=== PATIENT | male | born 1940 | race Caucasian/White ===

== ENCOUNTER 2019-02-18 21:40 | Inpatient (IN) ==
[2019-02-18] MEDS ORDERED: ACETAMINOPHEN 1,000 MG/100 ML VIAL IV STA (22:25)
[2019-02-18 22:58] LABS: Basophils # (auto) 0.04 K/uL (0-0.2); Basophils % (auto) 0.4 %; Eosinophils % (auto) 1.9 %; Hematocrit (blood only) 23.6 % (42-52); Immature Granulocytes # (auto) 0.09 K/uL (0.00-0.02); Immature Granulocytes % (auto) 0.9 %; Lymphocytes # (auto) 0.45 K/uL (1.2-3.4); Lymphocytes % (auto) 4.4 %; Mean Corpuscular Hgb Conc 33.9 g/dL (32-36); Mean Corpuscular Volume 84.6 fL (80-100); Mean Platelet Volume 10.3 fL (7.4-10.4); Monocytes # (auto) 1.68 K/uL (0.11-0.59); Monocytes % (auto) 16.3 %; Neutrophils # (auto) 7.84 K/uL (1.4-6.5); Neutrophils % (auto) 76.1 %; Platelet Count 230 K/uL (130-400); RDW Coefficient of Variation 15.3 % (11.5-14.5); RDW Standard Deviation 46.7 fL (36.4-46.3); Red Blood Count 2.79 M/uL (4.7-6.1)
[2019-02-18 23:08] LABS: INR 1.1 (0.9-1.1); Prothrombin Time 11.2 Seconds (9.0-12.0)
[2019-02-18 23:21] LABS: Albumin Globulin Ratio 0.6 (0.9-2); Albumin Level 2.4 gm/dl (3.4-5.0); BUN Creatinine Ratio 9.5 (10-20); Bilirubin,Total 0.4 mg/dl (0.2-1); Calcium 8.6 mg/dl (8.5-10.1); Creatinine Clr Calc Pharmacy 19.5 ml/min; Est GFR (African American) 25.2; Est GFR (Non-African American) 21.8; Globulin 4.1 gm/dl (2.5-4.0); Magnesium 2.2 mg/dl (1.8-2.4); Phosphorus 2.7 mg/dl (2.5-4.9); Total Protein 6.5 gm/dl (6.4-8.2)
[2019-02-18] MEDS ORDERED: MoRPHine SULFATE 10 MG/ML CARP/VIAL IV STA (23:22)
[2019-02-18 23:28] LABS: Troponin I 0.209 ng/ml (0-0.045)
--- NOTE | 2019-02-18 23:46 | Emergency Department Note ---
Entered by Rae Love acting as a scribe for Ash Borja MD History of Present Illness General Chief complaint: Pain (Generalized) Stated complaint: PAIN Time Seen by Provider: 02/18/19 22:02 Source: patient Limitations: no limitations History of Present Illness Onset (ago): week(s) Location: back (right-sided) Pain Consistency: + other (worsening) Exacerbated By: + movement Associated symptoms: + denies other symptoms (congestion); no cough and no fever/chills The patient is a 78 year old male who presents to the ED complaining of right- sided back pain that began a few weeks ago. He reports that the pain worsened today. The patient denies any current pain. He denies any fevers/chills, cough, and congestions. The patient states that movement worsens his pain. The patient reports that he had dialysis this morning, and he still urinated normally today. He notes that he normally still urinates daily. The patient reports a history of CHF and left knee surgery. Home Medications Home Medications Medication Instructions Recorded Confirmed Type amlodipine [Norvasc] 10 mg PO DAILY 02/18/19 02/18/19 History aspirin 81 mg PO DAILY 02/18/19 02/18/19 History carvedilol 25 mg PO BID 02/18/19 02/18/19 History docusate sodium [Colace] 100 mg PO BID 02/18/19 02/18/19 History hydralazine 100 mg PO TID 02/18/19 02/18/19 History isosorbide mononitrate 60 mg PO DAILY 02/18/19 02/19/19 History lidocaine [Lidocaine Pain Relief] 4 % TOPICAL DAILY 02/18/19 02/19/19 History magnesium 400 mg PO DAILY 02/18/19 02/19/19 History morphine 10 mg PO Q4 PRN 02/18/19 02/19/19 History acetaminophen 650 mg PO Q6H PRN 02/19/19 02/19/19 History atorvastatin [Lipitor] 40 mg PO HS 02/19/19 02/19/19 History hydrocodone-acetaminophen 1 tab PO Q4 PRN 02/19/19 02/19/19 History hydrocodone-acetaminophen 2 tab PO Q4 PRN 02/19/19 02/19/19 History hydrocodone-acetaminophen 2 tab PO Q4 PRN 02/19/19 02/19/19 History metolazone 5 mg PO DAILY 02/19/19 02/19/19 History omeprazole 20 mg PO DAILY 02/19/19 02/19/19 History ondansetron HCl 4 mg PO Q6 PRN 02/19/19 02/19/19 History polyethylene glycol 3350 [Miralax] 17 g PO DAILY 02/19/19 02/19/19 History prazosin 4 mg PO HS 02/19/19 02/19/19 History prednisone 10 mg PO UD 02/19/19 02/19/19 History temazepam 7.5 mg PO HS PRN 02/19/19 02/19/19 History terazosin 4 mg PO HS 02/19/19 02/19/19 History torsemide 100 mg PO BID 02/19/19 02/19/19 History tramadol 25 mg PO Q8 PRN 02/19/19 02/19/19 History Allergies Allergy/AdvReac Type Severity Reaction Status Date / Time No Known Allergies Allergy Unverified 02/19/19 00:57 Past Med/Surg History Medical History CHF (congestive heart failure) Surgical History H/O left knee surgery Family History Other Family history non-contributory Social History Preferred Language: Urdu Communication Ability: Effective Nanny/Household Manager Required: No Beliefs That Will Affect Care: None Current Living Situation: Spouse Other Information That Helps Us Care for You: No Feels Safe at Home: Yes Safety Concerns: Feels Safe At This Time Smoking Status: Never smoker Hx Alcohol Use: Yes Alcohol type: beer Hx Substance Use: No Review of Systems See HPI for pertinent positives & negatives. and A total of 10 systems reviewed and were otherwise negative Physical Exam Vital Signs Vital Signs - 24 hr 02/18/19 21:57 02/18/19 23:30 02/19/19 01:50 Temperature 37.0 C Temperature Source Oral Sepsis Recent Fever Within 48 Hours No Sepsis Action Taken by Nursing No Action Required Pulse Rate 60 Pulse Rate [Apical] 61 59 L Respiratory Rate 19 16 16 Respiratory Effort / Characteristics Non-Labored Non-Labored Spontaneous Non-Labored Spontaneous Respiratory Depth Normal Normal Normal Blood Pressure 141/68 H Blood Pressure [Right Arm] 131/83 144/66 H Blood Pressure Mean 92 Blood Pressure Mean [Right Arm] 99 92 Pulse Oximetry 92 92 93 Oxygen Delivery Method Room Air Nasal Cannula Nasal Cannula Oxygen Flow Rate 2 4 GENERAL: Awake, alert, cachectic-appearing, in no distress. Chronically ill- appearing. HENT: Normocephalic, atraumatic. Oropharynx with dry mucous membranes and otherwise unremarkable. EYES: Normal conjunctiva. Sclera non-icteric. NECK: Supple. No nuchal rigidity. FROM. No JVD. RESPIRATORY: CTAB CARDIAC: Regular rate, normal rhythm. Extremities warm and well perfused. Pulses equal. ABDOMEN: Soft, non-distended. No tenderness to palpation. No rebound or guarding. No masses. RECTAL: Deferred. MUSCULOSKELETAL: Chest examination reveals no tenderness. The back is symmetrical on inspection without obvious abnormality. There is no CVA tenderness to palpation. No joint edema. LOWER EXTREMITIES: Calves are equal size bilaterally and non-tender. No edema. No discoloration. NEURO: Normal sensorium. No sensory or motor deficits noted. Generalized weakness with strength 4/5 and SILT x 4 extremities. DTRs wnl. No clonus. SKIN: No rash or jaundice noted. Course 2221: The patient was evaluated in room A02. A complete history and physical exam was performed. 2319: The patient complained of excruciating pain. 2338: I updated the family on the results. 0013: I spoke with Dr. Martinez, [facility] hospitalist, about the patients case. He will further evaluate the patient. Consultations Consultation #1: I spoke with Dr. Martinez, [facility] hospitalist, about the patients case. He will further evaluate the patient. Time: 00:13 Administered Medications Hydrocodone Bitart/Acetaminophen (Owen 10/325) 1 tab PO Q4 KIM Stop: 03/05/19 04:12 Last Admin: 02/19/19 04:56 Dose: 1 tab Documented by: [id number] Discontinued Medications Acetaminophen (Ofirmev) 1,000 mg in 100 mls @ 400 mls/hr IV NOW STA Stop: 02/18/19 22:39 Last Infusion: 02/18/19 23:32 Dose: 0 mls/hr Documented by: [id number] Admin: 02/18/19 23:06 Dose: 400 mls/hr Documented by: [id number] Morphine Sulfate (Morphine Sulfate) 6 mg IV NOW STA Stop: 02/18/19 23:23 Last Admin: 02/18/19 23:30 Dose: 6 mg Documented by: [id number] Medical Decision Making Differential Diagnosis Differential includes acute coronary syndrome, myocardial infarction, CVA, TIA, anemia, infection, pneumonia, UTI, pyelonephritis, poor nutrition, dehydration, electrolyte disturbance,hypoglycemia. Medical Records Attestation: I reviewed the patient's medical records. Home Medications Current Medication List: was personally reviewed by me Laboratory Data Attestation: I reviewed the patient's lab results. Result diagrams: 02/18/19 22:49 02/18/19 22:49 Lab Results 02/18/19 02/18/19 02/18/19 Range/Units 22:49 22:49 22:49 WBC 10.30 (4.8-10.8) K/uL RBC 2.79 L (4.7-6.1) M/uL Hgb 8.0 L (14.0-18.0) g/dL Hct 23.6 L (42-52) % MCV 84.6 (80-100) fL MCH 28.7 (25-34) pg MCHC 33.9 (32-36) g/dL RDW Std Deviation 46.7 H (36.4-46.3) fL RDW Coeff of Fredis 15.3 H (11.5-14.5) % Plt Count 230 (130-400) K/uL MPV 10.3 (7.4-10.4) fL Immature Gran % (Auto) 0.9 % Neut % (Auto) 76.1 % Lymph % (Auto) 4.4 % [place] % (Auto) 16.3 % Eos % (Auto) 1.9 % Baso % (Auto) 0.4 % Immature Gran # (Auto) 0.09 H (0.00-0.02) K/uL Neut # (Auto) 7.84 H (1.4-6.5) K/uL Lymph # (Auto) 0.45 L (1.2-3.4) K/uL [place]lands # (Auto) 1.68 H (0.11-0.59) K/uL Eos # (Auto) 0.20 (0-0.5) K/uL Baso # (Auto) 0.04 (0-0.2) K/uL PT 11.2 (9.0-12.0) Seconds INR 1.1 (0.9-1.1) Sodium 128 L (136-145) mmol/L Potassium 4.0 (3.5-5.1) mmol/L Chloride 92 L (98-107) mmol/L Carbon Dioxide 27 (21-32) mmol/L Anion Gap 9.0 (3-11) BUN 26 H (7-18) mg/dl Creatinine 2.70 H (0.6-1.4) mg/dl Est Cr Clr Drug Dosing 19.5 ml/min Est GFR ( Amer) 25.2 Est GFR (Non-Af Amer) 21.8 BUN/Creatinine Ratio 9.5 L (10-20) Glucose 142 H (70-99) mg/dl Calcium 8.6 (8.5-10.1) mg/dl Phosphorus 2.7 (2.5-4.9) mg/dl Magnesium 2.2 (1.8-2.4) mg/dl Total Bilirubin 0.4 (0.2-1) mg/dl AST 83 H (15-37) U/L ALT 28 (12-78) U/L Alkaline Phosphatase 70 (45-117) U/L Troponin I 0.209 H* (0-0.045) ng/ml Total Protein 6.5 (6.4-8.2) gm/dl Albumin 2.4 L (3.4-5.0) gm/dl Globulin 4.1 H (2.5-4.0) gm/dl Albumin/Globulin Ratio 0.6 L (0.9-2) Lipase 288 (73-393) U/L Imaging Data Radiologist's Impression: Radiology results as stated below per my review and the radiologist's interpretation: STATRAD: Preliminary Findings Only See Final Report For Complete Findings CT ABDOMEN & PELVIS Without Contrast: Bilateral left greater than right pleural effusions. Adjacent atelectasis. Consolidation in the right lower lobe. Prior cholecystectomy. Small hiatal hernia. 4.7 cm left renal cyst. Bilateral renal atrophy. Nonspecific subcentimeter hyperdensity in the right kidney No evidence of appendicitis. Mildly enlarged prostate gland with coarse calcification. No evidence of bowel obstruction. Moderate amount of gas throughout the colon. Multilevel lumbar spondylosis. Small ventral abdominal wall hernia containing a portion of colon. No evidence of wall thickening or obstruction. Radiologist: Jasper Beasley DO Study ready at 23:23 and initial results transmitted at 23:32 ---- STATRAD Preliminary Findings Only See Final Report For Complete Findings CT CHEST Without Contrast: Mediastinal and hilar adenopathy. Mild cardiomegaly. Aortic valve replacement and moderate coronary artery calcifications. Partially imaged cardiac pacer leads. Bilateral left greater than right pleural effusions. Multifocal consolidations in the right lung with nodular pleural thickening along the right lateral fissure and right major fissure. Malignancy not exclude d. Follow-up PET/CT may be helpful if clinically warranted. Fluid in the distal esophagus could be related to reflux. Osteolytic lesion in the T11 vertebral body, and potentially the T7 vertebral paul dy. Concerning for metastatic disease. Radiologist: Jasper Beasley DO Study ready at 23:26 and initial results transmitted at 23:40 ECG Data Attestation: I personally reviewed and interpreted this ECG as follows: Indication: back/shoulder pain Rate (beats per minute): 60 Rhythm: other (paced rhythm) Findings: no acute ischemic change and no ectopy Blood Pressure Blood Pressure Findings: Elevated blood pressure Blood Pressure Disposition: further management by hospitalist MARTHA Tarango The patient is a pleasant 78 y/o gentleman with a pmhx of CKD with recent ESRD on HD for past month, HTN, HLD, CHF/CAD s/p AICD , recent prolonged admission at [facility] found to have lytic osseous lesions suspicious for malignancy but with inconclusive biopsies who presents to the emergency department from [facility] with persistence of chronic pain and weakness per HPI. Per report patient has outpatient appointment with oncology this week. I received call from Dr. Chavez at [facility] in [place] who gave report on the patient's transfer to [facility] and that the patient's family requested that he not go to [facility] as they were not happy with the patient's management there. On arrival the patient is chronically ill appearing but in NAD, AFVSS. P atient initially denied any pain. EKG demonstrates paced rhythm. WBC wnl. H/H 8.0/23.6 without prior values for comparison. Sodium 128. Cr 2.7 in the setting of patient's ESRD, having had HD today. Troponin 0.209 without prior values for comparison and in the setting of patient's ESRD. CT chest and abdomen/pelvis negative for acute findings and otherwise demonstrates previously identified lytic lesions of T11 and T7 and chronic bilateral pleural effusions. Family eventually arrived at the bedside and explained their concern that the patient's pain and weakness have not been treated/managed well for past month and while they report that today was the best day he has had in weeks after he was given additional narcotics at his SNF, however they still insist that he his not being managed well at his current SNF and wanted him brought to [facility] to be "stabilized" and figure out what is causing his pain and get it under control, improve his appetite and initiate a treatment plan for his suspected metastatic disease. Case d/w [place]. Martinez, [facility] [place], who will evaluate the patient for admission. Impression & Plan Metastatic disease Discharge Plan Visit Data *Final* Discharge Date/Time: 02/19/19 03:47 Chief Complaint: Pain (Generalized) Stated Complaint: PAIN ED Provider: Ash Borja Discharge Problem: Metastatic disease Patient Disposition: Admitted As Inpatient Discharge Instructions Interventions: ED Discharge Assessment Last Done: 02/19/19 03:47 The scribe's documentation has been prepared under my direction and personally reviewed by me in its entirety. I confirm that the note above accurately reflects all work, treatment, procedures, and medical decision making performed by me.
[2019-02-19] MEDS ORDERED: HYDROCODONE/ACETAMOPHEN 5/325MG TAB PO PRN (04:13)
[2019-02-19] MEDS ORDERED: POLYETHYLENE (MIRALAX) 17 GM PACK PO PRN (04:13)
[2019-02-19] MEDS ORDERED: MoRPHine SULFATE 10 MG/0.5 ML UDP PO PRN (04:13)
[2019-02-19] MEDS ORDERED: ACETAMINOPHEN 325 MG TAB PO PRN (04:13)
[2019-02-19] MEDS ORDERED: TEMAZEPAM 7.5 MG CAPSULE PO PRN (04:13)
[2019-02-19] MEDS: HYDROCODONE/ACETAMINOPHEN 10/325 TAB PO SCH ×3 (04:56→12:44)
--- NOTE | 2019-02-19 06:03 | History & Physical Report ---
Date of Service February 19, 2019 Assessment & Plan (1) Metastatic disease: Metastatic disease/osteolytic lesions due to metastasis of unknown primary site- Patient and family here for second opinion regarding determination of source of metastatic disease. They have been told he has bone cancer, but studies performed at [facility] had been inconclusive. Consult hematology oncology for their opinion. 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 Duo nebs every 2 hours as needed Present on Admission?: Yes (4) Elevated troponin I level: Elevated troponin/CAD/hypertension/history AVR- Troponin is mildly elevated, likely secondary to supply demand mismatch. Follow serial troponins. Change amlodipine from 10 mg p.o. daily to 5 mg p.o. twice daily. Decrease carvedilol from 25 mg p.o. twice daily to 12.5 mg p.o. twice daily. Continue isosorbide mononitrate 60 mg p.o. daily. Decrease hydralazine 400 mg p.o. 3 times daily to 50 mg p.o. 3 times daily Hold metolazone. Present on Admission?: Yes (5) CAD (coronary artery disease): See above Present on Admission?: Yes (6) Hypertension: See above Present on Admission?: Yes (7) Hyperlipidemia: Atorvastatin 40 mg p.o. bedtime Present on Admission?: Yes (8) Pain of metastatic malignancy: Adjust pain medications: Change hydrocodone from PRN to 10/325 1 p.o. every 4 hours standing order. Morphine sulfate available IV as needed breakthrough Present on Admission?: Yes (9) Anemia in chronic kidney disease, on chronic dialysis: No baseline for comparison. Repeat laboratories in a.m. Present on Admission?: Yes (10) ESRD on hemodialysis: Undergo dialysis on Wednesday, and Wednesday. Consult his higher level teaching assistant Dr. Hawkins Present on Admission?: Yes (11) GERD (gastroesophageal reflux disease): Omeprazole 20 mg p.o. daily Present on Admission?: Yes (12) Bilateral pleural effusion: Question association with infection plus minus association with hypoalbuminemia. We will consult pulmonology/thoracic surgery. Present on Admission?: Yes (13) Hyponatremia: Follow with dialysis. Present on Admission?: Yes (14) S/P AVR (aortic valve replacement): Monitor for possible endocarditis Present on Admission?: Yes History of Present Illness Chief Complaint: The patient is brought to the emergency department by family due to concerns regarding progressive cancer pain, and their inability to get a principal diagnosis, and they are interested in getting a second opinion Primary Care Provider: NO PCP The patient is a 78-year-old male who family reports he has spent most of the past month at [facility] due to issues related to with your told his bone cancer, but appears to not have been able to determine a primary. He is brought into the emergency department on Wednesday evening, as his pain is worsening considerably. He has recently been gone undergoing dialysis, follows with Dr. Hawkins at [facility] on Wednesday, and Wednesday, and reported just had dialysis earlier in the day today. The patient reports that as long as he stays still he does not have pain, but any movement causes significant worsening of pain throughout his body. Allergies Allergy/AdvReac Type Severity Reaction Status Date / Time No Known Allergies Allergy Unverified 02/19/19 00:57 Home Medications Home Medications Medication Instructions Recorded Confirmed Type amlodipine [Norvasc] 10 mg PO DAILY 02/18/19 02/18/19 History aspirin 81 mg PO DAILY 02/18/19 02/18/19 History carvedilol 25 mg PO BID 02/18/19 02/18/19 History docusate sodium [Colace] 100 mg PO BID 02/18/19 02/18/19 History hydralazine 100 mg PO TID 02/18/19 02/18/19 History isosorbide mononitrate 60 mg PO DAILY 02/18/19 02/19/19 History lidocaine [Lidocaine Pain Relief] 4 % TOPICAL DAILY 02/18/19 02/19/19 History magnesium 400 mg PO DAILY 02/18/19 02/19/19 History morphine 10 mg PO Q4 PRN 02/18/19 02/19/19 History acetaminophen 650 mg PO Q6H PRN 02/19/19 02/19/19 History atorvastatin [Lipitor] 40 mg PO HS 02/19/19 02/19/19 History hydrocodone-acetaminophen 1 tab PO Q4 PRN 02/19/19 02/19/19 History hydrocodone-acetaminophen 2 tab PO Q4 PRN 02/19/19 02/19/19 History hydrocodone-acetaminophen 2 tab PO Q4 PRN 02/19/19 02/19/19 History metolazone 5 mg PO DAILY 02/19/19 02/19/19 History omeprazole 20 mg PO DAILY 02/19/19 02/19/19 History ondansetron HCl 4 mg PO Q6 PRN 02/19/19 02/19/19 History polyethylene glycol 3350 [Miralax] 17 g PO DAILY 02/19/19 02/19/19 History prazosin 4 mg PO HS 02/19/19 02/19/19 History prednisone 10 mg PO UD 02/19/19 02/19/19 History temazepam 7.5 mg PO HS PRN 02/19/19 02/19/19 History terazosin 4 mg PO HS 02/19/19 02/19/19 History torsemide 100 mg PO BID 02/19/19 02/19/19 History tramadol 25 mg PO Q8 PRN 02/19/19 02/19/19 History Past Med/Surg History Medical History CHF (congestive heart failure) Surgical History H/O left knee surgery Family History Other Family history non-contributory Social History Preferred Language: Frisian Communication Ability: Effective Data Solutions Architect Required: No Beliefs That Will Affect Care: None Current Living Situation: Spouse Other Information That Helps Us Care for You: No Feels Safe at Home: Yes Safety Concerns: Feels Safe At This Time Smoking Status: Never smoker Hx Alcohol Use: Yes Alcohol type: beer Hx Substance Use: No Review of Systems Review of Systems: The patient denies chest pain, palpitations, cough, lower extremity swelling, sore throat, fevers, chills, sweats, weight change, fatigue, nausea, vomiting, diarrhea , constipation, blood in urine or stool, dysuria, urinary frequency or urgency, lightheadedness, dizziness, headache, memory loss, loss of consciousness, rash, abnormal bruising or bleeding, focal weakness, or night sweats. The review of systems is otherwise negative other than for that already noted above, and at least 10 systems have been reviewed. Physical Exam Physical Exam: The patient is awake, appears very fatigued, periodically staring off into space, normocephalic and atraumatic, lying in bed and in no acute distress. HEENT--PERRL, EOMI, mucous membranes and oropharynx dry. Neck--supple. No JVD. No bruits. Thyroid normal, trachea midline, no adenopathy. Heart--normal S1 and S2. No murmurs, rubs or gallops. Lungs--coarse breath sounds right base. No respiratory distress, no accessory muscle use. Abdomen--normal bowel sounds and soft. Nontender. Nondistended. Extremities--no cyanosis or clubbing. No edema. There are good distal pulses b/l. Dermatologic--normal skin turgor, normal color, no abnormal lymph nodes, no rash. Neurologic--cranial nerves II through XII grossly intact. Rheumatologic--limited due to pain Psychiatric--lethargic Results & Data Vital Signs (Past 12 Hours) Vital Signs Temp Pulse Pulse Pulse Resp BP BP 02/19/19 04:16 98.4 F 60 18 153/71 H 02/19/19 03:47 60 16 146/71 H 02/19/19 01:50 59 L 16 02/18/19 23:30 61 16 02/18/19 21:57 98.6 F 60 19 141/68 H BP Pulse Ox 02/19/19 04:16 91 02/19/19 03:47 95 02/19/19 01:50 144/66 H 93 02/18/19 23:30 131/83 92 02/18/19 21:57 92 Laboratory Results Laboratory Results WBC 10.30 K/uL (4.8-10.8) 02/18/19 22:49 RBC 2.79 M/uL (4.7-6.1) L 02/18/19 22:49 Hgb 8.0 g/dL (14.0-18.0) L 02/18/19 22:49 Hct 23.6 % (42-52) L 02/18/19 22:49 MCV 84.6 fL (80-100) 02/18/19 22:49 MCH 28.7 pg (25-34) 02/18/19 22:49 MCHC 33.9 g/dL (32-36) 02/18/19 22:49 RDW Std Deviation 46.7 fL (36.4-46.3) H 02/18/19 22:49 RDW Coeff of Fredis 15.3 % (11.5-14.5) H 02/18/19 22:49 Plt Count 230 K/uL (130-400) 02/18/19 22:49 MPV 10.3 fL (7.4-10.4) 02/18/19 22:49 Immature Gran % (Auto) 0.9 % 02/18/19 22:49 Neut % (Auto) 76.1 % 02/18/19 22:49 Lymph % (Auto) 4.4 % 02/18/19 22:49 [place] % (Auto) 16.3 % 02/18/19 22:49 Eos % (Auto) 1.9 % 02/18/19 22:49 Baso % (Auto) 0.4 % 02/18/19 22:49 Immature Gran # (Auto) 0.09 K/uL (0.00-0.02) H 02/18/19 22:49 Neut # (Auto) 7.84 K/uL (1.4-6.5) H 02/18/19 22:49 Lymph # (Auto) 0.45 K/uL (1.2-3.4) L 02/18/19 22:49 [place] # (Auto) 1.68 K/uL (0.11-0.59) H 02/18/19 22:49 Eos # (Auto) 0.20 K/uL (0-0.5) 02/18/19 22:49 Baso # (Auto) 0.04 K/uL (0-0.2) 02/18/19 22:49 PT 11.2 Seconds (9.0-12.0) 02/18/19 22:49 INR 1.1 (0.9-1.1) 02/18/19 22:49 Sodium 128 mmol/L (136-145) L 02/18/19 22:49 Potassium 4.0 mmol/L (3.5-5.1) 02/18/19 22:49 Chloride 92 mmol/L (98-107) L 02/18/19 22:49 Carbon Dioxide 27 mmol/L (21-32) 02/18/19 22:49 9.0 (3-11) 02/18/19 22:49 BUN 26 mg/dl (7-18) H 02/18/19 22:49 2.70 mg/dl (0.6-1.4) H 02/18/19 22:49 Est Cr Clr Drug Dosing 19.5 ml/min 02/18/19 22:49 Est GFR ( Amer) 25.2 02/18/19 22:49 Est GFR (Non-Af Amer) 21.8 02/18/19 22:49 9.5 (10-20) L 02/18/19 22:49 Glucose 142 mg/dl (70-99) H 02/18/19 22:49 Calcium 8.6 mg/dl (8.5-10.1) 02/18/19 22:49 Phosphorus 2.7 mg/dl (2.5-4.9) 02/18/19 22:49 Magnesium 2.2 mg/dl (1.8-2.4) 02/18/19 22:49 0.4 mg/dl (0.2-1) 02/18/19 22:49 AST 83 U/L (15-37) H 02/18/19 22:49 ALT 28 U/L (12-78) 02/18/19 22:49 70 U/L (45-117) 02/18/19 22:49 0.189 ng/ml (0-0.045) H* 02/19/19 03:50 6.5 gm/dl (6.4-8.2) 02/18/19 22:49 2.4 gm/dl (3.4-5.0) L 02/18/19 22:49 4.1 gm/dl (2.5-4.0) H 02/18/19 22:49 0.6 (0.9-2) L 02/18/19 22:49 288 U/L (73-393) 02/18/19 22:49 Diagnostic Findings [facility] Patient: CONRADO RUDD (Male) Age: 78 MR #: [id number] Status: ER Date: 02/18/19 23:21 Slices: [phone] History: questionable mets generalized pain, appendix present Priors: Tech: Alisa Stauffer @ [phone] Exams: CT ABDOMEN & PELVIS Without Contrast Accession Numbers: [id number] Preliminary Findings Only See Final Report For Complete Findings CT ABDOMEN & PELVIS Without Contrast: Bilateral left greater than right pleural effusions. Adjacent atelectasis. Consolidation in the right lower lobe. Prior cholecystectomy. Small hiatal hernia. 4.7 cm left renal cyst. Bilateral renal atrophy. Nonspecific subcentimeter hyperdensity in the right kidney No evidence of appendicitis. Mildly enlarged prostate gland with coarse calcification. No evidence of bowel obstruction. Moderate amount of gas throughout the colon. Multilevel lumbar spondylosis. Small ventral abdominal wall hernia containing a portion of colon. No evidence of wall thickening or obstruction. Radiologist: Jasper Beasley DO Study ready at 23:23 and initial results transmitted at 23:32 *This report constitutes a preliminary interpretation only. Non-acute findings felt to be unrelated to the clinical presentation may not be discussed in this report. The study will be interpreted and a final report will be generated by the local Radiologist the following shift. To reach the hospital radiology department call [phone]. If a discrepancy is found between the preliminary and final interpretations of this study, please notify us via our Client Portal at [email or web address], under [email or web address] Exams. You can also fax this report with a description of the discrepancy, or include the final report, to our daytime fax number [phone]. If faxing, please indicate the severity of discrepancy using one of the following categories: [ ] 1 - Agree/Informational [ ] 2 - Unlikely to Affect Management [ ] 3 - Possible Eventual Change of Management [ ] 4 - Probable Immediate Change of Management For all other patient related information, please fax us at [phone]. [facility] Patient: CONRADO RUDD (Male) Age: 78 MR #: [id number] Status: ER Date: 02/18/19 23:22 Slices: [phone] History: questionable mets generalized pain Priors: Tech: Alisa Stauffer @ [phone] Exams: CT CHEST Without Contrast Accession Numbers: [id number] Preliminary Findings Only See Final Report For Complete Findings CT CHEST Without Contrast: Mediastinal and hilar adenopathy. Mild cardiomegaly. Aortic valve replacement and moderate coronary artery calcifications. Partially imaged cardiac pacer leads. Bilateral left greater than right pleural effusions. Multifocal consolidations in the right lung with nodular pleural thickening along the right lateral fissure and right major fissure. Malignancy not excluded. Follow-up PET/CT may be helpful if clinically warranted. Fluid in the distal esophagus could be related to reflux. Osteolytic lesion in the T11 vertebral body, and potentially the T7 vertebral body. Concerning for metastatic disease. Radiologist: Jasper Beasley DO Study ready at 23:26 and initial results transmitted at 23:40 *This report constitutes a preliminary interpretation only. Non-acute findings felt to be unrelated to the clinical presentation may not be discussed in this report. The study will be interpreted and a final report will be generated by the local Radiologist the following shift. To reach the hospital radiology department call [phone]. If a discrepancy is found between the preliminary and final interpretations of this study, please notify us via our Client Portal at [email or web address], under QA Exams. You can also fax this report with a description of the discrepancy, or include the final report, to our daytime fax number [phone]. If faxing, please indicate the severity of discrepancy using one of the following categories: [ ] 1 - Agree/Informational [ ] 2 - Unlikely to Affect Management [ ] 3 - Possible Eventual Change of Management [ ] 4 - Probable Immediate Change of Management For all other patient related information, please fax us at [phone]. Code Status & VTE Plan Code Status Full code VTE Prophylaxis Plan VTE Prophylaxis will be ordered: Yes
[2019-02-19] MEDS ORDERED: PIPERACILL/TAZOBAC CONSULT ACTIVE PRN (06:19)
[2019-02-19] MEDS ORDERED: VANCOMYCIN CONSULT ACTIVE PRN (06:19)
[2019-02-19] MEDS ORDERED: ALBUT/IPRATROP 3MG/0.5MG NEB 3 ML VIAL NEB PRN (06:24)
[2019-02-19] MEDS ORDERED: PIPERACILLIN/TAZOBACTAM 3.375 GM in DEXTROSE 5% 100 ML IV ONE (06:30)
[2019-02-19] MEDS ORDERED: VANCOMYCIN HCL 1,250 MG in SODIUM CHLORIDE 0.9% 250 ML IV SCH (06:30)
[2019-02-19] MEDS: LIDOCAINE 5% 1 PATCH TD SCH (07:29)
[2019-02-19] MEDS: PANTOprazole 40 MG TAB PO SCH (07:34)
[2019-02-19] MEDS: HydrALAZINE TAB 50 MG TAB PO SCH ×3 (07:34→21:47)
[2019-02-19] MEDS: DOCUSATE SODIUM 100 MG CAP PO SCH ×2 (07:34→21:47)
[2019-02-19] MEDS: TORSEMIDE 100 MG TAB PO SCH ×2 (07:34→17:41)
[2019-02-19] MEDS: CARVEDILOL 12.5 MG TAB PO SCH ×2 (07:34→21:48)
[2019-02-19] MEDS: ISOSORBIDE MONO EXTENDED REL 60 MG TABCR PO SCH (07:34)
[2019-02-19] MEDS: ASPIRIN 81 MG CHEW PO SCH (07:34)
[2019-02-19] MEDS: AMLODIPINE BESYLATE 5 MG TAB PO SCH ×2 (07:35→21:49)
[2019-02-19] MEDS: MAGNESIUM OXIDE 400 MG TAB PO SCH (07:35)
--- NOTE | 2019-02-19 07:37 | CT Scan Report ---
CT SCAN OF THE CHEST, ABDOMEN, AND PELVIS WITHOUT IV CONTRAST CLINICAL HISTORY: Atypical chest pain. Generalized abdominal pain. Back pain. Lower extremity weaknes s. Clinical concern for metastatic disease. COMPARISON STUDY: Chest x-ray dated 02/18/2019. TECHNIQUE: Unenhanced CT scan of the chest, abdomen, and pelvis was performed from the thoracic inlet to the proximal femora. Images are reviewed in the axial, sagittal, and coronal planes. IV contrast was not administered as per the referring clinician. Note that the examination was performed in signi ficantly suboptimal fashion without IV contrast. A dose lowering technique was utilized adhering to the principles of ALARA. CT DOSE: 636.57 mGy.cm FINDINGS: CHEST: Thyroid: Imaged portions of the thyroid gland are normal in size and attenuation. Thoracic aorta: There is mild atherosclerotic calcification of the thoracic aorta, which is normal in caliber and demonstrates standard 3-vessel arch anatomy. Heart: A right internal jugular central venous catheter is in place. A 2-lead cardiac pacemaker is pr esent in the left chest wall. The heart is enlarged and without pericardial effusion. There is eviden ce of previous aortic valve surgery. The coronary arteries are calcified. Lungs and pleural spaces: The trachea and central airways are clear. There are small to moderate pleu ral effusions, left larger than right. Loculated fluid is seen along the right major fissure. Atelect asis is noted at the left lung base. There is multifocal patchy airspace consolidation identified in the right upper, right middle, and right lower lobes. Intralobular septal thickening and nodularity i s seen throughout the right lower lobe. Mediastinum: There are numerous mildly enlarged mediastinal lymph nodes. Prevascular nodes measure up to 10 mm short axis. Precarinal nodes measure up to 16 mm in short axis, and peritracheal nodes yoana ure up to 11 mm in short axis. Erin: Not well assessed without IV contrast. Axillae: There is no axillary lymphadenopathy. Bony thorax: The skeletal structures are osteopenic. There is a large permeative lesion involving the body of T11 which extends into the posterior elements. A small osteolytic lesion is seen in the body of T7. No additional destructive lesion is identified in the bony thorax Soft tissues: Gynecomastia is noted. ABDOMEN AND PELVIS: Liver: The unenhanced liver is normal in size, contour, and attenuation. There is no intrahepatic or ductal dilatation. Gallbladder: Surgically absent noting clips in the gallbladder fossa. Spleen: Normal in size and attenuation. Pancreas: The unenhanced pancreas is moderately atrophic and grossly unremarkable. Adrenal glands: There are bilateral adrenal nodules which measure up to 1.9 cm. Kidneys: The unenhanced kidneys are atrophic and without hydronephrosis. No renal calculi are identif ied. A 5.6 cm cyst arises from the upper pole of the left kidney. Additional smaller cysts are sugges roby bilaterally. Subcentimeter hyperdense foci within both cysts likely represent complex/hyperdense cysts. Abdominal vasculature: The abdominal aorta is normal in course and caliber noting moderate to advance d atherosclerotic calcification. Stomach and bowel: There is a small hiatal hernia. The duodenum is normal in configuration. No bowel obstruction is seen. There is mild to moderate colonic diverticulosis without CT evidence of acute di verticulitis. The appendix is well-visualized and normal. Peritoneum: There is no intraperitoneal free air or abdominal ascites. There is a small fat-containin g umbilical hernia which contains a tiny portion of the colon. Lymphadenopathy: None. Pelvic viscera: The prostate gland is mildly enlarged and heterogeneous, measuring 4.8 cm in transver se diameter. There is median lobe hypertrophy. The bladder wall appears circumferentially thickened a nd trabeculated. There are tiny foci of intraluminal gas. Fluid versus an undescended testis is noted along the right inguinal canal. Skeletal structures: The skeletal structures are osteopenic. There is a large permeative lesion ident ified within the left femoral neck. Osteolytic lesion is suggested within the anterior right iliac wi ng on image #[id number]. IMPRESSION: 1. Suboptimal examination without IV contrast. 2. There are small to moderate pleural effusions, left larger than right. Loculated fluid is seen anderson ng the right major fissure. 3. There is multifocal patchy airspace consolidation throughout the right lung, greatest in the right lower lobe with associated intralobular septal thickening and nodularity. The appearance is typical for multifocal pneumonia. Given the additional findings below, superimposed/underlying pulmonary neop lasm would be impossible to exclude. 4. Mediastinal adenopathy. 5. There is evidence of multifocal osseous metastatic disease as above. 6. Large permeative lesions are seen involving the body of T11 and the left femoral neck. Note that b oth lesions place the patient at risk for pathologic fracture. 7. There are pathologically indeterminant bilateral adrenal nodules. 8. Mild to moderate colonic diverticulosis without CT evidence of acute diverticulitis. 9. There are small foci of gas within the bladder lumen which may be related to recent instrumentatio n. Correlate with clinical findings and urinalysis. 10. Cardiomegaly and cardiac pacemaker. 11. Fluid versus an undescended testis is seen in the right inguinal canal. Clinical correlation will be required. 12. Additional findings as above. Electronically signed by: Aaron Caraballo M.D. 02/19/2019 7:34 AM
--- NOTE | 2019-02-19 08:25 | Pharmacy Report ---
Pharmacy Abx Dose Short Note - Date of Service February 19, 2019 - Assessment & Plan Assessment Pharmacy consulted on 02/19/[address] Martinez to dose vancomycin and zosyn for treatment of pneumonia. 78 year old M admitted for pneumonia and worsening cancer pain. * Pt receives HD on Tu[facility] * MRSA nasal swab negative Plan Vancomycin * Loading dose of 1250mg (20 mg/kg) * Goal trough level for pneumonia : 15 to 20 mcg/mL * Random level ordered for: 02/20/19 with am labs Zosyn * 3.375gm x 1 then 3.375gm (extended interval) q12h for Crcl<20 ml/min /HD Pharmacy will continue to follow and will adjust dose/frequency as necessary. Thank you.
[2019-02-19] MEDS ORDERED: LIDOCAINE 4% TOP SCH (09:00)
--- NOTE | 2019-02-19 10:24 | Nephrology Consultation ---
Date of Consultation February 19, 2019 Assessment & Plan (1) ESRD on hemodialysis: Patient with ESRD on dialysis Wednesday. He has a right tunneled IJ catheter. Last dialysis was yesterday which was uneventful. His electrolytes are stable with no signs of volume overload. No indication for dialysis today. Next dialysis will be on Wednesday unless if patient develops urgent indication for dialysis. (2) Metastatic disease: Patient with metastatic bone disease of unknown primary. CT abdomen done yesterday also revealing osteolytic bone lesions. Patient is frustrated with the multiple diagnostic tests without finding the primary. He would like to speak to palliative care/hospice. He is considering hospice care. I have asked him to discuss with the and the children as well to make sure everyone is on board. Palliative care consult has been placed. At this point is not sure if he wants to continue dialysis but will discuss with his . If patient decides to continue dialysis even on a limited time basis, will provide dialysis support. (3) Hypertension: Blood pressure is slightly above target but acceptable. Blood pressure might also be elevated due to back pain. No changes in antihypertensives (4) Anemia in chronic kidney disease, on chronic dialysis: Hemoglobin is 8 today. Unable to give epogen due to active cancer (5) Pneumonia involving right lung: Patient is on Zosyn and vancomycin per primary team. Renally dose medications for GFR less than 25 mL/min. History of Present Illness Reason for Consultation: ESRD on dialysis complicated by back pain Requesting Physician: Gopi Martinez MD Attending Physician: Vidal Cabrera MD History of Present Illness This is a 78-year-old male with history of hypertension, hyperlipidemia, coronary disease and ESRD on dialysis Wednesday who was admitted on 02/18/2019 with severe back pain. He recently started dialysis at [facility]. Dialysis is going well. His last dialysis was on 02/18/2019 which was uneventful. Patient was recently found to have metastatic bone disease with unclear primary. He is following up with the oncologist in [place]. Yesterday patient developed severe back pain and presented here for second opinion regarding cancer primary. This morning he still reporting back pain. He denies shortness of breath or lower extremity swelling. He is also expressing concerns about multiple diagnostic tests without finding the primary source of the suspected cancer. Patient is even considering palliative care/hospice. Allergies Allergy/AdvReac Type Severity Reaction Status Date / Time No Known Allergies Allergy Unverified 02/19/19 00:57 Home Medications Home Medications Medication Instructions Recorded Confirmed Type amlodipine [Norvasc] 10 mg PO DAILY 02/18/19 02/18/19 History aspirin 81 mg PO DAILY 02/18/19 02/18/19 History carvedilol 25 mg PO BID 02/18/19 02/18/19 History docusate sodium [Colace] 100 mg PO BID 02/18/19 02/18/19 History hydralazine 100 mg PO TID 02/18/19 02/18/19 History isosorbide mononitrate 60 mg PO DAILY 02/18/19 02/19/19 History lidocaine [Lidocaine Pain Relief] 4 % TOPICAL DAILY 02/18/19 02/19/19 History magnesium 400 mg PO DAILY 02/18/19 02/19/19 History morphine 10 mg PO Q4 PRN 02/18/19 02/19/19 History acetaminophen 650 mg PO Q6H PRN 02/19/19 02/19/19 History atorvastatin [Lipitor] 40 mg PO HS 02/19/19 02/19/19 History hydrocodone-acetaminophen 1 tab PO Q4 PRN 02/19/19 02/19/19 History hydrocodone-acetaminophen 2 tab PO Q4 PRN 02/19/19 02/19/19 History hydrocodone-acetaminophen 2 tab PO Q4 PRN 02/19/19 02/19/19 History metolazone 5 mg PO DAILY 02/19/19 02/19/19 History omeprazole 20 mg PO DAILY 02/19/19 02/19/19 History ondansetron HCl 4 mg PO Q6 PRN 02/19/19 02/19/19 History polyethylene glycol 3350 [Miralax] 17 g PO DAILY 02/19/19 02/19/19 History prazosin 4 mg PO HS 02/19/19 02/19/19 History prednisone 10 mg PO UD 02/19/19 02/19/19 History temazepam 7.5 mg PO HS PRN 02/19/19 02/19/19 History terazosin 4 mg PO HS 02/19/19 02/19/19 History torsemide 100 mg PO BID 06/02/19 06/02/19 History tramadol 25 mg PO Q8 PRN 02/19/19 02/19/19 History Patient History Medical History CHF (congestive heart failure) Surgical History H/O left knee surgery Family History Other Family history non-contributory Social History Preferred Language: Jamaican Communication Ability: Effective 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 Beliefs That Will Affect Care: None Current Living Situation: Spouse Other Information That Helps Us Care for You: No Feels Safe at Home: Yes Safety Concerns: Feels Safe At This Time Smoking Status: Never smoker Hx Alcohol Use: Yes Alcohol type: beer Hx Substance Use: No Review of Systems Review of Systems: All systems reviewed & are unremarkable except as noted in HPI & below Physical Exam Physical Exam: General exam: Appears comfortable, no acute distress HEENT: Pupils are equal and reactive to light Neck: No JVD, neck is supple trachea is midline Respiratory system: Clear breath sounds bilaterally. Gastrointestinal: Abdomen is soft, non distended, non tender, bowel sounds are present CVS: Regular rate and rhythm. No murmurs, rubs or gallops Musculoskeletal: No joint or muscle tenderness Extremities: Non tender, no edema, peripheral pulses are present Neuro: Oriented, no tremors, no focal neurological deficits Skin: No rashes Access: Right tunneled IJ catheter Results & Data Vital Signs (Past 12 Hours) Vital Signs Temp Pulse Pulse Pulse Resp BP BP 02/19/19 07:33 36.3 C L 58 L 18 150/70 H 02/19/19 04:16 36.9 C 60 18 153/71 H 02/19/19 03:47 60 16 146/71 H 02/19/19 01:50 59 L 16 02/18/19 23:30 61 16 BP Pulse Ox 02/19/19 07:33 97 02/19/19 04:16 91 02/19/19 03:47 95 02/19/19 01:50 144/66 H 93 02/18/19 23:30 131/83 92 Laboratory Results Laboratory Results - last 24 hr 06/10/0802/18/19 02/18/19 22:49 22:49 22:49 WBC 10.30 RBC 2.79 L Hgb 8.0 L Hct 23.6 L MCV 84.6 MCH 28.7 MCHC 33.9 RDW Std Deviation 46.7 H RDW Coeff of Fredis 15.3 H Plt Count 230 MPV 10.3 Immature Gran % (Auto) 0.9 Neut % (Auto) 76.1 Lymph % (Auto) 4.4 [place] % (Auto) 16.3 Eos % (Auto) 1.9 Baso % (Auto) 0.4 Immature Gran # (Auto) 0.09 H Neut # (Auto) 7.84 H Lymph # (Auto) 0.45 L [place] # (Auto) 1.68 H Eos # (Auto) 0.20 Baso # (Auto) 0.04 PT 11.2 INR 1.1 Sodium 128 L Potassium 4.0 Chloride 92 L Carbon Dioxide 27 Anion Gap 9.0 BUN 26 H Creatinine 2.70 H Est Cr Clr Drug Dosing 19.5 Est GFR ( Amer) 25.2 Est GFR (Non-Af Amer) 21.8 BUN/Creatinine Ratio 9.5 L Glucose 142 H Calcium 8.6 Phosphorus 2.7 Magnesium 2.2 Total Bilirubin 0.4 AST 83 H ALT 28 Alkaline Phosphatase 70 Troponin I 0.209 H* Total Protein 6.5 Albumin 2.4 L Globulin 4.1 H Albumin/Globulin Ratio 0.6 L Lipase 288 Nasal Screen MRSA (PCR) 02/19/19 02/19/19 03:50 04:50 WBC RBC Hgb Hct MCV MCH MCHC RDW Std Deviation RDW Coeff of Fredis Plt Count MPV Immature Gran % (Auto) Neut % (Auto) Lymph % (Auto) [place] % (Auto) Eos % (Auto) Baso % (Auto) Immature Gran # (Auto) Neut # (Auto) Lymph # (Auto) [place] # (Auto) Eos # (Auto) Baso # (Auto) PT INR Sodium Potassium Chloride Carbon Dioxide Anion Gap BUN Creatinine Est Cr Clr Drug Dosing Est GFR ( Amer) Est GFR (Non-Af Amer) BUN/Creatinine Ratio Glucose Calcium Phosphorus Magnesium Total Bilirubin AST ALT Alkaline Phosphatase Troponin I 0.189 H* Total Protein Albumin Globulin Albumin/Globulin Ratio Lipase Nasal Screen MRSA (PCR) Negative
--- NOTE | 2019-02-19 10:41 | XRay Report ---
SINGLE VIEW CHEST CLINICAL HISTORY: Atypical chest pain. FINDINGS: 2 AP, portable, upright chest radiographs are obtained. No prior studies are available for comparison at the time of dictation. The examination is degraded by portable technique and patient ro tation. A 2-lead cardiac pacemaker is in place. A right internal jugular central venous catheter is n oted. The heart is enlarged and there is atherosclerotic calcification of the thoracic aorta. The pul monary vasculature is noncongested. There are small pleural effusions. Patchy airspace consolidation is seen in the right mid to lower lung and at the left lung base. No pneumothorax is seen. The skelet al structures are osteopenic. The bony thorax is grossly intact. Degenerative change is noted through out the thoracic spine. Cholecystectomy clips are noted in the right upper quadrant. IMPRESSION: 1. Cardiomegaly and cardiac pacemaker. There is no radiographic evidence of congestive failure. 2. There are layering pleural effusions. 3. There is airspace consolidation throughout the right mid to lower lung as well as at the left lung base. Correlate clinically for evidence of pneumonia. Radiographic follow-up to resolution is recomm ended. Electronically signed by: Aaron Caraballo M.D. 02/19/2019 10:39 AM
--- NOTE | 2019-02-19 13:33 | History & Physical Bridge Note ---
Date of Service February 19, 2019 History & Physical Bridge Note Patient seen and examined today. 78yo M w/ Stage IV cancer of unknown primary site admitted for pain control and second oncology opinion. - Discussed next steps in cancer work up as well as probable prognosis given his advanced cancer - Oncology consult pending - Entered consult for palliative care as patient is not sure what treatments he would want - Seen by nephrology - Will provide HD as the patient wants. Next planned HD is Wednesday. - Entered orthopedic spine consult as patient has a T11 lesion that could cause pathologic fracture - Bedrest until seen by orthopedics. (Discussed over the phone with orthopedics; no need for transfer at this time.)
[2019-02-19] MEDS: PIPERACILLIN/TAZOBACTAM 3.375 GM in DEXTROSE 5% 100 ML IV SCH (15:49)
--- NOTE | 2019-02-19 16:00 | Oncology Consultation ---
Date of Consultation February 19, 2019 Assessment & Plan (1) Osteolytic lesion due to metastasis with unknown primary site: His scans are highly concerning for a metastatic malignancy. Given the changes in his lungs, the adrenal lesions, and the bony disease, my first suspicion would be a lung cancer. His mild hyponatremia raises the possibility of small cell lung cancer with SIADH. His most pressing issue currently is his left femoral neck lesion. He is at high risk of a pathologic fracture, which would be devastating. This lesion needs to be stabilized as soon as possible. Orthopedic surgery will see him tomorrow to evaluate him for a fixation. During that surgery, they should be able to sample the mass and obtain a diagnosis for his cancer. If that is not adequate to obtain a diagnosis, we can refer him for a lung biopsy next. For now, I would manage his pain while we see to his valerie gnostic workup. Present on Admission?: Yes (2) Anemia in chronic kidney disease, on chronic dialysis: He is moderately anemic. I do not have any prior values to assess his baseline. He has ESRD and likely has a component of anemia of CKD. He also likely has a component of anemia of chronic disease related to his malignancy. He does not appear to be bleeding and his relative lack of symptoms argues that this anemia is chronic. I would order an anemia workup, including iron studies, ferritin, TSH, and vitamins, to make sure we aren't missing a reversible component to his anemia. Present on Admission?: Yes History of Present Illness Reason for Consultation: Radiographic evidence of metastatic malignancy Attending Physician: Vidal Cabrera MD History of Present Illness Mr. Dumont is a 78 year old man with a history of CAD s/p CABG, aortic valve repair, HTN, and hyperlipidemia. He also has a history of CKD and was started in the last 3 weeks on hemodialysis. He has been following with an oncologist in [place] due to radiographic evidence of a metastatic malignancy that was recently detected. He was admitted here yesterday due to intractable pain in his left hip. He is also interested in another opinion regarding his possible cancer. His acute symptoms started a few weeks ago. His primary complaint is pain in his left hip that prevents him from walking. He also has less intense pains elsewhere, including his mid-back. He denies any cough, shortness of breath, hemoptysis, headaches, or vision changes. In retrospect, he's been fatigued and losing weight for the better part of 6 months and is down close to 70 lb in that time. When prompted, he reports some constipation with occasional difficultly passing stool. He has never had a colonoscopy. He denies any hematochezia or melena. He is a never smoker. He served in the [employer] and denies any specific toxic exposures. He has numerous cutaneous changes, though none are new or enlarging. Allergies Allergy/AdvReac Type Severity Reaction Status Date / Time No Known Allergies Allergy Unverified 02/19/19 00:57 Home Medications Home Medications Medication Instructions Recorded Confirmed Type amlodipine [Norvasc] 10 mg PO DAILY 02/18/19 02/18/19 History aspirin 81 mg PO DAILY 02/18/19 02/18/19 History carvedilol 25 mg PO BID 02/18/19 02/18/19 History docusate sodium [Colace] 100 mg PO BID 02/18/19 02/18/19 History hydralazine 100 mg PO TID 02/18/19 02/18/19 History isosorbide mononitrate 60 mg PO DAILY 02/18/19 02/19/19 History lidocaine [Lidocaine Pain Relief] 4 % TOPICAL DAILY 02/18/19 02/19/19 History magnesium 400 mg PO DAILY 02/18/19 02/19/19 History morphine 10 mg PO Q4 PRN 02/18/19 02/19/19 History acetaminophen 650 mg PO Q6H PRN 02/19/19 02/19/19 History atorvastatin [Lipitor] 40 mg PO HS 02/19/19 02/19/19 History hydrocodone-acetaminophen 1 tab PO Q4 PRN 02/19/19 02/19/19 History hydrocodone-acetaminophen 2 tab PO Q4 PRN 02/19/19 02/19/19 History hydrocodone-acetaminophen 2 tab PO Q4 PRN 02/19/19 02/19/19 History metolazone 5 mg PO DAILY 02/19/19 02/19/19 History omeprazole 20 mg PO DAILY 02/19/19 02/19/19 History ondansetron HCl 4 mg PO Q6 PRN 02/19/19 02/19/19 History polyethylene glycol 3350 [Miralax] 17 g PO DAILY 02/19/19 02/19/19 History prazosin 4 mg PO HS 02/19/19 02/19/19 History prednisone 10 mg PO UD 02/19/19 02/19/19 History temazepam 7.5 mg PO HS PRN 02/19/19 02/19/19 History terazosin 4 mg PO HS 02/19/19 02/19/19 History torsemide 100 mg PO BID 02/19/19 02/19/19 History tramadol 25 mg PO Q8 PRN 02/19/19 02/19/19 History Patient History Medical History CHF (congestive heart failure) Surgical History H/O left knee surgery Family History Other Family history non-contributory Social History Preferred Language: Gibraltarian Communication Ability: Effective 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 Beliefs That Will Affect Care: None Current Living Situation: Spouse Other Information That Helps Us Care for You: No Feels Safe at Home: Yes Safety Concerns: Feels Safe At This Time Smoking Status: Never smoker Hx Alcohol Use: Yes Alcohol type: beer Hx Substance Use: No Review of Systems Constitutional: + fatigue and + weight loss; no fever Eyes: no worsening vision Respiratory: no cough, no dyspnea and no hemoptysis Cardiovascular: no chest pain, no palpitations and no edema Gastrointestinal: + constipation; no abdominal pain, no nausea and no blood in stools Genitourinary: no dysuria, no difficulty urinating and no urinary frequency Musculoskeletal: + back pain (near the site of his T11 lesion) and + joint pain (in his left hip) Integumentary: no rash, no new lesions and no changing lesions Neurologic: no localized weakness and no headache(s) Hematologic / Lymphatic: no lymphadenopathy and no night sweats Physical Exam Constitutional: well developed and + thin; no acute distress Eyes: + anicteric sclerae and EOM intact bilaterally ENMT: external ear and nose normal, oropharynx normal Respiratory: normal respiratory effort, lungs clear to auscultation Cardiovascular: RRR, no murmur, no edema Gastrointestinal (Abdomen): normal bowel sounds, soft, nontender, no hepatosplenomegaly Skin: no rashes, warm and dry Numerous nevi and other solar changes, none highly suspicious for melanoma Psychiatric: A+Ox3, euthymic affect Lymphatic: no cervical or axillary lymphadenopathy Results & Data Vital Signs (Past 12 Hours) Vital Signs Temp Pulse Resp BP Pulse Ox 02/19/19 15:26 36.4 C L 52 L 20 143/74 H 93 02/19/19 11:51 36.6 C 60 20 142/69 H 97 02/19/19 07:33 36.3 C L 58 L 18 150/70 H 97 02/19/19 04:16 36.9 C 60 18 153/71 H 91 Laboratory Results Abnormal lab results 02/18/19 02/18/19 02/19/19 Range/Units 22:49 22:49 03:50 RBC 2.79 L (4.7-6.1) M/uL Hgb 8.0 L (14.0-18.0) g/dL Hct 23.6 L (42-52) % RDW Std Deviation 46.7 H (36.4-46.3) fL RDW Coeff of Fredis 15.3 H (11.5-14.5) % Immature Gran # (Auto) 0.09 H (0.00-0.02) K/uL Neut # (Auto) 7.84 H (1.4-6.5) K/uL Lymph # (Auto) 0.45 L (1.2-3.4) K/uL [place] # (Auto) 1.68 H (0.11-0.59) K/uL Sodium 128 L (136-145) mmol/L Chloride 92 L (98-107) mmol/L BUN 26 H (7-18) mg/dl Creatinine 2.70 H (0.6-1.4) mg/dl BUN/Creatinine Ratio 9.5 L (10-20) Glucose 142 H (70-99) mg/dl AST 83 H (15-37) U/L Troponin I 0.209 H* 0.189 H* (0-0.045) ng/ml Albumin 2.4 L (3.4-5.0) gm/dl Globulin 4.1 H (2.5-4.0) gm/dl Albumin/Globulin Ratio 0.6 L (0.9-2) Diagnostic Findings CT CAP without contrast, 02/18/19: IMPRESSION: 1. Suboptimal examination without IV contrast. 2. There are small to moderate pleural effusions, left larger than right. Loculated fluid is seen along the right major fissure. 3. There is multifocal patchy airspace consolidation throughout the right lung, greatest in the right lower lobe with associated intralobular septal thickening and nodularity. The appearance is typical for multifocal pneumonia. Given the additional findings below, superimposed/underlying pulmonary neoplasm would be impossible to exclude. 4. Mediastinal adenopathy. 5. There is evidence of multifocal osseous metastatic disease as above. 6. Large permeative lesions are seen involving the body of T11 and the left femoral neck. Note that both lesions place the patient at risk for pathologic fracture. 7. There are pathologically indeterminant bilateral adrenal nodules. 8. Mild to moderate colonic diverticulosis without CT evidence of acute diverticulitis. 9. There are small foci of gas within the bladder lumen which may be related to recent instrumentation. Correlate with clinical findings and urinalysis. 10. Cardiomegaly and cardiac pacemaker. 11. Fluid versus an undescended testis is seen in the right inguinal canal. Clinical correlation will be required. 12. Additional findings as above.
[2019-02-19] MEDS: HYDROCODONE/ACETAMOPHEN 5/325MG TAB PO PRN ×2 (17:41→21:46)
--- NOTE | 2019-02-19 21:25 | XRay Report ---
THORACIC SPINE 3 VIEWS CLINICAL HISTORY: T11 metastasis. FINDINGS: AP, lateral, and swimmer's views of the thoracic spine are correlated with chest CT dated . The skeletal structures are osteopenic. Vertebral body height and alignment are maintained t hroughout the thoracic spine. There is no radiographic evidence of fracture. Anterior osteophytes are seen throughout. Calcification of the anterior longitudinal ligament is consistent with DISH. The pe rmeative lesion of T11 seen by CT is not well visualized by x-ray. Multilevel degenerative disc space narrowing is noted. The transverse processes and pedicles appear intact as seen on the frontal view. The heart is enlarged and there is evidence of previous aortic valve surgery. Pacemaker leads are no roby, as is a right internal jugular central venous catheter. Consolidative change is noted in the rig ht lung. IMPRESSION: 1. Osteopenia with no radiographic evidence of acute fracture or malalignment involving the thoracic spine. 2. The permeative lesion of T11 seen by CT is not apparent by x-ray. 3. These findings were much better assessed on yesterday's CT scan. Electronically signed by: Aaron Caraballo M.D. 02/19/2019 9:24 PM
--- NOTE | 2019-02-19 21:36 | XRay Report ---
LUMBAR SPINE 5 VIEWS CLINICAL HISTORY: Low back pain. Metastatic disease. FINDINGS: 5 views of the lumbar spine are correlated with abdominal CT dated 02/18/2019. The skeletal s tructures are osteopenic. There is no radiographic evidence of fracture or malalignment. Vertebral paul dy height and alignment are maintained throughout the lumbar spine. Anterior and lateral marginal ost eophytes are seen throughout. The transverse and spinous processes appear intact. Moderate to advance d multilevel degenerative disc space is noted, greatest at L4-L5 and L5-S1. Posterior disc osteophyte complexes are noted in the lower lumbar levels. There is multilevel degenerative endplate sclerosis. There is no evidence of spondylolysis. There is no radiographic evidence of lytic or blastic bony di sease. The visualized bony pelvis appears intact. Cholecystectomy clips are seen in the right upper q uadrant. A superior mesenteric artery stent is noted. There is gaseous distention of the bowel loops. Clonic fecal retention is observed. Advanced atherosclerotic calcification is noted in the abdominal aorta. IMPRESSION: 1. No acute bony abnormality is identified by x-ray. The lumbar spine was much better assessed on yes terday's abdominal CT. 2. Osteopenia and spondylotic change as above. 3. There is gaseous distention of the bowel loops. Electronically signed by: Aaron Caraballo M.D. 02/19/2019 9:35 PM
--- NOTE | 2019-02-19 21:43 | XRay Report ---
SINGLE VIEW PELVIS; SINGLE VIEW LEFT HIP CLINICAL HISTORY: Hip pain. Permeative femoral lesions seen by CT. FINDINGS: An AP view of the pelvis and a frog-leg view of the left hip are correlated with pelvic CT dated 02/18/2019. The skeletal structures are osteopenic. There is no radiographic evidence of fracture involving the hips or bony pelvis. Only minimal degenerative joint space narrowing seen in the hips. Sclerotic degenerative change is noted in the sacroiliac joints. Permeative femoral lesions seen by CT are not apparent by x-ray. Lumbosacral spondylosis is partially imaged. Prostatic calcifications a re seen in the pelvis. The overlying soft tissues are normal in appearance. IMPRESSION: 1. Osteopenia with no radiographic evidence of acute fracture involving the hips or bony pelvis. 2. Permeative lesions of the proximal femora seen on yesterday's CT scan were not apparent by x-ray. Electronically signed by: Aaron Caraballo M.D. 02/19/2019 9:41 PM
[2019-02-19] MEDS: ATORVASTATIN 40 MG TAB PO SCH (21:48)
--- NOTE | 2019-02-19 21:49 | XRay Report ---
LEFT FEMUR 3 VIEWS CLINICAL HISTORY: Left femoral metastasis. FINDINGS: AP, frog-leg, and lateral views of the left femur are correlated with pelvic CT dated 019. The skeletal structures are osteopenic. There is no radiographic evidence of left femoral fractu re. The permeative lesion of the left femoral neck seen by CT is not apparent by x-ray. Only mild deg enerative change and joint space narrowing is seen in the left hip. The knee joint is grossly preserv ed. The overlying soft tissues are normal in appearance. The visualized left hemipelvis appears intac t. IMPRESSION: 1. Osteopenia with no acute bony abnormality seen by x-ray. 2. The permeative lesion of the left femoral neck seen by CT is not apparent by x-ray. Electronically signed by: Aaron Caraballo M.D. 02/19/2019 9:48 PM
[2019-02-20] MEDS: PIPERACILLIN/TAZOBACTAM 3.375 GM in DEXTROSE 5% 100 ML IV SCH ×2 (04:20→16:28)
[2019-02-20] MEDS: HYDROCODONE/ACETAMOPHEN 5/325MG TAB PO PRN ×2 (04:43→17:30)
[2019-02-20 06:05] LABS: Mean Corpuscular Hgb Conc 33.3 g/dL (32-36); Mean Corpuscular Volume 86.6 fL (80-100); Mean Platelet Volume 10.3 fL (7.4-10.4); Platelet Count 213 K/uL (130-400); RDW Coefficient of Variation 15.3 % (11.5-14.5); RDW Standard Deviation 48.4 fL (36.4-46.3); Red Blood Count 2.77 M/uL (4.7-6.1); White Blood Count 12.18 K/uL (4.8-10.8)
--- NOTE | 2019-02-20 06:44 | Orthopedic Consultation ---
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 He does have impending pathologic fractures of both hips. I discussed this with him and his at bedside. I do think that it is best if we proceed with bilateral intramedullary nail fixations of his hips to help stabilize him. Also be able to get some reamings and send them to pathology to hopefully come up with a primary diagnosis. His back does not seem to be bothering him too much so we will treat that with observation and pain control for now. He has multiple medical comorbidities. He is anemic and he is currently on dialysis. There will not be much blood loss with this type of surgery but he will need to be followed very carefully postoperatively to ensure full recovery. He is currently n.p.o. to have his hip fixed today however this can certainly be delayed if his medical status can be optimized. 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 He was in [facility] [address] and was found to have metastatic cancer in both of his hips and his lower thoracic spine. They were unable to find a primary tumor while at [place]. He was then transferred to [facility]. A CT scan of the chest abdomen pelvis shows impending pathologic fractures of both hips and possibly T11. Orthopedics was consulted to evaluate and treat. Up until a few months ago he was a community ambulator without assistance. Unfortunate over the past few months has been downgraded to a walker and at times he is unable to ambulate at all because of his hip and his leg pain. His right hip hurts more than his left hip. His back pain he says is mild at this time. His hips are his biggest concern. He has multiple medical comorbidities and is currently on dialysis. Allergies Allergy/AdvReac Type Severity Reaction Status Date / Time No Known Allergies Allergy Unverified 02/19/19 00:57 Home Medications Home Medications Medication Instructions Recorded Confirmed Type amlodipine [Norvasc] 10 mg PO DAILY 02/18/19 02/18/19 History aspirin 81 mg PO DAILY 02/18/19 02/18/19 History carvedilol 25 mg PO BID 02/18/19 02/18/19 History docusate sodium [Colace] 100 mg PO BID 02/18/19 02/18/19 History hydralazine 100 mg PO TID 02/18/19 02/18/19 History isosorbide mononitrate 60 mg PO DAILY 02/18/19 02/19/19 History lidocaine [Lidocaine Pain Relief] 4 % TOPICAL DAILY 02/18/19 02/19/19 History magnesium 400 mg PO DAILY 02/18/19 02/19/19 History morphine 10 mg PO Q4 PRN 02/18/19 02/19/19 History acetaminophen 650 mg PO Q6H PRN 02/19/19 02/19/19 History atorvastatin [Lipitor] 40 mg PO HS 02/19/19 02/19/19 History hydrocodone-acetaminophen 1 tab PO Q4 PRN 02/19/19 02/19/19 History hydrocodone-acetaminophen 2 tab PO Q4 PRN 02/19/19 02/19/19 History hydrocodone-acetaminophen 2 tab PO Q4 PRN 02/19/19 02/19/19 History metolazone 5 mg PO DAILY 02/19/19 02/19/19 History omeprazole 20 mg PO DAILY 02/19/19 02/19/19 History ondansetron HCl 4 mg PO Q6 PRN 02/19/19 02/19/19 History polyethylene glycol 3350 [Miralax] 17 g PO DAILY 02/19/19 02/19/19 History prazosin 4 mg PO HS 02/19/19 02/19/19 History prednisone 10 mg PO UD 02/19/19 02/19/19 History temazepam 7.5 mg PO HS PRN 02/19/19 02/19/19 History terazosin 4 mg PO HS 02/19/19 02/19/19 History torsemide 100 mg PO BID 02/19/19 02/19/19 History tramadol 25 mg PO Q8 PRN 02/19/19 02/19/19 History Patient History Medical History CHF (congestive heart failure) Surgical History H/O left knee surgery Family History Other Family history non-contributory Social History Preferred Language: Iranian Communication Ability: Effective 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 I am able to flex his hip about 80 degrees and he has about 30 degrees of external rotation 10 degrees of internal rotation he does have pain at end ranges of motion especially internal rotation of his hips. His right hip seems a little more painful than his left. On examination of his thoracic spine he does have some tenderness to deep palpation in the lower thoracic segments. Results & Data Vital Signs (Past 12 Hours) Vital Signs Temp Pulse Resp BP BP Pulse Ox 02/20/19 04:36 36.9 C 64 19 157/66 H 90 02/20/19 00:22 36.5 C 64 18 149/72 H 91 02/19/19 21:46 64 153/70 H 02/19/19 19:27 36.7 C 61 20 155/71 H 90 Laboratory Results H & H 02/18/19 02/20/19 Range/Units 22:49 05:35 Hgb 8.0 L 8.0 L (14.0-18.0) g/dL Hct 23.6 L 24.0 L (42-52) % Coagulation 02/18/19 Range/Units 22:49 INR 1.1 (0.9-1.1) Diagnostic Findings CT scan of the chest abdomen and pelvis was reviewed personally and discussed with the radiologist. There is obvious lytic lesions in the left hip but there is also evidence of thinning of the anterior cortex and a lytic lesion in the right hip as well. There is a large lytic lesion in the T11 vertebral body. X-rays of the hip and the femur were ordered. I did not see the any significant lytic lesions on the x-rays. X-rays of the lumbar spine were ordered as well as the thoracic spine and it shows multilevel degenerative disc disease and arthritis and signs of a lytic lesion in the T11 vertebral body.
[2019-02-20 07:03] LABS: BUN Creatinine Ratio 9.5 (10-20); Calcium 8.5 mg/dl (8.5-10.1); Creatinine Clr Calc Pharmacy 12.1 ml/min; Est GFR (African American) 13.1; Est GFR (Non-African American) 11.3; Magnesium 2.3 mg/dl (1.8-2.4); Potassium 4.9 mmol/L (3.5-5.1)
[2019-02-20] MEDS: ISOSORBIDE MONO EXTENDED REL 60 MG TABCR PO SCH (09:49)
[2019-02-20] MEDS: TORSEMIDE 100 MG TAB PO SCH ×3 (09:49→18:54)
[2019-02-20] MEDS: ASPIRIN 81 MG CHEW PO SCH (09:49)
[2019-02-20] MEDS: HydrALAZINE TAB 50 MG TAB PO SCH ×3 (09:49→21:32)
[2019-02-20] MEDS: AMLODIPINE BESYLATE 5 MG TAB PO SCH ×2 (09:49→21:33)
[2019-02-20] MEDS: MAGNESIUM OXIDE 400 MG TAB PO SCH (09:49)
[2019-02-20] MEDS: CARVEDILOL 12.5 MG TAB PO SCH ×2 (09:49→21:33)
[2019-02-20] MEDS: PANTOprazole 40 MG TAB PO SCH (09:49)
[2019-02-20] MEDS: DOCUSATE SODIUM 100 MG CAP PO SCH ×2 (09:49→21:32)
[2019-02-20] MEDS: LIDOCAINE 5% 1 PATCH TD SCH (09:50)
--- NOTE | 2019-02-20 11:08 | Radiation OncologyConsultation ---
Date of Consultation February 20, 2019 Assessment & Plan (1) Metastatic disease: Assessment: Mr. 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 The patient was admitted to the hospital for work-up and evaluation and pain management control. The patient has been seen by Dr. Yousuf Weeks from medical oncology who has recommended a completion of the staging work-up including obtaining a tissue diagnosis. The patient has been seen by Dr. Tijerina from orthopedic surgery who has recommended bilateral intramedullary nail fixations of the femoral necks. We are now seeing the patient in consul tation to discuss the role of radiation therapy. Recommendation/Plan: 1. Prophylactic bilateral intramedullary nail fixations of the femoral necks by Dr. Tijerina. 2. Postoperative radiation therapy to bilateral hips following completion of surgery. Palliative radiation therapy to thoracic/lumbar spine. We would recommend starting radiation therapy after confirming the tissue diagnosis. Patient does live quite far away and I did suggest that case management look into potentially closer options for radiation therapy if the patient is discharged prior to initiating treatment. In the interim, we will continue to assume to be his primary radiation oncology team. 3. Follow-up with medical oncology after tissue diagnosis obtained. Rationale/Explanation of Treatment: We have explained the indications, alternatives, benefits, risks and side effects of radiation therapy to thoracic spine. We have explained the most common side effects which include but are not limited to skin erythema, skin break down, pulmonary fibrosis, adhesion development, radiation pneumonitis, spinal cord damage, brachial plexus damage, rib fracture, heart failure and heart disease, esophagitis, development of fistula, fatigue and development of secondary malignancy. We have explained the CT simulation process and treatment planning. We explained what to expect before, during and after treatment on a regular basis. The patient understands and would be willing to consent to treatment. We did explain the indications, alternatives, benefits, risks and side effects of external beam radiation therapy. We did explain the most common side effects including, but not limited to, skin erythema, skin breakdown, hyperpigmentation, telangiectasia, wound complications, perianal fistula development, fistula formation, bowel obstruction, bowel perforation, dysuria, increased urinary frequency, urgency, diarrhea, constipation, melena, hematochezia, hematuria, radiation cystitis, radiation proctitis, fatigue, decreased blood counts, wound complications from surgery, rectal incontinence, secondary malignancy development. We did explain the procedures and daily process of radiation therapy. The patient understands and would be willing to consent to treatment. The patient and had multiple questions which were answered to their full satisfaction. Thank you for allowing us to participate in the care of this patient. This chart was completed in part utilizing [employer] Speech Voice Recognition software. Attempts were made to minimize the grammatical errors, random word insertions, pronoun errors and incomplete sentences. Any formal questions or concerns about the content, text or information contained within the body of this dictation should be directly addressed to the provider for clarification. Lani Upton MD Department of Radiation Oncology [facility] History of Present Illness Attending Physician: Maximo Granado History of Present Illness 01/2019. Patient previously admitted to [facility] in [place], [place]. According to patient and , he did not receive a diagnosis at that point although he was having significant discomfort and pain. The estimates he was in and out of the hospital for 5 to 6 weeks. 02/18/2019. Patient presents to [facility] emergency department. Patient admitted for further work-up and evaluation. 02/18/2019. CT of chest/abdomen/pelvis. IMPRESSION: 1. Suboptimal examination without IV contrast. 2. There are small to moderate pleural effusions, left larger than right. Loculated fluid is seen along the right major fissure. 3. There is multifocal patchy airspace consolidation throughout the right lung, greatest in the right lower lobe with associated intralobular septal thickening and nodularity. The appearance is typical for multifocal pneumonia. Given the additional findings below, superimposed/underlying pulmonary neoplasm would be impossible to exclude. 4. Mediastinal adenopathy. 5. There is evidence of multifocal osseous metastatic disease as above. 6. Large permeative lesions are seen involving the body of T11 and the left femoral neck. Note that both lesions place the patient at risk for pathologic fracture. 7. There are pathologically indeterminant bilateral adrenal nodules. 8. Mild to moderate colonic diverticulosis without CT evidence of acute diverticulitis. 9. There are small foci of gas within the bladder lumen which may be related to recent instrumentation. Correlate with clinical findings and urinalysis. 10. Cardiomegaly and cardiac pacemaker. 11. Fluid versus an undescended testis is seen in the right inguinal canal. Clinical correlation will be required. 12. Additional findings as above. 02/19/2019. Medical oncology consultation with Dr. Yousuf Weeks. Dr. Weeks has recommended completion of the staging work-up including obtaining tissue diagnosis. 02/20/2019. 02/20/2019. Orthopedic Consultation with Dr. Tijerina. Dr. Tijerina has recommended prophylactic bilateral intramedullary nail fixations of his hips to stabilize them. Allergies Allergy/AdvReac Type Severity Reaction Status Date / Time No Known Allergies Allergy Unverified 02/19/19 00:57 Home Medications Home Medications Medication Instructions Recorded Confirmed Type amlodipine [Norvasc] 10 mg PO DAILY 02/18/19 02/18/19 History aspirin 81 mg PO DAILY 02/18/19 02/18/19 History carvedilol 25 mg PO BID 02/18/19 02/18/19 History docusate sodium [Colace] 100 mg PO BID 02/18/19 02/18/19 History hydralazine 100 mg PO TID 02/18/19 02/18/19 History isosorbide mononitrate 60 mg PO DAILY 02/18/19 02/19/19 History lidocaine [Lidocaine Pain Relief] 4 % TOPICAL DAILY 02/18/19 02/19/19 History magnesium 400 mg PO DAILY 02/18/19 02/19/19 History morphine 10 mg PO Q4 PRN 02/18/19 02/19/19 History acetaminophen 650 mg PO Q6H PRN 02/19/19 02/19/19 History atorvastatin [Lipitor] 40 mg PO HS 02/19/19 02/19/19 History hydrocodone-acetaminophen 1 tab PO Q4 PRN 02/19/19 02/19/19 History hydrocodone-acetaminophen 2 tab PO Q4 PRN 02/19/19 02/19/19 History hydrocodone-acetaminophen 2 tab PO Q4 PRN 02/19/19 02/19/19 History metolazone 5 mg PO DAILY 02/19/19 02/19/19 History omeprazole 20 mg PO DAILY 02/19/19 02/19/19 History ondansetron HCl 4 mg PO Q6 PRN 02/19/19 02/19/19 History polyethylene glycol 3350 [Miralax] 17 g PO DAILY 02/19/19 02/19/19 History prazosin 4 mg PO HS 02/19/19 02/19/19 History prednisone 10 mg PO UD 02/19/19 02/19/19 History temazepam 7.5 mg PO HS PRN 02/19/19 02/19/19 History terazosin 4 mg PO HS 02/19/19 02/19/19 History torsemide 100 mg PO BID 02/19/19 02/19/19 History tramadol 25 mg PO Q8 PRN 02/19/19 02/19/19 History Patient History Medical History CHF (congestive heart failure) Surgical History H/O left knee surgery Family History Other Family history non-contributory Social History Preferred Language: Kyrgyz Communication Ability: Effective Beliefs That Will Affect Care: None Current Living Situation: Spouse Feels Safe at Home: Yes Smoking Status: Never smoker Hx Alcohol Use: Yes Alcohol type: beer Hx Substance Use: No Physical Exam Constitutional: + disheveled Eyes: PERRL, conjunctivae normal, anicteric sclerae ENMT: external ear and nose normal, oropharynx normal Neck: trachea midline, no thyromegaly Respiratory: normal respiratory effort, lungs clear to auscultation Cardiovascular: RRR, no murmur, no edema Psychiatric: A+Ox3, euthymic affect Results Additional Studies 02/18/19 22:25 CT abd pelvis wo con Urgent CT chest wo con Urgent 02/18/19 22:26 ECG 12 lead EKG Stat XR chest 1V portable Urgent 02/19/19 20:22 XR femur LT 2V routine Urgent XR hip 1V LT w pelvis Urgent 02/19/19 20:26 XR lumbar spine 2-3V Urgent XR thoracic spine 2V Urgent 02/20/19 11:00 FL fluoroscopy <1hr Routine FL hip LT 2-3V Routine FL hip RT 2-3V Routine
--- NOTE | 2019-02-20 11:10 | Palliative Care Consultation ---
Date of Consultation February 20, 2019 Assessment & Plan (1) Palliative care encounter: This is a 78 year old male who was transferred to the [facility] from [facility] on 02/19 for a second opinion/evaluation for etiology of his metastatic disease. Diagnostic imaging was performed at [facility]; however, studies were inconclusive. Discussion was held indicating possible bone involvement and the family decided to transfer care to [facility] for further investigation. The patient was inpatient at [facility] for over 6 weeks which was the first time that he had heard the possibility of a cancer diagnosis. Additional PMH includes CAD, HTN, HLD, ESRD HD dependent (T/R/Sat), GERD, pleural effusions, and AVR. Upon arrival, the patient has been evaluated by Dr. Weeks with Heme/Onc who does have suspicion of L femoral neck lesions. Orthopedic surgery was consulted and Dr. Tijerina saw this patient this morning and indicated the possibility of performing a B/L femur head nail fixation which is currently scheduled as an add-on for today. The patient has experienced increased fatigue and weight loss over the past 6 months (70 lbs). Palliative Care was consulted to discuss Goals of Care and pain management. -I entered the room with [employer]ESS[employer] student Roberta Stratton to the patient resting in his bed and his , Lauren. We reviewed his hospitalization at [facility] and discused the Heme/Onc(Dr. Weeks) and Orthopedic (Dr. Tijerina) consultation with patient and his . -The patient was previously inpatient for 6 weeks both at [facility] and [facility] with significant decline since those admissions. Patient at this time, is interested in pain control and determining cancer source to have conversation with providers to determine goals moving forward. -Due to increased fracture risk, plan for B/L femur nail fixation this afternoon with biopsy of femoral neck lesions. -Current pain management includes a Lidoderm patch and Chesaning 10/325 which he has taken 3 doses over the past 24 hours. He previously was opioid naive. I do think that this patient would benefit from a Fentanyl patch moving forward. Methadone would be a consideration; however, after speaking with Dr. Fan with his advanced age (for Methadone) and renal restrictions it would not be the best medication for him. I do think that additional adjustments for pain should wait until he returns from the Operating Room, if cleared for surgery for appropriate evaluation of effectiveness of medication. -Current pain level is 0/10 at rest. Patient is to remain on bedrest until post- operative status. The patient was dosing off during our conversation which could be related to the Chesaning vs metabolic encephalopathy from ESRD vs PNA etc. -The patient was able to participate in our conversation, but did doze off intermittently. He was able to follow commands and direction. He was awake, alert to person, place and situation. He did state "I know its not a good situation I am in" -Patient previously was listed as a Full Code; however, after our discussion and explanation regarding code status, the patient would like to transition to DNR/DNI; however, at this time, would still like to proceed with active treatment of medical conditions, including dialysis. He stated " I would not want to be hooked up to breathing tubes, etc" -I did discuss the patient with his nurse, Francine, and she has stated that his coloring has changed since admission. The patient was on RA when he arrived and now is requiring 5LNC with decreased SPO2 ranging 89-93%. The patient did have a CXR done on 02/18 with results indicating small plural effusions and consolidation indicating possible PNA. His lung sounds indicate crackles, so I ordered a portable STAT AP CXR to determine if these pleural effusions are worsening. All of the above discussed with Dr. Granado. -I think that additional goals of care conversation will be appropriate post- operatively once pathology results are known. -We will continue to follow this patient throughout his hospitalization closely. (2) Pain of metastatic malignancy: (3) ESRD on hemodialysis: (4) Bilateral pleural effusion: Supervising Physician Co-Signing Physician Notes Chart reviewed, collaborated with ANA PAULA Patiño, patient seen and examined- at bedside. Patient now with worsening chest b-[id number]-gcmibnylim surgery put on hold. Patient now requiring O2 at 6 L nasal cannula. Patient last moved his bowels on 02/19-reports he has not passed gas today. PE: Patient appears comfortable, NAD HEENT: EOMI, hearing within normal limits Respiratory-unlabored, crackles bilaterally CV: Regular rate, no edema Abdomen: Distended, small umbilical hernia Neuro: Patient alert, dozes off during visit Agree with above note, assessment and plan as per ANA PAULA Patiño-will continue to follow and assist patient and with medical decision making. Expect pain medication requirements to change post surgery as well as post XRT History of Present Illness Reason for Consultation: Goals of care/pain management Requesting Physician: Dr. Cabrera Attending Physician: Maximo Granado History of Present Illness This is a 78 year old male who was transferred to the [facility] from [facility] on 02/19 for a second opinion/evaluation for etiology of his metastatic disease. Diagnostic imaging was performed at [facility]; however, studies were inconclusive. Discussion was held indicating possible bone involvement and the family decided to transfer care to [facility] for further investigation. The patient was inpatient at [facility] for over 6 weeks which was the first time that he had heard the possibility of a cancer diagnosis. Additional PMH includes CAD, HTN, HLD, ESRD HD dependent (T/R/Sat), GERD, pleural effusions, and AVR. Upon arrival, the patient has been evaluated by Dr. Weeks with Heme/Onc who does have suspicion of L femoral neck lesions. Orthopedic surgery was consulted and Dr. Tijerina saw this patient this morning and indicated the possibility of performing a B/L femur head nail fixation which is currently scheduled as an add-on for today. The patient has experienced increased fatigue and weight loss over the past 6 months (70 lbs). Palliative Care was consulted to discuss Goals of Care and pain management. Please see A/P for further details. Thank you kindly for consulting our Palliative Care service and involving us with this kailash patient and family. Allergies Allergy/AdvReac Type Severity Reaction Status Date / Time No Known Allergies Allergy Unverified 02/19/19 00:57 Home Medications Home Medications Medication Instructions Recorded Confirmed Type amlodipine [Norvasc] 10 mg PO DAILY 02/18/19 02/18/19 History aspirin 81 mg PO DAILY 02/18/19 02/18/19 History carvedilol 25 mg PO BID 02/18/19 02/18/19 History docusate sodium [Colace] 100 mg PO BID 02/18/19 02/18/19 History hydralazine 100 mg PO TID 02/18/19 02/18/19 History isosorbide mononitrate 60 mg PO DAILY 02/18/19 02/19/19 History lidocaine [Lidocaine Pain Relief] 4 % TOPICAL DAILY 02/18/19 02/19/19 History magnesium 400 mg PO DAILY 02/18/19 02/19/19 History morphine 10 mg PO Q4 PRN 02/18/19 02/19/19 History acetaminophen 650 mg PO Q6H PRN 02/19/19 02/19/19 History atorvastatin [Lipitor] 40 mg PO HS 02/19/19 02/19/19 History hydrocodone-acetaminophen 1 tab PO Q4 PRN 02/19/19 02/19/19 History hydrocodone-acetaminophen 2 tab PO Q4 PRN 02/19/19 02/19/19 History hydrocodone-acetaminophen 2 tab PO Q4 PRN 02/19/19 02/19/19 History metolazone 5 mg PO DAILY 02/19/19 02/19/19 History omeprazole 20 mg PO DAILY 02/19/19 02/19/19 History ondansetron HCl 4 mg PO Q6 PRN 02/19/19 02/19/19 History polyethylene glycol 3350 [Miralax] 17 g PO DAILY 02/19/19 02/19/19 History prazosin 4 mg PO HS 02/19/19 02/19/19 History prednisone 10 mg PO UD 02/19/19 02/19/19 History temazepam 7.5 mg PO HS PRN 02/19/19 02/19/19 History terazosin 4 mg PO HS 02/19/19 02/19/19 History torsemide 100 mg PO BID 02/19/19 02/19/19 History tramadol 25 mg PO Q8 PRN 02/19/19 02/19/19 History Patient History Medical History CHF (congestive heart failure) Surgical History H/O left knee surgery Family History Other Family history non-contributory Social History Preferred Language: Gabonese Communication Ability: Effective Beliefs That Will Affect Care: None Current Living Situation: Spouse Feels Safe at Home: Yes Smoking Status: Never smoker Hx Alcohol Use: Yes Alcohol type: beer Hx Substance Use: No Review of Systems Review of Systems: General: Pt reports 0/10 pain with rest and 10/10 pain with movement in B/L LE, L> R. HEENT: Pt denies TURCIOS, dizziness, visual changes Resp: Pt states it is harder for him to take deeper breaths, working harder to breath CV: Pt denies CP GI: Pt denies abdominal pain : Deferred Skin: Pt denies any skin changes MS: Pt reports difficulty with ambulating and (+) hip pain B/L Physical Exam Physical Exam: General: Pt sitting in his bed in NAD. HEENT: Head normocephalic, atraumatic, increased lethargy in and out of conversation, moist mucus membranes, neck supple, (+) clavicular/ cachexia CV: S1/S2 (-) M/R/G. (-) edema <3 seconds capillary refill Resp: Increased O2 need. On 5LNC SpO2 ranging 89-93%. Pt reports increased difficulty taking deep breath. Anterior lung sounds CTA, Posteriorly crackles throughout R> L GI: Abdomen large, distended, non-tender/guarding. Ax4 bowel sounds. RUQ with increased distention/out-pouching with non-coloring skin changes but (+) peeling on skin. (+) tympanic percussion x 4 quadrants. LBM: 6/2 : deferred, voiding Skin: clean, dry, intact. (-) clubbing. (+) aging spots on head and back Psych: Lethargic Results & Data Vital Signs (Past 12 Hours) Vital Signs Temp Pulse Resp BP BP Pulse Ox 02/20/19 04:36 36.9 C 64 19 157/66 H 90 02/20/19 00:22 36.5 C 64 18 149/72 H 91 Time Spent Midlevel Total time spent 125 minutes with > 50% of that time assessing the patient, discussing symptom and pain management options and code status with patient, and IDT. Attending Total time spent 20 minutes in addition to the 125 minutes spent by ANA PAULA Almendarez-for total of 145 minutes with greater than 50% of the time spent at bedside discussing patient's current status as well as upcoming treatment options
--- NOTE | 2019-02-20 13:10 | XRay Report ---
XR chest 2V routine CLINICAL HISTORY: 78 years-old Male presenting with increased O2 need and lung sound changes. TECHNIQUE: Portable upright AP view of the chest was obtained. COMPARISON: 02/18/2019. FINDINGS: Tunneled right internal jugular dialysis catheter terminates at the lower SVC. Left subclavian pacer with leads to the right atrium and right ventricular apex. A prosthetic aortic valve is in place. Ath erosclerosis of aortic arch. Cardiac silhouette moderately enlarged. Mild pulmonary vascular prominen ce. Increased fluid in the right minor fissure. Increased density of right central/perihilar opacity. Increased size of the now moderate right pleural effusion. No pneumothorax. Left basilar opacity pos sibly with effusion. Degenerative changes of the thoracic spine. IMPRESSION: 1. Increasing right pleural effusion with increasing right lung consolidation. Underlying pneumonia is the primary consideration. 2. Persistent left basilar atelectasis and suspected effusion. 3. Cardiomegaly with mild volume overload. Electronically signed by: Gibran Gutierrez M.D. 02/20/2019 1:09 PM
[2019-02-20 14:45] LABS: Base Excess VBG -1.9 mEq/L; Oxygen Saturation VBG 87.4 %; pH VBG 7.45 (7.36-7.41)
--- NOTE | 2019-02-20 14:49 | Ultrasound Report ---
ULTRASOUND BILATERAL LOWER EXTREMITY VENOUS CLINICAL HISTORY: Hypoxia. Lower extremity edema. COMPARISON STUDY: No priors. TECHNIQUE: Real-time, grayscale, and color Doppler sonography of the deep veins of the right and left lower extremity was performed from the inguinal crease to the calf. Compression and augmentation wer e utilized. FINDINGS: There is no sonographic evidence of deep venous thrombosis identified in the right or left lower extremity. The common femoral, superficial femoral, and popliteal veins are patent and normally compressible bilaterally. The greater saphenous vein and the profunda femoris vein at the junction w ith the common femoral vein are clear in both legs. The visualized calf veins are patent bilaterally. IMPRESSION: There is no sonographic evidence of deep venous thrombosis identified in the right or lef t lower extremity. Electronically signed by: Aaron Caraballo M.D. 02/20/2019 2:47 PM
--- NOTE | 2019-02-20 15:16 | Pharmacy Report ---
Pharmacy Abx Dose Short Note - Date of Service February 20, 2019 - Assessment & Plan Assessment * Mr Dumont is a 78 year old M receiving Vanc/Zosyn for treatment of pneumonia. * Patient was given a vanc loading dose yesterday morning. * Random vanc level this morning was 17 mcg/mL, indicating that patient was ready for re-dose. * MRSA nasal swab was negative, so suspect that vancomycin may be discontinued. Plan Vancomycin * Vancomycin 500mg IV x1 dose this afternoon * Goal trough level for pulmonary infxn: 15 to 20 mcg/mL * Patient will receive his regular hemodialysis tomorrow. * Will check another random vanc level the following morning with AM labs. Vanc will be re-dosed when within/near goal range. Pharmacy will continue to follow and will adjust dose/frequency as necessary. Thank you.
[2019-02-20] MEDS ORDERED: VANCOMYCIN HCL 500 MG in 0.9 % SODIUM CHLORIDE 100 ML IV ONE (15:30)
--- NOTE | 2019-02-20 15:55 | Orthopedic Progress Note ---
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 He has been ambulating but his hips hurt when he ambulates. His medical status is currently very poor. We will hold off on any prophylactic surgical fixation until his medical status improves. I placed him on a regular diet and I changed his bedrest order to out of bed with assistance to a chair. There is a small risk of fracturing his hip while getting into a chair, however, there is also a risk of leaving him at bedrest for long periods of time. I think he will be safe getting out of bed to a chair with assistance. Please contact me when his medical status improves enough that surgical fixation of his hips becomes an option. I would be happy to proceed. My personal cell phone number is [phone]. Present on Admission?: Yes Subjective Abiel was seen and examined at bedside again. His was with him at bedside. He was fairly sedated when I was in the room.His medical status is currently very poor and we will hold off on any prophylactic surgical fixation of his hip at this point. I talked to the oncologist and the hospitalist personally. Physical Exam Musculoskeletal: He is fairly sedated at this point and does not cooperate with physical examination. Results & Data Vital Signs (Past 12 Hours) Vital Signs Temp Pulse Resp BP BP Pulse Ox 02/20/19 15:11 36.7 C 60 20 159/64 H 92 02/20/19 12:31 36.7 C 62 24 156/69 H 90 02/20/19 04:36 36.9 C 64 19 157/66 H 90
[2019-02-20] MEDS ORDERED: HYDROmorphone INJ 0.5 MG/0.5 ML SYR IV PRN (17:48)
--- NOTE | 2019-02-20 19:00 | Nephrology Progress Note ---
Date of Service February 20, 2019 Assessment & Plan (1) ESRD on hemodialysis: Patient with ESRD on dialysis Wednesday. He has a right tunneled IJ catheter. Last dialysis was Wednesday which was uneventful. His electrolytes are stable with no signs of volume overload. No indication for dialysis today. Next dialysis will be on Wednesday for 4hrs and target UF 2.5 litres. Avoid Hydrocodone or oxycodone in renal failure. Can use fentanyl or dilaudid. (2) Metastatic disease: Patient with metastatic bone disease of unknown primary. CT abdomen done yesterday also revealing osteolytic bone lesions. Patient is frustrated with the multiple diagnostic tests without finding the primary. He is now DNR after talking to palliative care. He is agreeable to HD for now (3) Hypertension: Blood pressure is slightly above target but acceptable. Blood pressure might also be elevated due to back pain. No changes in antihypertensives (4) Anemia in chronic kidney disease, on chronic dialysis: Hemoglobin is 8 today. Unable to give epogen due to active cancer (5) Pneumonia involving right lung: Patient is on Zosyn and vancomycin per primary team. Renally dose medications for GFR less than 25 mL/min. Subjective ESRD patient seen during morning rounds in follow up. he was intermittently sleepy. No SOB. he complained of back pain. He would like to have HD tomorrow Review of Systems Review of Systems: All systems reviewed & are unremarkable except as noted in HPI & below Physical Exam Physical Exam: General exam: Appears comfortable, no acute distress. Intermittently sleepy HEENT: Pupils are equal and reactive to light Neck: No JVD, neck is supple trachea is midline Respiratory system: Clear breath sounds bilaterally. Gastrointestinal: Abdomen is soft, non distended, non tender, bowel sounds are present CVS: Regular rate and rhythm. No murmurs, rubs or gallops Musculoskeletal: No joint or muscle tenderness Extremities: Non tender, no edema, peripheral pulses are present Neuro: Oriented, no tremors, no focal neurological deficits Skin: No rashes Results & Data Vital Signs (Past 12 Hours) Vital Signs Temp Pulse Resp BP BP Pulse Ox 02/20/19 15:11 36.7 C 60 20 159/64 H 92 02/20/19 12:31 36.7 C 62 24 156/69 H 90 Laboratory Results Laboratory Results - last 24 hr 06/12/0602/20/19 02/20/19 05:35 05:35 05:35 WBC 12.18 H RBC 2.77 L Hgb 8.0 L Hct 24.0 L MCV 86.6 MCH 28.9 MCHC 33.3 RDW Std Deviation 48.4 H RDW Coeff of Rfedis 15.3 H Plt Count 213 MPV 10.3 VBG pH VBG pCO2 VBG pO2 VBG HCO3 VBG O2 Saturation VBG Base Excess Barometric Pressure Sodium 124 L Potassium 4.9 D Chloride 89 L Carbon Dioxide 25 Anion Gap 10.0 BUN 44 H D Creatinine 4.63 H* D Est Cr Clr Drug Dosing 12.1 Est GFR ( Amer) 13.1 Est GFR (Non-Af Amer) 11.3 BUN/Creatinine Ratio 9.5 L Glucose 93 Uric Acid Calcium 8.5 Magnesium 2.3 Ammonia Random Vancomycin 17.0 02/20/19 02/20/19 02/20/19 14:24 14:24 14:24 WBC RBC Hgb Hct MCV MCH MCHC RDW Std Deviation RDW Coeff of Fredis Plt Count MPV VBG pH VBG pCO2 VBG pO2 VBG HCO3 VBG O2 Saturation VBG Base Excess Barometric Pressure Sodium 122 L Potassium Chloride Carbon Dioxide Anion Gap BUN Creatinine Est Cr Clr Drug Dosing Est GFR ( Amer) Est GFR (Non-Af Amer) BUN/Creatinine Ratio Glucose Uric Acid 5.0 Calcium Magnesium Ammonia 32.0 Random Vancomycin 02/20/19 14:36 WBC RBC Hgb Hct MCV MCH MCHC RDW Std Deviation RDW Coeff of Fredis Plt Count MPV VBG pH 7.45 H VBG pCO2 32 L VBG pO2 55 VBG HCO3 22 VBG O2 Saturation 87.4 VBG Base Excess -1.9 Barometric Pressure 732.4 Sodium Potassium Chloride Carbon Dioxide Anion Gap BUN Creatinine Est Cr Clr Drug Dosing Est GFR ( Amer) Est GFR (Non-Af Amer) BUN/Creatinine Ratio Glucose Uric Acid Calcium Magnesium Ammonia Random Vancomycin
--- NOTE | 2019-02-20 20:30 | Hospitalist Progress Note ---
Date of Service February 20, 2019 Assessment & Plan (1) Acute respiratory failure with hypoxia: Likely multifactorial - right-sided pneumonia, worsening pleural effusions. Cannot rule out pulmonary edema from ESRD. Cannot rule out VTE/PE. Cannot rule out cancer contributing. Treat pneumonia. Hemodialysis for volume control. If effusions worsen may need thoracentesis for diagnostic & therapeutic purposes. Change to oxymask to maintain O2 sats in low 90s. VBG w/o hypercarbia at this time. If any increased WOB or desaturation change to high-flow NC. Transfer to telemetry given complexity of care, worsening respiratory status, and potential for further decline. Present on Admission?: Yes (2) Pneumonia involving right lung: Worse clinically and radiographically. Cont zosyn and vanco given his worsening status. 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 Has numerous bony mets, adrenal mets, etc. Plan was for elective pinning of both hips to prevent pathological fracture; during this procedure was to have bone bx as well for definitive diagnosis. However, patient worsened today and thus surgery to be postponed for now. I spoke with Dr Tijerina regarding this. [place] may be contributing to confusion. Will d/c; change to low-dose dilaudid. Consider steroids as these would help bone pain. CT head in light of confusion - rule out intracranial mets. Appreciate ortho, heme/onc, rad/onc consultations. Present on Admission?: Yes (4) Hyponatremia: Worse over last 48 hours. Likely related to his ESRD. Uncertain if contributing to encephalopathy given the relatively rapid decrease. BMP in am. HD scheduled for tomorrow. Present on Admission?: Yes (5) ESRD on hemodialysis: HD //Sat. Appreciate [facility] assistance. Just recently initiated HD about 3-4 weeks ago in [place]. Due to hypertensive nephrosclerosis? Present on Admission?: Yes (6) S/P AVR (aortic valve replacement): History of such. Bioprosthetic. (7) Bilateral pleural effusion: worse. could be transudative from ESRD and hypoalbuminemia. could be exudative from cancer or pneumonia. if these effusions worsen may need thoracentesis for diagnosis and therapeutic effect. no doubt these are contributing to worsening resp status. Present on Admission?: Yes (8) Elevated troponin I level: Mild - peak 0.2. Likely demand ischemia rather than true ACS. Present on Admission?: Yes (9) Anemia in chronic kidney disease, on chronic dialysis: Current Hb 8. Defer management to nephrology. Present on Admission?: Yes (10) Hyperlipidemia: Statin. Present on Admission?: Yes (11) Hypertension: Cont usual outpatient meds. Present on Admission?: Yes (12) CAD (coronary artery disease): Cont asa, statin, BB, imdur. S/p CABG in the past. No ischemic symptoms. Present on Admission?: Yes (13) GERD (gastroesophageal reflux disease): PPI. Present on Admission?: Yes (14) Encephalopathy acute: Toxic (narcotics) and/or metabolic (pneumonia/infectious, hyponatremia, etc). Cannot rule out TOBACCO SPRAYER mets. Check CT head to r/o intracranial mets. Stop norco. Change to dilaudid prn. Trend Na. Hold temazepam. Ammonia wnl. VBG w/o hypercarbia. (15) DVT prophylaxis: patient w/ history of DVT years ago. in light of worsening O2 requirements obtained dopplers of legs to r/o DVT. dopplers negative for such. if CT head w/o mets then start heparin 5000 BID extensively updated at bedside today on multiple visits. transfer to tele due to worsening resp status. appreciate palliative care consult - pt now DNR. total time over several visits, speaking with several consultants, etc - 80 minutes Subjective multiple visits to pt's room today. during first visit the patient's NC O2 had increased from 3 to 5 liters. o2 sats were upper 80s/low 90s on such. spoke with nurse - will change to oxymask. was at bedside. she asked numerous questions and also gave historical information. he apparently was hospitalized at [facility] earlier this year. then ultimately hospitalized at [facility]. the latter is where HD was initiated. he has had about 10 HD sessions over the last few weeks. mentioned they were not previously aware of CKD. during initial visit patient was falling asleep. when he awoke he seemed mildly confused. he c/o back pain. during a later visit he was more awake but again confused. he stated "I have no pep." patient and met w/ palliative care - he is now a DNR. spoke with Dr Tijerina - we will postpone his b/l hip procedure in light of today's events. spoke with nephrology re: altered MS, hyponatremia, etc Review of Systems Constitutional: + fatigue and + anorexia; no fever and no chills Respiratory: + cough and + dyspnea Cardiovascular: no chest pain, no orthopnea, no paroxysmal nocturnal dyspnea and no edema Gastrointestinal: no abdominal pain, no nausea and no vomiting Physical Exam Constitutional: + acute distress (mild tachypnea noted today), + ill appearing, average body habitus and + altered mental status ENMT: external ear and nose normal, oropharynx normal Respiratory: + labored breathing (tachypnea only; no retractions) Auscultation: + diminished lung sounds (right base) and + rales (mild - right base); no rhonchi and no wheezes Cardiovascular: Rate/Rhythm: regular rate and regular rhythm Heart Sounds: normal S1 and normal S2; no murmur Vessels: posterior tibial pulses present and dorsalis pedis pulses present; no JVD Extremities: no edema Chest (Breasts): Additional Comments: right upper chest - tunneled dialysis catheter Gastrointestinal (Abdomen): normal bowel sounds, soft, nontender, no hepatosplenomegaly Skin: + pallor Psychiatric: Orientation: + not alert (sleepy) and + not oriented x 3 Results & Data Vital Signs (Past 12 Hours) Vital Signs Temp Pulse Resp BP BP Pulse Ox 02/20/19 19:40 36.9 C 61 18 152/62 H 94 02/20/19 15:11 36.7 C 60 20 159/64 H 92 02/20/19 12:31 36.7 C 62 24 156/69 H 90 Laboratory Results Laboratory Results - last 24 hr 02/20/19 02/20/19 02/20/19 05:35 05:35 05:35 WBC 12.18 H RBC 2.77 L Hgb 8.0 L Hct 24.0 L MCV 86.6 MCH 28.9 MCHC 33.3 RDW Std Deviation 48.4 H RDW Coeff of Fredis 15.3 H Plt Count 213 MPV 10.3 VBG pH VBG pCO2 VBG pO2 VBG HCO3 VBG O2 Saturation VBG Base Excess Barometric Pressure Sodium 124 L Potassium 4.9 D Chloride 89 L Carbon Dioxide 25 Anion Gap 10.0 BUN 44 H D Creatinine 4.63 H* D Est Cr Clr Drug Dosing 12.1 Est GFR ( Amer) 13.1 Est GFR (Non-Af Amer) 11.3 BUN/Creatinine Ratio 9.5 L Glucose 93 Uric Acid Calcium 8.5 Magnesium 2.3 Ammonia Random Vancomycin 17.0 02/20/19 02/20/19 02/20/19 14:24 14:24 14:24 WBC RBC Hgb Hct MCV MCH MCHC RDW Std Deviation RDW Coeff of Fredis Plt Count MPV VBG pH VBG pCO2 VBG pO2 VBG HCO3 VBG O2 Saturation VBG Base Excess Barometric Pressure Sodium 122 L Potassium Chloride Carbon Dioxide Anion Gap BUN Creatinine Est Cr Clr Drug Dosing Est GFR ( Amer) Est GFR (Non-Af Amer) BUN/Creatinine Ratio Glucose Uric Acid 5.0 Calcium Magnesium Ammonia 32.0 Random Vancomycin 02/20/19 14:36 WBC RBC Hgb Hct MCV MCH MCHC RDW Std Deviation RDW Coeff of Fredis Plt Count MPV VBG pH 7.45 H VBG pCO2 32 L VBG pO2 55 VBG HCO3 22 VBG O2 Saturation 87.4 VBG Base Excess -1.9 Barometric Pressure 732.4 Sodium Potassium Chloride Carbon Dioxide Anion Gap BUN Creatinine Est Cr Clr Drug Dosing Est GFR ( Amer) Est GFR (Non-Af Amer) BUN/Creatinine Ratio Glucose Uric Acid Calcium Magnesium Ammonia Random Vancomycin Diagnostic Findings cxr - IMPRESSION: 1. Increasing right pleural effusion with increasing right lung consolidation. Underlying pneumonia is the primary consideration. 2. Persistent left basilar atelectasis and suspected effusion. 3. Cardiomegaly with mild volume overload. (1) Pneumonia involving right lung Pneumonia type: due to unspecified organism Lung location: unspecified part of lung Qualified Code(s): J18.9 - Pneumonia, unspecified organism (2) Hyperlipidemia Hyperlipidemia type: mixed hyperlipidemia Qualified Code(s): E78.2 - Mixed hyperlipidemia (3) Hypertension Hypertension type: essential hypertension Qualified Code(s): I10 - Essential (primary) hypertension (4) CAD (coronary artery disease) Coronary Disease-Associated Artery/Lesion type: [place] artery [place] vs. transplanted heart: [place] heart Associated angina: without angina Qualified Code(s): I25.10 - Atherosclerotic heart disease of [place] coronary artery without angina pectoris (5) GERD (gastroesophageal reflux disease) Esophagitis presence: without esophagitis Qualified Code(s): K21.9 - Gastro- esophageal reflux disease without esophagitis
[2019-02-20] MEDS: ATORVASTATIN 40 MG TAB PO SCH (21:33)
[2019-02-21] MEDS: PIPERACILLIN/TAZOBACTAM 3.375 GM in DEXTROSE 5% 100 ML IV SCH ×2 (05:40→17:44)
[2019-02-21] MEDS ORDERED: SODIUM CHLORIDE 0.9% 1000ML 1,000 ML IV PRN (07:00)
[2019-02-21 08:43] LABS: Basophils # (auto) 0.08 K/uL (0-0.2); Basophils % (auto) 0.5 %; Eosinophils # (auto) 0.29 K/uL (0-0.5); Eosinophils % (auto) 1.7 %; Hematocrit (blood only) 24.9 % (42-52); Hemoglobin 8.4 g/dL (14.0-18.0); Immature Granulocytes # (auto) 0.07 K/uL (0.00-0.02); Immature Granulocytes % (auto) 0.4 %; Lymphocytes # (auto) 0.64 K/uL (1.2-3.4); Lymphocytes % (auto) 3.7 %; Mean Corpuscular Hgb Conc 33.7 g/dL (32-36); Mean Platelet Volume 10.7 fL (7.4-10.4); Monocytes # (auto) 2.01 K/uL (0.11-0.59); Monocytes % (auto) 11.6 %; Neutrophils # (auto) 14.23 K/uL (1.4-6.5); Neutrophils % (auto) 82.1 %; Platelet Count 242 K/uL (130-400); RDW Coefficient of Variation 15.4 % (11.5-14.5); Red Blood Count 2.93 M/uL (4.7-6.1); White Blood Count 17.32 K/uL (4.8-10.8)
[2019-02-21 09:22] LABS: BUN Creatinine Ratio 10.4 (10-20); Calcium 8.8 mg/dl (8.5-10.1); Creatinine Clr Calc Pharmacy 9.2 ml/min; Est GFR (African American) 9.5; Est GFR (Non-African American) 8.2; Potassium 5.2 mmol/L (3.5-5.1)
--- NOTE | 2019-02-21 11:56 | Palliative Care Progress Note ---
Date of Service February 21, 2019 Assessment & Plan (1) Palliative care encounter: -Patient was transferred to PCU for declining respiratory status. He is now on 7L oxymask. -Increased confusion and lethargy today per patient's . -Planning for CT head after dialysis treatment. Possible thoracentesis for diagnostic and therapeutic purposes. -We will continue to follow closely to assist with supportive care and GOC discussion. (2) Pain of metastatic malignancy: (3) ESRD on hemodialysis: (4) Bilateral pleural effusion: Subjective Patient and his , Lauren, seen this morning in room 205. Patient was in the middle of dialysis treatment. states patient is more confused and lethargic today. He is awake, but drowsy and falling asleep. Review of Systems Review of Systems: Unobtainable due to cognitive status (lethargic, falls asleep during visit) Physical Exam Constitutional: + ill appearing and + altered mental status ENMT: external ear and nose normal, oropharynx normal Respiratory: normal respiratory effort, lungs clear to auscultation Auscultation: + diminished lung sounds (right base) Cardiovascular: RRR, no murmur, no edema Skin: + pallor Psychiatric: Orientation: + not alert (sleepy) and + not oriented x 3 Results & Data Vital Signs (Past 12 Hours) Vital Signs Temp Pulse Pulse Pulse Resp BP BP 02/21/19 11:20 67 160/67 H 02/21/19 11:00 67 144/51 H 02/21/19 10:40 64 133/63 02/21/19 10:20 61 153/63 H 02/21/19 10:00 65 150/70 H 02/21/19 09:40 61 153/71 H 02/21/19 09:26 60 155/73 H 02/21/19 09:17 36.4 C L 61 02/21/19 07:37 36.4 C L 66 21 157/80 H 02/21/19 04:26 36.8 C 65 17 166/63 H Pulse Ox 02/21/19 11:20 02/21/19 11:00 02/21/19 10:40 02/21/19 10:20 02/21/19 10:00 02/21/19 09:40 02/21/19 09:26 02/21/19 09:17 02/21/19 07:37 92 02/21/19 04:26 93 Time Spent Midlevel 35 minutes with >50% of the time spent at bedside with patient and family discussing condition and GOC.
[2019-02-21] MEDS: CARVEDILOL 12.5 MG TAB PO SCH ×2 (14:48→21:10)
[2019-02-21] MEDS: ASPIRIN 81 MG CHEW PO SCH (14:48)
[2019-02-21] MEDS: PANTOprazole 40 MG TAB PO SCH (14:48)
[2019-02-21] MEDS: HydrALAZINE TAB 50 MG TAB PO SCH ×3 (14:49→21:10)
[2019-02-21] MEDS: TORSEMIDE 100 MG TAB PO SCH ×2 (14:49→18:11)
[2019-02-21] MEDS: DOCUSATE SODIUM 100 MG CAP PO SCH ×2 (14:49→21:20)
[2019-02-21] MEDS: AMLODIPINE BESYLATE 5 MG TAB PO SCH ×2 (14:50→21:11)
[2019-02-21] MEDS: ISOSORBIDE MONO EXTENDED REL 60 MG TABCR PO SCH (14:50)
[2019-02-21] MEDS: MAGNESIUM OXIDE 400 MG TAB PO SCH (14:50)
--- NOTE | 2019-02-21 15:24 | Nephrology Progress Note ---
Date of Service February 21, 2019 Assessment & Plan (1) ESRD on hemodialysis: Patient with ESRD on dialysis Wednesday. He has a right tunneled IJ catheter. He tolerated dialysis well today for 4 hours with net UF of 3 L. Next dialysis will be on . Patient is quite drowsy likely in setting of opioids. concerned about the drowsiness. I recommend stopping opioids for now. (2) Metastatic disease: Patient with metastatic bone disease of unknown primary. CT abdomen done yesterday also revealing osteolytic bone lesions. Patient is frustrated with the multiple diagnostic tests without finding the primary. He is now DNR after talking to palliative care. He wishes to continue dialysis and work-up for his cancer. (3) Hypertension: Blood pressure is slightly above target but acceptable. Blood pressure might also be elevated due to back pain. No changes in antihypertensives (4) Anemia in chronic kidney disease, on chronic dialysis: Hemoglobin is 8 today. Unable to give epogen due to active cancer (5) Pneumonia involving right lung: Patient is on Zosyn and vancomycin per primary team. Renally dose medications for GFR less than 25 mL/min. Subjective Patient seen in follow-up for ESRD on dialysis. Patient was seen and examined while on dialysis. He denied any shortness of breath but was intermittently drowsy likely due to opioids. was at the bedside. He tolerated dialysis well today. Review of Systems Review of Systems: All systems reviewed & are unremarkable except as noted in HPI & below Physical Exam Physical Exam: General exam: Intermittently drowsy, appears comfortable, no acute distress HEENT: Pupils are equal and reactive to light Neck: No JVD, neck is supple trachea is midline Respiratory system: Clear breath sounds bilaterally. Gastrointestinal: Abdomen is soft, non distended, non tender, bowel sounds are present CVS: Regular rate and rhythm. No murmurs, rubs or gallops Musculoskeletal: No joint or muscle tenderness Extremities: Non tender, no edema, peripheral pulses are present Neuro: Jerking intermittently, no focal neurological deficits Skin: No rashes Results & Data Vital Signs (Past 12 Hours) Vital Signs Temp Pulse Pulse Pulse Resp BP BP 02/21/19 13:45 36.5 C 65 02/21/19 13:20 71 121/59 L 02/21/19 13:00 65 121/59 L 02/21/19 12:40 70 127/66 02/21/19 12:20 65 147/75 H 02/21/19 12:00 65 156/76 H 02/21/19 11:40 66 158/82 H 02/21/19 11:20 67 160/67 H 02/21/19 11:00 67 144/51 H 02/21/19 10:40 64 133/63 02/21/19 10:20 61 153/63 H 02/21/19 10:00 65 150/70 H 02/21/19 09:40 61 153/71 H 02/21/19 09:26 60 155/73 H 02/21/19 09:17 36.4 C L 61 02/21/19 07:37 36.4 C L 66 21 157/80 H 02/21/19 04:26 36.8 C 65 17 166/63 H BP Pulse Ox 02/21/19 13:45 147/60 H 02/21/19 13:20 02/21/19 13:00 02/21/19 12:40 02/21/19 12:20 02/21/19 12:00 02/21/19 11:40 02/21/19 11:20 02/21/19 11:00 02/21/19 10:40 02/21/19 10:20 02/21/19 10:00 02/21/19 09:40 02/21/19 09:26 02/21/19 09:17 02/21/19 07:37 92 02/21/19 04:26 93 Laboratory Results Laboratory Results - last 24 hr 02/20/19 02/21/19 02/21/19 14:24 08:10 08:10 WBC 17.32 H RBC 2.93 L Hgb 8.4 L Hct 24.9 L MCV 85.0 MCH 28.7 MCHC 33.7 RDW Std Deviation 48.0 H RDW Coeff of Fredis 15.4 H Plt Count 242 MPV 10.7 H Immature Gran % (Auto) 0.4 Neut % (Auto) 82.1 Lymph % (Auto) 3.7 [place] % (Auto) 11.6 Eos % (Auto) 1.7 Baso % (Auto) 0.5 Immature Gran # (Auto) 0.07 H Neut # (Auto) 14.23 H Lymph # (Auto) 0.64 L [place] # (Auto) 2.01 H Eos # (Auto) 0.29 Baso # (Auto) 0.08 Sodium 122 L 121 L Potassium 5.2 H Chloride 86 L Carbon Dioxide 21 Anion Gap 14.0 H BUN 63 H Creatinine 6.04 H* D Est Cr Clr Drug Dosing 9.2 Est GFR ( Amer) 9.5 Est GFR (Non-Af Amer) 8.2 BUN/Creatinine Ratio 10.4 Glucose 91 Calcium 8.8 (1) Hypertension Hypertension type: essential hypertension Qualified Code(s): I10 - Essential (primary) hypertension (2) Pneumonia involving right lung Pneumonia type: due to unspecified organism Lung location: unspecified part of lung Qualified Code(s): J18.9 - Pneumonia, unspecified organism
[2019-02-21] MEDS: LIDOCAINE 5% 1 PATCH TD SCH (15:28)
--- NOTE | 2019-02-21 17:03 | CT Scan Report ---
HEAD CT NONCONTRAST CT DOSE: 743.26 mGy.cm HISTORY: stage 4 cancer; eval for intra-cranial mets TECHNIQUE: Multiaxial CT images of the head were performed without the use of intravenous contrast. A utomated exposure control was utilized for this study. A dose lowering technique was utilized adheri ng to the principles of ALARA. Comparison: None. Findings: The paranasal sinuses and mastoid air cells are clear. The calvarium and skull base are int act. No masses identified on this noncontrast study. Mild atrophy and microvascular ischemic changes are noted. 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 No hematoma, midline shift, or acute infar ct identified. Impression: 1. No acute intracranial abnormality. 2. No definite intracranial masses identified. Of note, a contrast-enhanced head CT or brain MRI is c onsidered the test of choice for intracranial masses. Electronically signed by: Damien Samaniego M.D. 02/21/2019 5:02 PM
[2019-02-21] MEDS: dexAMETHasone 1 MG TAB PO SCH (17:44)
--- NOTE | 2019-02-21 18:04 | XRay Report ---
XR chest 2V routine HISTORY: f/u pleural effusion COMPARISON: Chest 02/20/2019. FINDINGS: Improved aeration within the right mid to lower lung zone. Small right pleural effusion has slightly improved. Small left pleural effusion and left basilar densities persist. The heart remains enlarged. Cardiac valve prosthesis is again noted. No pneumothorax. Left-sided dual-chamber pacemake r. Right jugular catheter terminates at the expected location of the SVC. There is mild pulmonary vas cular congestion without overt edema. IMPRESSION: 1. Improved aeration within the right lung with decrease in size in the small right pleural effusion. 2. Small left pleural effusion and left basilar densities persist. 3. Mild central pulmonary vascular congestion without overt edema. Electronically signed by: Damien Samaniego M.D. 02/21/2019 6:03 PM
[2019-02-21] MEDS ORDERED: HYDROmorphone HCL 2 MG TAB PO PRN (19:30)
[2019-02-21] MEDS ORDERED: HYDROmorphone HCL 2 MG TAB PO ONE (19:33)
--- NOTE | 2019-02-21 19:54 | Hospitalist Progress Note ---
Date of Service February 21, 2019 Assessment & Plan (1) Encephalopathy acute: CT head w/o intracranial mets, stroke, or other acute findings. Likely combination of metabolic and toxic causes (infection, pneumonia, narcs, low sodium, etc). I agree we should minimize narcotics if possible but he is having severe bone pain from the cancer. Decadron added for this. Sleep-wake cycle explained with . Discussed hospital delirium in detail with . Reassurance given. Hold off on antipsychotic. AVOID BENZOS if possible. (2) Acute respiratory failure with hypoxia: Likely multifactorial - right-sided pneumonia, effusions, edema. Cannot rule out VTE/PE. Cannot rule out cancer contributing. Treat pneumonia. s/p Hemodialysis for volume control today. CXR today - mild radiographic improvement of pneumonia. Effusions may be too small to tap. Cont NC O2. (3) Pneumonia involving right lung: day #3 of zosyn and vanco. cont both. plan 7 days of IV/PO abx. cxr today with stable findings. 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 Has numerous bony mets, adrenal mets, etc. Plan was for elective pinning of both hips to prevent pathological fracture; during this procedure was to have bone bx as well for definitive diagnosis. However, surgery postponed due to worsening resp status. Might be candidate later this week. Appreciate ortho, heme/onc, rad/onc consultations. For back/bony pain - * tylenol 1gm TID * add decadron 2mg daily * k-pad heat * did not do well with norco and IV dilaudid even in small amounts --- but patient having 9/10 back pain --- retrial dilaudid orally, 1mg q8h prn * rad onc ultimately to radiate these areas (5) Hyponatremia: Na 121 today. Should improve with HD. BMP am. (6) ESRD on hemodialysis: HD //Sat. Appreciate [facility] assistance. Just recently initiated HD about 3-4 weeks ago in [place]. Due to hypertensive nephrosclerosis? (7) S/P AVR (aortic valve replacement): History of such. Bioprosthetic. (8) Bilateral pleural effusion: could be transudative from ESRD and hypoalbuminemia. could be exudative from cancer or pneumonia. cxr today with small effusions; follow for now; uncertain they are large enough to safely tap. (9) Elevated troponin I level: Mild - peak 0.2. Likely demand ischemia rather than true ACS. (10) Anemia in chronic kidney disease, on chronic dialysis: Current Hb 8.4. Defer management to nephrology. (11) Hyperlipidemia: Statin. (12) Hypertension: Cont usual outpatient meds. (13) CAD (coronary artery disease): Cont asa, statin, BB, imdur. S/p CABG in the past. No ischemic symptoms. (14) GERD (gastroesophageal reflux disease): PPI. (15) DVT prophylaxis: b/l LE dopplers negative for DVT. CT head w/o mets start heparin 5000 BID extensively updated at bedside today on multiple visits. reassurance given re: delirium -- why he has it, treatment, etc she has better understanding appreciate palliative care consult as well Subjective patient received HD this am. has had intermittent, waxing/waning confusion. this has been concerning to his . during the visit he first told me he was at the [facility]. then he stated he had gone home "and come back." appetite better today. ongoing pain issues in back. not relieved with tylenol, steroids. tele stable overnight. mild dyspnea. family wishes to pursue Rx of cancer. Review of Systems Constitutional: no fever Respiratory: + cough and + dyspnea; no hemoptysis and no wheezing Cardiovascular: no chest pain and no orthopnea Gastrointestinal: no abdominal pain, no nausea and no vomiting Neurologic: no headache(s) Physical Exam Constitutional: + ill appearing, average body habitus and + altered mental status (quite confused); no acute distress but overall looks better today ENMT: external ear and nose normal, oropharynx normal Respiratory: no respiratory distress Auscultation: + diminished lung sounds (right base) and + rales (mild - right base); no rhonchi and no wheezes Cardiovascular: Rate/Rhythm: regular rate and regular rhythm Heart Sounds: normal S1 and normal S2; no murmur Vessels: posterior tibial pulses present and dorsalis pedis pulses present; no JVD Extremities: + edema (1+ b/l) Gastrointestinal (Abdomen): normal bowel sounds, soft, nontender, no hepatosplenomegaly Skin: + pallor Psychiatric: more awake today, but only oriented to person (not time or place) not lethargic today Results & Data Vital Signs (Past 12 Hours) Vital Signs Temp Pulse Pulse Pulse Resp BP BP 02/21/19 15:27 36.8 C 64 27 H 136/67 02/21/19 13:45 36.5 C 65 147/60 H 02/21/19 13:20 71 121/59 L 02/21/19 13:00 65 121/59 L 02/21/19 12:40 70 127/66 02/21/19 12:20 65 147/75 H 02/21/19 12:00 65 156/76 H 02/21/19 11:40 66 158/82 H 02/21/19 11:20 67 160/67 H 02/21/19 11:00 67 144/51 H 02/21/19 10:40 64 133/63 02/21/19 10:20 61 153/63 H 02/21/19 10:00 65 150/70 H 02/21/19 09:40 61 153/71 H 02/21/19 09:26 60 155/73 H 02/21/19 09:17 36.4 C L 61 Pulse Ox 02/21/19 15:27 95 02/21/19 13:45 02/21/19 13:20 02/21/19 13:00 02/21/19 12:40 02/21/19 12:20 02/21/19 12:00 02/21/19 11:40 02/21/19 11:20 02/21/19 11:00 02/21/19 10:40 02/21/19 10:20 02/21/19 10:00 02/21/19 09:40 02/21/19 09:26 02/21/19 09:17 Laboratory Results Laboratory Results - last 24 hr 02/21/19 02/21/19 08:10 08:10 WBC 17.32 H RBC 2.93 L Hgb 8.4 L Hct 24.9 L MCV 85.0 MCH 28.7 MCHC 33.7 RDW Std Deviation 48.0 H RDW Coeff of Fredis 15.4 H Plt Count 242 MPV 10.7 H Immature Gran % (Auto) 0.4 Neut % (Auto) 82.1 Lymph % (Auto) 3.7 [place] % (Auto) 11.6 Eos % (Auto) 1.7 Baso % (Auto) 0.5 Immature Gran # (Auto) 0.07 H Neut # (Auto) 14.23 H Lymph # (Auto) 0.64 L [place] # (Auto) 2.01 H Eos # (Auto) 0.29 Baso # (Auto) 0.08 Sodium 121 L Potassium 5.2 H Chloride 86 L Carbon Dioxide 21 Anion Gap 14.0 H BUN 63 H Creatinine 6.04 H* D Est Cr Clr Drug Dosing 9.2 Est GFR ( Amer) 9.5 Est GFR (Non-Af Amer) 8.2 BUN/Creatinine Ratio 10.4 Glucose 91 Calcium 8.8 (1) Pneumonia involving right lung Lung location: unspecified part of lung Pneumonia type: due to unspecified organism Qualified Code(s): J18.9 - Pneumonia, unspecified organism (2) CAD (coronary artery disease) Associated angina: without angina Coronary Disease-Associated Artery/Lesion type: [place] artery [place] vs. transplanted heart: [place] heart Qualified Code(s): I25.10 - Atherosclerotic heart disease of [place] coronary artery without angina pectoris (3) Hyperlipidemia Hyperlipidemia type: mixed hyperlipidemia Qualified Code(s): E78.2 - Mixed hyperlipidemia (4) GERD (gastroesophageal reflux disease) Esophagitis presence: without esophagitis Qualified Code(s): K21.9 - Gastro- esophageal reflux disease without esophagitis (5) Hypertension Hypertension type: essential hypertension Qualified Code(s): I10 - Essential (primary) hypertension
[2019-02-21] MEDS: ATORVASTATIN 40 MG TAB PO SCH (21:10)
[2019-02-21] MEDS: ACETAMINOPHEN 500 MG TAB PO SCH (21:11)
[2019-02-21] MEDS: HEPARIN SOD 5,000 UNIT/0.5 ML VIAL SQ SCH (21:20)
[2019-02-22] MEDS: PIPERACILLIN/TAZOBACTAM 3.375 GM in DEXTROSE 5% 100 ML IV SCH ×2 (04:44→16:10)
[2019-02-22] MEDS: ACETAMINOPHEN 500 MG TAB PO SCH ×3 (05:32→22:30)
[2019-02-22 05:49] LABS: Hematocrit (blood only) 22.2 % (42-52); Hemoglobin 7.2 g/dL (14.0-18.0); Mean Corpuscular Hgb Conc 32.4 g/dL (32-36); Mean Platelet Volume 9.8 fL (7.4-10.4); Platelet Count 199 K/uL (130-400); RDW Coefficient of Variation 15.3 % (11.5-14.5); RDW Standard Deviation 48.6 fL (36.4-46.3); Red Blood Count 2.58 M/uL (4.7-6.1); White Blood Count 11.12 K/uL (4.8-10.8)
[2019-02-22 06:26] LABS: Calcium 8.7 mg/dl (8.5-10.1); Creatinine Clr Calc Pharmacy 15.1 ml/min; Est GFR (African American) 17.2; Est GFR (Non-African American) 14.9
[2019-02-22] MEDS: CARVEDILOL 12.5 MG TAB PO SCH ×2 (07:51→21:39)
[2019-02-22] MEDS: PANTOprazole 40 MG TAB PO SCH (07:51)
[2019-02-22] MEDS: AMLODIPINE BESYLATE 5 MG TAB PO SCH ×2 (07:51→21:37)
[2019-02-22] MEDS: TORSEMIDE 100 MG TAB PO SCH ×2 (07:52→17:28)
[2019-02-22] MEDS: MAGNESIUM OXIDE 400 MG TAB PO SCH (07:52)
[2019-02-22] MEDS: dexAMETHasone 1 MG TAB PO SCH (07:54)
[2019-02-22] MEDS: LIDOCAINE 5% 1 PATCH TD SCH (07:54)
[2019-02-22] MEDS: HydrALAZINE TAB 50 MG TAB PO SCH ×3 (07:54→21:37)
[2019-02-22] MEDS: ISOSORBIDE MONO EXTENDED REL 60 MG TABCR PO SCH (07:55)
[2019-02-22] MEDS: DOCUSATE SODIUM 100 MG CAP PO SCH ×2 (08:06→21:45)
[2019-02-22] MEDS: HEPARIN SOD 5,000 UNIT/0.5 ML VIAL SQ SCH ×2 (08:06→21:41)
[2019-02-22] MEDS: ASPIRIN 81 MG CHEW PO SCH (08:06)
[2019-02-22] MEDS: SENNA 8.6 MG TAB PO SCH (11:37)
[2019-02-22] MEDS: POLYETHYLENE (MIRALAX) 17 GM PACK PO SCH ×2 (11:37→21:40)
--- NOTE | 2019-02-22 12:57 | Nephrology Progress Note ---
Date of Service February 22, 2019 Assessment & Plan (1) ESRD on hemodialysis: Patient with ESRD on dialysis Wednesday. He has a right tunneled IJ catheter. He tolerated dialysis yesterday with net UF of 3 L. Next dialysis will be on . Patient is awake today but delirious. Electrolytes are stable and no signs of volume overload. (2) Metastatic disease: Patient with metastatic bone disease of unknown primary. CT abdomen done yesterday also revealing osteolytic bone lesions. Patient is frustrated with the multiple diagnostic tests without finding the primary. He is now DNR. He wishes to continue dialysis and work-up for his cancer. (3) Hypertension: Blood pressure is slightly above target but acceptable. Blood pressure might also be elevated due to back pain. No changes in antihypertensives (4) Anemia in chronic kidney disease, on chronic dialysis: Hemoglobin is 7.2 today. Unable to give epogen due to active cancer. He probably does not need daily blood draws. Monitor and transfuse as needed. (5) Pneumonia involving right lung: Patient is on Zosyn and vancomycin per primary team. Renally dose medications for GFR less than 25 mL/min. Subjective Patient seen in follow-up for ESRD on dialysis. He is intermittently confused but more awake today. He was able to give history. He denied any shortness of breath. He thinks is in the [facility]. He complains of back pain with movement. No leg swelling. He had dialysis yesterday. Review of Systems Review of Systems: All systems reviewed & are unremarkable except as noted in HPI & below Physical Exam Physical Exam: General exam: Appears comfortable, no acute distress HEENT: Pupils are equal and reactive to light Neck: No JVD, neck is supple trachea is midline Respiratory system: Clear breath sounds bilaterally. Gastrointestinal: Abdomen is soft, non distended, non tender, bowel sounds are present CVS: Regular rate and rhythm. No murmurs, rubs or gallops Musculoskeletal: No joint or muscle tenderness Extremities: Non tender, no edema, peripheral pulses are present Neuro: Oriented x1, no tremors, no focal neurological deficits Skin: No rashes Access: Tunneled dialysis catheter Results & Data Vital Signs (Past 12 Hours) Vital Signs Temp Pulse Pulse Resp BP Pulse Ox 02/22/19 11:12 36.5 C 66 23 154/56 H 93 02/22/19 07:49 36.8 C 65 22 164/62 H 94 02/22/19 04:20 37.1 C 64 18 143/60 H 92 Laboratory Results Laboratory Results - last 24 hr 02/22/19 02/22/19 02/22/19 05:23 05:23 05:23 WBC 11.12 H RBC 2.58 L Hgb 7.2 L Hct 22.2 L MCV 86.0 MCH 27.9 MCHC 32.4 RDW Std Deviation 48.6 H RDW Coeff of Fredis 15.3 H Plt Count 199 MPV 9.8 Sodium 129 L D Potassium 5.0 Chloride 101 Carbon Dioxide 18 L Anion Gap 10.0 BUN 37 H Creatinine 3.70 H D Est Cr Clr Drug Dosing 15.1 Est GFR ( Amer) 17.2 Est GFR (Non-Af Amer) 14.9 BUN/Creatinine Ratio 10.0 Glucose 160 H Calcium 8.7 Random Vancomycin 14.7 (1) Hypertension Hypertension type: essential hypertension Qualified Code(s): I10 - Essential (primary) hypertension (2) Pneumonia involving right lung Pneumonia type: due to unspecified organism Lung location: unspecified part of lung Qualified Code(s): J18.9 - Pneumonia, unspecified organism
[2019-02-22] MEDS ORDERED: BISACODYL 10 MG SUPP PR STA (14:57)
[2019-02-22] MEDS ORDERED: VANCOMYCIN HCL 500 MG in 0.9 % SODIUM CHLORIDE 100 ML IV ONE (16:00)
--- NOTE | 2019-02-22 17:29 | XRay Report ---
KUB CLINICAL HISTORY: Abdominal distention. FINDINGS: 2 AP supine abdominal radiographs are correlated with abdominal CT dated 02/18/2019. There is gaseous distention of the small bowel and colon, similar in appearance to the 02/18/2019 CT scan. Ther e is no evidence of high-grade bowel obstruction. No evidence of intraperitoneal free air is seen on these supine images. Cholecystectomy clips are noted. Calcifications are again seen in the pelvis. Th e skeletal structures are osteopenic. Osteolytic lesions seen by CT are not well-visualized by x-ray. IMPRESSION: There is gaseous distention of the small bowel and colon, similar to the 02/18/2019 CT scan . This likely represents ileus and clinical correlation will be required. Electronically signed by: Aaron Caraballo M.D. 02/22/2019 5:28 PM
--- NOTE | 2019-02-22 20:06 | Hospitalist Progress Note ---
Date of Service February 22, 2019 Assessment & Plan (1) Encephalopathy acute: CT head w/o intracranial mets, stroke, or other acute findings. Likely combination of metabolic and toxic causes (infection, pneumonia, narcs, low sodium, hospital psychosis, etc). Again extensively discussed confusion/delirium with pt's . Explained causes. Explained we avoid antipsychotics unless the delirium is severe or leading to combativeness/etc. Discussed that treatment of delirium is aimed at treating the underlying causes. Explained that narcotics may be contributing but that he needs pain control (has back pain with minimal movement/activity). Reinforce sleep/wake cycle. Holding benzos. Will hold all narcotics and try again tomorrow - perhaps with norco 2.5's ("pediatric" dose). (2) Acute respiratory failure with hypoxia: Likely multifactorial - right-sided pneumonia, effusions, edema. Cannot rule out VTE/PE. Cannot rule out cancer contributing. Treat pneumonia. s/p Hemodialysis for volume control. Overall improved radiographically and clinically. In fact he was satting low 90s in RA during my visit. (3) Pneumonia involving right lung: day #4 of zosyn and vanco. cont both. plan 7 days of IV/PO abx. could consider changing to PO abx tomorrow. 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 Has numerous bony mets, adrenal mets, etc. Plan was for elective pinning of both hips to prevent pathological fracture; during this procedure was to have bone bx as well for definitive diagnosis. However, surgery postponed due to worsening resp status. Might be candidate later this week or early next week. Appreciate ortho, heme/onc, rad/onc consultations. For back/bony pain - * does not seem to be tolerating narcotics even at the lowest doses * HOLD dilaudid IV/PO * could consider 2.5mg of norco q8h prn tomorrow if mental status is better * consider pain management consultation * radiation will improve this pain once xrt initiated * cont tylenol and decadron; could consider moving latter up to 4mg/day * k-pad heat (5) Hyponatremia: Na improved today s/p HD yesterday BMP am (6) ESRD on hemodialysis: HD //Sat. Appreciate [facility] assistance. Just recently initiated HD about 3-4 weeks ago in [place]. Due to hypertensive nephrosclerosis? (7) S/P AVR (aortic valve replacement): History of such. Bioprosthetic. (8) Bilateral pleural effusion: could be transudative from ESRD and hypoalbuminemia. could be exudative from cancer or pneumonia. most recent cxr with small effusions; follow for now; uncertain they are large enough to safely tap. (9) Elevated troponin I level: Mild - peak 0.2. Likely demand ischemia rather than true ACS. (10) Anemia in chronic kidney disease, on chronic dialysis: Current Hb 7.2. if any lower tomorrow would give 2 units PRBCs on HD (11) Hyperlipidemia: Statin. (12) Hypertension: Cont usual outpatient meds. (13) CAD (coronary artery disease): Cont asa, statin, BB, imdur. S/p CABG in the past. No ischemic symptoms. (14) GERD (gastroesophageal reflux disease): PPI. (15) Ileus: abd distension -- due to ileus as seen on KUB today. I performed rectal exam today -- NO IMPACTION -- minimal stool in vault. likely multifactorial - pneumonia, immobility, narcotic usage, etc. usual conservative measures - keep K/Mag normal, dulcolax daily, etc (16) DVT prophylaxis: b/l LE dopplers negative for DVT. CT head w/o mets heparin 5000 BID extensively updated at bedside today on multiple visits. reassurance again given re: delirium -- why he has it, treatment, etc anorexia explained (anorexia is due to pain, delirium, stage 4 cancer, infection, etc) prognosis poor Subjective lengthy bedside visit today as was present and she had numerous questions/concerns. although we spoke extensively about delirium she is still quite concerned about it and we discussed the delirium once again today. we also discussed pain control and his anorexia. he continues with confusion - waxing/waning. he has back pain with minimal movement in bed or trying to sit up. concerned decadron causing confusion. asked for suppository and/or enema use for constipation. he c/o bloating but no nausea. passing flatus. Review of Systems Constitutional: + fatigue and + anorexia; no fever Respiratory: + cough; no dyspnea Cardiovascular: no chest pain, no orthopnea and no paroxysmal nocturnal dyspnea Gastrointestinal: + bloating and + constipation; no abdominal pain, no nausea and no vomiting Musculoskeletal: + back pain; no radicular pain Physical Exam Constitutional: + ill appearing, average body habitus, + altered mental status (awake, but confused) and + frail appearing; no acute distress ENMT: external ear and nose normal, oropharynx normal Mouth: oral mucous membranes not dry Respiratory: no respiratory distress Auscultation: + diminished lung sounds (right base) and + rales (scant - right base); no rhonchi and no wheezes Cardiovascular: Rate/Rhythm: regular rate and regular rhythm Heart Sounds: normal S1 and normal S2; no murmur Vessels: posterior tibial pulses present and dorsalis pedis pulses present; no JVD Extremities: + edema (trace ) Gastrointestinal (Abdomen): normal bowel sounds, soft, nontender, no hepatosplenomegaly Inspection/Auscultation: + abdomen distended Rectal Exam: + stool abnormal (modest mucous present); no hemorrhoids and no fecal impaction minimal anal stricture present Skin: + pallor Psychiatric: Orientation: alert, oriented to person and oriented to place; + not oriented to time Results & Data Vital Signs (Past 12 Hours) Vital Signs Temp Pulse Resp BP BP Pulse Ox 02/22/19 19:28 36.6 C 60 26 H 147/61 H 90 02/22/19 15:39 36.5 C 60 19 141/63 H 92 02/22/19 15:35 36.7 C 62 17 116/71 96 02/22/19 11:12 36.5 C 66 23 154/56 H 93 Laboratory Results Laboratory Results - last 24 hr 02/22/19 02/22/19 02/22/19 05:23 05:23 05:23 WBC 11.12 H RBC 2.58 L Hgb 7.2 L Hct 22.2 L MCV 86.0 MCH 27.9 MCHC 32.4 RDW Std Deviation 48.6 H RDW Coeff of Fredis 15.3 H Plt Count 199 MPV 9.8 Sodium 129 L D Potassium 5.0 Chloride 101 Carbon Dioxide 18 L Anion Gap 10.0 BUN 37 H Creatinine 3.70 H D Est Cr Clr Drug Dosing 15.1 Est GFR ( Amer) 17.2 Est GFR (Non-Af Amer) 14.9 BUN/Creatinine Ratio 10.0 Glucose 160 H Calcium 8.7 Random Vancomycin 14.7 (1) Pneumonia involving right lung Lung location: unspecified part of lung Pneumonia type: due to unspecified organism Qualified Code(s): J18.9 - Pneumonia, unspecified organism (2) CAD (coronary artery disease) Associated angina: without angina Coronary Disease-Associated Artery/Lesion type: [place] artery [place] vs. transplanted heart: [place] heart Qualified Code(s): I25.10 - Atherosclerotic heart disease of [place] coronary artery without angina pectoris (3) Hyperlipidemia Hyperlipidemia type: mixed hyperlipidemia Qualified Code(s): E78.2 - Mixed hyperlipidemia (4) GERD (gastroesophageal reflux disease) Esophagitis presence: without esophagitis Qualified Code(s): K21.9 - Gastro- esophageal reflux disease without esophagitis (5) Hypertension Hypertension type: essential hypertension Qualified Code(s): I10 - Essential (primary) hypertension
[2019-02-22] MEDS: ATORVASTATIN 40 MG TAB PO SCH (21:39)
[2019-02-23] MEDS: PIPERACILLIN/TAZOBACTAM 3.375 GM in DEXTROSE 5% 100 ML IV SCH ×2 (04:02→16:56)
[2019-02-23] MEDS: ACETAMINOPHEN 500 MG TAB PO SCH ×3 (06:07→23:40)
[2019-02-23 07:05] LABS: Basophils # (auto) 0.05 K/uL (0-0.2); Basophils % (auto) 0.5 %; Hematocrit (blood only) 21.9 % (42-52); Hemoglobin 7.2 g/dL (14.0-18.0); Immature Granulocytes # (auto) 0.04 K/uL (0.00-0.02); Immature Granulocytes % (auto) 0.4 %; Lymphocytes % (auto) 4.6 %; Mean Corpuscular Hgb Conc 32.9 g/dL (32-36); Mean Corpuscular Volume 85.5 fL (80-100); Mean Platelet Volume 9.5 fL (7.4-10.4); Monocytes # (auto) 0.76 K/uL (0.11-0.59); Monocytes % (auto) 7.1 %; Neutrophils # (auto) 9.41 K/uL (1.4-6.5); Neutrophils % (auto) 87.4 %; Platelet Count 200 K/uL (130-400); RDW Coefficient of Variation 15.3 % (11.5-14.5); RDW Standard Deviation 48.4 fL (36.4-46.3); Red Blood Count 2.56 M/uL (4.7-6.1); White Blood Count 10.76 K/uL (4.8-10.8)
[2019-02-23 07:50] LABS: Calcium 8.7 mg/dl (8.5-10.1); Creatinine Clr Calc Pharmacy 11.3 ml/min; Echinocytes 1+; Est GFR (African American) 12.1; Est GFR (Non-African American) 10.5; Potassium 5.8 mmol/L (3.5-5.1)
[2019-02-23] MEDS: dexAMETHasone 1 MG TAB PO SCH ×2 (08:43→08:55)
[2019-02-23] MEDS: HEPARIN SOD 5,000 UNIT/0.5 ML VIAL SQ SCH ×2 (08:43→20:21)
[2019-02-23] MEDS: LIDOCAINE 5% 1 PATCH TD SCH (08:43)
[2019-02-23] MEDS: SENNA 8.6 MG TAB PO SCH (08:44)
[2019-02-23] MEDS: TORSEMIDE 100 MG TAB PO SCH ×2 (08:44→16:57)
[2019-02-23] MEDS: PANTOprazole 40 MG TAB PO SCH (08:44)
[2019-02-23] MEDS: MAGNESIUM OXIDE 400 MG TAB PO SCH (08:44)
[2019-02-23] MEDS: ASPIRIN 81 MG CHEW PO SCH (08:49)
[2019-02-23] MEDS: DOCUSATE SODIUM 100 MG CAP PO SCH ×2 (08:49→20:23)
[2019-02-23] MEDS: POLYETHYLENE (MIRALAX) 17 GM PACK PO SCH ×2 (08:55→20:20)
[2019-02-23] MEDS ORDERED: SODIUM CHLORIDE 0.9% 1000ML 1,000 ML IV PRN (08:59)
[2019-02-23] MEDS ORDERED: HEPARIN SOD (PORCINE) 1000 UNIT/ML 10 ML VIAL IV ONE (08:59)
[2019-02-23] MEDS ORDERED: ALTEPLASE, RECOMBINANT 1 MG/ML 2ML VIAL IV ONE (09:30)
[2019-02-23] MEDS: HydrALAZINE TAB 50 MG TAB PO SCH ×3 (11:18→20:17)
--- NOTE | 2019-02-23 12:22 | Nephrology Progress Note ---
Date of Service February 23, 2019 Assessment & Plan (1) ESRD on hemodialysis: Patient with ESRD on dialysis Wednesday. He has a right tunneled IJ catheter. He is tolerating HD today. CVC initially blocked, improved with cathflo. Target UF of 3 L. Next dialysis will be on Wednesday. He has hyperkalemia bu no signs of volume overload. (2) Metastatic disease: Patient with metastatic bone disease of unknown primary. CT abdomen done yesterday also revealing osteolytic bone lesions. Patient is frustrated with the multiple diagnostic tests without finding the primary. He is now DNR. He wishes to continue dialysis and work-up for his cancer. (3) Hypertension: Blood pressure is slightly above target but acceptable. Blood pressure might also be elevated due to back pain. No changes in antihypertensives (4) Anemia in chronic kidney disease, on chronic dialysis: Hemoglobin is 7.2 today. Unable to give epogen due to active cancer. He probably does not need daily blood draws. Monitor and transfuse as needed. (5) Pneumonia involving right lung: Patient is on antibiotics per primary team. Renally dose medications for GFR less than 25 mL/min. Subjective ESRD patient seen and examined while on dialysis. Initial catheter problems, improved after cathflo. No SOB. Has abdominal bloating. c/o chest pain and back pain. Review of Systems Review of Systems: All systems reviewed & are unremarkable except as noted in HPI & below Physical Exam Physical Exam: General exam: Appears comfortable, no acute distress HEENT: Pupils are equal and reactive to light Neck: No JVD, neck is supple trachea is midline Respiratory system: Clear breath sounds bilaterally. Gastrointestinal: Abdomen is soft, non distended, non tender, bowel sounds are present CVS: Regular rate and rhythm. No murmurs, rubs or gallops Musculoskeletal: No joint or muscle tenderness Extremities: Non tender, no edema, peripheral pulses are present Neuro: Oriented, no tremors, no focal neurological deficits Skin: No rashes Results & Data Vital Signs (Past 12 Hours) Vital Signs Temp Pulse Pulse Pulse Resp BP BP 02/23/19 12:00 61 164/76 H 02/23/19 11:40 60 163/80 H 02/23/19 11:20 61 162/76 H 02/23/19 11:00 60 151/79 H 02/23/19 10:40 60 151/76 H 02/23/19 10:28 36.4 C L 60 60 157/82 H 02/23/19 07:43 36.3 C L 60 26 H 151/65 H 02/23/19 03:47 36.5 C 60 20 137/63 Pulse Ox 02/23/19 12:00 02/23/19 11:40 02/23/19 11:20 02/23/19 11:00 02/23/19 10:40 02/23/19 10:28 02/23/19 07:43 92 02/23/19 03:47 93 Laboratory Results Laboratory Results - last 24 hr 02/23/19 02/23/19 06:53 06:53 WBC 10.76 RBC 2.56 L Hgb 7.2 L Hct 21.9 L MCV 85.5 MCH 28.1 MCHC 32.9 RDW Std Deviation 48.4 H RDW Coeff of Fredis 15.3 H Plt Count 200 MPV 9.5 Immature Gran % (Auto) 0.4 Neut % (Auto) 87.4 Lymph % (Auto) 4.6 Saline % (Auto) 7.1 Eos % (Auto) 0.0 Baso % (Auto) 0.5 Immature Gran # (Auto) 0.04 H Neut # (Auto) 9.41 H Lymph # (Auto) 0.50 L Saline # (Auto) 0.76 H Eos # (Auto) 0.00 Baso # (Auto) 0.05 Echinocytes 1+ Sodium 126 L Potassium 5.8 H D Chloride 97 L Carbon Dioxide 16 L Anion Gap 13.0 H BUN 59 H D Creatinine 4.94 H* D Est Cr Clr Drug Dosing 11.3 Est GFR ( Amer) 12.1 Est GFR (Non-Af Amer) 10.5 BUN/Creatinine Ratio 12.0 Glucose 157 H Calcium 8.7 (1) Hypertension Hypertension type: essential hypertension Qualified Code(s): I10 - Essential (primary) hypertension (2) Pneumonia involving right lung Pneumonia type: due to unspecified organism Lung location: unspecified part of lung Qualified Code(s): J18.9 - Pneumonia, unspecified organism
[2019-02-23] MEDS: AMLODIPINE BESYLATE 5 MG TAB PO SCH ×2 (14:53→20:17)
[2019-02-23] MEDS: CARVEDILOL 12.5 MG TAB PO SCH ×2 (14:53→20:18)
[2019-02-23] MEDS: ISOSORBIDE MONO EXTENDED REL 60 MG TABCR PO SCH (14:54)
[2019-02-23] MEDS: ATORVASTATIN 40 MG TAB PO SCH ×2 (20:16→21:24)
--- NOTE | 2019-02-23 21:39 | Hospitalist Progress Note ---
Date of Service February 23, 2019 Assessment & Plan (1) Encephalopathy acute: Modest/mild improvement overnight -- but still present. CT head w/o intracranial mets, stroke, or other acute findings. Likely combination of metabolic and toxic causes (infection, pneumonia, narcs, low sodium, hospital psychosis, etc). Still holding narcotics as multiple pain meds have caused him confusion. Transfer to med/surg -- he will sleep better in that environment. (2) Acute respiratory failure with hypoxia: Likely multifactorial - right-sided pneumonia, effusions, edema. Cannot rule out VTE/PE. Cannot rule out cancer contributing. Treating pneumonia. s/p Hemodialysis for volume control. Overall improved radiographically and clinically. Wean o2 off if o2 sats >90. (3) Pneumonia involving right lung: day #5 of zosyn and vanco. plan 7 days of IV/PO abx. overall improved. can likely d/c vanco. consider changing to levaquin PO tomorrow. 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 Has numerous bony mets, adrenal mets, etc. Plan was for elective pinning of both hips to prevent pathological fracture; during this procedure was to have bone bx as well for definitive diagnosis. However, surgery postponed due to worsening resp status. Might be candidate early next week. Appreciate ortho, heme/onc, rad/onc consultations. For back/bony pain - * has not tolerated multiple narcotics even at the lowest doses * HOLDING narcotics for now * could consider 2.5mg of norco q8h prn tomorrow if mental status is better * consider pain management consultation * radiation will improve this pain once xrt initiated * cont tylenol and decadron; increase latter to 4mg/day starting in am * k-pad heat In light of multiple comorbidities and ESRD on HD he is VERY POOR CANDIDATE FOR EVEN PALLIATIVE CHEMOTHERAPY/TREATMENT OF THE CANCER. Appreciate palliative care consultation as well. (5) Hyponatremia: Na improved s/p HD BMP am (6) ESRD on hemodialysis: HD Tues/Th/Sat. Appreciate [facility] assistance. Just recently initiated HD about 3-4 weeks ago in [place]. (7) S/P AVR (aortic valve replacement): History of such. Bioprosthetic. (8) Bilateral pleural effusion: could be transudative from ESRD and hypoalbuminemia. could be exudative from cancer or pneumonia. most recent cxr with small effusions; follow for now; uncertain they are large enough to safely tap. (9) Elevated troponin I level: Mild - peak 0.2. Likely demand ischemia rather than true ACS. (10) Anemia in chronic kidney disease, on chronic dialysis: Current Hb 7.2. if Hb drops to <7 would give 2 units PRBCs on HD (11) Hyperlipidemia: Statin. (12) Hypertension: Cont usual outpatient meds. (13) CAD (coronary artery disease): Cont asa, statin, BB, imdur. S/p CABG in the past. No ischemic symptoms. (14) GERD (gastroesophageal reflux disease): PPI. (15) Ileus: appears improved today. moved bowels this am. avoid narcotics for now. ambulate if possible. keep electrolytes in range. ileus likely multifactorial. (16) DVT prophylaxis: b/l LE dopplers negative for DVT. CT head w/o mets heparin 5000 BID extensively updated at bedside today d/c tele move to med/surg, preferably [facility] Subjective at bedside during visit. she states his appetite is still poor. confusion still present but not as severe as yesterday. tele - paced rhythm. no significant cough. still requiring a small amount of o2. he could not tell me where he was today. underwent HD this am - 3 liters removed. Review of Systems Constitutional: + fatigue and + anorexia; no fever and no chills Respiratory: + cough; no dyspnea Cardiovascular: no chest pain and no orthopnea Gastrointestinal: + bloating; no abdominal pain, no nausea and no vomiting had stool this AM Psychiatric: + confusion; no auditory hallucinations and no visual hallucinations Physical Exam Constitutional: + ill appearing, average body habitus, + altered mental status (awake, but confused) and + frail appearing; no acute distress ENMT: external ear and nose normal, oropharynx normal Respiratory: no respiratory distress Auscultation: + diminished lung sounds (right base); no rhonchi and no wheezes Cardiovascular: Rate/Rhythm: regular rate and regular rhythm Heart Sounds: normal S1 and normal S2; no murmur Vessels: posterior tibial pulses present and dorsalis pedis pulses present; no JVD Gastrointestinal (Abdomen): normal bowel sounds, soft, nontender, no hepatosplenomegaly Inspection/Auscultation: + abdomen distended (mild improvement today) Skin: + pallor Psychiatric: Orientation: alert and oriented to person; + not oriented to place and + not oriented to time Results & Data Vital Signs (Past 12 Hours) Vital Signs Temp Pulse Pulse Pulse Resp BP BP 02/23/19 20:00 37.0 C 66 18 151/62 H 02/23/19 14:56 36.5 C 73 16 171/54 H 02/23/19 14:31 37.2 C 69 69 144/70 H 02/23/19 14:20 68 166/58 H 02/23/19 14:00 73 105/41 L 02/23/19 13:40 71 182/65 H 02/23/19 13:20 66 164/68 H 02/23/19 13:00 65 162/76 H 02/23/19 12:40 63 155/60 H 02/23/19 12:20 60 173/77 H 02/23/19 12:00 61 164/76 H 02/23/19 11:40 60 163/80 H 02/23/19 11:20 61 162/76 H 02/23/19 11:00 60 151/79 H 02/23/19 10:40 60 151/76 H 02/23/19 10:28 36.4 C L 60 60 157/82 H BP Pulse Ox 02/23/19 20:00 90 02/23/19 14:56 94 02/23/19 14:31 144/70 H 02/23/19 14:20 02/23/19 14:00 02/23/19 13:40 02/23/19 13:20 02/23/19 13:00 02/23/19 12:40 02/23/19 12:20 02/23/19 12:00 02/23/19 11:40 02/23/19 11:20 02/23/19 11:00 02/23/19 10:40 02/23/19 10:28 Laboratory Results Laboratory Results - last 24 hr 02/23/19 02/23/19 02/23/19 06:53 06:53 16:18 WBC 10.76 RBC 2.56 L Hgb 7.2 L Hct 21.9 L MCV 85.5 MCH 28.1 MCHC 32.9 RDW Std Deviation 48.4 H RDW Coeff of Fredis 15.3 H Plt Count 200 MPV 9.5 Immature Gran % (Auto) 0.4 Neut % (Auto) 87.4 Lymph % (Auto) 4.6 [place] % (Auto) 7.1 Eos % (Auto) 0.0 Baso % (Auto) 0.5 Immature Gran # (Auto) 0.04 H Neut # (Auto) 9.41 H Lymph # (Auto) 0.50 L [place] # (Auto) 0.76 H Eos # (Auto) 0.00 Baso # (Auto) 0.05 Echinocytes 1+ Sodium 126 L Potassium 5.8 H D Chloride 97 L Carbon Dioxide 16 L Anion Gap 13.0 H BUN 59 H D Creatinine 4.94 H* D Est Cr Clr Drug Dosing 11.3 Est GFR ( Amer) 12.1 Est GFR (Non-Af Amer) 10.5 BUN/Creatinine Ratio 12.0 Glucose 157 H POC Glucose 154 H Calcium 8.7 (1) Pneumonia involving right lung Lung location: unspecified part of lung Pneumonia type: due to unspecified organism Qualified Code(s): J18.9 - Pneumonia, unspecified organism (2) CAD (coronary artery disease) Associated angina: without angina Coronary Disease-Associated Artery/Lesion type: [place] artery [place] vs. transplanted heart: [place] heart Qualified Code(s): I25.10 - Atherosclerotic heart disease of [place] coronary artery without angina pectoris (3) Hyperlipidemia Hyperlipidemia type: mixed hyperlipidemia Qualified Code(s): E78.2 - Mixed hyperlipidemia (4) GERD (gastroesophageal reflux disease) Esophagitis presence: without esophagitis Qualified Code(s): K21.9 - Gastro- esophageal reflux disease without esophagitis (5) Hypertension Hypertension type: essential hypertension Qualified Code(s): I10 - Essential (primary) hypertension
[2019-02-24] MEDS: PIPERACILLIN/TAZOBACTAM 3.375 GM in DEXTROSE 5% 100 ML IV SCH (04:14)
[2019-02-24] MEDS: ACETAMINOPHEN 500 MG TAB PO SCH ×3 (05:45→20:45)
[2019-02-24 06:17] LABS: Hematocrit (blood only) 22.9 % (42-52); Hemoglobin 7.5 g/dL (14.0-18.0); Mean Corpuscular Hgb Conc 32.8 g/dL (32-36); Mean Corpuscular Volume 85.1 fL (80-100); Mean Platelet Volume 9.6 fL (7.4-10.4); Platelet Count 225 K/uL (130-400); RDW Coefficient of Variation 15.6 % (11.5-14.5); Red Blood Count 2.69 M/uL (4.7-6.1); White Blood Count 11.81 K/uL (4.8-10.8)
[2019-02-24 06:58] LABS: BUN Creatinine Ratio 10.1 (10-20); Calcium 8.4 mg/dl (8.5-10.1); Creatinine Clr Calc Pharmacy 19.9 ml/min; Est GFR (African American) 24.1; Est GFR (Non-African American) 20.8; Potassium 3.8 mmol/L (3.5-5.1)
[2019-02-24] MEDS: dexAMETHasone 4 MG TAB PO SCH (08:58)
[2019-02-24] MEDS: CARVEDILOL 12.5 MG TAB PO SCH ×2 (08:58→20:46)
[2019-02-24] MEDS: ISOSORBIDE MONO EXTENDED REL 60 MG TABCR PO SCH (08:59)
[2019-02-24] MEDS: AMLODIPINE BESYLATE 5 MG TAB PO SCH ×2 (08:59→20:52)
[2019-02-24] MEDS: PANTOprazole 40 MG TAB PO SCH (08:59)
[2019-02-24] MEDS: SENNA 8.6 MG TAB PO SCH (08:59)
[2019-02-24] MEDS: MAGNESIUM OXIDE 400 MG TAB PO SCH (09:00)
[2019-02-24] MEDS: TORSEMIDE 100 MG TAB PO SCH ×2 (09:00→18:06)
[2019-02-24] MEDS: POLYETHYLENE (MIRALAX) 17 GM PACK PO SCH ×2 (09:00→20:51)
[2019-02-24] MEDS: HydrALAZINE TAB 50 MG TAB PO SCH ×3 (09:00→20:46)
[2019-02-24] MEDS: HEPARIN SOD 5,000 UNIT/0.5 ML VIAL SQ SCH (09:01)
[2019-02-24] MEDS: LIDOCAINE 5% 1 PATCH TD SCH (09:01)
[2019-02-24] MEDS: DOCUSATE SODIUM 100 MG CAP PO SCH ×2 (09:22→20:51)
[2019-02-24] MEDS: ASPIRIN 81 MG CHEW PO SCH (09:22)
[2019-02-24] MEDS ORDERED: levoFLOXacin 750 MG TAB PO ONE (11:30)
--- NOTE | 2019-02-24 14:08 | Ultrasound Report ---
LEFT UPPER EXTREMITY VENOUS DOPPLER ULTRASOUND CLINICAL HISTORY: left arm swelling, cancer; eval for LUE DVT COMPARISON STUDY: No previous studies for comparison. FINDINGS: Left subclavian pacer leads are noted. The left internal jugular vein is patent. The left s ubclavian vein is diminutive. There may be a small amount of age indeterminate thrombus within the le ft subclavian vein. The left axillary, basilic, brachial, radial, ulnar and cephalic veins are patent . There is left upper extremity edema. IMPRESSION: Diminutive left subclavian vein. Possible small amount of thrombus within the left subclavian vein. Electronically signed by: Jaleel Odell M.D. 02/24/2019 2:06 PM
[2019-02-24] MEDS: NYSTATIN SUSP 500,000 U/5 ML UDC PO SCH ×3 (14:19→20:46)
[2019-02-24] MEDS: Heparin IV Standard *NO* Bolus IV SCH ×3 (17:58→19:17)
[2019-02-24] MEDS: WARFARIN SOD 5 MG TAB PO SCH (18:04)
[2019-02-24] MEDS: Heparin Adult STANDARD Wt-Based Dextrose 5% 25,000 units/500 mL IV SCH (18:04)
--- NOTE | 2019-02-24 20:05 | Nephrology Progress Note ---
Date of Service February 24, 2019 Assessment & Plan (1) ESRD on hemodialysis: Patient with ESRD on dialysis Wednesday. He has a right tunneled IJ catheter. He tolerated HD yesterday. CVC initially blocked, improved with cathflo. Net UF of 3 L. Next dialysis will be on Wednesday. (2) Metastatic disease: Patient with metastatic bone disease of unknown primary. CT abdomen done yesterday also revealing osteolytic bone lesions. Patient is frustrated with the multiple diagnostic tests without finding the primary. He is now DNR. He wishes to continue dialysis and work-up for his cancer. (3) Hypertension: Blood pressure is slightly above target but acceptable. Blood pressure might also be elevated due to back pain. No changes in antihypertensives (4) Anemia in chronic kidney disease, on chronic dialysis: Hemoglobin is below target. Unable to give epogen due to active cancer. He probably does not need daily blood draws. Monitor and transfuse as needed. (5) Pneumonia involving right lung: Patient is on antibiotics per primary team. Renally dose medications for GFR less than 25 mL/min. Subjective Seen during morning rounds for ESRD. He is feeling well denies any SOB. He does not have back pain this morning. at the bedside. HD went well yesterday Review of Systems Review of Systems: All systems reviewed & are unremarkable except as noted in HPI & below Physical Exam Physical Exam: General exam: Appears comfortable, no acute distress HEENT: Pupils are equal and reactive to light Neck: No JVD, neck is supple trachea is midline Respiratory system: Clear breath sounds bilaterally. Gastrointestinal: Abdomen is soft, non distended, non tender, bowel sounds are present CVS: Regular rate and rhythm. No murmurs, rubs or gallops Musculoskeletal: No joint or muscle tenderness Extremities: Non tender, no edema, peripheral pulses are present Neuro: Oriented, no tremors, no focal neurological deficits Skin: No rashes Access: TDC Results & Data Vital Signs (Past 12 Hours) Vital Signs Temp Pulse Resp BP BP Pulse Ox 02/24/19 19:36 36.6 C 59 L 20 158/68 H 91 02/24/19 11:25 36.5 C 60 18 154/69 H 91 Laboratory Results Laboratory Results - last 24 hr 02/24/19 02/24/19 02/24/19 05:55 05:55 07:54 WBC 11.81 H RBC 2.69 L Hgb 7.5 L Hct 22.9 L MCV 85.1 MCH 27.9 MCHC 32.8 RDW Std Deviation 48.0 H RDW Coeff of Fredis 15.6 H Plt Count 225 MPV 9.6 Sodium 129 L Potassium 3.8 D Chloride 95 L Carbon Dioxide 28 Anion Gap 6.0 BUN 28 H D Creatinine 2.80 H D Est Cr Clr Drug Dosing 19.9 Est GFR ( Amer) 24.1 Est GFR (Non-Af Amer) 20.8 BUN/Creatinine Ratio 10.1 Glucose 96 POC Glucose 109 H Calcium 8.4 L 02/24/19 11:38 WBC RBC Hgb Hct MCV MCH MCHC RDW Std Deviation RDW Coeff of Fredis Plt Count MPV Sodium Potassium Chloride Carbon Dioxide Anion Gap BUN Creatinine Est Cr Clr Drug Dosing Est GFR ( Amer) Est GFR (Non-Af Amer) BUN/Creatinine Ratio Glucose POC Glucose 179 H Calcium (1) Hypertension Hypertension type: essential hypertension Qualified Code(s): I10 - Essential (primary) hypertension (2) Pneumonia involving right lung Pneumonia type: due to unspecified organism Lung location: unspecified part of lung Qualified Code(s): J18.9 - Pneumonia, unspecified organism
[2019-02-24] MEDS: ATORVASTATIN 40 MG TAB PO SCH (20:48)
--- NOTE | 2019-02-24 21:02 | Hospitalist Progress Note ---
Date of Service February 24, 2019 Assessment & Plan (1) DVT of upper extremity (deep vein thrombosis): left subclavian vein DVT. suspect due to advanced cancer. can't rule out that the left subclavian vein wasn't instrumented at some point in the recent past in attempts to get dialysis catheter placed, etc. either way needs treatment. start heparin drip - standard dosing, no bolus. start coumadin 5mg daily. (2) Encephalopathy acute: Marked improvement. Likely toxic (from narcotics) and metabolic (pneumonia, electrolyte disturbances, etc). CT head neg for brain mets. Cont supportive care. (3) Acute respiratory failure with hypoxia: Likely multifactorial - right-sided pneumonia, effusions, edema. IMPROVED/RESOLVED. O2 weaned off. Treating pneumonia. s/p Hemodialysis for volume control. (4) Pneumonia involving right lung: clinically improved. day #6 of IV abx. stop zosyn. vanco already d/c. plan 7 days of Rx in total. will give a dose of oral levaquin today; this should complete his course. 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 Has numerous bony mets, adrenal mets, etc. Plan was for elective pinning of both hips to prevent pathological fracture; during this procedure was to have bone bx as well for definitive diagnosis. However, surgery postponed due to worsening resp status. Might be candidate early next week. Appreciate ortho, heme/onc, rad/onc consultations. For back/bony pain - * has not tolerated multiple narcotics even at the lowest doses * try 2.5mg of norco q8h prn * consider pain management consultation if he does not tolerate even the pediatric dose of norco * radiation will improve this pain once xrt initiated * cont tylenol and decadron; increased latter to 4mg/day today * k-pad heat if available In light of multiple comorbidities and ESRD on HD he is VERY POOR CANDIDATE FOR EVEN PALLIATIVE CHEMOTHERAPY/TREATMENT OF THE CANCER. Appreciate palliative care consultation as well. If hip procedure is completed next week a bone biopsy can be taken at that time. (6) Hyponatremia: 2nd to ESRD fluctuating depending on volume status BMP acceptable today (7) ESRD on hemodialysis: HD //Sat. Appreciate [email or web address] assistance. Just recently initiated HD about 3-4 weeks ago in [place]. (8) S/P AVR (aortic valve replacement): History of such. Bioprosthetic. (9) Bilateral pleural effusion: could be transudative from ESRD and hypoalbuminemia. could be exudative from cancer or pneumonia. most recent cxr with small effusions; follow for now O2 sats stable in room air (10) Elevated troponin I level: Mild - peak 0.2. Likely demand ischemia rather than true ACS. (11) Anemia in chronic kidney disease, on chronic dialysis: Current Hb 7.4. if Hb drops to <7 would give 2 units PRBCs on HD recheck cbc in 2 days no evidence of any GI bleeding etc (12) Hyperlipidemia: Statin. (13) Hypertension: Cont usual outpatient meds. (14) CAD (coronary artery disease): Cont asa, statin, BB, imdur. S/p CABG in the past. (15) GERD (gastroesophageal reflux disease): PPI. (16) Ileus: again improved today. limit narcotics if possible. ambulate (pt, ot ordered for today). (17) DVT prophylaxis: heparin 5000 BID extensively updated at bedside today PT, OT evals - limit walking to in his room to avoid fall and potential for hip fracture spoke with Dr Tijerina -- if patient is stable this weekend we could potentially shoot for Wednesday for his elective b/l prophylactic hip pinning but ultimately defer date/time to Dr Tijerina Subjective patient feeling better today. confusion markedly better. slept more soundly last pm. no cough. no dyspnea at rest or orthopnea. staff note left upper extremity pain. abd distension improved. passing lots of flatus. hasn't been out of bed much. Review of Systems Constitutional: + fatigue and + anorexia; no fever and no chills Respiratory: no cough, no dyspnea, no hemoptysis, no pain on inspiration, no sputum production and no wheezing Cardiovascular: + edema (left arm); no chest pain, no orthopnea and no paroxysmal nocturnal dyspnea Gastrointestinal: + bloating; no nausea, no vomiting, no constipation and no diarrhea/loose stools Psychiatric: + confusion (but much improved - confers) Physical Exam Constitutional: + ill appearing, average body habitus and + frail appearing; no acute distress and no altered mental status ENMT: Mouth: + oropharynx abnormality (thrush plaques on buccal mucosa) Respiratory: no respiratory distress Auscultation: + diminished lung sounds (right base); no rhonchi and no wheezes Cardiovascular: Rate/Rhythm: regular rate and regular rhythm Heart Sounds: normal S1 and normal S2; no murmur Vessels: posterior tibial pulses present and dorsalis pedis pulses present; no JVD Extremities: + edema (left arm - size of L arm is at least 2-3x's that of R arm) Gastrointestinal (Abdomen): normal bowel sounds, soft, nontender, no hepatosplenomegaly Inspection/Auscultation: + abdomen distended (less than yesterday) Skin: + pallor Psychiatric: Orientation: alert, oriented to person and oriented to time; + not oriented to place Results & Data Vital Signs (Past 12 Hours) Vital Signs Temp Pulse Resp BP BP Pulse Ox 02/24/19 19:36 36.6 C 59 L 20 158/68 H 91 02/24/19 11:25 36.5 C 60 18 154/69 H 91 Laboratory Results Laboratory Results - last 24 hr 02/24/19 02/24/19 02/24/19 05:55 05:55 07:54 WBC 11.81 H RBC 2.69 L Hgb 7.5 L Hct 22.9 L MCV 85.1 MCH 27.9 MCHC 32.8 RDW Std Deviation 48.0 H RDW Coeff of Fredis 15.6 H Plt Count 225 MPV 9.6 Sodium 129 L Potassium 3.8 D Chloride 95 L Carbon Dioxide 28 Anion Gap 6.0 BUN 28 H D Creatinine 2.80 H D Est Cr Clr Drug Dosing 19.9 Est GFR ( Amer) 24.1 Est GFR (Non-Af Amer) 20.8 BUN/Creatinine Ratio 10.1 Glucose 96 POC Glucose 109 H Calcium 8.4 L 02/24/19 11:38 WBC RBC Hgb Hct MCV MCH MCHC RDW Std Deviation RDW Coeff of Fredis Plt Count MPV Sodium Potassium Chloride Carbon Dioxide Anion Gap BUN Creatinine Est Cr Clr Drug Dosing Est GFR ( Amer) Est GFR (Non-Af Amer) BUN/Creatinine Ratio Glucose POC Glucose 179 H Calcium (1) Pneumonia involving right lung Pneumonia type: due to unspecified organism Lung location: unspecified part of lung Qualified Code(s): J18.9 - Pneumonia, unspecified organism (2) Hyperlipidemia Hyperlipidemia type: mixed hyperlipidemia Qualified Code(s): E78.2 - Mixed hyperlipidemia (3) Hypertension Hypertension type: essential hypertension Qualified Code(s): I10 - Essential (primary) hypertension (4) CAD (coronary artery disease) Coronary Disease-Associated Artery/Lesion type: [place] artery [place] vs. transplanted heart: [place] heart Associated angina: without angina Qualified Code(s): I25.10 - Atherosclerotic heart disease of [place] coronary artery without angina pectoris (5) GERD (gastroesophageal reflux disease) Esophagitis presence: without esophagitis Qualified Code(s): K21.9 - Gastro- esophageal reflux disease without esophagitis (6) DVT of upper extremity (deep vein thrombosis) Affected thrombotic vein of extremity: unspecified vein of extremity Chronicity: acute Laterality: left Qualified Code(s): I82.622 - Acute embolism and thrombosis of deep veins of left upper extremity
[2019-02-25 01:15] LABS: Partial Thromboplastin Time 82.2 Seconds (21.0-31.0)
[2019-02-25] MEDS: ACETAMINOPHEN 500 MG TAB PO SCH ×3 (06:00→22:13)
[2019-02-25] MEDS ORDERED: HEPARIN SOD (PORCINE) 1000 UNIT/ML 10 ML VIAL IV SCH (07:00)
[2019-02-25] MEDS ORDERED: SODIUM CHLORIDE 0.9% 1000ML 1,000 ML IV PRN (07:00)
[2019-02-25 07:26] LABS: INR 1.2 (0.9-1.1); Prothrombin Time 12.2 Seconds (9.0-12.0)
[2019-02-25] MEDS: PANTOprazole 40 MG TAB PO SCH (08:04)
[2019-02-25] MEDS: LIDOCAINE 5% 1 PATCH TD SCH (08:05)
[2019-02-25] MEDS: dexAMETHasone 4 MG TAB PO SCH (08:05)
[2019-02-25] MEDS: TORSEMIDE 100 MG TAB PO SCH ×2 (08:05→17:11)
[2019-02-25] MEDS: NYSTATIN SUSP 500,000 U/5 ML UDC PO SCH ×4 (08:05→21:35)
[2019-02-25] MEDS: MAGNESIUM OXIDE 400 MG TAB PO SCH (08:05)
[2019-02-25] MEDS: SENNA 8.6 MG TAB PO SCH (08:06)
[2019-02-25] MEDS: DOCUSATE SODIUM 100 MG CAP PO SCH ×2 (08:08→21:42)
[2019-02-25] MEDS: POLYETHYLENE (MIRALAX) 17 GM PACK PO SCH ×2 (08:08→21:46)
[2019-02-25] MEDS: ASPIRIN 81 MG CHEW PO SCH (08:08)
[2019-02-25 08:38] LABS: Partial Thromboplastin Ratio 2.9
[2019-02-25 08:47] LABS: Partial Thromboplastin Time 79.4 Seconds (21.0-31.0)
[2019-02-25] MEDS: HydrALAZINE TAB 50 MG TAB PO SCH ×3 (13:25→21:34)
[2019-02-25] MEDS: CARVEDILOL 12.5 MG TAB PO SCH ×2 (13:26→21:33)
[2019-02-25] MEDS: AMLODIPINE BESYLATE 5 MG TAB PO SCH ×2 (13:59→21:35)
[2019-02-25] MEDS: ISOSORBIDE MONO EXTENDED REL 60 MG TABCR PO SCH (14:00)
[2019-02-25] MEDS: INSULIN GLARGINE SOLOSTAR 100 UNITS/ML 3 ML PEN SC SCH (14:02)
[2019-02-25 15:17] LABS: Partial Thromboplastin Ratio 2.8
[2019-02-25 15:43] LABS: Partial Thromboplastin Time 74.6 Seconds (21.0-31.0)
[2019-02-25] MEDS: WARFARIN SOD 5 MG TAB PO SCH (15:45)
[2019-02-25] MEDS: HYDROCODONE/ACETAMOPHEN 5/325MG TAB PO PRN (18:05)
--- NOTE | 2019-02-25 18:51 | Hospitalist Progress Note ---
Date of Service February 25, 2019 Assessment & Plan (1) DVT of upper extremity (deep vein thrombosis): left subclavian vein DVT. suspect due to advanced cancer. can't rule out that the left subclavian vein wasn't instrumented at some point in the recent past in attempts to get dialysis catheter placed, etc. either way needs treatment. cont heparin drip - standard dosing. cont coumadin 5mg daily. daily PTT and INR. adjust coumadin as needed. (2) Encephalopathy acute: Resolved. Was likely toxic (from narcotics) and metabolic (pneumonia, electrolyte disturbances, etc). CT head neg for brain mets. Cont supportive care. (3) Acute respiratory failure with hypoxia: Likely multifactorial - right-sided pneumonia, effusions, edema. RESOLVED. O2 weaned off. Treating pneumonia. s/p Hemodialysis for volume control. (4) Pneumonia involving right lung: clinically improved/resolved. day #7 of abx. completed IV for 5-6 days. then given dose of PO levaquin. course done. 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 Has numerous bony mets, adrenal mets, etc. Plan was for elective pinning of both hips to prevent pathological fracture; during this procedure was to have bone bx as well for definitive diagnosis. However, surgery postponed due to worsening resp status. Might be candidate early next week. Appreciate ortho, heme/onc, rad/onc consultations. For back/bony pain - * has not tolerated multiple narcotics even at the lowest doses * try 2.5mg of norco q8h prn * consider pain management consultation if he does not tolerate even the pediatric dose of norco * radiation will improve this pain once xrt initiated * cont tylenol and decadron at 4mg daily * k-pad heat if available In light of multiple comorbidities and ESRD on HD he is VERY POOR CANDIDATE FOR EVEN PALLIATIVE CHEMOTHERAPY/TREATMENT OF THE CANCER. Appreciate palliative care consultation as well. If hip procedure is completed next week a bone biopsy can be taken at that time. (6) Hyponatremia: 2nd to ESRD fluctuating depending on volume status last BMP acceptable (7) ESRD on hemodialysis: HD /Th/Sat. Appreciate [facility]ph[facility] assistance. Just recently initiated HD about 3-4 weeks ago in [place]. (8) S/P AVR (aortic valve replacement): History of such. Bioprosthetic. (9) Bilateral pleural effusion: could be transudative from ESRD and hypoalbuminemia. could be exudative from cancer or pneumonia. most recent cxr with small effusions; follow for now (10) Elevated troponin I level: Mild - peak 0.2. Likely demand ischemia rather than true ACS. (11) Anemia in chronic kidney disease, on chronic dialysis: repeat CBC in 2 days if Hb drops to <7 would give 2 units PRBCs on HD no evidence of any GI bleeding etc (12) Hyperlipidemia: Statin (13) Hypertension: Cont usual outpatient meds MIldly high; if this continues then adjust meds (14) CAD (coronary artery disease): Cont asa, statin, BB, imdur. S/p CABG in the past. NO ischemic sx's at this time. (15) GERD (gastroesophageal reflux disease): PPI. (16) Ileus: resolving. less distension. moving bowels. eating ok. limit narcotics if possible. ambulate. (17) DVT prophylaxis: heparin drip extensively updated at bedside today PT, OT evals - limit walking to in his room to avoid fall and potential for hip fracture spoke with Dr Tijerina -- if patient is stable this weekend we could potentially shoot for next week for his elective b/l prophylactic hip pinning the LUE DVT may influence timing, however Subjective no issues overnight. slept well last pm. went to [facility]outside for 2 hours yesterday w/ . confusion nearly all resolved. he knows he is at [facility] and that it is 2018 (and Wednesday). eating better. back pain improved. +flatus and stool. Review of Systems Constitutional: no fever and no chills Respiratory: no cough and no dyspnea Cardiovascular: no chest pain Gastrointestinal: no abdominal pain Physical Exam Constitutional: average body habitus and + frail appearing; no acute distress and no altered mental status ENMT: external ear and nose normal, oropharynx normal Mouth: + oropharynx abnormality (thrush plaques on buccal mucosa improved today) Respiratory: no respiratory distress Auscultation: + diminished lung sounds (right base); no rhonchi and no wheezes Cardiovascular: Rate/Rhythm: regular rate and regular rhythm Heart Sounds: normal S1 and normal S2; no murmur Vessels: posterior tibial pulses present and dorsalis pedis pulses present; no JVD Extremities: + edema (left arm - size of L arm is at least 2-3x's that of R arm) Gastrointestinal (Abdomen): normal bowel sounds, soft, nontender, no hepatosplenomegaly Inspection/Auscultation: + abdomen distended (less than yesterday) Skin: + pallor permcath, right chest, clean/no erythema Psychiatric: Orientation: alert and oriented x 3 Results & Data Vital Signs (Past 12 Hours) Vital Signs Temp Pulse Pulse Resp BP BP Pulse Ox 02/25/19 15:01 36.7 C 60 18 156/57 H 92 02/25/19 13:08 36.9 C 61 61 145/68 H 145/68 H 02/25/19 13:00 61 134/81 02/25/19 12:40 60 111/64 02/25/19 12:20 64 145/56 H 02/25/19 12:00 64 155/45 H 02/25/19 11:40 63 156/53 H 02/25/19 11:20 66 109/52 L 02/25/19 11:00 65 132/45 L 02/25/19 10:40 62 158/63 H 02/25/19 10:20 62 164/75 H 02/25/19 10:00 61 140/68 02/25/19 09:40 66 153/69 H 02/25/19 09:20 64 149/73 H 02/25/19 09:07 36.7 C 64 64 165/67 H 02/25/19 07:38 36.6 C 61 18 163/64 H 90 (1) DVT of upper extremity (deep vein thrombosis) Affected thrombotic vein of extremity: unspecified vein of extremity Chronicity: acute Laterality: left Qualified Code(s): I82.622 - Acute embolism and thrombosis of deep veins of left upper extremity (2) Pneumonia involving right lung Pneumonia type: due to unspecified organism Lung location: unspecified part of lung Qualified Code(s): J18.9 - Pneumonia, unspecified organism (3) Hyperlipidemia Hyperlipidemia type: mixed hyperlipidemia Qualified Code(s): E78.2 - Mixed hyperlipidemia (4) Hypertension Hypertension type: essential hypertension Qualified Code(s): I10 - Essential (primary) hypertension (5) CAD (coronary artery disease) Coronary Disease-Associated Artery/Lesion type: [place] artery [place] vs. transplanted heart: [place] heart Associated angina: without angina Qualified Code(s): I25.10 - Atherosclerotic heart disease of [place] coronary artery without angina pectoris (6) GERD (gastroesophageal reflux disease) Esophagitis presence: without esophagitis Qualified Code(s): K21.9 - Gastro- esophageal reflux disease without esophagitis
[2019-02-25] MEDS ORDERED: DEXTROSE 50% 50 ML SYRINGE IV PRN (20:52)
[2019-02-25] MEDS ORDERED: CARBOHYDRATES FOR HYPOGLYCEMIA PO PRN (20:52)
[2019-02-25] MEDS ORDERED: GLUCOSE 40% GEL 15 GM TUBE PO PRN (20:52)
[2019-02-25] MEDS ORDERED: GLUCOSE 10 TABS/TUBE PO PRN (20:52)
[2019-02-25] MEDS ORDERED: GLUCAGON FOR INJ 1 MG VIAL SQ PRN (20:52)
[2019-02-25] MEDS: Heparin Adult STANDARD Wt-Based Dextrose 5% 25,000 units/500 mL IV SCH (21:32)
[2019-02-25] MEDS: ATORVASTATIN 40 MG TAB PO SCH (21:34)
[2019-02-25] MEDS: INSULIN ASPART 100 UNITS/ML 3 ML PEN SC SCH (22:12)
[2019-02-25 22:37] LABS: Partial Thromboplastin Ratio 1.9
[2019-02-26] MEDS: ACETAMINOPHEN 500 MG TAB PO SCH ×3 (06:35→22:24)
[2019-02-26] MEDS: ISOSORBIDE MONO EXTENDED REL 60 MG TABCR PO SCH (07:49)
[2019-02-26] MEDS: CARVEDILOL 12.5 MG TAB PO SCH ×2 (07:50→21:05)
[2019-02-26] MEDS: PANTOprazole 40 MG TAB PO SCH (07:50)
[2019-02-26] MEDS: dexAMETHasone 4 MG TAB PO SCH (07:52)
[2019-02-26] MEDS: AMLODIPINE BESYLATE 5 MG TAB PO SCH ×2 (07:52→21:06)
[2019-02-26 07:53] LABS: INR 1.7 (0.9-1.1); Partial Thromboplastin Ratio 1.6; Partial Thromboplastin Time 42.3 Seconds (21.0-31.0); Prothrombin Time 16.7 Seconds (9.0-12.0)
[2019-02-26] MEDS: SENNA 8.6 MG TAB PO SCH (07:53)
[2019-02-26] MEDS: HydrALAZINE TAB 50 MG TAB PO SCH ×3 (07:53→21:05)
[2019-02-26] MEDS: MAGNESIUM OXIDE 400 MG TAB PO SCH (07:53)
[2019-02-26] MEDS: TORSEMIDE 100 MG TAB PO SCH ×2 (07:54→17:49)
[2019-02-26] MEDS: LIDOCAINE 5% 1 PATCH TD SCH (07:55)
[2019-02-26] MEDS: NYSTATIN SUSP 500,000 U/5 ML UDC PO SCH ×4 (07:57→21:08)
[2019-02-26] MEDS: ASPIRIN 81 MG CHEW PO SCH (08:53)
[2019-02-26] MEDS: POLYETHYLENE (MIRALAX) 17 GM PACK PO SCH ×2 (08:54→21:08)
[2019-02-26] MEDS: INSULIN ASPART 100 UNITS/ML 3 ML PEN SC SCH ×4 (09:04→21:09)
[2019-02-26] MEDS: INSULIN GLARGINE SOLOSTAR 100 UNITS/ML 3 ML PEN SC SCH (09:05)
[2019-02-26] MEDS: DOCUSATE SODIUM 100 MG CAP PO SCH ×2 (09:30→21:12)
[2019-02-26] MEDS ORDERED: HEPARIN IV BOLUS 3,000 UNITS in SYRINGE 0 ML IV ONE (12:30)
[2019-02-26 18:56] LABS: Partial Thromboplastin Time 54.7 Seconds (21.0-31.0)
[2019-02-26] MEDS: ATORVASTATIN 40 MG TAB PO SCH (21:05)
--- NOTE | 2019-02-26 21:30 | Hospitalist Progress Note ---
Date of Service February 26, 2019 Assessment & Plan (1) DVT of upper extremity (deep vein thrombosis): left subclavian vein DVT. suspect due to advanced cancer. can't rule out that the left subclavian vein wasn't instrumented at some point in the recent past in attempts to get dialysis catheter placed, etc. either way needs treatment. cont heparin drip - standard dosing. HOLD coumadin as he may have his elective, prophylactic hip pinning in 2-3 days. PTT in am. (2) Encephalopathy acute: Resolved. Was likely toxic (from narcotics) and metabolic (pneumonia, electrolyte disturbances, etc). CT head neg for brain mets. Tolerated low dose norco last pm w/o confusion. (3) Acute respiratory failure with hypoxia: Likely multifactorial - right-sided pneumonia, effusions, edema. RESOLVED. O2 weaned off. (4) Pneumonia involving right lung: clinically improved/resolved. completed full course of IV/PO abx for 7 days. 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 Has numerous bony mets, adrenal mets, etc. Plan was for elective pinning of both hips to prevent pathological fracture; during this procedure was to have bone bx as well for definitive diagnosis. However, surgery postponed last week due to worsening respiratory status. Appreciate ortho, heme/onc, rad/onc consultations. For back/bony pain - * has not tolerated multiple narcotics even at the lowest doses * DID TOLERATE 2.5mg of norco q8h prn * radiation will improve this pain once xrt initiated * cont tylenol and decadron at 4mg daily * k-pad heat In light of multiple comorbidities and ESRD on HD he is VERY POOR CANDIDATE FOR EVEN PALLIATIVE CHEMOTHERAPY/TREATMENT OF THE CANCER. Appreciate palliative care consultation as well. If hip procedure is completed next week a bone biopsy can be taken at that time. (6) Hyponatremia: 2nd to ESRD fluctuating depending on volume status last BMP acceptable BMP am tomorrow (7) ESRD on hemodialysis: HD //Sat. Appreciate [employer] [facility] assistance. Just recently initiated HD about 3-4 weeks ago in [place]. (8) S/P AVR (aortic valve replacement): History of such. Bioprosthetic. (9) Bilateral pleural effusion: could be transudative from ESRD and hypoalbuminemia. could be exudative from cancer or pneumonia. most recent cxr with small effusions; follow for now (10) Elevated troponin I level: Mild - peak 0.2. Likely demand ischemia rather than true ACS. (11) Anemia in chronic kidney disease, on chronic dialysis: repeat CBC in AM if Hb drops to <7 would give 2 units PRBCs on HD no evidence of any GI bleeding etc (12) Hyperlipidemia: Statin (13) Hypertension: Cont usual outpatient meds MIldly high; if this continues then adjust meds (14) CAD (coronary artery disease): Cont asa, statin, BB, imdur. S/p CABG in the past. NO ischemic sx's at this time. (15) GERD (gastroesophageal reflux disease): PPI. (16) Ileus: resolved eating w/o intolerance and passing flatus/stool exam also improved (17) DVT prophylaxis: heparin drip extensively updated at bedside today PT, OT evals - limit walking to in his room to avoid fall and potential for hip fracture spoke with Dr Tijerina today - he is aware of subclavian vein DVT --- possibly Wednesday of this week he could have prophylactic pinning of hips to prevent pathological fracture hold coumadin for now; cont heparin Subjective had good night last pm. used k-pad heating and this helped back pain nicely. tolerated low dose norco 2.5's. eating fair. had large BM today. no cough or dyspnea. at bedside. Review of Systems Constitutional: no fever and no chills Respiratory: no hemoptysis and no wheezing Cardiovascular: no chest pain Gastrointestinal: + bloating; no abdominal pain, no nausea, no vomiting, no constipation and no diarrhea/loose stools Psychiatric: no confusion, no auditory hallucinations and no visual hallucinations Physical Exam Constitutional: average body habitus and + frail appearing; no acute distress and no altered mental status ENMT: external ear and nose normal, oropharynx normal Respiratory: no respiratory distress Auscultation: + diminished lung sounds (right base); no rhonchi and no wheezes Cardiovascular: Rate/Rhythm: regular rate and regular rhythm Heart Sounds: normal S1 and normal S2; no murmur Vessels: posterior tibial pulses present and dorsalis pedis pulses present; no JVD Extremities: + edema (left arm - no change in size from previous) Gastrointestinal (Abdomen): normal bowel sounds, soft, nontender, no hepatosplenomegaly Inspection/Auscultation: + abdomen distended (mild) Musculoskeletal: Spine: + thoracic spinal tenderness Skin: + pallor Psychiatric: Orientation: alert and oriented x 3 Results & Data Vital Signs (Past 12 Hours) Vital Signs Temp Pulse Resp BP Pulse Ox 02/26/19 19:00 36.6 C 60 20 163/70 H 93 02/26/19 17:46 61 165/67 H 02/26/19 15:04 36.5 C 77 18 168/55 H 93 02/26/19 11:09 36.2 C L 60 18 163/67 H 91 Laboratory Results Laboratory Results - last 24 hr 02/25/19 02/26/19 02/26/19 21:55 07:15 07:57 PT 16.7 H INR 1.7 H APTT 51.0 H* 42.3 H PTT Ratio 1.9 1.6 POC Glucose 133 H 02/26/19 02/26/19 02/26/19 11:52 16:58 18:03 PT INR APTT 54.7 H* PTT Ratio 2.0 POC Glucose 185 H 226 H 02/26/19 20:11 PT INR APTT PTT Ratio POC Glucose 227 H (1) Pneumonia involving right lung Lung location: unspecified part of lung Pneumonia type: due to unspecified o rganism Qualified Code(s): J18.9 - Pneumonia, unspecified organism (2) CAD (coronary artery disease) Associated angina: without angina Coronary Disease-Associated Artery/Lesion type: [place] artery [place] vs. transplanted heart: [place] heart Qualified Code(s): I25.10 - Atherosclerotic heart disease of [place] coronary artery without angina pectoris (3) Hyperlipidemia Hyperlipidemia type: mixed hyperlipidemia Qualified Code(s): E78.2 - Mixed hyperlipidemia (4) DVT of upper extremity (deep vein thrombosis) Affected thrombotic vein of extremity: unspecified vein of extremity Chronicity: acute Laterality: left Qualified Code(s): I82.622 - Acute embolism and thrombosis of deep veins of left upper extremity (5) GERD (gastroesophageal reflux disease) Esophagitis presence: without esophagitis Qualified Code(s): K21.9 - Gastro- esophageal reflux disease without esophagitis (6) Hypertension Hypertension type: essential hypertension Qualified Code(s): I10 - Essential (primary) hypertension
[2019-02-27] MEDS: ACETAMINOPHEN 500 MG TAB PO SCH ×3 (06:09→21:29)
[2019-02-27] MEDS: Heparin Adult STANDARD Wt-Based Dextrose 5% 25,000 units/500 mL IV SCH (06:10)
[2019-02-27] MEDS: HYDROCODONE/ACETAMOPHEN 5/325MG TAB PO PRN (08:04)
[2019-02-27] MEDS: HydrALAZINE TAB 50 MG TAB PO SCH ×3 (08:05→21:23)
[2019-02-27] MEDS: AMLODIPINE BESYLATE 5 MG TAB PO SCH ×2 (08:05→21:24)
[2019-02-27] MEDS: PANTOprazole 40 MG TAB PO SCH (08:05)
[2019-02-27] MEDS: ISOSORBIDE MONO EXTENDED REL 60 MG TABCR PO SCH (08:06)
[2019-02-27] MEDS: dexAMETHasone 4 MG TAB PO SCH (08:06)
[2019-02-27] MEDS: MAGNESIUM OXIDE 400 MG TAB PO SCH (08:07)
[2019-02-27] MEDS: CARVEDILOL 12.5 MG TAB PO SCH ×2 (08:07→21:22)
[2019-02-27] MEDS: NYSTATIN SUSP 500,000 U/5 ML UDC PO SCH ×4 (08:07→21:22)
[2019-02-27] MEDS: TORSEMIDE 100 MG TAB PO SCH ×2 (08:07→21:22)
[2019-02-27] MEDS: SENNA 8.6 MG TAB PO SCH (08:07)
[2019-02-27] MEDS: POLYETHYLENE (MIRALAX) 17 GM PACK PO SCH ×2 (08:08→21:28)
[2019-02-27] MEDS: LIDOCAINE 5% 1 PATCH TD SCH (08:08)
[2019-02-27] MEDS: INSULIN GLARGINE SOLOSTAR 100 UNITS/ML 3 ML PEN SC SCH (08:11)
[2019-02-27] MEDS: INSULIN ASPART 100 UNITS/ML 3 ML PEN SC SCH ×4 (08:14→21:24)
[2019-02-27 08:20] LABS: Hematocrit (blood only) 24.1 % (42-52); Hemoglobin 8.1 g/dL (14.0-18.0); Mean Corpuscular Hgb Conc 33.6 g/dL (32-36); Mean Platelet Volume 10.8 fL (7.4-10.4); Platelet Count 241 K/uL (130-400); RDW Coefficient of Variation 16.3 % (11.5-14.5); RDW Standard Deviation 49.3 fL (36.4-46.3); Red Blood Count 2.87 M/uL (4.7-6.1); White Blood Count 10.35 K/uL (4.8-10.8)
[2019-02-27] MEDS: DOCUSATE SODIUM 100 MG CAP PO SCH ×2 (08:28→21:21)
[2019-02-27] MEDS: ASPIRIN 81 MG CHEW PO SCH (08:28)
[2019-02-27 08:41] LABS: Calcium 8.3 mg/dl (8.5-10.1); Creatinine Clr Calc Pharmacy 14.3 ml/min; Est GFR (African American) 16.1; Est GFR (Non-African American) 13.9; INR 2.5 (0.9-1.1); Partial Thromboplastin Ratio 2.1; Potassium 4.1 mmol/L (3.5-5.1); Prothrombin Time 24.2 Seconds (9.0-12.0)
[2019-02-27 08:44] LABS: Partial Thromboplastin Time 57.2 Seconds (21.0-31.0)
[2019-02-27 13:07] LABS: Base Excess ABG -1.9 mEq/L (-9-1.8); HCO3 ABG 21 mmol/L (19-24); PCO2 ABG 28 mmHg (35-46); PO2 ABG 62 mm/Hg (80-95); pH ABG 7.49 (7.35-7.45)
[2019-02-27 13:08] LABS: Allen Test Pos (Pos)
--- NOTE | 2019-02-27 13:35 | XRay Report ---
XR chest 1V portable CLINICAL HISTORY: 78 years-old Male presenting with Shortness of breath. TECHNIQUE: Portable upright AP view of the chest was obtained. COMPARISON: 02/21/2019. FINDINGS: Tunneled right internal jugular dialysis catheter terminates in the mid SVC. A subclavian pacer with leads to the right atrium and right ventricular apex. Prosthetic aortic valve noted. Atherosclerosis of the aortic arch. Cardiac silhouette moderately enlarged. Persistent pulmonary vascular prominence and interstitial lung markings likely indicating interlobular septal thickening. Persistent small to moderate right pleural effusion with fluid in the fissures. Superimposed diffuse right lung added den sity, which appears to have increased since the prior exam. Small to moderate left pleural effusion w ith extensive left basilar opacity. Aeration of the left lung base is not changed from prior. Degener ative changes of the thoracic spine. Upper abdomen normal. IMPRESSION: 1. Small moderate right pleural effusion with multifocal right lung infiltrates stable to slightly w orsened from prior. 2. Cardiomegaly volume overload and congestive change. 3. Extensive left basilar atelectasis with a small left pleural effusion. Electronically signed by: Gibran Gutierrez M.D. 02/27/2019 1:34 PM
--- NOTE | 2019-02-27 15:58 | Palliative Care Progress Note ---
Date of Service February 27, 2019 Assessment & Plan (1) Palliative care encounter: This is a 78 year old male who was transferred to the [facility] from [facility] on 02/19 for a second opinion/evaluation for etiology of his metastatic disease. Diagnostic imaging was performed at [facility]; however, studies were inconclusive. Discussion was held indicating possible bone involvement and the family decided to transfer care to [facility] for further investigation. The patient was inpatient at [facility] for over 6 weeks which was the first time that he had heard the possibility of a cancer diagnosis. Additional PMH includes CAD, HTN, HLD, ESRD HD dependent (T/R/Sat), GERD, pleural effusions, and AVR. Upon arrival, the patient has been evaluated by Dr. Weeks with Heme/Onc who does have suspicion of L femoral neck lesions. Orthopedic surgery was consulted and Dr. Tijerina saw this patient and indicated the possibility of performing a B/L femur head nail fixation-to stabilize both hips with hopes of preventing a pathological fracture. Patient was found to have a left subclavian DVT-is on C oumadin and heparin. Medical team working on improving patient's respiratory status so he can undergo surgery. Patient's medical status is fragile, patient is a DNR. -Cancer related pain-would consider using PRN tramadol, patient refuses any further Rueter. -Dyspnea-patient attributes it to Rueter-more likely due to fluid status- patient has ESRD on hemodialysis, on torsemide. Continue albuterol and Solu- Medrol, requiring O2 at 7 L via oxygen mask -Metastatic disease-primary unknown-plan for bilateral femoral nailing to stabilize bone with lytic metastases -CODE STATUS-DNR (2) Pain of metastatic malignancy: (3) ESRD on hemodialysis: (4) Acute respiratory failure with hypoxia: Subjective Patient seen and examined in room 417- at bedside. Patient was having increased somnolence with pain meds-he did tolerate from mental status view 2.5 mg Rueter that was given at 8 AM today. However on exam patient complains of increased shortness of breath which he attributes to the Rueter. Shortness of breath may also be due to to fluid status-patient is on hemodialysis Wednesday//Wednesday. Patient with increased anxiety and shortness of breath-wheezing on exam-did respond partially to albuterol neb. Patient more alert on exam-does still does off slightly during visit although less frequently. Review of Systems Constitutional: + fatigue Eyes: no problem reported Ear, Nose, Mouth, Throat: no problem reported Respiratory: + dyspnea Cardiovascular: + dyspnea at rest Gastrointestinal: no nausea Musculoskeletal: + joint pain and + muscle weakness Integumentary: no change in skin color Neurologic: + generalized weakness Somnolence at times Psychiatric: + anxiety Physical Exam Physical Exam: PE: Patient with increased respiratory rate, mild dyspnea, increased anxiety HEENT: EOMI, hearing within normal limits Respirations: Increased respiratory rate bilateral fine wheezes, good air movement CV: Regular rate Abdomen: Not distended Neuro: Less sedated Psych: Increased anxiety Results & Data Vital Signs (Past 12 Hours) Vital Signs Temp Pulse Pulse Resp BP Pulse Ox 02/27/19 15:23 97.9 F 60 16 171/70 H 90 02/27/19 12:21 97.7 F 64 16 178/71 H 90 02/27/19 11:23 98.1 F 64 16 174/71 H 90 02/27/19 11:22 64 18 92 02/27/19 07:27 97.3 F L 60 16 169/72 H 90 02/27/19 04:00 97.2 F L 61 18 172/67 H 92 Time Spent Attending Total time spent 35 minutes with greater than 50% of the time at bedside assessing patient's increased dyspnea as well as discussing current plan of care. Collaborated with attending physician
[2019-02-27] MEDS: ALBUT/IPRATROP 3MG/0.5MG NEB 3 ML VIAL NEB SCH ×3 (16:03→23:49)
--- NOTE | 2019-02-27 16:17 | Hospitalist Progress Note ---
Date of Service February 27, 2019 Assessment & Plan (1) Acute respiratory failure with hypoxia: Likely multifactorial - right-sided pneumonia, effusions, & pulmonary edema. Had episode earlier in the hospitalization, which resolved. O2 was weaned off. - On 02/27, having another occurrence. More shortness of breath as the day progresses. Concern for pulmonary edema as he has been on a heparin gtt for his RUE DVT. - Ordered BiPap, nebs, and IV steroids to treat pulmonary edema and any possible reactive airway disease. - Discuss with nephrology re: HD needs - Patient again re-iterated that he doesn't not want intubation or mechanical ventilation even if this means he would . - Patient and decline CT chest due to pain with transfers (2) DVT of upper extremity (deep vein thrombosis): Possible left subclavian vein DVT seen on LUE doppler on 02/24 done for left arm swelling. Suspect due to advanced cancer. - Cont heparin drip - standard dosing - HOLD warfarin as he may have his elective, prophylactic hip pinning in 2-3 days. (3) Encephalopathy acute: Resolved. Was likely toxic (from narcotics) and metabolic (pneumonia, electrolyte disturbances, etc). CT head neg for brain mets. - Minimal opiates - Appreciat palliative recs (4) Pneumonia involving right lung: Clinically improved/resolved. - Completed full course of IV/PO abx for 7 days. - Check procalcitonin for possible pneumonia; consider restart abx if elevated. 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 Has numerous bony mets, adrenal mets, etc. - Plan was for elective pinning of both hips to prevent pathological fracture; during this procedure was to have bone bx as well for definitive diagnosis; however, surgery postponed last week due to worsening respiratory status. - Appreciate ortho, heme/onc, rad/onc consultations. For back/bony pain - * has not tolerated multiple narcotics even at the lowest doses * DID TOLERATE 2.5mg of norco q8h prn * radiation will improve this pain once xrt initiated * cont tylenol and decadron at 4mg daily * k-pad heat In light of multiple comorbidities and ESRD on HD he is VERY POOR CANDIDATE FOR EVEN PALLIATIVE CHEMOTHERAPY/TREATMENT OF THE CANCER. Appreciate palliative care consultation as well. If hip procedure is completed next week a bone biopsy can be taken at that time. (6) Hyponatremia: 2nd to ESRD. Fluctuating depending on volume status. - Trend BMPs (7) ESRD on hemodialysis: HD Tu//Sat. - Appreciate [facility] assistance. - Just recently initiated HD about 3-4 weeks ago in [place]. (8) S/P AVR (aortic valve replacement): History of such. Bioprosthetic. (9) Bilateral pleural effusion: Could be transudative from ESRD and hypoalbuminemia or exudative from cancer or pneumonia. - CXR on 02/27 showed mildly worsening effusions. - Working with nephrology for HD (10) Anemia in chronic kidney disease, on chronic dialysis: Baseline appears to be ~8. - On 02/27, at baseline. - No evidence of bleeding (11) Hypertension: Cont usual outpatient meds MIldly high; if this continues then adjust meds (12) CAD (coronary artery disease): S/p CABG in the past. NO ischemic sx's at this time. - Cont asa, statin, BB, imdur. (13) GERD (gastroesophageal reflux disease): PPI. (14) Ileus: Resolved. Eating w/o intolerance and passing flatus/stool. - On 02/27, no concerns. (15) DVT prophylaxis: Heparin drip Subjective Feeling more shortness of breath throughout the day. Also with back pain. Review of Systems Review of Systems: All systems reviewed & are unremarkable except as noted in HPI & below Physical Exam Constitutional: WD/WN, vitals as above + acute distress, + physical limitations and + frail appearing Eyes: EOM intact bilaterally; no conjunctival abnormality ENMT: external ear and nose normal, oropharynx normal Neck: trachea midline, no thyromegaly normal visual inspection Respiratory: + respiratory distress and + labored breathing Auscultation: + crackles and + wheezes Cardiovascular: RRR, no murmur, no edema Rate/Rhythm: + tachycardic Gastrointestinal (Abdomen): Inspection/Auscultation: abdomen normal to inspection; abdomen not distended Musculoskeletal: no cyanosis or clubbing, extremities motor strength 5/5 Skin: no rashes, warm and dry Neurologic: moves all extremities and awake Psychiatric: Orientation: alert, oriented to person and cooperative Results & Data Vital Signs (Past 12 Hours) Vital Signs Temp Pulse Pulse Resp BP Pulse Ox 02/27/19 16:03 61 20 90 02/27/19 15:23 36.6 C 60 16 171/70 H 90 02/27/19 12:21 36.5 C 64 16 178/71 H 90 02/27/19 11:23 36.7 C 64 16 174/71 H 90 02/27/19 11:22 64 18 92 02/27/19 07:27 36.3 C L 60 16 169/72 H 90 (1) DVT of upper extremity (deep vein thrombosis) Affected thrombotic vein of extremity: unspecified vein of extremity Chronicity: acute Laterality: left Qualified Code(s): I82.622 - Acute embolism and thrombosis of deep veins of left upper extremity (2) Pneumonia involving right lung Pneumonia type: due to unspecified organism Lung location: unspecified part of lung Qualified Code(s): J18.9 - Pneumonia, unspecified organism (3) Hypertension Hypertension type: essential hypertension Qualified Code(s): I10 - Essential (primary) hypertension (4) CAD (coronary artery disease) Coronary Disease-Associated Artery/Lesion type: [place] artery [place] vs. transplanted heart: [place] heart Associated angina: without angina Qualified Code(s): I25.10 - Atherosclerotic heart disease of [place] coronary artery without angina pectoris (5) GERD (gastroesophageal reflux disease) Esophagitis presence: without esophagitis Qualified Code(s): K21.9 - Gastro- esophageal reflux disease without esophagitis
[2019-02-27] MEDS: methylPREDNISolone 40 MG in SYRINGE 0 ML IV SCH (17:06)
--- NOTE | 2019-02-27 20:15 | Dialysis Progress Note ---
Date of Service February 27, 2019 Assessment & Plan (1) ESRD on hemodialysis: Patient with ESRD on dialysis Wednesday. He has a right tunneled IJ catheter. CVC initially blocked, improved with cathflo on both 02/23 and 02/25; no issues today >urgent HD today w/ 3 L uf goal; plan to reassess in am for likely tx again (2) Metastatic disease: Patient with metastatic bone disease of unknown primary. CT abdomen done yesterday also revealing osteolytic bone lesions. Patient is frustrated with the multiple diagnostic tests without finding the primary. He is now DNR. He wishes to continue dialysis and work-up for his cancer. (3) Hypertension: markedly hypertensive today, despite pain meds and dialysis. cont pain control and current bp meds and frequent hd (4) Anemia in chronic kidney disease, on chronic dialysis: Hemoglobin is below target. Unable to give epogen due to active cancer. He probably does not need daily blood draws. Monitor and transfuse as needed. on heparin gtt currently (5) Pneumonia involving right lung: Patient is on antibiotics per primary team. Renally dose medications for GFR less than 25 mL/min. he is DNI Subjective pt seen on rounds this amw/ no sob, w/ some report of ? catheter malfunction on 02/25 HD. he was on RA when I saw him but tachypneic, very slightly labored even then. as day progressed he became hypoxic. contacted by dr layton and we arranged urgent HD short tx w/ aggressive fluid removal Review of Systems Constitutional: + fatigue, + weakness and + anorexia Eyes: no worsening vision Respiratory: as per Subjective / HPI Cardiovascular: no palpitations and no edema Gastrointestinal: no change in bowel habits Integumentary: no rash and no non-healing lesions Physical Exam Constitutional: well developed, + frail appearing and + malnourished on ventimask/ hi jessica 02, resting quiently; answers 1-2 questinos if asked Eyes: EOM intact bilaterally ENMT: Ears: no external ear abnormality Nose: no external nose abnormality Mouth: + dry oral mucous membranes Neck: no nuchal rigidity Respiratory: + labored breathing (slight) and + tachypneic Auscultation: + diminished lung sounds Cardiovascular: Rate/Rhythm: regular rate and regular rhythm Extremities: no edema Gastrointestinal (Abdomen): Inspection/Auscultation: + abdomen distended and normal bowel sounds Percussion/Palpation: abdomen soft; abdomen nontender Musculoskeletal: Extremities: strength 5/5 throughout sarkar, fluent speech though limited Skin: no rashes, warm and dry Neurologic: sarkar, fluent speech, no tremor Psychiatric: Orientation: alert, oriented to person and oriented to place Affect: + flat affect Results & Data Vital Signs (Past 12 Hours) Vital Signs Temp Pulse Pulse Pulse Resp BP BP 02/27/19 19:56 36.4 C L 64 20 194/53 H 02/27/19 19:30 36.6 C 63 157/68 H 02/27/19 19:20 62 166/62 H 02/27/19 19:00 62 170/83 H 02/27/19 18:40 65 135/76 02/27/19 18:20 63 170/53 H 02/27/19 18:00 64 177/73 H 02/27/19 17:40 64 168/80 H 02/27/19 17:24 36.6 C 60 02/27/19 16:03 61 20 02/27/19 15:23 36.6 C 60 16 171/70 H 02/27/19 12:21 36.5 C 64 16 178/71 H 02/27/19 11:23 36.7 C 64 16 174/71 H 02/27/19 11:22 64 18 Pulse Ox 02/27/19 19:56 93 02/27/19 19:30 02/27/19 19:20 02/27/19 19:00 02/27/19 18:40 02/27/19 18:20 02/27/19 18:00 02/27/19 17:40 02/27/19 17:24 02/27/19 16:03 90 02/27/19 15:23 90 02/27/19 12:21 90 02/27/19 11:23 90 02/27/19 11:22 92 Laboratory Results Abnormal lab results 02/26/19 02/27/19 02/27/19 Range/Units 20:11 07:48 07:48 RBC 2.87 L (4.7-6.1) M/uL Hgb 8.1 L (14.0-18.0) g/dL Hct 24.1 L (42-52) % RDW Std Deviation 49.3 H (36.4-46.3) fL RDW Coeff of Fredis 16.3 H (11.5-14.5) % MPV 10.8 H (7.4-10.4) fL PT 24.2 H (9.0-12.0) Seconds INR 2.5 H (0.9-1.1) APTT 57.2 H* (21.0-31.0) Seconds ABG pH (7.35-7.45) ABG pCO2 (35-46) mmHg ABG pO2 (80-95) mm/Hg Sodium (136-145) mmol/L Chloride (98-107) mmol/L Anion Gap (3-11) BUN (7-18) mg/dl Creatinine (0.6-1.4) mg/dl Glucose (70-99) mg/dl POC Glucose 227 H (70-99) Calcium (8.5-10.1) mg/dl 02/27/19 02/27/19 02/27/19 Range/Units 07:48 07:51 11:45 RBC (4.7-6.1) M/uL Hgb (14.0-18.0) g/dL Hct (42-52) % RDW Std Deviation (36.4-46.3) fL RDW Coeff of Fredis (11.5-14.5) % MPV (7.4-10.4) fL PT (9.0-12.0) Seconds INR (0.9-1.1) APTT (21.0-31.0) Seconds ABG pH (7.35-7.45) ABG pCO2 (35-46) mmHg ABG pO2 (80-95) mm/Hg Sodium 125 L (136-145) mmol/L Chloride 89 L (98-107) mmol/L Anion Gap 12.0 H (3-11) BUN 51 H (7-18) mg/dl Creatinine 3.91 H (0.6-1.4) mg/dl Glucose 128 H (70-99) mg/dl POC Glucose 136 H 146 H (70-99) Calcium 8.3 L (8.5-10.1) mg/dl 02/27/19 02/27/19 Range/Units 12:51 16:58 RBC (4.7-6.1) M/uL Hgb (14.0-18.0) g/dL Hct (42-52) % RDW Std Deviation (36.4-46.3) fL RDW Coeff of Fredis (11.5-14.5) % MPV (7.4-10.4) fL PT (9.0-12.0) Seconds INR (0.9-1.1) APTT (21.0-31.0) Seconds ABG pH 7.49 H (7.35-7.45) ABG pCO2 28 L (35-46) mmHg ABG pO2 62 L (80-95) mm/Hg Sodium (136-145) mmol/L Chloride (98-107) mmol/L Anion Gap (3-11) BUN (7-18) mg/dl Creatinine (0.6-1.4) mg/dl Glucose (70-99) mg/dl POC Glucose 141 H (70-99) Calcium (8.5-10.1) mg/dl (1) Hypertension Hypertension type: essential hypertension Qualified Code(s): I10 - Essential (primary) hypertension (2) Pneumonia involving right lung Pneumonia type: due to unspecified organism Lung location: unspecified part of lung Qualified Code(s): J18.9 - Pneumonia, unspecified organism
[2019-02-27] MEDS: ATORVASTATIN 40 MG TAB PO SCH (21:23)
[2019-02-28] MEDS: ALBUT/IPRATROP 3MG/0.5MG NEB 3 ML VIAL NEB SCH ×6 (03:55→23:23)
[2019-02-28] MEDS: methylPREDNISolone 40 MG in SYRINGE 0 ML IV SCH ×2 (05:02→17:45)
[2019-02-28] MEDS: ACETAMINOPHEN 500 MG TAB PO SCH ×3 (05:59→21:22)
[2019-02-28] MEDS: INSULIN ASPART 100 UNITS/ML 3 ML PEN SC SCH ×4 (06:14→21:24)
[2019-02-28 06:38] LABS: Hematocrit (blood only) 24.2 % (42-52); Hemoglobin 7.9 g/dL (14.0-18.0); Mean Corpuscular Hgb Conc 32.6 g/dL (32-36); Mean Corpuscular Volume 84.9 fL (80-100); Mean Platelet Volume 10.8 fL (7.4-10.4); Nucleated RBC # (auto) 0.02 K/uL (0-0); Nucleated RBC % (auto) 0.3 %; Platelet Count 180 K/uL (130-400); RDW Coefficient of Variation 16.7 % (11.5-14.5); RDW Standard Deviation 51.2 fL (36.4-46.3); Red Blood Count 2.85 M/uL (4.7-6.1); White Blood Count 7.61 K/uL (4.8-10.8)
[2019-02-28 07:11] LABS: BUN Creatinine Ratio 12.8 (10-20); Calcium 8.3 mg/dl (8.5-10.1); Creatinine Clr Calc Pharmacy 0.8 ml/min; Est GFR (African American) 20.1; Est GFR (Non-African American) 17.4; Magnesium 2.4 mg/dl (1.8-2.4); Potassium 3.9 mmol/L (3.5-5.1)
[2019-02-28 08:05] LABS: Partial Thromboplastin Ratio 3.7
[2019-02-28 08:23] LABS: Partial Thromboplastin Time 100.6 Seconds (21.0-31.0)
[2019-02-28] MEDS ORDERED: SODIUM CHLORIDE 0.9% 1000ML 1,000 ML IV PRN (08:42)
[2019-02-28] MEDS: PANTOprazole 40 MG TAB PO SCH ×2 (09:05→13:17)
[2019-02-28] MEDS: MAGNESIUM OXIDE 400 MG TAB PO SCH (09:05)
[2019-02-28] MEDS: INSULIN GLARGINE SOLOSTAR 100 UNITS/ML 3 ML PEN SC SCH (09:06)
[2019-02-28] MEDS: LIDOCAINE 5% 1 PATCH TD SCH (09:06)
[2019-02-28] MEDS: NYSTATIN SUSP 500,000 U/5 ML UDC PO SCH ×4 (09:07→21:21)
[2019-02-28] MEDS: TORSEMIDE 100 MG TAB PO SCH ×2 (13:16→17:45)
[2019-02-28] MEDS: AMLODIPINE BESYLATE 5 MG TAB PO SCH ×2 (13:16→21:22)
[2019-02-28] MEDS: SENNA 8.6 MG TAB PO SCH (13:17)
[2019-02-28] MEDS: CARVEDILOL 12.5 MG TAB PO SCH ×2 (13:17→21:23)
[2019-02-28] MEDS: ISOSORBIDE MONO EXTENDED REL 60 MG TABCR PO SCH (13:17)
[2019-02-28] MEDS: HydrALAZINE TAB 50 MG TAB PO SCH ×3 (13:17→21:22)
[2019-02-28] MEDS: Heparin Adult STANDARD Wt-Based Dextrose 5% 25,000 units/500 mL IV SCH (13:18)
[2019-02-28] MEDS: DOCUSATE SODIUM 100 MG CAP PO SCH ×2 (13:18→21:22)
[2019-02-28] MEDS: ASPIRIN 81 MG CHEW PO SCH (13:19)
[2019-02-28] MEDS: POLYETHYLENE (MIRALAX) 17 GM PACK PO SCH ×2 (13:39→21:21)
--- NOTE | 2019-02-28 15:06 | Palliative Care Progress Note ---
Date of Service February 28, 2019 Assessment & Plan (1) Palliative care encounter: This is a 78 year old male who was transferred to the [facility] from [facility] on 02/19 for a second opinion/evaluation for etiology of his metastatic disease. Diagnostic imaging was performed at [facility]; however, studies were inconclusive. Discussion was held indicating possible bone involvement and the family decided to transfer care to [facility] for further investigation. The patient was inpatient at [facility] for over 6 weeks which was the first time that he had heard the possibility of a cancer diagnosis. Additional PMH includes CAD, HTN, HLD, ESRD HD dependent (T/R/Sat), GERD, pleural effusions, and AVR. Patient has been evaluated by Dr. Weeks with Heme/Onc and Orthopedic surgery was consulted ,Dr. Tijerina saw patient and indicated the possibility of performing a B/L femur head nail fixation-to stabilize both hips with hopes of preventing a pathological fracture. Patient was found to have a left subclavian DVT-is on Coumadin and heparin. Medical team working on improving patient's respiratory status so he can undergo surgery. Patient's CODE STATUS is DNR -Cancer related pain-would consider using PRN tramadol, patient refuses any further [place] -he feels it caused his wheezing. -Dyspnea-patient attributes it to [place]-more likely due to fluid status- patient has ESRD on hemodialysis, on torsemide. 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 Patient denies pain at rest-patient has not been out of bed recently. Patient has not required any PRN medication for over 24 hours. Patient had dialysis with removal of 3 L yesterday, had dialysis again today with removal of 3.5 L. Patient's respiratory status has improved post dialysis. He is still receiving scheduled albuterol nebs. Review of Systems Review of Systems: Patient denies fever, chills, chest pain, increased shortness of breath, or abdominal pain. Patient reports no pain at rest. Physical Exam Physical Exam: PE: Patient awake alert, no acute distress HEENT: EOMI, hearing within normal limits Respiratory: Unlabored, few crackles right base, no wheezes CV: Regular rate, no edema Abdomen: Soft, nontender Extremities: Left upper extremity with edema, left subclavian DVT Neuro: More alert on exam today, oriented Psych: Appropriate mood Results & Data Vital Signs (Past 12 Hours) Vital Signs Temp Pulse Pulse Pulse Resp BP BP 02/28/19 14:19 78 18 02/28/19 13:44 64 18 155/67 H 02/28/19 13:11 98.6 F 68 02/28/19 12:40 68 159/64 H 02/28/19 12:20 59 L 172/72 H 02/28/19 12:00 64 163/77 H 02/28/19 11:40 60 157/78 H 02/28/19 11:20 64 158/79 H 02/28/19 11:00 64 148/63 H 02/28/19 10:40 66 165/70 H 02/28/19 10:20 64 166/76 H 02/28/19 10:00 64 170/104 H 02/28/19 09:40 59 L 153/66 H 02/28/19 09:20 97.9 F 68 02/28/19 08:16 97.9 F 62 16 02/28/19 07:07 78 18 02/28/19 04:09 97.5 F L 60 18 02/28/19 03:56 72 72 18 BP Pulse Ox 02/28/19 14:19 94 02/28/19 13:44 155/67 H 94 02/28/19 13:11 128/64 02/28/19 12:40 02/28/19 12:20 02/28/19 12:00 02/28/19 11:40 02/28/19 11:20 02/28/19 11:00 02/28/19 10:40 02/28/19 10:20 02/28/19 10:00 02/28/19 09:40 02/28/19 09:20 02/28/19 08:16 154/75 H 94 02/28/19 07:07 94 02/28/19 04:09 163/64 H 93 02/28/19 03:56 94 Time Spent Attending Total time spent 35 minutes with greater than 50% of the time spent at bedside assessing patient's plain level, respiratory status as well as discussing plan of care (1) DVT of upper extremity (deep vein thrombosis) Affected thrombotic vein of extremity: unspecified vein of extremity Chronicity: acute Laterality: left Qualified Code(s): I82.622 - Acute embolism and thrombosis of deep veins of left upper extremity
[2019-02-28 16:10] LABS: Partial Thromboplastin Ratio 2.1
[2019-02-28 16:12] LABS: Partial Thromboplastin Time 56.1 Seconds (21.0-31.0)
--- NOTE | 2019-02-28 16:25 | Hospitalist Progress Note ---
Date of Service February 28, 2019 Assessment & Plan (1) Acute respiratory failure with hypoxia: Likely multifactorial - right-sided pneumonia, effusions, & pulmonary edema. Had episode earlier in the hospitalization, which resolved. O2 was weaned off. - On 02/27, having another occurrence. More shortness of breath as the day progresses. Concern for pulmonary edema as he has been on a heparin gtt for his RUE DVT. - Ordered BiPap, nebs, and IV steroids to treat pulmonary edema and any possible reactive airway disease. - Underwent ultrafiltrate on 02/27 & HD on 02/28. Now down to 2L NC. (2) DVT of upper extremity (deep vein thrombosis): Possible left subclavian vein DVT seen on LUE doppler on 02/24 done for left arm swelling. Suspect due to advanced cancer. - Cont heparin drip - standard dosing - HOLD warfarin as he may have his elective, prophylactic hip pinning on . (3) Encephalopathy acute: Resolved. Was likely toxic (from narcotics) and metabolic (pneumonia, electrolyte disturbances, etc). CT head neg for brain mets. - Minimal opiates - Appreciate palliative recs (4) Pneumonia involving right lung: Clinically improved/resolved. - Completed full course of IV/PO abx for 7 days. - Procalcitonin checked on 02/27 for increased shortness of breath and was negative (0.26). 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 Has numerous bony mets, adrenal mets, etc. - Plan was for elective pinning of both hips to prevent pathological fracture; during this procedure was to have bone bx as well for definitive diagnosis; however, surgery postponed last week due to worsening respiratory status. - Appreciate ortho, heme/onc, rad/onc consultations. For back/bony pain - * has not tolerated multiple narcotics even at the lowest doses * DID TOLERATE 2.5mg of norco q8h prn * radiation will improve this pain once xrt initiated * cont tylenol and decadron at 4mg daily * k-pad heat In light of multiple comorbidities and ESRD on HD he is VERY POOR CANDIDATE FOR EVEN PALLIATIVE CHEMOTHERAPY/TREATMENT OF THE CANCER. Appreciate palliative care consultation as well. If hip procedure is completed next week a bone biopsy can be taken at that time. (6) Hyponatremia: 2nd to ESRD. Fluctuating depending on volume status. - Trend BMPs (7) ESRD on hemodialysis: HD Tues/Th/Sat. - Appreciate [facility] assistance. - Just recently initiated HD about 3-4 weeks ago in [place]. (8) S/P AVR (aortic valve replacement): History of such. Bioprosthetic. (9) Bilateral pleural effusion: Could be transudative from ESRD and hypoalbuminemia or exudative from cancer or pneumonia. - CXR on 02/27 showed mildly worsening effusions. - Respiratory status improved with HD (10) Anemia in chronic kidney disease, on chronic dialysis: Baseline appears to be ~8. - On 02/27, at baseline. - No evidence of bleeding (11) Hypertension: Mildly high - Remaining ~160/60. - Cont usual outpatient meds: Hydralazine 50mg TID, amlodipine 5mg, Imdur 60mg (12) CAD (coronary artery disease): S/p CABG in the past. No ischemic sx's at this time. - Continue statin, BB, imdur. - Holding ASA for procedure this week. (13) GERD (gastroesophageal reflux disease): PPI. (14) Ileus: Resolved. Eating w/o intolerance and passing flatus/stool. - On 02/27, no concerns. (15) DVT prophylaxis: Heparin drip Subjective Feeling better today. Breathing much more comfortably. Otherwise stable. Review of Systems Review of Systems: All systems reviewed & are unremarkable except as noted in HPI & below Physical Exam Constitutional: WD/WN, vitals as above + acute distress, + physical limitations and + frail appearing Eyes: EOM intact bilaterally; no conjunctival abnormality ENMT: external ear and nose normal, oropharynx normal Neck: trachea midline, no thyromegaly normal visual inspection Respiratory: + respiratory distress and + labored breathing Auscultation: + crackles and + wheezes Cardiovascular: RRR, no murmur, no edema Rate/Rhythm: + tachycardic Gastrointestinal (Abdomen): Inspection/Auscultation: abdomen normal to inspection; abdomen not distended Musculoskeletal: no cyanosis or clubbing, extremities motor strength 5/5 Skin: no rashes, warm and dry Neurologic: moves all extremities and awake Psychiatric: Orientation: alert, oriented to person and cooperative Results & Data Vital Signs (Past 12 Hours) Vital Signs Temp Pulse Pulse Resp BP BP BP 02/28/19 15:37 37.0 C 53 L 20 165/57 H 02/28/19 14:19 78 18 02/28/19 13:44 64 18 155/67 H 155/67 H 02/28/19 13:11 37 C 68 128/64 02/28/19 12:40 68 159/64 H 02/28/19 12:20 59 L 172/72 H 02/28/19 12:00 64 163/77 H 02/28/19 11:40 60 157/78 H 02/28/19 11:20 64 158/79 H 02/28/19 11:00 64 148/63 H 02/28/19 10:40 66 165/70 H 02/28/19 10:20 64 166/76 H 02/28/19 10:00 64 170/104 H 02/28/19 09:40 59 L 153/66 H 02/28/19 09:20 36.6 C 68 02/28/19 08:16 36.6 C 62 16 154/75 H 02/28/19 07:07 78 18 Pulse Ox 02/28/19 15:37 96 02/28/19 14:19 94 02/28/19 13:44 94 02/28/19 13:11 02/28/19 12:40 02/28/19 12:20 02/28/19 12:00 02/28/19 11:40 02/28/19 11:20 02/28/19 11:00 02/28/19 10:40 02/28/19 10:20 02/28/19 10:00 02/28/19 09:40 02/28/19 09:20 02/28/19 08:16 94 02/28/19 07:07 94 (1) DVT of upper extremity (deep vein thrombosis) Affected thrombotic vein of extremity: unspecified vein of extremity Chronicity: acute Laterality: left Qualified Code(s): I82.622 - Acute embolism and thrombosis of deep veins of left upper extremity (2) Pneumonia involving right lung Pneumonia type: due to unspecified organism Lung location: unspecified part of lung Qualified Code(s): J18.9 - Pneumonia, unspecified organism (3) Hypertension Hypertension type: essential hypertension Qualified Code(s): I10 - Essential (primary) hypertension (4) CAD (coronary artery disease) Coronary Disease-Associated Artery/Lesion type: [place] artery [place] vs. transplanted heart: [place] heart Associated angina: without angina Qualified Code(s): I25.10 - Atherosclerotic heart disease of [place] coronary artery without angina pectoris (5) GERD (gastroesophageal reflux disease) Esophagitis presence: without esophagitis Qualified Code(s): K21.9 - Gastro- esophageal reflux disease without esophagitis
--- NOTE | 2019-02-28 18:26 | Dialysis Progress Note ---
Date of Service February 28, 2019 Assessment & Plan (1) ESRD on hemodialysis: Patient with ESRD on dialysis Wednesday. He has a right tunneled IJ catheter. CVC initially blocked, improved with cathflo on both 02/23 and 02/25; no issues today on HD; he did need urgent HD on 02/27 in addition to today's regularly scheduled tx >for 03/02 procedure > will d/w Dr Cabrera whether may need tx on 03/01 to optimize/stabilize from respiratory standpoint plus short tx after procedure (2) Metastatic disease: Patient with metastatic bone disease of unknown primary. CT abdomen revealing osteolytic bone lesions. Patient is frustrated with the multiple diagnostic tests without finding the primary. He is now DNR. He wishes to continue dialysis and work-up for his cancer. >> FOR pinning of hip prophylactic this week (3) Hypertension: markedly hypertensive today, despite pain meds and dialysis. cont pain control and current bp meds and frequent hd (4) Anemia in chronic kidney disease, on chronic dialysis: Hemoglobin is below target. Unable to give epogen due to active cancer. He probably does not need daily blood draws. Monitor and transfuse as needed. on heparin gtt currently (5) Pneumonia involving right lung: Patient is on antibiotics per primary team. Renally dose medications for dialysis. he is DNI Subjective seen on HD this am at about 0940; for prophylactic hip pinning on 02/28; pain controlled; still some sob but improved; no cramps on treatment; no N Review of Systems Review of Systems: All systems reviewed & are unremarkable except as noted in HPI & below Physical Exam Constitutional: well developed, + frail appearing and + malnourished on 8L oxymask earlier this am and mask on at HD Eyes: EOM intact bilaterally ENMT: Ears: no external ear abnormality Nose: no external nose abnormality Mouth: + dry oral mucous membranes Neck: no nuchal rigidity Respiratory: + labored breathing (slight) and + tachypneic Auscultation: + diminished lung sounds Cardiovascular: Rate/Rhythm: regular rate and regular rhythm Extremities: no edema Gastrointestinal (Abdomen): Inspection/Auscultation: + abdomen distended and normal bowel sounds Percussion/Palpation: abdomen soft; abdomen nontender Musculoskeletal: Extremities: strength 5/5 throughout Skin: no rashes, warm and dry Psychiatric: Orientation: alert, oriented to person and oriented to place Affect: + flat affect Results & Data Vital Signs (Past 12 Hours) Vital Signs Temp Pulse Pulse Resp BP BP BP 02/28/19 15:37 37.0 C 53 L 20 165/57 H 02/28/19 14:19 78 18 02/28/19 13:44 64 18 155/67 H 155/67 H 02/28/19 13:11 37 C 68 128/64 02/28/19 12:40 68 159/64 H 02/28/19 12:20 59 L 172/72 H 02/28/19 12:00 64 163/77 H 02/28/19 11:40 60 157/78 H 02/28/19 11:20 64 158/79 H 02/28/19 11:00 64 148/63 H 02/28/19 10:40 66 165/70 H 02/28/19 10:20 64 166/76 H 02/28/19 10:00 64 170/104 H 02/28/19 09:40 59 L 153/66 H 02/28/19 09:20 36.6 C 68 02/28/19 08:16 36.6 C 62 16 154/75 H 02/28/19 07:07 78 18 Pulse Ox 02/28/19 15:37 96 02/28/19 14:19 94 02/28/19 13:44 94 02/28/19 13:11 02/28/19 12:40 02/28/19 12:20 02/28/19 12:00 02/28/19 11:40 02/28/19 11:20 02/28/19 11:00 02/28/19 10:40 02/28/19 10:20 02/28/19 10:00 02/28/19 09:40 02/28/19 09:20 02/28/19 08:16 94 02/28/19 07:07 94 Laboratory Results Abnormal lab results 02/27/19 02/28/19 02/28/19 Range/Units 21:01 06:05 06:11 RBC 2.85 L (4.7-6.1) M/uL Hgb 7.9 L (14.0-18.0) g/dL Hct 24.2 L (42-52) % RDW Std Deviation 51.2 H (36.4-46.3) fL RDW Coeff of Fredis 16.7 H (11.5-14.5) % MPV 10.8 H (7.4-10.4) fL Absolute Nucleated RBC 0.02 H (0-0) K/uL APTT (21.0-31.0) Seconds Sodium (136-145) mmol/L Chloride (98-107) mmol/L Anion Gap (3-11) BUN (7-18) mg/dl Creatinine (0.6-1.4) mg/dl Glucose (70-99) mg/dl POC Glucose 137 H 136 H (70-99) Calcium (8.5-10.1) mg/dl 02/28/19 02/28/19 02/28/19 Range/Units 06:11 06:11 07:55 RBC (4.7-6.1) M/uL Hgb (14.0-18.0) g/dL Hct (42-52) % RDW Std Deviation (36.4-46.3) fL RDW Coeff of Fredis (11.5-14.5) % MPV (7.4-10.4) fL Absolute Nucleated RBC (0-0) K/uL APTT 100.6 H* (21.0-31.0) Seconds Sodium 130 L (136-145) mmol/L Chloride 94 L (98-107) mmol/L Anion Gap 12.0 H (3-11) BUN 42 H (7-18) mg/dl Creatinine 3.25 H D (0.6-1.4) mg/dl Glucose 122 H (70-99) mg/dl POC Glucose 143 H (70-99) Calcium 8.3 L (8.5-10.1) mg/dl 02/28/19 02/28/19 02/28/19 Range/Units 12:09 15:36 16:34 RBC (4.7-6.1) M/uL Hgb (14.0-18.0) g/dL Hct (42-52) % RDW Std Deviation (36.4-46.3) fL RDW Coeff of Fredis (11.5-14.5) % MPV (7.4-10.4) fL Absolute Nucleated RBC (0-0) K/uL APTT 56.1 H* (21.0-31.0) Seconds Sodium (136-145) mmol/L Chloride (98-107) mmol/L Anion Gap (3-11) BUN (7-18) mg/dl Creatinine (0.6-1.4) mg/dl Glucose (70-99) mg/dl POC Glucose 133 H 146 H (70-99) Calcium (8.5-10.1) mg/dl (1) Hypertension Hypertension type: essential hypertension Qualified Code(s): I10 - Essential (primary) hypertension (2) Pneumonia involving right lung Pneumonia type: due to unspecified organism Lung location: unspecified part of lung Qualified Code(s): J18.9 - Pneumonia, unspecified organism
[2019-02-28] MEDS: ATORVASTATIN 40 MG TAB PO SCH (21:21)
[2019-03-01] MEDS: ALBUT/IPRATROP 3MG/0.5MG NEB 3 ML VIAL NEB SCH ×6 (03:31→22:59)
[2019-03-01] MEDS: ACETAMINOPHEN 500 MG TAB PO SCH ×3 (05:41→22:23)
[2019-03-01] MEDS: methylPREDNISolone 40 MG in SYRINGE 0 ML IV SCH (05:42)
[2019-03-01 06:46] LABS: Hematocrit (blood only) 24.9 % (42-52); Hemoglobin 8.1 g/dL (14.0-18.0); Mean Corpuscular Hgb Conc 32.5 g/dL (32-36); Mean Corpuscular Volume 86.2 fL (80-100); Platelet Count 150 K/uL (130-400); RDW Coefficient of Variation 17.1 % (11.5-14.5); RDW Standard Deviation 52.4 fL (36.4-46.3); Red Blood Count 2.89 M/uL (4.7-6.1); White Blood Count 9.93 K/uL (4.8-10.8)
[2019-03-01 06:59] LABS: INR 1.7 (0.9-1.1); Prothrombin Time 16.6 Seconds (9.0-12.0)
[2019-03-01 07:19] LABS: BUN Creatinine Ratio 13.9 (10-20); Calcium 8.4 mg/dl (8.5-10.1); Creatinine Clr Calc Pharmacy 19.8 ml/min; Est GFR (African American) 23.9; Est GFR (Non-African American) 20.6; Potassium 3.6 mmol/L (3.5-5.1)
[2019-03-01] MEDS ORDERED: SODIUM CHLORIDE 0.9% 1000ML 1,000 ML IV PRN (07:58)
[2019-03-01] MEDS: MAGNESIUM OXIDE 400 MG TAB PO SCH (08:20)
[2019-03-01] MEDS: NYSTATIN SUSP 500,000 U/5 ML UDC PO SCH ×4 (08:20→20:50)
[2019-03-01] MEDS: TORSEMIDE 100 MG TAB PO SCH ×2 (08:21→17:33)
[2019-03-01] MEDS: LIDOCAINE 5% 1 PATCH TD SCH (08:21)
[2019-03-01] MEDS: HydrALAZINE TAB 50 MG TAB PO SCH ×3 (08:22→20:50)
[2019-03-01] MEDS: AMLODIPINE BESYLATE 5 MG TAB PO SCH ×2 (08:22→20:50)
[2019-03-01] MEDS: CARVEDILOL 12.5 MG TAB PO SCH ×2 (08:22→20:51)
[2019-03-01] MEDS: ISOSORBIDE MONO EXTENDED REL 60 MG TABCR PO SCH (08:23)
[2019-03-01] MEDS: SENNA 8.6 MG TAB PO SCH (08:23)
[2019-03-01] MEDS: DOCUSATE SODIUM 100 MG CAP PO SCH ×2 (08:23→20:51)
[2019-03-01] MEDS: PANTOprazole 40 MG TAB PO SCH (08:23)
[2019-03-01] MEDS: INSULIN GLARGINE SOLOSTAR 100 UNITS/ML 3 ML PEN SC SCH (08:29)
[2019-03-01 09:07] LABS: Partial Thromboplastin Ratio 1.8
[2019-03-01] MEDS: INSULIN ASPART 100 UNITS/ML 3 ML PEN SC SCH ×4 (09:14→21:13)
[2019-03-01] MEDS: POLYETHYLENE (MIRALAX) 17 GM PACK PO SCH ×2 (09:15→20:49)
[2019-03-01 09:16] LABS: Hepatitis B Surface Antibody Non-Immune
[2019-03-01 09:19] LABS: Partial Thromboplastin Time 47.6 Seconds (21.0-31.0)
[2019-03-01 09:27] LABS: Hepatitis B Surface Antigen Neg (Neg)
--- NOTE | 2019-03-01 13:05 | Dialysis Progress Note ---
Date of Service March 01, 2019 Assessment & Plan (1) ESRD on hemodialysis: Patient with ESRD on dialysis Wednesday. He has a right tunneled IJ catheter. CVC initially blocked, improved with cathflo on both 02/23 and 02/25; no issues w/ catheter on HD past few txs; he did need urgent HD on 02/27 >for 03/02 procedure > todya he is doing extra 03/01 tx to optimize/stabilize from respiratory standpoint plus short tx after procedure -depending on OR times, will plan 2h tx tomorrow as well if it fits w/ surgery schedules (2) Metastatic disease: Patient with metastatic bone disease of unknown primary. CT abdomen revealing osteolytic bone lesions. Patient is frustrated with the multiple diagnostic tests without finding the primary. He is now DNR. He wishes to continue dialysis and work-up for his cancer. >> FOR pinning of hips pr ophylactic this week and bone bx (3) Hypertension: markedly hypertensive today, despite pain meds and dialysis. cont pain control and current bp meds and frequent hd (4) Anemia in chronic kidney disease, on chronic dialysis: Hemoglobin is below target. Unable to give epogen due to active cancer. He probably does not need daily blood draws. Monitor and transfuse as needed. on heparin gtt currently (5) Pneumonia involving right lung: Patient is on antibiotics per primary team. Renally dose medications for dialysis. he is DNI Subjective seen on dialysis this am at about 0945; at bedside. pt tolerating tx. denies pain. still some sob. no n/v. states he ate small bit this am not much. Review of Systems Review of Systems: All systems reviewed & are unremarkable except as noted in HPI & below Physical Exam Constitutional: well developed, + frail appearing and + malnourished o2 needs down to 4L NC from 8L mask yesterday Eyes: EOM intact bilaterally ENMT: Ears: no external ear abnormality Nose: no external nose abnormality Mouth: + dry oral mucous membranes Neck: no nuchal rigidity Respiratory: + labored breathing (slight) and + tachypneic Auscultation: + diminished lung sounds Cardiovascular: Rate/Rhythm: regular rate and regular rhythm Extremities: no edema Gastrointestinal (Abdomen): Inspection/Auscultation: + abdomen distended and normal bowel sounds Percussion/Palpation: abdomen soft and + ascites (more prominent today); abdomen nontender Musculoskeletal: Extremities: strength 5/5 throughout Skin: no rashes, warm and dry Psychiatric: Orientation: alert, oriented to person and oriented to place Affect: + flat affect more tired/withdrawn today Results & Data Vital Signs (Past 12 Hours) Vital Signs Temp Pulse Pulse Pulse Resp BP BP 03/01/19 12:40 68 169/59 H 03/01/19 12:20 66 163/72 H 03/01/19 12:00 65 163/57 H 03/01/19 11:40 65 160/63 H 03/01/19 11:20 63 150/67 H 03/01/19 11:00 64 157/62 H 03/01/19 10:40 63 153/76 H 03/01/19 10:20 63 150/57 H 03/01/19 10:00 61 156/76 H 03/01/19 09:49 63 161/84 H 03/01/19 08:17 36.5 C 63 18 157/75 H 03/01/19 07:16 63 18 03/01/19 03:37 36.7 C 62 20 151/67 H 03/01/19 03:31 67 16 Pulse Ox 03/01/19 12:40 03/01/19 12:20 03/01/19 12:00 03/01/19 11:40 03/01/19 11:20 03/01/19 11:00 03/01/19 10:40 03/01/19 10:20 03/01/19 10:00 03/01/19 09:49 03/01/19 08:17 97 03/01/19 07:16 96 03/01/19 03:37 95 03/01/19 03:31 94 Laboratory Results Abnormal lab results 02/28/19 02/28/19 02/28/19 Range/Units 15:36 16:34 20:58 RBC (4.7-6.1) M/uL Hgb (14.0-18.0) g/dL Hct (42-52) % RDW Std Deviation (36.4-46.3) fL RDW Coeff of Fredis (11.5-14.5) % PT (9.0-12.0) Seconds INR (0.9-1.1) APTT 56.1 H* (21.0-31.0) Seconds Sodium (136-145) mmol/L Chloride (98-107) mmol/L BUN (7-18) mg/dl Creatinine (0.6-1.4) mg/dl Glucose (70-99) mg/dl POC Glucose 146 H 163 H (70-99) Calcium (8.5-10.1) mg/dl Hep Bs Antibody, Quant (>or=10mIU/mL Immune) mIU/mL 03/01/19 03/01/19 03/01/19 Range/Units 06:35 06:35 06:35 RBC 2.89 L (4.7-6.1) M/uL Hgb 8.1 L (14.0-18.0) g/dL Hct 24.9 L (42-52) % RDW Std Deviation 52.4 H (36.4-46.3) fL RDW Coeff of Fredis 17.1 H (11.5-14.5) % PT 16.6 H (9.0-12.0) Seconds INR 1.7 H (0.9-1.1) APTT (21.0-31.0) Seconds Sodium (136-145) mmol/L Chloride (98-107) mmol/L BUN (7-18) mg/dl Creatinine (0.6-1.4) mg/dl Glucose (70-99) mg/dl POC Glucose (70-99) Calcium (8.5-10.1) mg/dl Hep Bs Antibody, Quant < 3.10 L (>or=10mIU/mL Immune) mIU/mL 03/01/19 03/01/19 03/01/19 Range/Units 06:35 06:35 07:51 RBC (4.7-6.1) M/uL Hgb (14.0-18.0) g/dL Hct (42-52) % RDW Std Deviation (36.4-46.3) fL RDW Coeff of Fredis (11.5-14.5) % PT (9.0-12.0) Seconds INR (0.9-1.1) APTT 47.6 H* (21.0-31.0) Seconds Sodium 129 L (136-145) mmol/L Chloride 94 L (98-107) mmol/L BUN 39 H (7-18) mg/dl Creatinine 2.82 H D (0.6-1.4) mg/dl Glucose 146 H (70-99) mg/dl POC Glucose 173 H (70-99) Calcium 8.4 L (8.5-10.1) mg/dl Hep Bs Antibody, Quant (>or=10mIU/mL Immune) mIU/mL (1) Hypertension Hypertension type: essential hypertension Qualified Code(s): I10 - Essential (primary) hypertension (2) Pneumonia involving right lung Pneumonia type: due to unspecified organism Lung location: unspecified part of lung Qualified Code(s): J18.9 - Pneumonia, unspecified organism
--- NOTE | 2019-03-01 15:45 | Hospitalist Progress Note ---
Date of Service March 01, 2019 Assessment & Plan (1) Acute respiratory failure with hypoxia: Likely multifactorial - right-sided pneumonia, effusions, & pulmonary edema. Had episode earlier in the hospitalization, which resolved. O2 was weaned off. - On 02/27, having another occurrence. More shortness of breath as the day progresses. Concern for pulmonary edema as he has been on a heparin gtt for his RUE DVT. - Ordered BiPap, nebs, and IV steroids to treat pulmonary edema and any possible reactive airway disease. - Underwent ultrafiltrate on 02/27 & HD on 02/28. Now down to 2L NC. - On 03/01, he is still doing very well. (2) DVT of upper extremity (deep vein thrombosis): Possible left subclavian vein DVT seen on LUE doppler on 02/24 done for left arm swelling. Suspect due to advanced cancer. - Cont heparin drip - standard dosing - HOLD warfarin as he may have his elective, prophylactic hip pinning on . 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 Has numerous bony mets, adrenal mets, etc. - Plan was for elective pinning of both hips to prevent pathological fracture; during this procedure was to have bone bx as well for definitive diagnosis; however, surgery postponed last week due to worsening respiratory status. - Appreciate ortho, heme/onc, rad/onc consultations. For back/bony pain - * has not tolerated multiple narcotics even at the lowest doses * DID TOLERATE 2.5mg of norco q8h prn * radiation will improve this pain once xrt initiated * cont tylenol and decadron at 4mg daily * k-pad heat In light of multiple comorbidities and ESRD on HD he is VERY POOR CANDIDATE FOR EVEN PALLIATIVE CHEMOTHERAPY/TREATMENT OF THE CANCER. Appreciate palliative care consultation as well. If hip procedure is completed next week a bone biopsy can be taken at that time. (4) Pneumonia involving right lung: Clinically improved/resolved. - Completed full course of IV/PO abx for 7 days. - Procalcitonin checked on 02/27 for increased shortness of breath and was negative (0.26). (5) Hyponatremia: 2nd to ESRD. Fluctuating depending on volume status. - Trend BMPs (6) ESRD on hemodialysis: HD //Sat. - Appreciate [facility] assistance. - Just recently initiated HD about 3-4 weeks ago in [place]. (7) S/P AVR (aortic valve replacement): History of such. Bioprosthetic. (8) Bilateral pleural effusion: Could be transudative from ESRD and hypoalbuminemia or exudative from cancer or pneumonia. - CXR on 02/27 showed stable to mildly worse right effusion. - Respiratory status improved with HD (9) Anemia in chronic kidney disease, on chronic dialysis: Baseline appears to be ~8. - On 02/27, at baseline. - No evidence of bleeding (10) Hypertension: Mildly high - Remaining ~160/60. - Cont usual outpatient meds: Hydralazine 50mg TID, amlodipine 5mg, Imdur 60mg - On 03/01, added lisinopril 10mg. Given his ESRD, hyperkalemia should not be a problem as he will get his K+ removed from dialysis. (11) CAD (coronary artery disease): S/p CABG in the past. No ischemic sx's at this time. - Continue statin, beta-oksana, Imdur. - Added lisinopril on 03/01 as above - Holding ASA for procedure this week. (12) GERD (gastroesophageal reflux disease): PPI. (13) Ileus: Resolved. Eating w/o intolerance and passing flatus/stool. - On 02/27, no concerns. (14) DVT prophylaxis: Heparin drip - Holding for procedure. Subjective Minimal pain, no shortness of breath. Review of Systems Review of Systems: All systems reviewed & are unremarkable except as noted in HPI & below Physical Exam Constitutional: WD/WN, vitals as above + physical limitations and + frail appearing; no acute distress Eyes: EOM intact bilaterally; no conjunctival abnormality ENMT: external ear and nose normal, oropharynx normal Neck: trachea midline, no thyromegaly normal visual inspection Respiratory: + labored breathing; no respiratory distress Auscultation: + crackles and + wheezes Cardiovascular: RRR, no murmur, no edema Rate/Rhythm: + tachycardic Gastrointestinal (Abdomen): Inspection/Auscultation: abdomen normal to inspection; abdomen not distended Musculoskeletal: no cyanosis or clubbing, extremities motor strength 5/5 Skin: no rashes, warm and dry Neurologic: moves all extremities and awake Psychiatric: Orientation: alert, oriented to person and cooperative Results & Data Vital Signs (Past 12 Hours) Vital Signs Temp Pulse Pulse Pulse Resp BP BP 03/01/19 15:24 64 18 03/01/19 12:40 68 169/59 H 03/01/19 12:20 66 163/72 H 03/01/19 12:00 65 163/57 H 03/01/19 11:40 65 160/63 H 03/01/19 11:20 63 150/67 H 03/01/19 11:00 64 157/62 H 03/01/19 10:40 63 153/76 H 03/01/19 10:20 63 150/57 H 03/01/19 10:00 61 156/76 H 03/01/19 09:49 63 161/84 H 03/01/19 08:17 36.5 C 63 18 157/75 H 03/01/19 07:16 63 18 Pulse Ox 03/01/19 15:24 96 03/01/19 12:40 03/01/19 12:20 03/01/19 12:00 03/01/19 11:40 03/01/19 11:20 03/01/19 11:00 03/01/19 10:40 03/01/19 10:20 03/01/19 10:00 03/01/19 09:49 03/01/19 08:17 97 03/01/19 07:16 96 (1) DVT of upper extremity (deep vein thrombosis) Affected thrombotic vein of extremity: unspecified vein of extremity Chronicity: acute Laterality: left Qualified Code(s): I82.622 - Acute embolism and thrombosis of deep veins of left upper extremity (2) Pneumonia involving right lung Pneumonia type: due to unspecified organism Lung location: unspecified part of lung Qualified Code(s): J18.9 - Pneumonia, unspecified organism (3) Hypertension Hypertension type: essential hypertension Qualified Code(s): I10 - Essential (primary) hypertension (4) CAD (coronary artery disease) Coronary Disease-Associated Artery/Lesion type: [place] artery [place] vs. transplanted heart: [place] heart Associated angina: without angina Qualified Code(s): I25.10 - Atherosclerotic heart disease of [place] coronary artery without angina pectoris (5) GERD (gastroesophageal reflux disease) Esophagitis presence: without esophagitis Qualified Code(s): K21.9 - Gastro- esophageal reflux disease without esophagitis
--- NOTE | 2019-03-01 16:21 | Palliative Care Progress Note ---
Date of Service March 01, 2019 Assessment & Plan (1) Palliative care encounter: This is a 78 year old male who was transferred to the [facility] from [facility] on 02/19 for a second opinion/evaluation for etiology of his metastatic disease. Diagnostic imaging was performed at [facility]; however, studies were inconclusive. Discussion was held indicating possible bone involvement and the family decided to transfer care to [facility] for further investigation. The patient was inpatient at [facility] for over 6 weeks which was the first time that he had heard the possibility of a cancer diagnosis. Additional PMH includes CAD, HTN, HLD, ESRD HD dependent (T/R/Sat), GERD, pleural effusions, and AVR. Patient has been evaluated by Dr. Weeks with Heme/Onc and Orthopedic surgery was consulted ,Dr. Tijerina saw patient and indicated the possibility of performing a B/L femur head nail fixation-to stabilize both hips with hopes of preventing a pathological fracture. Patient was found to have a left subclavian DVT-is on Coumadin and heparin. Medical team working on improving patient's respiratory status so he can undergo surgery tomorrow-patient had dialysis today and is planned to have a short course of dialysis in the a.m. Patient's CODE STATUS is DNR -Cancer related pain-would consider using PRN tramadol, patient refuses any further [place] -he feels it caused his wheezing. He has not required any PRN medication since 02/27-no pain at rest -Dyspnea-patient attributes it to [place]-more likely due to fluid status- patient has ESRD on hemodialysis, on torsemide. On scheduled albuterol nebs and Solu-Medrol, now requiring O2 at 4L NC-down from 7 L oxygen mask. 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 Patient awake and alert, denies any pain at rest. Shortness of breath improving with HD Patient has not required any PRN pain medication since 02/27. Review of Systems Review of Systems: Patient denies fever, chills, chest pain, worsening shortness of breath, or abdominal pain. Patient's hip pain well controlled at rest, patient is nonweightbearing Physical Exam Physical Exam: PE: Patient awake and alert, receiving a neb treatment, no acute distress HEENT: EOMI, hearing within normal limits Respiratory: Coarse breath sounds bilaterally, no wheezing CV: Bradycardic on exam Abdomen: Soft, not distended Neuro: Alert and oriented Results & Data Vital Signs (Past 12 Hours) Vital Signs Temp Pulse Pulse Pulse Resp BP BP 03/01/19 16:15 98.6 F 65 20 150/57 H 03/01/19 15:24 64 18 03/01/19 12:40 68 169/59 H 03/01/19 12:20 66 163/72 H 03/01/19 12:00 65 163/57 H 03/01/19 11:40 65 160/63 H 03/01/19 11:20 63 150/67 H 03/01/19 11:00 64 157/62 H 03/01/19 10:40 63 153/76 H 03/01/19 10:20 63 150/57 H 03/01/19 10:00 61 156/76 H 03/01/19 09:49 63 161/84 H 03/01/19 08:17 97.7 F 63 18 157/75 H 03/01/19 07:16 63 18 Pulse Ox 03/01/19 16:15 93 03/01/19 15:24 96 03/01/19 12:40 03/01/19 12:20 03/01/19 12:00 03/01/19 11:40 03/01/19 11:20 03/01/19 11:00 03/01/19 10:40 03/01/19 10:20 03/01/19 10:00 03/01/19 09:49 03/01/19 08:17 97 03/01/19 07:16 96 Time Spent Attending Total time spent 25 minutes with greater than 50% of time spent at bedside assessing patient's respiratory status and pain management (1) DVT of upper extremity (deep vein thrombosis) Affected thrombotic vein of extremity: unspecified vein of extremity Chronicity: acute Laterality: left Qualified Code(s): I82.622 - Acute embolism and thrombosis of deep veins of left upper extremity
[2019-03-01] MEDS: ATORVASTATIN 40 MG TAB PO SCH (20:51)
[2019-03-01] MEDS: Heparin Adult STANDARD Wt-Based Dextrose 5% 25,000 units/500 mL IV SCH (23:29)
[2019-03-02] MEDS: ALBUT/IPRATROP 3MG/0.5MG NEB 3 ML VIAL NEB SCH ×6 (03:18→23:35)
[2019-03-02] MEDS: ACETAMINOPHEN 500 MG TAB PO SCH ×3 (06:11→20:49)
[2019-03-02] MEDS ORDERED: SODIUM CHLORIDE 0.9% 1000ML 1,000 ML IV PRN (07:55)
[2019-03-02] MEDS: ISOSORBIDE MONO EXTENDED REL 60 MG TABCR PO SCH ×2 (08:19→12:52)
[2019-03-02] MEDS: HydrALAZINE TAB 50 MG TAB PO SCH ×3 (08:19→20:37)
[2019-03-02] MEDS: CARVEDILOL 12.5 MG TAB PO SCH ×3 (08:19→20:48)
[2019-03-02] MEDS: AMLODIPINE BESYLATE 5 MG TAB PO SCH ×3 (08:20→20:48)
[2019-03-02 08:23] LABS: Hemoglobin 8.3 g/dL (14.0-18.0); Mean Corpuscular Hgb Conc 31.9 g/dL (32-36); Mean Platelet Volume 10.4 fL (7.4-10.4); Platelet Count 141 K/uL (130-400); RDW Coefficient of Variation 17.3 % (11.5-14.5); RDW Standard Deviation 54.5 fL (36.4-46.3); Red Blood Count 2.99 M/uL (4.7-6.1); White Blood Count 13.19 K/uL (4.8-10.8)
[2019-03-02] MEDS: POLYETHYLENE (MIRALAX) 17 GM PACK PO SCH ×2 (08:27→20:49)
[2019-03-02 08:33] LABS: INR 1.4 (0.9-1.1)
[2019-03-02] MEDS: DOCUSATE SODIUM 100 MG CAP PO SCH ×2 (08:36→20:50)
[2019-03-02] MEDS: PANTOprazole 40 MG TAB PO SCH (08:36)
[2019-03-02] MEDS: TORSEMIDE 100 MG TAB PO SCH ×2 (08:36→19:16)
[2019-03-02] MEDS: MAGNESIUM OXIDE 400 MG TAB PO SCH (08:37)
[2019-03-02] MEDS: SENNA 8.6 MG TAB PO SCH (08:37)
[2019-03-02] MEDS: NYSTATIN SUSP 500,000 U/5 ML UDC PO SCH ×4 (08:37→20:50)
[2019-03-02] MEDS: predniSONE 50 MG TAB PO SCH (08:37)
[2019-03-02] MEDS: LIDOCAINE 5% 1 PATCH TD SCH (08:38)
--- NOTE | 2019-03-02 08:42 | Nephrology Progress Note ---
Date of Service March 02, 2019 Assessment & Plan (1) ESRD on hemodialysis: Patient with ESRD on dialysis Wednesday. He has a right tunneled IJ catheter. CVC initially blocked, improved with cathflo on both 02/23 and 02/25; no issues w/ catheter on HD past few txs; he did need urgent HD on 02/27; had routine tx on 02/28; had another routine tx on 03/01 to optimize repsiratory issues >for 03/02 procedure > -depending on OR times, will plan 2h tx today assuming it fits w/ surgery schedules (2) Metastatic disease: Patient with metastatic bone disease of unknown primary. CT abdomen revealing osteolytic bone lesions. Patient is frustrated with the multiple diagnostic tests without finding the primary. He is now DNR. He wishes to continue dialysis and work-up for his cancer. >> FOR pinning of hips prophylactic this week and bone bx (3) Hypertension: markedly hypertensive today, despite pain meds and dialysis. cont pain control and current bp meds and frequent hd (4) Anemia in chronic kidney disease, on chronic dialysis: Hemoglobin is below target. Unable to give epogen due to active cancer. He probably does not need daily blood draws. Monitor and transfuse as needed. on heparin gtt currently (off/on for OR) (5) Pneumonia involving right lung: Patient is on antibiotics per primary team. Renally dose medications for dialysis. he is DNI Subjective WORRIed about urge to defecate/ timing of surgery; feels breathing a bit better; relieved he 's less worried about CA today and doesn't want it mentioned preop. NPO currently and not hungry; pain controlled Review of Systems Review of Systems: All systems reviewed & are unremarkable except as noted in HPI & below Physical Exam Constitutional: well developed, + frail appearing and + malnourished on 2LNC Eyes: EOM intact bilaterally ENMT: Ears: no external ear abnormality Nose: no external nose abnormality Mouth: + dry oral mucous membranes Neck: no nuchal rigidity Respiratory: Auscultation: + diminished lung sounds Cardiovascular: Rate/Rhythm: regular rate and regular rhythm Extremities: no edema Gastrointestinal (Abdomen): Inspection/Auscultation: + abdomen distended and normal bowel sounds Percussion/Palpation: abdomen soft and + ascites (more prominent today); abdomen nontender Musculoskeletal: Extremities: strength 5/5 throughout Skin: no rashes, warm and dry Neurologic: sarkar, fluent speech Psychiatric: Orientation: alert, oriented to person and oriented to place Affect: + flat affect Results & Data Vital Signs (Past 12 Hours) Vital Signs Temp Pulse Pulse Pulse Resp BP Pulse Ox 03/02/19 08:23 36.2 C L 61 18 167/70 H 94 03/02/19 07:18 68 18 90 03/02/19 04:00 36.8 C 60 17 160/70 H 91 03/02/19 03:19 60 14 90 03/01/19 22:59 64 16 96 03/01/19 20:41 66 160/65 H (1) Hypertension Hypertension type: essential hypertension Qualified Code(s): I10 - Essential (primary) hypertension (2) Pneumonia involving right lung Pneumonia type: due to unspecified organism Lung location: unspecified part of lung Qualified Code(s): J18.9 - Pneumonia, unspecified organism
[2019-03-02 09:00] LABS: BUN Creatinine Ratio 13.1 (10-20); Calcium 8.4 mg/dl (8.5-10.1); Creatinine Clr Calc Pharmacy 22.2 ml/min; Est GFR (African American) 27.5; Est GFR (Non-African American) 23.8; Magnesium 2.4 mg/dl (1.8-2.4); Potassium 3.6 mmol/L (3.5-5.1)
[2019-03-02] MEDS ORDERED: SODIUM CHLORIDE 0.9% 250 ML IV PRN (09:12)
[2019-03-02] MEDS: INSULIN ASPART 100 UNITS/ML 3 ML PEN SC SCH ×4 (09:50→20:53)
[2019-03-02] MEDS: INSULIN GLARGINE SOLOSTAR 100 UNITS/ML 3 ML PEN SC SCH (09:50)
[2019-03-02 12:49] LABS: INR 1.5 (0.9-1.1); Partial Thromboplastin Ratio 1.6; Partial Thromboplastin Time 43.6 Seconds (21.0-31.0); Prothrombin Time 14.7 Seconds (9.0-12.0)
--- NOTE | 2019-03-02 14:17 | Anesthesiology Consultation ---
Date of Service March 02, 2019 Assessment & Plan (1) Encounter for pre-operative examination: Chart Review Chart Review: Acceptable Risk for Surgery and Patient NOT seen in Pre Admission Testing Consults Requested none History Surgery Operation Date: 02/20/19 08:35 Proposed Procedures p Bilateral Intramedullary Nailings - Natan Tijerina DO Operation Date: 03/02/19 07:00 Proposed Procedures p Bilateral Intramedullary Nailing of Hip - Natan Tijerina DO Height/Weight Height: 5 ft 6 in Weight: 60.895 kg Allergies Allergy/AdvReac Type Severity Reaction Status Date / Time No Known Allergies Allergy Unverified 02/19/19 00:57 Medications Home Medications Medication Instructions Recorded Confirmed Last Taken amlodipine [Norvasc] 10 mg PO DAILY 02/18/19 02/18/19 02/18/19 16:30 10 aspirin 81 mg PO DAILY 02/18/19 02/18/19 02/18/19 16:30 81 carvedilol 25 mg PO BID 02/18/19 02/18/19 02/18/19 17:30 25 docusate sodium [Colace] 100 mg PO BID 02/18/19 02/18/19 Unknown hydralazine 100 mg PO TID 02/18/19 02/18/19 02/18/19 06:00 isosorbide mononitrate 60 mg PO DAILY 02/18/19 02/19/19 02/18/19 16:30 lidocaine [Lidocaine Pain Relief] 4 % TOPICAL DAILY 02/18/19 02/19/19 02/18/19 08:00 magnesium 400 mg PO DAILY 02/18/19 02/19/19 02/18/19 16:30 morphine 10 mg PO Q4 PRN 02/18/19 02/19/19 02/18/19 16:58 acetaminophen 650 mg PO Q6H PRN 02/19/19 02/19/19 Unknown atorvastatin [Lipitor] 40 mg PO HS 02/19/19 02/19/19 Unknown hydrocodone-acetaminophen 1 tab PO Q4 PRN 02/19/19 02/19/19 Unknown hydrocodone-acetaminophen 2 tab PO Q4 PRN 02/19/19 02/19/19 Unknown hydrocodone-acetaminophen 2 tab PO Q4 PRN 02/19/19 02/19/19 02/18/19 15:24 metolazone 5 mg PO DAILY 02/19/19 02/19/19 02/18/19 16:30 omeprazole 20 mg PO DAILY 02/19/19 02/19/19 Unknown ondansetron HCl 4 mg PO Q6 PRN 02/19/19 02/19/19 Unknown polyethylene glycol 3350 [Miralax] 17 g PO DAILY 02/19/19 02/19/19 Unknown prazosin 4 mg PO HS 02/19/19 02/19/19 Unknown prednisone 10 mg PO UD 02/19/19 02/19/19 Unknown temazepam 7.5 mg PO HS PRN 02/19/19 02/19/19 Unknown terazosin 4 mg PO HS 02/19/19 02/19/19 Unknown torsemide 100 mg PO BID 02/19/19 02/19/19 Unknown tramadol 25 mg PO Q8 PRN 02/19/19 02/19/19 Unknown Active Medications Generic Name Dose Route Start Last Admin Trade Name Freq PRN Reason Stop Dose Admin Acetaminophen 1,000 mg 02/21/19 22:00 03/02/19 13:00 Tylenol PO 03/23/19 21:59 1,000 mg Q8 KIM Administration Hydrocodone Bitart/Acetaminophen 0.5 tab 02/24/19 21:00 02/27/19 08:04 [place] 5/325 PO 03/10/19 20:59 0.5 tab Q8H PRN Administration Pain Albuterol 3 ml 02/19/19 06:24 02/27/19 11:20 Duoneb [facility] 03/21/19 06:23 3 ml Q2H PRN Administration dyspnea Albuterol 3 ml 02/27/19 16:00 03/02/19 11:19 Duoneb [facility] 03/29/19 15:59 Not Given Q4R KIM Amlodipine Besylate 5 mg 02/19/19 09:00 03/02/19 12:51 Norvasc PO 03/21/19 08:59 5 mg BID KIM Administration Atorvastatin Calcium 40 mg 02/19/19 21:00 03/01/19 20:51 Lipitor PO 03/21/19 20:59 40 mg HS KIM Administration Carvedilol 12.5 mg 02/19/19 09:00 03/02/19 12:52 Coreg PO 03/21/19 08:59 12.5 mg BID KIM Administration Docusate Sodium 100 mg 02/19/19 09:00 03/02/19 08:36 Colace PO 03/21/19 08:59 100 mg BID KIM Administration Hydralazine HCl 50 mg 02/19/19 09:00 03/02/19 12:52 Apresoline PO 03/21/19 08:59 50 mg TID KIM Administration Insulin Aspart 0 units 02/25/19 21:00 03/02/19 13:45 Novolog Flexpen SC 03/27/19 20:59 Not Given ACHS KIM Insulin Glargine 5 units 02/25/19 09:00 03/02/19 09:50 Lantus Solostar Pen SC 03/27/19 08:59 Not Given QAM KIM Isosorbide Mononitrate 60 mg 02/19/19 09:00 03/02/19 12:52 Imdur Extended Rel PO 03/21/19 08:59 60 mg DAILY KIM Administration Lidocaine 2 patch 02/23/19 09:00 03/02/19 08:38 Lidoderm 5% TD 03/25/19 08:59 2 patch QAM KIM Administration Magnesium Oxide 400 mg 02/19/19 09:00 03/02/19 08:37 Mag-Ox PO 03/21/19 08:59 400 mg DAILY KIM Administration Miscellaneous 1 ea 02/19/19 21:00 03/01/19 20:52 Remove Lidoderm Patch N/A 03/21/19 20:59 1 ea DAILY@2100 KIM Administration Nystatin 5 ml 02/24/19 13:00 03/02/19 12:52 Mycostatin PO 03/06/19 12:59 5 ml QID KIM Administration Pantoprazole Sodium 40 mg 02/19/19 09:00 03/02/19 08:36 Protonix PO 03/21/19 08:59 40 mg DAILY KIM Administration Polyethylene Glycol 17 gm 02/22/19 10:00 03/02/19 08:27 Miralax Powder Packet PO 03/24/19 09:59 Not Given BID KIM Prednisone 50 mg 03/02/19 09:00 03/02/19 08:37 Prednisone PO 04/01/19 08:59 50 mg DAILY KIM Administration Sennosides 17.2 mg 02/22/19 10:00 06/13/19 08:37 Senokot PO 03/24/19 09:59 17.2 mg QAM KIM Administration Torsemide 100 mg 02/19/19 09:00 03/02/19 08:36 Demadex PO 03/21/19 08:59 100 mg BID17 KIM Administration Past Medical History Medical History CHF (congestive heart failure) Past Family History Family History Other Family history non-contributory Past Surgical History Surgical History H/O left knee surgery Social History Smoking Status: Never smoker Hx Alcohol Use: Yes Alcohol type: beer alcohol intake frequency: holidays/special occasions only Hx Substance Use: No Physical Exam Vital Signs Last Vital Signs Temp 37.0 C 03/02/19 12:01 Pulse 72 03/02/19 12:01 Resp 18 03/02/19 08:23 BP 170/85 H 03/02/19 12:01 Pulse Ox 94 03/02/19 08:23
[2019-03-02] MEDS ORDERED: ALBUMIN HUMAN 5% 12.5 GM/250 ML VIAL IV ONE (14:22)
[2019-03-02] MEDS ORDERED: ONDANSETRON INJ 2 MG/ML 2 ML VIAL ONE (14:24)
[2019-03-02] MEDS ORDERED: PROPOFOL IV EMULSION 10 MG/ML 20 ML VIAL IV ONE (14:24)
[2019-03-02] MEDS ORDERED: LIDOCAINE HCL 2% 2 ML VIAL/AMP(20MG/ML) INFIL ONE (14:24)
[2019-03-02] MEDS ORDERED: fentaNYL citrate 100 MCG/2 ML VIAL ONE ×2 (14:24→16:43)
--- NOTE | 2019-03-02 14:54 | History & Physical Bridge Note ---
Date of Service March 02, 2019 History & Physical Bridge Note I have examined the patient, reviewed the History & Physical and in the interval since the performance of the History & Physical I have noted the following changes of clinical significance: no changes noted
[2019-03-02] MEDS ORDERED: BUPIVACAINE 0.5 % 5 MG/1 ML MPF 30ML VIAL ONE (15:25)
--- NOTE | 2019-03-02 15:32 | Hospitalist Progress Note ---
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 Has numerous bony mets, adrenal mets, etc. - Plan was for elective pinning of both hips to prevent pathological fracture; during this procedure was to have bone bx as well for definitive diagnosis; however, surgery postponed last week due to worsening respiratory status. - Appreciate ortho, heme/onc, rad/onc consultations. For back/bony pain - * has not tolerated multiple narcotics even at the lowest doses * DID TOLERATE 2.5mg of norco q8h prn * radiation will improve this pain once xrt initiated * cont tylenol and decadron at 4mg daily * k-pad heat In light of multiple comorbidities and ESRD on HD he is VERY POOR CANDIDATE FOR EVEN PALLIATIVE CHEMOTHERAPY/TREATMENT OF THE CANCER. Appreciate palliative care consultation as well. (2) Anemia in chronic kidney disease, on chronic dialysis: Baseline appears to be ~8. - On 02/27, at baseline. - No evidence of bleeding - Will check after surgery. Needs blood from [place] due to antibodies. (3) DVT of upper extremity (deep vein thrombosis): Possible left subclavian vein DVT seen on LUE doppler on 02/24 done for left arm swelling. Suspect due to advanced cancer. - Cont heparin drip - standard dosing - HOLD warfarin as he may have his elective, prophylactic hip pinning on . - Holding heparin gtt prior to procedure - Plan for pinning today - Discussed with Dr. Tijerina and Dr. Guzmán of anesthesiology. (4) Acute respiratory failure with hypoxia: Likely multifactorial - right-sided pneumonia, effusions, & pulmonary edema. Had episode earlier in the hospitalization, which resolved. O2 was weaned off. - On 02/27, having another occurrence. More shortness of breath as the day progresses. Concern for pulmonary edema as he has been on a heparin gtt for his LUE DVT. - Ordered BiPap, nebs, and IV steroids to treat pulmonary edema and any possible reactive airway disease. - Underwent ultrafiltrate on 02/27 & HD on 02/28. - On 03/02, he is still doing very well. Down to nasal cannula. Will be aggressive about fluid status via dialysis. (5) Pneumonia involving right lung: Clinically improved/resolved. - Completed full course of IV/PO abx for 7 days. - Procalcitonin checked on 02/27 for increased shortness of breath and was negative (0.26). (6) Hyponatremia: 2nd to ESRD. Fluctuating depending on volume status. - Trend BMPs (7) ESRD on hemodialysis: HD //Sat. - Appreciate [facility] assistance. - Just recently initiated HD about 3-4 weeks ago in [place]. (8) S/P AVR (aortic valve replacement): History of such. Bioprosthetic. (9) Bilateral pleural effusion: Could be transudative from ESRD and hypoalbuminemia or exudative from cancer or pneumonia. - CXR on 02/27 showed stable to mildly worse right effusion. - Respiratory status improved with HD (10) Hypertension: Mildly high - Remaining ~160/60. - Cont usual outpatient meds: Hydralazine 50mg TID, amlodipine 5mg, Imdur 60mg - On 03/01, added lisinopril 10mg. Given his ESRD, hyperkalemia should not be a problem as he will get his K+ removed from dialysis. (11) CAD (coronary artery disease): S/p CABG in the past. No ischemic sx's at this time. - Continue statin, beta-oksana, Imdur. - Added lisinopril on 03/01 as above - Holding ASA for procedure this week. (12) GERD (gastroesophageal reflux disease): PPI. (13) Ileus: Resolved. Eating w/o intolerance and passing flatus/stool. - On 02/27, no concerns. (14) DVT prophylaxis: Heparin drip - Holding for procedure; restart 12 hours post-procedure without a bolus to prevent surgical site bleeding. Subjective Doing well today. No shortness of breath. Pain is well-controlled. No major concerns. Wants to proceed with surgery. Review of Systems Review of Systems: All systems reviewed & are unremarkable except as noted in HPI & below Physical Exam Constitutional: WD/WN, vitals as above + physical limitations and + frail appearing; no acute distress Eyes: EOM intact bilaterally; no conjunctival abnormality ENMT: external ear and nose normal, oropharynx normal Neck: trachea midline, no thyromegaly normal visual inspection Respiratory: + labored breathing; no respiratory distress Auscultation: + crackles and + wheezes Cardiovascular: RRR, no murmur, no edema Rate/Rhythm: + tachycardic Gastrointestinal (Abdomen): Inspection/Auscultation: abdomen normal to inspection; abdomen not distended Musculoskeletal: no cyanosis or clubbing, extremities motor strength 5/5 Skin: no rashes, warm and dry Neurologic: moves all extremities and awake Psychiatric: Orientation: alert, oriented to person and cooperative Results & Data Vital Signs (Past 12 Hours) Vital Signs Temp Pulse Pulse Pulse Resp BP BP 03/02/19 15:14 36.5 C 67 16 157/63 H 03/02/19 14:25 60 159/59 H 03/02/19 12:01 37.0 C 72 170/85 H 03/02/19 11:40 66 175/80 H 03/02/19 11:23 60 165/73 H 03/02/19 11:01 62 137/71 03/02/19 10:43 69 154/71 H 03/02/19 10:20 68 172/96 H 03/02/19 10:00 59 L 166/82 H 03/02/19 09:40 37.1 C 70 03/02/19 08:23 36.2 C L 61 18 167/70 H 03/02/19 07:18 68 18 03/02/19 04:00 36.8 C 60 17 160/70 H Pulse Ox 03/02/19 15:14 95 03/02/19 14:25 03/02/19 12:01 03/02/19 11:40 03/02/19 11:23 03/02/19 11:01 03/02/19 10:43 03/02/19 10:20 03/02/19 10:00 03/02/19 09:40 03/02/19 08:23 94 03/02/19 07:18 90 03/02/19 04:00 91 PG Care Time/CCT Total # of Minutes Spent Total Time Spent with Patient: Total time spent is greater than 50% in coordination of care (as documented) at patient's floor/unit and/or counseling patient: (1) DVT of upper extremity (deep vein thrombosis) Affected thrombotic vein of extremity: unspecified vein of extremity Chronicity: acute Laterality: left Qualified Code(s): I82.622 - Acute embolism and thrombosis of deep veins of left upper extremity (2) Pneumonia involving right lung Pneumonia type: due to unspecified organism Lung location: unspecified part of lung Qualified Code(s): J18.9 - Pneumonia, unspecified organism (3) Hypertension Hypertension type: essential hypertension Qualified Code(s): I10 - Essential (primary) hypertension (4) CAD (coronary artery disease) Coronary Disease-Associated Artery/Lesion type: [place] artery [place] vs. transplanted heart: lime heart Associated angina: without angina Qualified Code(s): I25.10 - Atherosclerotic heart disease of lime coronary artery without angina pectoris (5) GERD (gastroesophageal reflux disease) Esophagitis presence: without esophagitis Qualified Code(s): K21.9 - Gastro- esophageal reflux disease without esophagitis
[2019-03-02] MEDS ORDERED: ATROPINE SULFATE 0.1 MG/ML 10ML SYR IV PRN (15:33)
[2019-03-02] MEDS ORDERED: fentaNYL citrate 100 MCG/2 ML VIAL IV PRN (15:33)
[2019-03-02] MEDS ORDERED: ePHEDrine sulfate 50 MG/ML AMP IV PRN (15:33)
[2019-03-02] MEDS ORDERED: ONDANSETRON INJ 2 MG/ML 2 ML VIAL IV PRN (15:33)
[2019-03-02] MEDS ORDERED: CEFAZOLIN 1000MG 1,000 MG/7.5 ML SYR IV ONE ×2 (16:56→23:00)
[2019-03-02] MEDS ORDERED: CEFAZOLIN 1000MG 1,000 MG/7.5 ML SYR IV STA (17:08)
--- NOTE | 2019-03-02 17:34 | Fluoroscopy Report ---
FL hip RT 2-3V HISTORY: 78 years-old Male RT HIP right hip ORIF COMPARISON: None available TECHNIQUE: 4 spot fluoroscopic images of the right femur were obtained utilizing 47.4 seconds fluoros copy time. FINDINGS: Intratrochanteric nail with the long dated medullary addi is noted about the right femur with single d istal cannulated screw. Alignment of the right femur appears satisfactory. The hardware appears intac t. IMPRESSION: Fluoroscopic assistance as above. Please see procedural report for further details. The above report was generated using voice recognition software. It may contain grammatical, syntax o r spelling errors. Electronically signed by: Chaka Gilliam M.D. 03/02/2019 5:32 PM
--- NOTE | 2019-03-02 17:35 | Fluoroscopy Report ---
FL hip LT 2-3V HISTORY: 78 years-old Male LT HIP status post placement of an intratrochanteric nail COMPARISON: None available TECHNIQUE: 4 spot fluoroscopic images of the left femur were obtained utilizing 64.6 seconds fluorosc opy time FINDINGS: Intertrochanteric nail with elongated medullary addi is noted about the left femur. Alignment appears satisfactory. The hardware appears intact. Degenerative changes of the knee and hip. IMPRESSION: Fluoroscopic assistance as above. Please see operative report for further details. The above report was generated using voice recognition software. It may contain grammatical, syntax o r spelling errors. Electronically signed by: Chaka Gilliam M.D. 03/02/2019 5:34 PM
--- NOTE | 2019-03-02 18:09 | Anesthesiology Progress Note ---
Date of Service March 02, 2019 Anesthesia Post Procedure Vital Signs Vital Signs: Temp Pulse Pulse Pulse Pulse Pulse Resp 03/02/19 18:05 62 17 03/02/19 17:55 60 17 03/02/19 17:45 60 13 03/02/19 17:38 97.0 F L 60 20 03/02/19 15:14 97.7 F 67 16 03/02/19 14:25 60 03/02/19 12:01 98.6 F 72 03/02/19 11:40 66 03/02/19 11:23 60 03/02/19 11:01 62 03/02/19 10:43 69 03/02/19 10:20 68 03/02/19 10:00 59 L 03/02/19 09:40 98.8 F 70 03/02/19 08:23 97.2 F L 61 18 03/02/19 07:18 68 18 03/02/19 04:00 98.2 F 60 17 03/02/19 03:19 60 14 03/01/19 22:59 64 16 03/01/19 20:41 66 03/01/19 19:09 65 16 BP BP Pulse Ox 03/02/19 18:05 126/59 L 93 03/02/19 17:55 133/62 95 03/02/19 17:45 132/60 96 03/02/19 17:38 136/58 L 94 03/02/19 15:14 157/63 H 95 03/02/19 14:25 159/59 H 03/02/19 12:01 170/85 H 03/02/19 11:40 175/80 H 03/02/19 11:23 165/73 H 03/02/19 11:01 137/71 03/02/19 10:43 154/71 H 03/02/19 10:20 172/96 H 03/02/19 10:00 166/82 H 03/02/19 09:40 03/02/19 08:23 167/70 H 94 03/02/19 07:18 90 03/02/19 04:00 160/70 H 91 03/02/19 03:19 90 03/01/19 22:59 96 03/01/19 20:41 160/65 H 03/01/19 19:09 94 Pain Intensity Back: Pain Intensity: 8 Abdomen: Pain Intensity: 5 Transfer of Care Handoff Completed per policy Notes Mental Status: alert / awake / arousable and participated in evaluation Patient Amnestic to Procedure: Yes Nausea / Vomiting: adequately controlled Pain: adequately controlled Airway Patency, RR, SpO2: stable & adequate BP & HR: stable & adequate Hydration State: stable & adequate Anesthetic Complications: no major complications apparent and Pt Satisfied with anesthetic care
[2019-03-02] MEDS: ATORVASTATIN 40 MG TAB PO SCH (20:38)
[2019-03-03] MEDS: HYDROCODONE/ACETAMOPHEN 5/325MG TAB PO PRN (03:30)
[2019-03-03] MEDS: ALBUT/IPRATROP 3MG/0.5MG NEB 3 ML VIAL NEB SCH ×2 (03:47→07:08)
[2019-03-03] MEDS: ACETAMINOPHEN 500 MG TAB PO SCH ×3 (06:17→23:02)
--- NOTE | 2019-03-03 06:46 | Operative Report ---
Post Operative Report Pre & Post Diagnosis Operation Date: 02/20/19 08:35 <No data on this case meets the specified criteria> Operation Date: 03/02/19 07:00 Pre-Op Diagnosis: INTRACTABLE CANCER PAIN METSATATIC TO BONE,UNKNOWN Post-Op Diagnosis: INTRACTABLE CANCER PAIN METSTATIC TO BONE,UNKNOWN Procedure Operation Date: 02/20/19 08:35 <No data on this case meets the specified criteria> Operation Date: 03/02/19 07:00 Actual Procedures p Bilateral Intramedullary Nailing of Hip, with bilateral bone biopies (Bilateral) - Natan Tijerina DO Surgeon Natan Tijerina DO [place]alker Natan Rivera PAC Estimated Blood Loss 100 Findings Consistent with Post-Op Diagnosis Specimens Bilateral bone reaming biopsies Complications none Disposition Disposition: Recovery Room Indications Abiel is a pleasant 78-year-old male who is been 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 He also has metastatic disease in other parts of his body. There is no known primary lesion at this time. He is unable to ambulate because of his hip pain. After extensive discussions with his family and after medical optimization, he has elected to proceed with prophylactic intramedullary nail fixation of his bilateral hips. Description of Procedure On March 02, 2019 he was brought down from his hospital room to the preoperative holding area. The operative extremities were identified and signed. He was given a preoperative antibiotic and taken back to the operating room. He was put under general anesthesia. He was then put onto a fracture table. The left hip was brought out to mild traction. The left hip was then prepped and draped in sterile fashion. A timeout was done. The patient and the operative extremity was properly identified. The left side was done first. A longitudinal incision was made just superior to the greater trochanter. Dissection was taken through the fascia. A guidepin was placed at the tip of the greater trochanter and advanced down the center of the femoral canal. An 18 mm opening reamer was used to open up the superior cortex. These reamings were sent to pathology. A ball-tipped guidewire was sent down the femur and the femur nail length measured to be 360 mm. A single 12.5 mm reamer was sent down the center of the femoral canal. An 11 x 360 mm Synthes TFN nail was then impacted down the femoral canal. Appropriate positioning was checked under fluoroscopy. The helical blade cannula was then advanced through a small lateral incision to the lateral cortex of the bone. A guidepin was sent to the center center position of the femoral head. The helical blade measured to be 90 mm. The lateral cortex was then drilled and the helical blade was reamed. These reamings were sent to pathology. The 90 mm helical blade was then impacted into place. The blade was then locked. The outrigger was removed. A single distal screw was then placed with the use of perfect [place] technique. Final fluoroscopic images showed anatomic alignment of the nail. The incisions were then irrigated the fascia was closed with #1 Vicryl. Skin was closed with 2-0 Vicryl and keysha. He was then placed in a soft dressing. Attention was then turned to the right hip. The right hip was done in the same fashion. I used a 11 x 360 mm Synthes TFN nail and a 90 mm helical blade. Reamings were sent to pathology in a similar fashion. The wounds were irrigated and closed and a dressing was placed. The patient was then transferred to a hospital bed and extubated. He was then taken to the postanesthesia care unit in stable condition. He tolerated the procedure well. I attest to the content of the Intraoperative Record and any orders documented therein. Any exceptions are noted below.
[2019-03-03 06:57] LABS: INR 1.5 (0.9-1.1); Prothrombin Time 14.6 Seconds (9.0-12.0)
[2019-03-03 07:20] LABS: BUN Creatinine Ratio 13.6 (10-20); Calcium 7.9 mg/dl (8.5-10.1); Creatinine Clr Calc Pharmacy 19.2 ml/min; Est GFR (Non-African American) 19.9; Magnesium 2.7 mg/dl (1.8-2.4)
[2019-03-03] MEDS ORDERED: Heparin IV Low Dose *NO* Bolus IV STA (07:24)
[2019-03-03 07:29] LABS: Hemoglobin 6.5 g/dL (14.0-18.0); Mean Corpuscular Hgb Conc 32.5 g/dL (32-36); Mean Corpuscular Volume 88.1 fL (80-100); Mean Platelet Volume 11.7 fL (7.4-10.4); Platelet Count 111 K/uL (130-400); RDW Coefficient of Variation 17.5 % (11.5-14.5); RDW Standard Deviation 54.1 fL (36.4-46.3); Red Blood Count 2.27 M/uL (4.7-6.1); White Blood Count 13.92 K/uL (4.8-10.8)
[2019-03-03] MEDS ORDERED: SODIUM CHLORIDE 0.9% 1000ML 1,000 ML IV PRN (07:35)
[2019-03-03] MEDS ORDERED: SODIUM CHLORIDE 0.9% 250 ML IV PRN (07:35)
--- NOTE | 2019-03-03 07:39 | Nephrology Progress Note ---
Date of Service March 03, 2019 Assessment & Plan (1) ESRD on hemodialysis: Patient with ESRD on dialysis Wednesday. He has a right tunneled IJ catheter. CVC initially blocked, improved with cathflo on both 02/23 and 02/25; no issues w/ catheter on HD past few txs; he did need urgent HD on 02/27; had routine tx on 02/28; had another routine tx on 03/01 to optimize repsiratory issues >for 03/02 procedure > had HD 2 hrs -today hgb 6.5 and he will need pRBC; plan 4 hr tx today; will eval on weekend but plan tentatively to rest him on weekend/ no HD if possible (2) Metastatic disease: Patient with metastatic bone disease of unknown primary. CT abdomen revealing osteolytic bone lesions. Patient is frustrated with the multiple diagnostic tests without finding the primary. He is now DNR. He wishes to continue dialysis and work-up for his cancer. >> s/p 03/03 bone bx; ritu pending (3) Hypertension: bp better today. cont pain control and current bp meds and frequent hd -- did ask bp meds to be held this am except BB (4) Anemia in chronic kidney disease, on chronic dialysis: Hemoglobin is below target. Unable to give epogen due to active cancer. He probably does not need daily blood draws. Monitor and transfuse as needed- for pRBC today on heparin gtt currently (off/on for OR) (5) Pneumonia involving right lung: Patient is on antibiotics per primary team. Renally dose medications for dialysis. he is DNI Subjective some pain BL hips and posterior pelvis today post procedure; no sob; no cough; tolerating small amount of po Review of Systems Review of Systems: All systems reviewed & are unremarkable except as noted in HPI & below Physical Exam Constitutional: well developed, + frail appearing and + malnourished on 2L 02NC, A& 0 x 3 Eyes: EOM intact bilaterally ENMT: Ears: no external ear abnormality Nose: no external nose abnormality Mouth: + dry oral mucous membranes Neck: no nuchal rigidity Respiratory: + labored breathing (slight) Auscultation: + diminished lung sounds Cardiovascular: Rate/Rhythm: regular rate and regular rhythm Extremities: no edema Gastrointestinal (Abdomen): Inspection/Auscultation: + abdomen distended and normal bowel sounds Percussion/Palpation: abdomen soft; abdomen nontender Musculoskeletal: Extremities: strength 5/5 throughout Skin: no rashes, warm and dry Neurologic: sarkar, fluent speech Psychiatric: Orientation: alert, oriented to person and oriented to place Affect: + flat affect Results & Data Vital Signs (Past 12 Hours) Vital Signs Temp Pulse Resp BP Pulse Ox 03/03/19 03:47 63 18 93 03/03/19 03:30 36.4 C L 64 18 138/59 L 99 03/02/19 23:35 64 14 95 03/02/19 22:45 36.7 C 60 19 127/67 99 03/02/19 21:45 61 115/57 L 100 03/02/19 21:15 60 16 121/64 100 03/02/19 20:45 60 18 110/80 98 03/02/19 20:15 62 20 126/63 99 03/02/19 20:00 60 16 123/61 97 03/02/19 19:45 63 16 124/65 96 Laboratory Results Abnormal lab results 03/02/19 03/02/19 03/02/19 Range/Units 08:12 08:12 08:12 WBC 13.19 H (4.8-10.8) K/uL RBC 2.99 L (4.7-6.1) M/uL Hgb 8.3 L (14.0-18.0) g/dL Hct 26.0 L (42-52) % MCHC 31.9 L (32-36) g/dL RDW Std Deviation 54.5 H (36.4-46.3) fL RDW Coeff of Fredis 17.3 H (11.5-14.5) % Plt Count (130-400) K/uL MPV (7.4-10.4) fL PT 14.0 H (9.0-12.0) Seconds INR 1.4 H (0.9-1.1) APTT (21.0-31.0) Seconds Sodium 134 L (136-145) mmol/L BUN 33 H (7-18) mg/dl Creatinine 2.51 H D (0.6-1.4) mg/dl Glucose (70-99) mg/dl POC Glucose (70-99) Calcium 8.4 L (8.5-10.1) mg/dl Magnesium (1.8-2.4) mg/dl Antibody Screen Crossmatch 03/02/19 03/02/19 03/02/19 Range/Units 09:24 12:21 12:59 WBC (4.8-10.8) K/uL RBC (4.7-6.1) M/uL Hgb (14.0-18.0) g/dL Hct (42-52) % MCHC (32-36) g/dL RDW Std Deviation (36.4-46.3) fL RDW Coeff of Fredis (11.5-14.5) % Plt Count (130-400) K/uL MPV (7.4-10.4) fL PT 14.7 H (9.0-12.0) Seconds INR 1.5 H (0.9-1.1) APTT 43.6 H (21.0-31.0) Seconds Sodium (136-145) mmol/L BUN (7-18) mg/dl Creatinine (0.6-1.4) mg/dl Glucose (70-99) mg/dl POC Glucose 108 H (70-99) Calcium (8.5-10.1) mg/dl Magnesium (1.8-2.4) mg/dl Antibody Screen POSITIVE A Crossmatch See Detail 03/02/19 03/03/19 03/03/19 Range/Units 20:06 06:30 06:30 WBC (4.8-10.8) K/uL RBC (4.7-6.1) M/uL Hgb (14.0-18.0) g/dL Hct (42-52) % MCHC (32-36) g/dL RDW Std Deviation (36.4-46.3) fL RDW Coeff of Fredis (11.5-14.5) % Plt Count (130-400) K/uL MPV (7.4-10.4) fL PT 14.6 H (9.0-12.0) Seconds INR 1.5 H (0.9-1.1) APTT (21.0-31.0) Seconds Sodium 135 L (136-145) mmol/L BUN 40 H (7-18) mg/dl Creatinine 2.91 H D (0.6-1.4) mg/dl Glucose 102 H (70-99) mg/dl POC Glucose 176 H (70-99) Calcium 7.9 L (8.5-10.1) mg/dl Magnesium 2.7 H (1.8-2.4) mg/dl Antibody Screen Crossmatch 03/03/19 Range/Units 06:58 WBC 13.92 H (4.8-10.8) K/uL RBC 2.27 L (4.7-6.1) M/uL Hgb 6.5 L* (14.0-18.0) g/dL Hct 20.0 L* (42-52) % MCHC (32-36) g/dL RDW Std Deviation 54.1 H (36.4-46.3) fL RDW Coeff of Fredis 17.5 H (11.5-14.5) % Plt Count 111 L (130-400) K/uL MPV 11.7 H (7.4-10.4) fL PT (9.0-12.0) Seconds INR (0.9-1.1) APTT (21.0-31.0) Seconds Sodium (136-145) mmol/L BUN (7-18) mg/dl Creatinine (0.6-1.4) mg/dl Glucose (70-99) mg/dl POC Glucose (70-99) Calcium (8.5-10.1) mg/dl Magnesium (1.8-2.4) mg/dl Antibody Screen Crossmatch (1) Pneumonia involving right lung Lung location: unspecified part of lung Pneumonia type: due to unspecified organism Qualified Code(s): J18.9 - Pneumonia, unspecified organism (2) Hypertension Hypertension type: essential hypertension Qualified Code(s): I10 - Essential (primary) hypertension
[2019-03-03] MEDS: MAGNESIUM OXIDE 400 MG TAB PO SCH (08:07)
[2019-03-03] MEDS: DOCUSATE SODIUM 100 MG CAP PO SCH ×2 (08:08→20:31)
[2019-03-03] MEDS: PANTOprazole 40 MG TAB PO SCH (08:08)
[2019-03-03] MEDS: NYSTATIN SUSP 500,000 U/5 ML UDC PO SCH ×4 (08:08→20:33)
[2019-03-03] MEDS: SENNA 8.6 MG TAB PO SCH (08:09)
[2019-03-03] MEDS: CARVEDILOL 12.5 MG TAB PO SCH ×2 (08:09→20:34)
[2019-03-03] MEDS: predniSONE 50 MG TAB PO SCH (08:09)
[2019-03-03] MEDS: INSULIN GLARGINE SOLOSTAR 100 UNITS/ML 3 ML PEN SC SCH (08:11)
[2019-03-03] MEDS: INSULIN ASPART 100 UNITS/ML 3 ML PEN SC SCH ×4 (08:13→23:01)
[2019-03-03] MEDS: Heparin Adult LOW DOSE Wt-Based Dextrose 5% 25,000 units/500 mL IV SCH (08:13)
[2019-03-03] MEDS: POLYETHYLENE (MIRALAX) 17 GM PACK PO SCH ×2 (08:20→20:31)
--- NOTE | 2019-03-03 11:43 | Hospitalist Progress Note ---
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 Has numerous bony mets, adrenal mets, etc. - For back/bony pain - Didn't tolerate multiple narcotics even at the lowest do ses; DID TOLERATE [place] 2.5mg PO Q8h PRN. Continue Tylenol, steroids, and heat packs. - Appreciate palliative care consultation as well. - Underwent bilateral hip pinning with Dr. Tijerina on 03/02. Tolerated the procedure well. - Hgb was 6.5 on 03/03 post-operatively. Received 1 unit PRBCs with HD. (2) Anemia in chronic kidney disease, on chronic dialysis: Baseline appears to be ~8. - On 03/02, he was at baseline. - On 03/03 (after hip surgery), was down to 6.5, but hemodynamically stable. He has antibodies and needs blood from [place]. Two units were sent on 03/02. - Transfusing 1 unit PRBCs on 03/03. Recheck on 03/05 to lower our blood draws (unless he has vital sign changes). (3) DVT of upper extremity (deep vein thrombosis): Possible left subclavian vein DVT seen on LUE Doppler on 02/24 done for left arm swelling. Suspect due to advanced cancer. - Holding warfarin as he is post-op - Held heparin gtt prior to procedure -> Restarted on 03/03 AM. If he has no signs of bleeding, will consider NOAC vs. warfarin in 1-2 days. (4) Acute respiratory failure with hypoxia: Had episode earlier in the hospitalization, which resolved. O2 was weaned off. Likely multifactorial - right-sided pneumonia, effusions, & pulmonary govind ma. - On 02/27, had another occurrence. More shortness of breath as the day progressed. Likely pulmonary edema as he has been on a heparin gtt for his LUE DVT. - Ordered BiPap, nebs, and IV steroids to treat pulmonary edema and any possible reactive airway disease. - Underwent ultrafiltrate on 02/27 & HD on 02/28. Significantly improved. - On 03/03, he is still doing very well. Down to 2L nasal cannula. Will be aggressive about fluid status via dialysis. (5) Pneumonia involving right lung: Clinically improved/resolved. - Completed full course of IV/PO abx for 7 days. - Procalcitonin checked on 02/27 for increased shortness of breath and was negative (0.26). (6) Hyponatremia: 2nd to ESRD. Fluctuating depending on volume status. - Trend BMPs (7) ESRD on hemodialysis: HD //Sat. - Appreciate [facility] assistance. - Just recently initiated HD about 3-4 weeks ago in [place]. (8) S/P AVR (aortic valve replacement): History of such. Bioprosthetic. (9) Bilateral pleural effusion: Could be transudative from ESRD and hypoalbuminemia or exudative from cancer or pneumonia. - CXR on 02/27 showed stable to mildly worse right effusion. - Respiratory status improved with HD - Monitoring for now. (10) Hypertension: Normal to mildly high at times. - Cont usual outpatient meds: Hydralazine 50mg TID, amlodipine 5mg, Imdur 60mg - On 03/01, added lisinopril 10mg. Given his ESRD, hyperkalemia should not be a problem as he will get his K+ removed from dialysis. - On 03/03, BP definitely improved with readings mostly 100/60 to 130/70 in the last 24 hours. (11) CAD (coronary artery disease): S/p CABG in the past. No ischemic sx's at this time. - Continue statin, beta-oksana, Imdur. - Added lisinopril on 03/01 as above - Held ASA for procedure on 03/02. Will restart after approval by ortho. (12) GERD (gastroesophageal reflux disease): PPI. (13) Ileus: Resolved. Eating w/o intolerance and passing flatus/stool. - On 03/03, no concerns. (14) DVT prophylaxis: Heparin drip Subjective Feeling very well today. Some stiffness, but minimal pain in the legs. No shortness of breath. Review of Systems Review of Systems: All systems reviewed & are unremarkable except as noted in HPI & below Physical Exam Constitutional: WD/WN, vitals as above + physical limitations and + frail appearing; no acute distress Eyes: EOM intact bilaterally; no conjunctival abnormality ENMT: external ear and nose normal, oropharynx normal Neck: trachea midline, no thyromegaly normal visual inspection Respiratory: + labored breathing; no respiratory distress Auscultation: + crackles and + wheezes Cardiovascular: RRR, no murmur, no edema Rate/Rhythm: + tachycardic Gastrointestinal (Abdomen): Inspection/Auscultation: abdomen normal to inspection; abdomen not distended Musculoskeletal: no cyanosis or clubbing, extremities motor strength 5/5 Skin: no rashes, warm and dry Neurologic: moves all extremities and awake Psychiatric: Orientation: alert, oriented to person and cooperative Results & Data Vital Signs (Past 12 Hours) Vital Signs Temp Pulse Pulse Resp BP BP Pulse Ox 03/03/19 11:00 61 127/63 03/03/19 10:40 64 131/69 03/03/19 10:20 61 123/70 03/03/19 10:15 61 140/69 03/03/19 10:01 60 129/57 L 03/03/19 09:55 60 71/41 L 03/03/19 09:40 64 110/59 L 03/03/19 09:29 36.5 C 55 L 14 142/61 H 03/03/19 09:20 61 130/64 03/03/19 09:11 142/61 H 03/03/19 09:03 36.5 C 59 L 03/03/19 07:59 36.6 C 65 28 H 136/69 95 03/03/19 07:10 64 14 99 03/03/19 03:47 63 18 93 03/03/19 03:30 36.4 C L 64 18 138/59 L 99 03/02/19 23:35 64 14 95 PG Care Time/CCT Total # of Minutes Spent Total Time Spent with Patient: Total time spent is greater than 50% in coordination of care (as documented) at patient's floor/unit and/or counseling patient: (1) DVT of upper extremity (deep vein thrombosis) Affected thrombotic vein of extremity: unspecified vein of extremity Chronicity: acute Laterality: left Qualified Code(s): I82.622 - Acute embolism and thrombosis of deep veins of left upper extremity (2) Pneumonia involving right lung Pneumonia type: due to unspecified organism Lung location: unspecified part of lung Qualified Code(s): J18.9 - Pneumonia, unspecified organism (3) Hypertension Hypertension type: essential hypertension Qualified Code(s): I10 - Essential (primary) hypertension (4) CAD (coronary artery disease) Coronary Disease-Associated Artery/Lesion type: [place] artery [place] vs. transplanted heart: [place] heart Associated angina: without angina Qualified Code(s): I25.10 - Atherosclerotic heart disease of [place] coronary artery without angina pectoris (5) GERD (gastroesophageal reflux disease) Esophagitis presence: without esophagitis Qualified Code(s): K21.9 - Gastro-esophageal reflux disease without esophagitis
[2019-03-03] MEDS: TORSEMIDE 100 MG TAB PO SCH ×2 (14:25→18:11)
[2019-03-03] MEDS: LIDOCAINE 5% 1 PATCH TD SCH (14:25)
[2019-03-03 15:23] LABS: Partial Thromboplastin Ratio 2.2
[2019-03-03 15:40] LABS: Partial Thromboplastin Time 58.4 Seconds (21.0-31.0)
--- NOTE | 2019-03-03 16:18 | Palliative Care Progress Note ---
Date of Service March 03, 2019 Assessment & Plan (1) Palliative care encounter: This is a 78 year old male who was transferred to the [facility] from [facility] on 02/19 for a second opinion/evaluation for etiology of his metastatic disease. Diagnostic imaging was performed at [facility]; however, studies were inconclusive. Discussion was held indicating possible bone involvement and the family decided to transfer care to [facility] for further investigation. The patient was inpatient at [place] for over 6 weeks which was the first time that he had heard the possibility of a cancer diagnosis. Additional PMH includes CAD, HTN, HLD, ESRD HD dependent (T/R/Sat), GERD, pleural effusions, and AVR. Patient has been evaluated by Dr. Weeks with Heme/Onc and Orthopedic surgery was consulted ,Dr. Tijerina saw patient was able to perform B/L femur head nail fixation as well as bilateral biopsies on 03/02-to stabilize both hips with hopes of preventing a pathological fracture. Patient tolerated surgery well-we will need clearance from orthopedics regarding weightbearing status. Patient's pain is well controlled at this time with PRN [place]-expect pain to increase once patient is more mobile. Patient was found to have a left subclavian DVT-is on heparin-Coumadin held for surgery-medical team to restart. Patient's CODE STATUS is DNR -Cancer related pain-very little pain at rest in bed-patient did receive a PRN [place] postop, will need to monitor once patient is cleared for weightbearing by orthopedics -Dyspnea-improved after dialysis -Metastatic disease-primary unknown-biopsies obtained-path pending -Left upper extremity DVT-on heparin drip, -Coumadin held for surgery-medical team to restart Coumadin and low-dose aspirin -CODE STATUS-DNR Will continue to follow and assist with postop pain management as well as assist with medical decision making once biopsy results are known We will continue to follow and assist with medical decision making as well as pain control postop (2) 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 Patient reports pain is well controlled-he received 1 PRN [place] at 330 this a.m.-only dose given in the past 24 hours. Patient now is status post bilateral hip nailing and bilateral biopsies -path pending Patient's postop hemoglobin was 6.5-patient was transfused 1 unit while on dialysis. Patient's white count remains elevated at 13.2, platelet count down to 111K. Patient's pain is well controlled-however patient has not been allowed to get out of bed-will assist with his pain management once cleared by Ortho to get out of bed. Patient shortness of breath is improved after dialysis. Review of Systems Review of Systems: Patient denies fever, chills, chest pain, increased shortness of breath, or abdominal pain Physical Exam Physical Exam: PE: Patient appears comfortable HEENT: EOMI, hearing within normal limits Respiratory: Unlabored, on room air CV: Regular rate Abdomen: Not distended Neuro: Alert and oriented Results & Data Vital Signs (Past 12 Hours) Vital Signs Temp Pulse Pulse Resp BP BP Pulse Ox 03/03/19 14:57 98.6 F 68 24 156/67 H 94 03/03/19 13:22 98.2 F 69 148/81 H 03/03/19 13:00 64 118/61 03/03/19 12:40 66 123/67 03/03/19 12:20 68 122/60 03/03/19 12:00 62 128/69 03/03/19 11:40 64 122/57 L 03/03/19 11:20 62 100/58 L 03/03/19 11:00 61 127/63 03/03/19 10:40 64 131/69 03/03/19 10:20 61 123/70 03/03/19 10:15 61 140/69 03/03/19 10:01 60 129/57 L 03/03/19 09:55 60 71/41 L 03/03/19 09:40 64 110/59 L 03/03/19 09:29 97.7 F 55 L 14 142/61 H 03/03/19 09:20 61 130/64 03/03/19 09:11 142/61 H 03/03/19 09:03 97.7 F 59 L 03/03/19 07:59 97.9 F 65 28 H 136/69 95 03/03/19 07:10 64 14 99 Time Spent Attending Total time spent 25 minutes with greater than 50% of the time spent at bedside assessing patient's current pain level and general comfort. (1) DVT of upper extremity (deep vein thrombosis) Affected thrombotic vein of extremity: unspecified vein of extremity Chronicity: acute Laterality: left Qualified Code(s): I82.622 - Acute embolism and thrombosis of deep veins of left upper extremity
[2019-03-03] MEDS: HydrALAZINE TAB 50 MG TAB PO SCH ×2 (16:20→20:33)
[2019-03-03] MEDS: ISOSORBIDE MONO EXTENDED REL 60 MG TABCR PO SCH (16:20)
[2019-03-03] MEDS: AMLODIPINE BESYLATE 5 MG TAB PO SCH ×2 (16:20→20:33)
[2019-03-03] MEDS: LISINOPRIL 10 MG TAB PO SCH (16:21)
--- NOTE | 2019-03-03 17:37 | Orthopedic Progress Note ---
Date of Service March 03, 2019 Assessment & Plan (1) Pathological fracture of hip due to neoplastic disease: Overall he is doing fairly well. I went over the procedure with him and his again at bedside. He can be weightbearing as tolerated. He will hopefully be ambulating soon with physical therapy. He is on heparin for DVT prophylaxis. He got 1 unit of packed red blood cells today. The dressings can be changed tomorrow. Present on Admission?: Yes Subjective Abiel was seen and examined at bedside today. Overall he is doing fairly well. He spent about 4 hours at dialysis today. He has not been up and ambulating yet. He has not been to a chair yet. He did get a unit of packed red blood cells today. He is on heparin for DVT prophylaxis. His is with him at bedside and he is awake and alert while I was talking to him. Physical Exam Musculoskeletal: Physical examination of both hips were similar. The dressings are clean and dry. There is a little bit of bleeding on the left upper dressing but is not much. He has active dorsiflexion and plantarflexion of both ankles and sensations intact throughout. Results & Data Vital Signs (Past 12 Hours) Vital Signs Temp Pulse Pulse Resp BP BP Pulse Ox 03/03/19 14:57 37.0 C 68 24 156/67 H 94 03/03/19 13:22 36.8 C 69 148/81 H 03/03/19 13:00 64 118/61 03/03/19 12:40 66 123/67 03/03/19 12:20 68 122/60 03/03/19 12:00 62 128/69 03/03/19 11:40 64 122/57 L 03/03/19 11:20 62 100/58 L 03/03/19 11:00 61 127/63 03/03/19 10:40 64 131/69 03/03/19 10:20 61 123/70 03/03/19 10:15 61 140/69 03/03/19 10:01 60 129/57 L 03/03/19 09:55 60 71/41 L 03/03/19 09:40 64 110/59 L 03/03/19 09:29 36.5 C 55 L 14 142/61 H 03/03/19 09:20 61 130/64 03/03/19 09:11 142/61 H 03/03/19 09:03 36.5 C 59 L 03/03/19 07:59 36.6 C 65 28 H 136/69 95 03/03/19 07:10 64 14 99
[2019-03-03] MEDS: ONDANSETRON INJ 2 MG/ML 2 ML VIAL IV PRN (18:11)
[2019-03-03] MEDS: HYDROmorphone INJ 0.5 MG/0.5 ML SYR IV PRN (20:26)
[2019-03-03] MEDS: ATORVASTATIN 40 MG TAB PO SCH (20:32)
[2019-03-04] MEDS: ACETAMINOPHEN 500 MG TAB PO SCH (05:47)
[2019-03-04 06:08] LABS: Partial Thromboplastin Ratio 1.8
[2019-03-04 06:16] LABS: Partial Thromboplastin Time 49.7 Seconds (21.0-31.0)
[2019-03-04] MEDS: HYDROCODONE/ACETAMOPHEN 5/325MG TAB PO PRN ×2 (08:15→15:35)
[2019-03-04] MEDS: predniSONE 50 MG TAB PO SCH (08:16)
[2019-03-04] MEDS: NYSTATIN SUSP 500,000 U/5 ML UDC PO SCH ×4 (08:16→21:12)
[2019-03-04] MEDS: HydrALAZINE TAB 50 MG TAB PO SCH ×3 (08:16→21:08)
[2019-03-04] MEDS: MAGNESIUM OXIDE 400 MG TAB PO SCH (08:16)
[2019-03-04] MEDS: LISINOPRIL 10 MG TAB PO SCH (08:16)
[2019-03-04] MEDS: TORSEMIDE 100 MG TAB PO SCH ×2 (08:16→17:09)
[2019-03-04] MEDS: PANTOprazole 40 MG TAB PO SCH (08:17)
[2019-03-04] MEDS: CARVEDILOL 12.5 MG TAB PO SCH ×2 (08:17→21:09)
[2019-03-04] MEDS: ISOSORBIDE MONO EXTENDED REL 60 MG TABCR PO SCH (08:17)
[2019-03-04] MEDS: LIDOCAINE 5% 1 PATCH TD SCH (08:18)
[2019-03-04] MEDS: POLYETHYLENE (MIRALAX) 17 GM PACK PO SCH (08:18)
[2019-03-04] MEDS: DOCUSATE SODIUM 100 MG CAP PO SCH ×2 (08:18→21:12)
[2019-03-04] MEDS: AMLODIPINE BESYLATE 5 MG TAB PO SCH ×2 (08:18→21:10)
[2019-03-04] MEDS: SENNA 8.6 MG TAB PO SCH (08:19)
[2019-03-04] MEDS: INSULIN ASPART 100 UNITS/ML 3 ML PEN SC SCH ×4 (08:19→21:15)
[2019-03-04] MEDS: INSULIN GLARGINE SOLOSTAR 100 UNITS/ML 3 ML PEN SC SCH (08:20)
--- NOTE | 2019-03-04 10:30 | Hospitalist Progress Note ---
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 Has numerous bony mets, adrenal mets, etc. - For back/bony pain - Didn't tolerate multiple narcotics even at the lowest do ses; DID TOLERATE [place] 2.5mg PO Q8h PRN. Continue Tylenol, steroids, and heat packs. - Underwent bilateral hip pinning with Dr. Tijerina on 03/02. Tolerated the procedure well. - Improving functional status on 03/04; will transfer to med/surg. Working with PT/OT; out of bed. Plan for rehab. Path pending on cancer diagnosis. (2) Anemia in chronic kidney disease, on chronic dialysis: Baseline appears to be ~8. - On 03/02, he was at baseline. - On 03/03 (after hip surgery), was down to 6.5, but hemodynamically stable. He has antibodies and needs blood from [place]. Two units were sent on 03/02. - Transfused 1 unit PRBCs on 03/03. Recheck on 03/05 to lower our blood draws (unless he has vital sign changes). (3) DVT of upper extremity (deep vein thrombosis): Possible left subclavian vein DVT seen on LUE Doppler on 02/24 done for left arm swelling. Suspect due to advanced cancer. - Holding warfarin as he is post-op - Held heparin gtt prior to procedure -> Restarted on 03/03 AM. If he has no signs of bleeding, will consider NOAC vs. warfarin in 1-2 days. (4) Acute respiratory failure with hypoxia: Had episode earlier in the hospitalization, which resolved. O2 was weaned off. Likely multifactorial - right-sided pneumonia, effusions, & pulmonary edema. - On 02/27, had another occurrence. More shortness of breath as the day progressed. Likely pulmonary edema as he has been on a heparin gtt for his LUE DVT. - Ordered BiPap, nebs, and IV steroids to treat pulmonary edema and any possible reactive airway disease. - Underwent ultrafiltrate on 02/27 & HD on 02/28. Significantly improved. - On 03/04, he is still doing very well. Down to room air. (5) Pneumonia involving right lung: Clinically improved/resolved. - Completed full course of IV/PO abx for 7 days. - Procalcitonin checked on 02/27 for increased shortness of breath and was negative (0.26). (6) Hyponatremia: 2nd to ESRD. Fluctuating depending on volume status. - Trend BMPs (7) ESRD on hemodialysis: HD //Sat. - Appreciate [facility] Nephrology assistance. - Just recently initiated HD about 3-4 weeks ago in [place]. (8) S/P AVR (aortic valve replacement): History of such. Bioprosthetic. (9) Bilateral pleural effusion: Could be transudative from ESRD and hypoalbuminemia or exudative from cancer or pneumonia. - CXR on 02/27 showed stable to mildly worse right effusion. - Respiratory status improved with HD - Monitoring for now. (10) Hypertension: Normal to mildly high at times. - Cont usual outpatient meds: Hydralazine 50mg TID, amlodipine 5mg, Imdur 60mg - On 03/01, added lisinopril 10mg. Given his ESRD, hyperkalemia should not be a problem as he will get his K+ removed from dialysis. - On 03/04, BP improved, but still with readings up to 150/70. Will monitor, and possibly increase lisinopril to 20mg. (11) CAD (coronary artery disease): S/p CABG in the past. No ischemic sx's at this time. - Continue statin, beta-oksana, Imdur. - Added lisinopril on 03/01 as above - Held ASA for procedure on 03/02. Will restart after approval by ortho. (12) GERD (gastroesophageal reflux disease): PPI. (13) Ileus: Resolved by 03/01. - On 03/04, he has actually moved toward having diarrhea from the bowel regimen. Holding the bowel regimen for now. (14) DVT prophylaxis: Heparin drip Subjective Feeling better than ever. No major concerns this morning other than getting out of bed. Review of Systems Review of Systems: All systems reviewed & are unremarkable except as noted in HPI & below Physical Exam Constitutional: WD/WN, vitals as above + physical limitations and + frail appearing; no acute distress Eyes: EOM intact bilaterally; no conjunctival abnormality ENMT: external ear and nose normal, oropharynx normal Neck: trachea midline, no thyromegaly normal visual inspection Respiratory: + labored breathing; no respiratory distress Auscultation: + crackles and + wheezes Cardiovascular: RRR, no murmur, no edema Rate/Rhythm: + tachycardic Gastrointestinal (Abdomen): Inspection/Auscultation: abdomen normal to inspection; abdomen not distended Musculoskeletal: no cyanosis or clubbing, extremities motor strength 5/5 Skin: no rashes, warm and dry Neurologic: moves all extremities and awake Psychiatric: Orientation: alert, oriented to person and cooperative Results & Data Vital Signs (Past 12 Hours) Vital Signs Temp Pulse Resp BP Pulse Ox 03/04/19 06:58 36.9 C 66 26 H 151/70 H 99 03/04/19 03:42 36.8 C 67 18 160/80 H 96 03/03/19 23:10 36.8 C 71 19 152/77 H 96 PG Care Time/CCT Total # of Minutes Spent Total Time Spent with Patient: Total time spent is greater than 50% in coordination of care (as documented) at patient's floor/unit and/or counseling patient: (1) DVT of upper extremity (deep vein thrombosis) Affected thrombotic vein of extremity: unspecified vein of extremity Chronicity: acute Laterality: left Qualified Code(s): I82.622 - Acute embolism and thrombosis of deep veins of left upper extremity (2) Pneumonia involving right lung Pneumonia type: due to unspecified organism Lung location: unspecified part of lung Qualified Code(s): J18.9 - Pneumonia, unspecified organism (3) Hypertension Hypertension type: essential hypertension Qualified Code(s): I10 - Essential (primary) hypertension (4) CAD (coronary artery disease) Coronary Disease-Associated Artery/Lesion type: resighini artery [place] vs. transplanted heart: resighini heart Associated angina: without angina Qualified Code(s): I25.10 - Atherosclerotic heart disease of resighini coronary artery without angina pectoris (5) GERD (gastroesophageal reflux disease) Esophagitis presence: without esophagitis Qualified Code(s): K21.9 - Gastro- esophageal reflux disease without esophagitis
[2019-03-04] MEDS: HYDROmorphone INJ 0.5 MG/0.5 ML SYR IV PRN ×2 (11:44→17:08)
[2019-03-04] MEDS: Heparin Adult LOW DOSE Wt-Based Dextrose 5% 25,000 units/500 mL IV SCH (11:46)
[2019-03-04] MEDS: WARFARIN SOD 2.5 MG TAB PO SCH (15:39)
[2019-03-04] MEDS: ATORVASTATIN 40 MG TAB PO SCH (21:12)
[2019-03-05] MEDS: HYDROCODONE/ACETAMOPHEN 5/325MG TAB PO PRN (01:47)
[2019-03-05] MEDS: ONDANSETRON INJ 2 MG/ML 2 ML VIAL IV PRN (05:37)
[2019-03-05 06:04] LABS: Hematocrit (blood only) 20.9 % (42-52); Mean Corpuscular Hgb Conc 33.5 g/dL (32-36); Mean Corpuscular Volume 85.3 fL (80-100); Mean Platelet Volume 10.2 fL (7.4-10.4); Platelet Count 105 K/uL (130-400); RDW Coefficient of Variation 16.6 % (11.5-14.5); RDW Standard Deviation 51.1 fL (36.4-46.3); Red Blood Count 2.45 M/uL (4.7-6.1); White Blood Count 14.03 K/uL (4.8-10.8)
[2019-03-05 06:33] LABS: Partial Thromboplastin Ratio 1.9
[2019-03-05 06:35] LABS: Partial Thromboplastin Time 51.7 Seconds (21.0-31.0)
[2019-03-05 06:39] LABS: Acanthocytes 1+; Basophilic Stippling 1+; Echinocytes 1+; Immature Granulocytes # (auto) 0.07 K/uL (0.00-0.02); Immature Granulocytes % (auto) 0.5 %; Lymphocytes # (auto) 0.52 K/uL (1.2-3.4); Lymphocytes % (auto) 3.7 %; Monocytes # (auto) 1.43 K/uL (0.11-0.59); Monocytes % (auto) 10.2 %; Neutrophils # (auto) 12.01 K/uL (1.4-6.5); Neutrophils % (auto) 85.6 %
[2019-03-05] MEDS ORDERED: SODIUM CHLORIDE 0.9% 1000ML 1,000 ML IV PRN (08:04)
[2019-03-05] MEDS: HYDROmorphone INJ 0.5 MG/0.5 ML SYR IV PRN ×3 (08:13→21:58)
[2019-03-05] MEDS ORDERED: SODIUM CHLORIDE 0.9% 250 ML IV PRN (08:25)
[2019-03-05] MEDS: PANTOprazole 40 MG TAB PO SCH (08:59)
[2019-03-05] MEDS: LIDOCAINE 5% 1 PATCH TD SCH (09:01)
[2019-03-05] MEDS: NYSTATIN SUSP 500,000 U/5 ML UDC PO SCH ×4 (09:02→21:20)
[2019-03-05] MEDS: predniSONE 50 MG TAB PO SCH (09:02)
[2019-03-05] MEDS: DOCUSATE SODIUM 100 MG CAP PO SCH ×2 (09:11→21:19)
[2019-03-05] MEDS: Heparin Adult LOW DOSE Wt-Based Dextrose 5% 25,000 units/500 mL IV SCH (09:13)
[2019-03-05] MEDS: INSULIN ASPART 100 UNITS/ML 3 ML PEN SC SCH ×4 (09:21→21:25)
[2019-03-05] MEDS: INSULIN GLARGINE SOLOSTAR 100 UNITS/ML 3 ML PEN SC SCH (09:23)
[2019-03-05] MEDS: HydrALAZINE TAB 50 MG TAB PO SCH ×3 (10:29→21:19)
[2019-03-05] MEDS: CARVEDILOL 12.5 MG TAB PO SCH ×2 (12:48→21:19)
[2019-03-05] MEDS: TORSEMIDE 100 MG TAB PO SCH ×2 (12:48→17:19)
--- NOTE | 2019-03-05 13:47 | Hospitalist Progress Note ---
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 Has numerous bony mets, adrenal mets, etc. - For back/bony pain - had some sedation/confusion with early opioids. DID TOLERATE [place] 2.5mg PO Q8h PRN. - Continue Tylenol, steroids, and heat packs. - Underwent bilateral hip pinning with Dr. Tijerina on 03/02. Tolerated the procedure well. - Also has Dilaudid after surgery; will try to taper this as able. - Improving functional status on 03/04; will transfer to med/surg. Working with PT/OT; out of bed. Plan for rehab. Path pending on cancer diagnosis. (2) Anemia in chronic kidney disease, on chronic dialysis: Baseline appears to be ~8. - On 03/02, he was at baseline. - On 03/03 (after hip surgery), was down to 6.5, but hemodynamically stable. He has antibodies and needs blood from [place]. Two units were sent on 03/02. - Transfused 1 unit PRBCs on 03/03. Rechecked on 03/05 with 7.0. - Received 1 additional unit with HD on 03/05. - Trend hgb (3) DVT of upper extremity (deep vein thrombosis): Possible left subclavian vein DVT seen on LUE Doppler on 02/24 done for left arm swelling. Suspect due to advanced cancer. - Held heparin gtt prior to procedure -> Restarted on 03/03 AM. - Discussed with Dr. Chu - Feels warfarin is a better option than DOAC given his ESRD. On warfarin 2.5mg daily. - Trend INRs (4) Acute respiratory failure with hypoxia: Had episode earlier in the hospitalization, which resolved. O2 was weaned off. Likely multifactorial - right-sided pneumonia, effusions, & pulmonary edema. - On 02/27, had another occurrence. More shortness of breath as the day progressed. Likely pulmonary edema as he has been on a heparin gtt for his LUE DVT. - Ordered BiPap, nebs, and IV steroids to treat pulmonary edema and any possible reactive airway disease. - Underwent ultrafiltrate on 02/27 & HD on 02/28. Significantly improved. - On 03/05, he is still doing very well. Down to room air. (5) Pneumonia involving right lung: Clinically improved/resolved. - Completed full course of IV/PO abx for 7 days. - Procalcitonin checked on 02/27 for increased shortness of breath and was negative (0.26). (6) Hyponatremia: 2nd to ESRD. Fluctuating depending on volume status. - Trend BMPs (7) ESRD on hemodialysis: HD Tu/Th/Sat. - Appreciate [facility] Nephrology assistance. - Just recently initiated HD about 3-4 weeks ago in [place]. (8) S/P AVR (aortic valve replacement): History of such. Bioprosthetic. (9) Bilateral pleural effusion: Could be transudative from ESRD and hypoalbuminemia or exudative from can er or pneumonia. - CXR on 02/27 showed stable to mildly worse right effusion. - Respiratory status improved with HD - Monitoring for now. (10) Hypertension: Normal to mildly high at times. - Cont usual outpatient meds: Hydralazine 50mg TID, amlodipine 5mg, Imdur 60mg - On 03/01, added lisinopril 10mg. Given his ESRD, hyperkalemia should not be a problem as he will get his K+ removed from dialysis. - On 03/05, BP improved - Continue regimen (11) CAD (coronary artery disease): S/p CABG in the past. No ischemic sx's at this time. - Continue statin, beta-oksana, Imdur. - Added lisinopril on 03/01 as above - Held ASA for procedure on 03/02. Will restart after approval by ortho. (12) GERD (gastroesophageal reflux disease): PPI. (13) Ileus: Resolved by 03/01. - On 03/04, he has actually moved toward having diarrhea from the bowel regimen. Holding the bowel regimen for now. (14) DVT prophylaxis: Heparin drip transitioning to warfarin Subjective Feeling well. Would like to get up with PT today. In good spirits. Review of Systems Review of Systems: All systems reviewed & are unremarkable except as noted in HPI & below Physical Exam Constitutional: WD/WN, vitals as above + physical limitations and + frail appearing; no acute distress Eyes: EOM intact bilaterally; no conjunctival abnormality ENMT: external ear and nose normal, oropharynx normal Neck: trachea midline, no thyromegaly normal visual inspection Respiratory: + labored breathing; no respiratory distress Auscultation: + crackles and + wheezes Cardiovascular: RRR, no murmur, no edema Rate/Rhythm: + tachycardic Gastrointestinal (Abdomen): Inspection/Auscultation: abdomen normal to inspection; abdomen not distended Musculoskeletal: no cyanosis or clubbing, extremities motor strength 5/5 Skin: no rashes, warm and dry Neurologic: moves all extremities and awake Psychiatric: Orientation: alert, oriented to person and cooperative Results & Data Vital Signs (Past 12 Hours) Vital Signs Temp Pulse Pulse Pulse Resp BP BP 03/05/19 13:20 65 105/54 L 03/05/19 13:00 62 116/47 L 03/05/19 12:40 62 122/50 L 03/05/19 12:20 54 L 107/57 L 03/05/19 12:00 36.5 C 63 16 134/64 03/05/19 11:40 59 L 113/53 L 03/05/19 11:20 61 123/63 03/05/19 11:11 63 131/59 L 03/05/19 11:03 36.5 C 60 62 03/05/19 10:15 36.4 C L 60 19 138/62 03/05/19 09:31 36.3 C L 48 L 18 115/64 03/05/19 09:15 36.5 C 62 18 137/63 03/05/19 09:09 36.5 C 64 18 117/61 03/05/19 09:06 36.5 C 64 18 117/61 03/05/19 06:59 36.5 C 60 19 139/69 Pulse Ox 03/05/19 13:20 03/05/19 13:00 03/05/19 12:40 03/05/19 12:20 03/05/19 12:00 03/05/19 11:40 03/05/19 11:20 03/05/19 11:11 03/05/19 11:03 03/05/19 10:15 98 03/05/19 09:31 98 03/05/19 09:15 98 03/05/19 09:09 98 03/05/19 09:06 98 03/05/19 06:59 98 PG Care Time/CCT Total # of Minutes Spent Total Time Spent with Patient: Total time spent is greater than 50% in coordination of care (as documented) at patient's floor/unit and/or counseling patient: (1) DVT of upper extremity (deep vein thrombosis) Affected thrombotic vein of extremity: unspecified vein of extremity Chronicity: acute Laterality: left Qualified Code(s): I82.622 - Acute embolism and thrombosis of deep veins of left upper extremity (2) Pneumonia involving right lung Pneumonia type: due to unspecified organism Lung location: unspecified part of lung Qualified Code(s): J18.9 - Pneumonia, unspecified organism (3) Hypertension Hypertension type: essential hypertension Qualified Code(s): I10 - Essential (primary) hypertension (4) CAD (coronary artery disease) Coronary Disease-Associated Artery/Lesion type: three affiliated artery [place] vs. transplanted heart: three affiliated heart Associated angina: without angina Qualified Code(s): I25.10 - Atherosclerotic heart disease of three affiliated coronary artery without angina pectoris (5) GERD (gastroesophageal reflux disease) Esophagitis presence: without esophagitis Qualified Code(s): K21.9 - Gastro- esophageal reflux disease without esophagitis
[2019-03-05] MEDS: AMLODIPINE BESYLATE 5 MG TAB PO SCH ×2 (14:14→21:19)
[2019-03-05] MEDS: ISOSORBIDE MONO EXTENDED REL 60 MG TABCR PO SCH (14:41)
[2019-03-05] MEDS: LISINOPRIL 10 MG TAB PO SCH (14:41)
--- NOTE | 2019-03-05 14:44 | Dialysis Progress Note ---
Date of Service March 05, 2019 Assessment & Plan (1) ESRD on hemodialysis: Patient with ESRD on dialysis Wednesday. He has a right tunneled IJ catheter. CVC initially blocked, improved with cathflo on both 02/23 and 02/25; no issues w/ catheter on HD past few txs; he did need urgent HD on 02/27; had routine tx on 02/28; had another routine tx on 03/01 to optimize repsiratory issues >for 03/02 procedure > had HD 2 hrs -today hgb 7 again and he will need pRBC; plan 3 hr tx today; will eval but plan tentatively to rest him tomorrow/ no HD if possible clinically next HD 03/07 (2) Metastatic disease: Patient with metastatic bone disease of unknown primary. CT abdomen revealing osteolytic bone lesions. Patient is frustrated with the multiple diagnostic tests without finding the primary. He is now DNR. He wishes to continue dialysis and work-up for his cancer. >> s/p 03/03 bone bx; path pending (3) Hypertension: bp better today. cont pain control and current bp meds and frequent hd -- (4) Anemia in chronic kidney disease, on chronic dialysis: Hemoglobin is below target. Unable to give epogen due to active cancer. He probably does not need daily blood draws. Monitor and transfuse as needed- for pRBC again today on heparin gtt currently (5) Pneumonia involving right lung: Patient is on antibiotics per primary team. Renally dose medications for dialysis. he is DNI Subjective seen on hd; no c/o pain but when prompted does acknowledge sacral area still sore; denies sob; N Review of Systems Review of Systems: All systems reviewed & are unremarkable except as noted in HPI & below Physical Exam Constitutional: well developed, + frail appearing and + malnourished on RA, no resp distress Eyes: EOM intact bilaterally ENMT: Ears: no external ear abnormality Nose: no external nose abnormality Mouth: + dry oral mucous membranes Neck: no nuchal rigidity Respiratory: Auscultation: + diminished lung sounds Cardiovascular: Rate/Rhythm: regular rate and regular rhythm Extremities: no edema Gastrointestinal (Abdomen): Inspection/Auscultation: + abdomen distended and normal bowel sounds Percussion/Palpation: abdomen soft; abdomen nontender Musculoskeletal: Extremities: strength 5/5 throughout Skin: no rashes, warm and dry Neurologic: sarkar, fluent speech Psychiatric: Orientation: alert, oriented to person and oriented to place Affect: + flat affect Insight: + limited insight Results & Data Vital Signs (Past 12 Hours) Vital Signs Temp Pulse Pulse Pulse Pulse Resp BP 03/05/19 14:19 37.1 C 71 64 03/05/19 14:00 61 87/58 L 03/05/19 13:40 58 L 114/56 L 03/05/19 13:20 65 105/54 L 03/05/19 13:00 62 116/47 L 03/05/19 12:40 62 122/50 L 03/05/19 12:20 54 L 107/57 L 03/05/19 12:00 36.5 C 63 16 134/64 03/05/19 11:40 59 L 113/53 L 03/05/19 11:20 61 123/63 03/05/19 11:11 63 131/59 L 03/05/19 11:03 36.5 C 60 62 03/05/19 10:15 36.4 C L 60 19 138/62 03/05/19 09:31 36.3 C L 48 L 18 115/64 03/05/19 09:15 36.5 C 62 18 137/63 03/05/19 09:09 36.5 C 64 18 117/61 03/05/19 09:06 36.5 C 64 18 117/61 03/05/19 06:59 36.5 C 60 19 BP Pulse Ox 03/05/19 14:19 135/60 03/05/19 14:00 03/05/19 13:40 03/05/19 13:20 03/05/19 13:00 03/05/19 12:40 03/05/19 12:20 03/05/19 12:00 03/05/19 11:40 03/05/19 11:20 03/05/19 11:11 03/05/19 11:03 03/05/19 10:15 98 03/05/19 09:31 98 03/05/19 09:15 98 03/05/19 09:09 98 03/05/19 09:06 98 03/05/19 06:59 139/69 98 Laboratory Results Abnormal lab results 03/02/19 03/04/19 03/04/19 Range/Units 09:24 17:37 21:00 WBC (4.8-10.8) K/uL RBC (4.7-6.1) M/uL Hgb (14.0-18.0) g/dL Hct (42-52) % RDW Std Deviation (36.4-46.3) fL RDW Coeff of Fredis (11.5-14.5) % Plt Count (130-400) K/uL Immature Gran # (Auto) (0.00-0.02) K/uL Neut # (Auto) (1.4-6.5) K/uL Lymph # (Auto) (1.2-3.4) K/uL [place] # (Auto) (0.11-0.59) K/uL APTT (21.0-31.0) Seconds POC Glucose 189 H 180 H (70-99) Antibody Screen POSITIVE A Crossmatch See Detail 03/05/19 03/05/19 03/05/19 Range/Units 05:32 05:32 08:02 WBC 14.03 H (4.8-10.8) K/uL RBC 2.45 L (4.7-6.1) M/uL Hgb 7.0 L (14.0-18.0) g/dL Hct 20.9 L* (42-52) % RDW Std Deviation 51.1 H (36.4-46.3) fL RDW Coeff of Fredis 16.6 H (11.5-14.5) % Plt Count 105 L (130-400) K/uL Immature Gran # (Auto) 0.07 H (0.00-0.02) K/uL Neut # (Auto) 12.01 H (1.4-6.5) K/uL Lymph # (Auto) 0.52 L (1.2-3.4) K/uL [place] # (Auto) 1.43 H (0.11-0.59) K/uL APTT 51.7 H* (21.0-31.0) Seconds POC Glucose 166 H (70-99) Antibody Screen Crossmatch 03/05/19 03/05/19 Range/Units 08:34 14:26 WBC (4.8-10.8) K/uL RBC (4.7-6.1) M/uL Hgb (14.0-18.0) g/dL Hct (42-52) % RDW Std Deviation (36.4-46.3) fL RDW Coeff of Fredis (11.5-14.5) % Plt Count (130-400) K/uL Immature Gran # (Auto) (0.00-0.02) K/uL Neut # (Auto) (1.4-6.5) K/uL Lymph # (Auto) (1.2-3.4) K/uL [place] # (Auto) (0.11-0.59) K/uL APTT (21.0-31.0) Seconds POC Glucose 166 H (70-99) Antibody Screen Crossmatch See Detail (1) Hypertension Hypertension type: essential hypertension Qualified Code(s): I10 - Essential (primary) hypertension (2) Pneumonia involving right lung Pneumonia type: due to unspecified organism Lung location: unspecified part of lung Qualified Code(s): J18.9 - Pneumonia, unspecified organism
[2019-03-05] MEDS: WARFARIN SOD 2.5 MG TAB PO SCH (17:19)
[2019-03-05] MEDS: ATORVASTATIN 40 MG TAB PO SCH (21:19)
[2019-03-06 05:35] LABS: Hematocrit (blood only) 23.5 % (42-52); Mean Corpuscular Volume 85.1 fL (80-100); Mean Platelet Volume 10.5 fL (7.4-10.4); Platelet Count 118 K/uL (130-400); RDW Coefficient of Variation 16.9 % (11.5-14.5); RDW Standard Deviation 50.4 fL (36.4-46.3); Red Blood Count 2.76 M/uL (4.7-6.1); White Blood Count 12.45 K/uL (4.8-10.8)
[2019-03-06 05:56] LABS: INR 1.3 (0.9-1.1); Partial Thromboplastin Ratio 1.7
[2019-03-06 06:02] LABS: BUN Creatinine Ratio 17.1 (10-20); Calcium 7.4 mg/dl (8.5-10.1); Creatinine Clr Calc Pharmacy 16.3 ml/min; Est GFR (African American) 20.9; Est GFR (Non-African American) 18.1; Magnesium 2.5 mg/dl (1.8-2.4); Potassium 4.1 mmol/L (3.5-5.1)
[2019-03-06] MEDS: HYDROmorphone INJ 0.5 MG/0.5 ML SYR IV PRN ×3 (07:40→18:29)
[2019-03-06] MEDS: LISINOPRIL 10 MG TAB PO SCH (08:50)
[2019-03-06] MEDS: LIDOCAINE 5% 1 PATCH TD SCH (08:51)
[2019-03-06] MEDS: PANTOprazole 40 MG TAB PO SCH (08:51)
[2019-03-06] MEDS: DOCUSATE SODIUM 100 MG CAP PO SCH ×2 (08:51→21:47)
[2019-03-06] MEDS: TORSEMIDE 100 MG TAB PO SCH ×2 (08:51→16:46)
[2019-03-06] MEDS: NYSTATIN SUSP 500,000 U/5 ML UDC PO SCH (08:51)
[2019-03-06] MEDS: CARVEDILOL 12.5 MG TAB PO SCH ×2 (08:51→21:37)
[2019-03-06] MEDS: AMLODIPINE BESYLATE 5 MG TAB PO SCH ×2 (08:51→21:38)
[2019-03-06] MEDS: ISOSORBIDE MONO EXTENDED REL 60 MG TABCR PO SCH (08:51)
[2019-03-06] MEDS: HydrALAZINE TAB 50 MG TAB PO SCH ×3 (08:51→21:32)
[2019-03-06] MEDS: predniSONE 50 MG TAB PO SCH (08:51)
[2019-03-06] MEDS: INSULIN ASPART 100 UNITS/ML 3 ML PEN SC SCH ×4 (08:56→21:41)
[2019-03-06] MEDS: INSULIN GLARGINE SOLOSTAR 100 UNITS/ML 3 ML PEN SC SCH (08:58)
--- NOTE | 2019-03-06 11:02 | Palliative Care Progress Note ---
Date of Service March 06, 2019 Assessment & Plan (1) Palliative care encounter: -POD #4 s/p BL hip pinning. -Tissue biopsies pending. -Heme/onc following. -Patient will certainly need rehab post-hospitalization. Patient stated to me today that his goal is to get back to what he was doing prior to this episode, which was being independent and even "cutting fire wood." However, he states that he knows he is a long way off. In regards to dialysis, patient was feeling lousy last week after having multiple daily dialysis treatments, but is feeling better now. He of course does wish to continue with dialysis and is eager to find out what his options for treatment of the cancer will be. (2) Pain of metastatic malignancy: -Is receiving [place] 2.5mg as needed for pain. Patient states that this does work for his pain. The issue is that his pain is controlled if he is not moving, and it comes on quickly with any movement. -Patient is also receiving PRN IV Dilaudid. Would discontinue IV Dilaudid as soon as possible. If patient is tolerating narcotics fine as far as mentation, would increase the norco to 5mg. Will defer to ortho and hospitalist to make this change for now as patient is post-op. We will continue to follow and see what his pain management needs will be once he is able to mobilize. (3) ESRD on hemodialysis: (4) Bilateral pleural effusion: Subjective Patient is POD 4 from bilateral hip pinning. Is awake, alert and oriented x4. In bed, was unable to get OOB with PT today. States he is "sore and stiff," still having pain with movement but not while lying flat at rest. Review of Systems Respiratory: no cough and no dyspnea Cardiovascular: no chest pain Gastrointestinal: no nausea and no vomiting Musculoskeletal: BL hip pain with movement. Physical Exam Constitutional: well developed and well nourished; no acute distress ENMT: external ear and nose normal, oropharynx normal Neck: normal visual inspection Respiratory: normal respiratory effort, lungs clear to auscultation Auscultation: + diminished lung sounds Cardiovascular: RRR, no murmur, no edema Vessels: normal peripheral pulses Gastrointestinal (Abdomen): Inspection/Auscultation: abdomen normal to inspection and normal bowel sounds Percussion/Palpation: abdomen soft; abdomen nontender Results & Data Vital Signs (Past 12 Hours) Vital Signs Temp Pulse Pulse Resp BP Pulse Ox 03/06/19 06:58 36.6 C 65 16 137/66 98 03/05/19 23:31 37.5 C 71 18 135/61 98 Time Spent Midlevel 35 minutes with >50% of the time spent at bedside with patient discussing condition and GOC.
[2019-03-06] MEDS: HYDROCODONE/ACETAMOPHEN 5/325MG TAB PO PRN (13:56)
[2019-03-06] MEDS: WARFARIN SOD 2.5 MG TAB PO SCH (16:45)
[2019-03-06] MEDS: Heparin Adult LOW DOSE Wt-Based Dextrose 5% 25,000 units/500 mL IV SCH (19:37)
[2019-03-06] MEDS ORDERED: HYDROCODONE/ACETAMOPHEN 5/325MG TAB PO PRN (20:02)
--- NOTE | 2019-03-06 20:09 | Hospitalist Progress Note ---
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 Has numerous bony mets, adrenal mets, etc. With abnormal chest x-ray with fluid in opacities on the right-along with hypon atremia, could be small cell lung cancer Appreciate hematology/oncology consultation-awaiting results from pathology Appreciate radiation oncology consultation-again, awaiting results from pathology and then will likely proceed with radiation therapy - For back/bony pain - had some sedation/confusion with early opioids. Now seems to be tolerating p.o. hydrocodone and is still taking IV Dilaudid several times per day -Discontinue IV Dilaudid and increase hydrocodone to 1 tablet p.o. every 8 hours as needed - Continue Tylenol, steroids and will taper down to 40 mg tomorrow, and continue heat packs. - Underwent bilateral hip pinning with Dr. Tijerina on 03/02. Tolerated the procedure well. Working with PT/OT; out of bed. Plan for rehab. Path pending on cancer diagnosis. -will need outpatient follow-up with hematology/oncology after discharge (2) Anemia in chronic kidney disease, on chronic dialysis: Baseline appears to be ~8. - On 03/02, he was at baseline. - On 03/03 (after hip surgery), was down to 6.5, but hemodynamically stable. He has antibodies and needs blood from [place]. Two units were sent on 03/02. - Transfused 1 unit PRBCs on 03/03. Rechecked on 03/05 with 7.0. - Received 1 additional unit with HD on 03/05. hgb-today is improved at 8.0 -Follow CBC in the morning (3) DVT of upper extremity (deep vein thrombosis): Possible left subclavian vein DVT seen on LUE Doppler on 02/24 done for left arm swelling. Suspect due to advanced cancer. - Held heparin gtt prior to procedure -> Restarted on 03/03 AM. -[employer] Dr. Chu - Feels warfarin is a better option than DOAC given his ESRD. On warfarin 2.5mg daily. - Trend INRs-today is 1.3 (4) Acute respiratory failure with hypoxia: Had episode earlier in the hospitalization, which resolved. O2 was weaned off. Likely multifactorial - right-sided pneumonia, effusions, & pulmonary edema. - On 02/27, had another occurrence. More shortness of breath as the day progressed. Likely pulmonary edema as he has been on a heparin gtt for his LUE DVT. - Ordered BiPap, nebs, and IV steroids to treat pulmonary edema and any possible reactive airway disease. - Underwent ultrafiltrate on 02/27 & HD on 02/28. Significantly improved. -Currently he is still doing very well. Remains on room air with adequate oxygenation. (5) Pneumonia involving right lung: Clinically improved/resolved. - Completed full course of IV/PO abx for 7 days. - Procalcitonin checked on 02/27 for increased shortness of breath and was negative (0.26). He very well could have an underlying lung cancer-awaiting pathology from bone biopsies and if negative, would pursue thoracentesis and possible lung biopsy (6) Hyponatremia: 2nd to ESRD versus SIADH from small cell lung cancer. Fluctuating depending on volume status. Sodium today is at 130 - Trend BMPs (7) ESRD on hemodialysis: HD //Wed. - Appreciate [facility] Neph[facility] assistance. - Just recently initiated HD about 3-4 weeks ago in [place]. Has a right-sided tunneled IJ catheter in place (8) S/P AVR (aortic valve replacement): History of such. Bioprosthetic. (9) Bilateral pleural effusion: Could be transudative from ESRD and hypoalbuminemia or exudative from cancer or pneumonia. - CXR on 02/27 showed stable to mildly worse right effusion. - Respiratory status improved with HD - Monitoring for now. (10) Hypertension: Blood pressures were previously high at times and now are running on the low side - Cont usual outpatient meds: Hydralazine 50mg TID, amlodipine 5mg twice daily, Imdur 60mg - On 03/01, added lisinopril 10mg. Given his ESRD, hyperkalemia should not be a problem as he will get his K+ removed from dialysis. -Follow blood pressures and decrease or discontinue meds as needed (11) CAD (coronary artery disease): S/p CABG in the past. No ischemic sx's at this time. - Continue statin, beta-oksana, Imdur. - Added lisinopril on 03/01 as above - Held ASA for procedure on 03/02. We will hold off on restarting as will now be on Coumadin and is having some thrombocytopenia (12) GERD (gastroesophageal reflux disease): PPI. (13) Ileus: Resolved by 03/01. - On 03/04, he has actually moved toward having diarrhea from the bowel regimen. Holding the bowel regimen for now. (14) DVT prophylaxis: Heparin drip transitioning to warfarin Disposition-remain hospitalized Eventually will need rehab placement-awaiting to see if there is a bed at [facility]-possible discharge in the next 1 to 2 days Subjective Patient reports severe pain in the bilateral hips after recently being moved in the bed to do some bedside exercises. He is asking for pain medicine. Otherwise, denies lightheadedness or headache, denies chest pain or shortness of breath, denies abdominal pain. Review of Systems Review of Systems: All systems reviewed & are unremarkable except as noted in HPI & below Physical Exam Constitutional: + thin and + frail appearing; no acute distress Eyes: PERRL, conjunctivae normal, anicteric sclerae Neck: trachea midline, no thyromegaly Respiratory: normal respiratory effort; no labored breathing Auscultation: + diminished lung sounds (In the right base) and + wheezes (A few scattered expiratory wheezes); no crackles Cardiovascular: RRR, no murmur, no edema Gastrointestinal (Abdomen): normal bowel sounds, soft, nontender, no hepatosplenomegaly Musculoskeletal: Extremities: + extremities abnormal to inspection (Bilateral hips with dressings clean dry and intact with keysha in place in the distal lateral thigh), no cyanosis and no clubbing Skin: no rashes, warm and dry Neurologic: moves all extremities and awake; no focal motor deficits Psychiatric: Orientation: alert, oriented to person, oriented to place and cooperative Results & Data Vital Signs (Past 12 Hours) Vital Signs Temp Pulse Resp BP Pulse Ox 03/06/19 16:17 37.1 C 71 18 126/58 L 97 03/06/19 13:28 119/58 L Laboratory Results 03/06/19 03/06/19 03/06/19 Range/Units 17:34 12:56 08:28 WBC (4.8-10.8) K/uL RBC (4.7-6.1) M/uL Hgb (14.0-18.0) g/dL Hct (42-52) % MCV (80-100) fL MCH (25-34) pg MCHC (32-36) g/dL RDW Std Deviation (36.4-46.3) fL RDW Coeff of Fredis (11.5-14.5) % Plt Count (130-400) K/uL MPV (7.4-10.4) fL PT (9.0-12.0) Seconds INR (0.9-1.1) APTT (21.0-31.0) Seconds PTT Ratio Sodium (136-145) mmol/L Potassium (3.5-5.1) mmol/L Chloride (98-107) mmol/L Carbon Dioxide (21-32) mmol/L Anion Gap (3-11) BUN (7-18) mg/dl Creatinine (0.6-1.4) mg/dl Est Cr Clr Drug Dosing ml/min Est GFR ( Amer) Est GFR (Non-Af Amer) BUN/Creatinine Ratio (10-20) Glucose (70-99) mg/dl POC Glucose 195 H 164 H 196 H (70-99) Calcium (8.5-10.1) mg/dl Magnesium (1.8-2.4) mg/dl 03/06/19 03/06/19 03/06/19 Range/Units 05:13 05:13 05:13 WBC 12.45 H (4.8-10.8) K/uL RBC 2.76 L (4.7-6.1) M/uL Hgb 8.0 L (14.0-18.0) g/dL Hct 23.5 L (42-52) % MCV 85.1 (80-100) fL MCH 29.0 (25-34) pg MCHC 34.0 (32-36) g/dL RDW Std Deviation 50.4 H (36.4-46.3) fL RDW Coeff of Fredis 16.9 H (11.5-14.5) % Plt Count 118 L (130-400) K/uL MPV 10.5 H (7.4-10.4) fL PT 13.0 H (9.0-12.0) Seconds INR 1.3 H (0.9-1.1) APTT 46.0 H* (21.0-31.0) Seconds PTT Ratio 1.7 Sodium 130 L (136-145) mmol/L Potassium 4.1 (3.5-5.1) mmol/L Chloride 95 L (98-107) mmol/L Carbon Dioxide 25 (21-32) mmol/L Anion Gap 10.0 (3-11) BUN 54 H (7-18) mg/dl Creatinine 3.15 H (0.6-1.4) mg/dl Est Cr Clr Drug Dosing 16.3 ml/min Est GFR ( Amer) 20.9 Est GFR (Non-Af Amer) 18.1 BUN/Creatinine Ratio 17.1 (10-20) Glucose 198 H (70-99) mg/dl POC Glucose (70-99) Calcium 7.4 L (8.5-10.1) mg/dl Magnesium 2.5 H (1.8-2.4) mg/dl 03/05/19 Range/Units 20:41 WBC (4.8-10.8) K/uL RBC (4.7-6.1) M/uL Hgb (14.0-18.0) g/dL Hct (42-52) % MCV (80-100) fL MCH (25-34) pg MCHC (32-36) g/dL RDW Std Deviation (36.4-46.3) fL RDW Coeff of Fredis (11.5-14.5) % Plt Count (130-400) K/uL MPV (7.4-10.4) fL PT (9.0-12.0) Seconds INR (0.9-1.1) APTT (21.0-31.0) Seconds PTT Ratio Sodium (136-145) mmol/L Potassium (3.5-5.1) mmol/L Chloride (98-107) mmol/L Carbon Dioxide (21-32) mmol/L Anion Gap (3-11) BUN (7-18) mg/dl Creatinine (0.6-1.4) mg/dl Est Cr Clr Drug Dosing ml/min Est GFR ( Amer) Est GFR (Non-Af Amer) BUN/Creatinine Ratio (10-20) Glucose (70-99) mg/dl POC Glucose 247 H (70-99) Calcium (8.5-10.1) mg/dl Magnesium (1.8-2.4) mg/dl PG Care Time/CCT Total # of Minutes Spent Total Time Spent with Patient: Total time spent is greater than 50% in coordination of care (as documented) at patient's floor/unit and/or counseling patient: (1) DVT of upper extremity (deep vein thrombosis) Affected thrombotic vein of extremity: unspecified vein of extremity Chronicity: acute Laterality: left Qualified Code(s): I82.622 - Acute embolism and thrombosis of deep veins of left upper extremity (2) Pneumonia involving right lung Pneumonia type: due to unspecified organism Lung location: unspecified part of lung Qualified Code(s): J18.9 - Pneumonia, unspecified organism (3) Hypertension Hypertension type: essential hypertension Qualified Code(s): I10 - Essential (primary) hypertension (4) CAD (coronary artery disease) Coronary Disease-Associated Artery/Lesion type: [place] artery [place] vs. transplanted heart: [place] heart Associated angina: without angina Qualified Code(s): I25.10 - Atherosclerotic heart disease of [place] coronary artery without angina pectoris (5) GERD (gastroesophageal reflux disease) Esophagitis presence: without esophagitis Qualified Code(s): K21.9 - Gastro- esophageal reflux disease without esophagitis
[2019-03-06] MEDS: ATORVASTATIN 40 MG TAB PO SCH (21:39)
[2019-03-07] MEDS ORDERED: SODIUM CHLORIDE 0.9% 1000ML 1,000 ML IV PRN (06:50)
[2019-03-07 07:55] LABS: Hematocrit (blood only) 24.7 % (42-52); Hemoglobin 8.2 g/dL (14.0-18.0); Immature Granulocytes # (auto) 0.08 K/uL (0.00-0.02); Immature Granulocytes % (auto) 0.6 %; Lymphocytes # (auto) 0.43 K/uL (1.2-3.4); Lymphocytes % (auto) 3.2 %; Mean Corpuscular Volume 87.6 fL (80-100); Mean Platelet Volume 10.4 fL (7.4-10.4); Monocytes # (auto) 1.58 K/uL (0.11-0.59); Monocytes % (auto) 11.8 %; Neutrophils # (auto) 11.33 K/uL (1.4-6.5); Neutrophils % (auto) 84.4 %; Nucleated RBC # (auto) 0.02 K/uL (0-0); Nucleated RBC % (auto) 0.1 %; Platelet Count 142 K/uL (130-400); RDW Standard Deviation 53.2 fL (36.4-46.3); Red Blood Count 2.82 M/uL (4.7-6.1); White Blood Count 13.42 K/uL (4.8-10.8)
[2019-03-07 08:01] LABS: Mean Corpuscular Hgb Conc 33.2 g/dL (32-36)
[2019-03-07] MEDS: predniSONE 20 MG TAB PO SCH (08:05)
[2019-03-07] MEDS: DOCUSATE SODIUM 100 MG CAP PO SCH ×2 (08:05→20:37)
[2019-03-07] MEDS: PANTOprazole 40 MG TAB PO SCH (08:05)
[2019-03-07] MEDS: AMLODIPINE BESYLATE 5 MG TAB PO SCH ×2 (08:05→20:35)
[2019-03-07] MEDS: TORSEMIDE 100 MG TAB PO SCH ×2 (08:05→16:40)
[2019-03-07] MEDS: CARVEDILOL 12.5 MG TAB PO SCH ×2 (08:05→20:35)
[2019-03-07] MEDS: ISOSORBIDE MONO EXTENDED REL 60 MG TABCR PO SCH (08:05)
[2019-03-07] MEDS: LISINOPRIL 10 MG TAB PO SCH (08:06)
[2019-03-07] MEDS: LIDOCAINE 5% 1 PATCH TD SCH (08:06)
[2019-03-07 08:21] LABS: INR 1.4 (0.9-1.1); Partial Thromboplastin Ratio 1.8
[2019-03-07 08:37] LABS: Partial Thromboplastin Time 48.3 Seconds (21.0-31.0)
[2019-03-07 08:44] LABS: Calcium 7.7 mg/dl (8.5-10.1); Creatinine Clr Calc Pharmacy 10.2 ml/min; Est GFR (African American) 11.8; Est GFR (Non-African American) 10.2
[2019-03-07] MEDS: INSULIN ASPART 100 UNITS/ML 3 ML PEN SC SCH ×4 (08:52→20:45)
[2019-03-07] MEDS: INSULIN GLARGINE SOLOSTAR 100 UNITS/ML 3 ML PEN SC SCH (08:53)
[2019-03-07] MEDS: Heparin Adult LOW DOSE Wt-Based Dextrose 5% 25,000 units/500 mL IV SCH (11:12)
--- NOTE | 2019-03-07 15:20 | Hospitalist Progress Note ---
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 Has numerous bony mets, adrenal mets, etc. With abnormal chest x-ray with fluid and opacities on the right-along with hypo natremia, could be small cell lung cancer Appreciate hematology/oncology consultation-still awaiting results from pathology Appreciate radiation oncology consultation-again, awaiting results from [facility] and then will likely proceed with radiation therapy - For back/bony pain - had some sedation/confusion with early opioids. Now seems to be tolerating p.o. hydrocodone and IV Dilaudid was discontinued -Continue hydrocodone to 1 tablet p.o. every 8 hours as needed - Continue Tylenol, steroids and continue to taper down by 10 mg every 2 days- continue 40 mg dose for tomorrow - Underwent bilateral hip pinning with Dr. Tijerina on 03/02. Tolerated the procedure well. Working with PT/OT minimally at this point with dialysis as an interruption; Plan for rehab. Path pending on cancer diagnosis. -will need outpatient follow-up with hematology/oncology and Rad Onc after discharge (2) Anemia in chronic kidney disease, on chronic dialysis: Baseline appears to be ~8. - On 03/02, he was at baseline. - On 03/03 (after hip surgery), was down to 6.5, but hemodynamically stable. He has antibodies and needs blood from [place]. Two units were sent on 03/02. - Transfused 1 unit PRBCs on 03/03. Rechecked on 03/05 with 7.0. - Received 1 additional unit with HD on 03/05. hgb-today is improved at 8.2 -Follow CBC in the morning (3) DVT of upper extremity (deep vein thrombosis): Possible left subclavian vein DVT seen on LUE Doppler on 02/24 done for left arm swelling. Suspect due to advanced cancer. -Remains on heparin drip for bridging Patient refused warfarin on 03/06-educated patient his on importance of taking Coumadin-they now understand why he is on -[employer] Dr. Chu - Feels warfarin is a better option than DOAC given his ESRD. On warfarin 2.5mg daily. - Trend INRs-today is 1.4 and trending upward (4) Acute respiratory failure with hypoxia: Had episode earlier in the hospitalization, which resolved. O2 was weaned off. Likely multifactorial - right-sided pneumonia, effusions, & pulmonary edema. - On 02/27, had another occurrence. More shortness of breath as the day progressed. Likely pulmonary edema as he has been on a heparin gtt for his LUE DVT. - Ordered BiPap, nebs, and IV steroids to treat pulmonary edema and any possible reactive airway disease. - Underwent ultrafiltrate on 02/27 & HD on 02/28. Significantly improved. -Currently he is still doing very well. Remains on room air with adequate oxygenation. (5) Pneumonia involving right lung: Clinically improved/resolved. - Completed full course of IV/PO abx for 7 days. - Procalcitonin checked on 02/27 for increased shortness of breath and was negative (0.26). He very well could have an underlying lung cancer-awaiting pathology from bone biopsies and if negative, would pursue thoracentesis and possible lung biopsy (6) Hyponatremia: 2nd to ESRD versus SIADH from small cell lung cancer. Fluctuating depending on volume status. Sodium today is at 129 - Trend BMPs (7) ESRD on hemodialysis: HD //Wed. - Appreciate [facility]ph[facility] assistance. - Just recently initiated HD about 3-4 weeks ago in [place]. Has a right-sided tunneled IJ catheter in place - requesting changing outpatient dialysis to a location in [place] as the [facility] in [place] is over an hour away from their home-Case management is assisting with this (8) S/P AVR (aortic valve replacement): History of such. Bioprosthetic. (9) Bilateral pleural effusion: Could be transudative from ESRD and hypoalbuminemia or exudative from cancer or pneumonia. - CXR on 02/27 showed stable to mildly worse right effusion. - Respiratory status improved with HD - Monitoring for now. (10) Hypertension: Blood pressures were previously high at times and now are normal - Cont usual outpatient meds: Hydralazine 50mg TID, amlodipine 5mg twice daily, Imdur 60mg - On 03/01, added lisinopril 10mg. Given his ESRD, hyperkalemia should not be a problem as he will get his K+ removed from dialysis. -Follow blood pressures and decrease or discontinue meds as needed (11) CAD (coronary artery disease): S/p CABG in the past. No ischemic sx's at this time. - Continue statin, beta-oksana, Imdur. - Added lisinopril on 03/01 as above - Held ASA for procedure on 03/02. We will hold off on restarting as will now be on Coumadin and is having some thrombocytopenia (12) GERD (gastroesophageal reflux disease): PPI. (13) Ileus: Resolved by 03/01. (14) DVT prophylaxis: Heparin drip transitioning to warfarin Disposition-remain hospitalized while awaiting pathology result Needs rehab placement-there is no bed available at their first choice of [facility]-referrals to other places have been made and now possibly awaiting transition to a new outpatient dialysis place as well Subjective Patient had dialysis today and feels very fatigued since then. He did eat a full breakfast but not much for lunch. He was unable to work with PT today as he was at dialysis when they came by. He has not taken any pain medicine at all today but feels he is ready to take a pain pill now. Denies shortness of breath or chest pain. Review of Systems Review of Systems: All systems reviewed & are unremarkable except as noted in HPI & below Physical Exam Constitutional: + thin and + frail appearing; no acute distress Eyes: PERRL, conjunctivae normal, anicteric sclerae Neck: trachea midline, no thyromegaly Respiratory: normal respiratory effort; no labored breathing Auscultation: + diminished lung sounds (In the right base) and + wheezes (A few scattered expiratory wheezes); no crackles Cardiovascular: RRR, no murmur, no edema Gastrointestinal (Abdomen): normal bowel sounds, soft, nontender, no hepatosplenomegaly Musculoskeletal: Extremities: + extremities abnormal to inspection (Bilateral hips with dressings clean dry and intact with keysha in place in the distal lateral thigh), no cyanosis and no clubbing Skin: + ecchymosis (With hematomas around the bilateral hips, no erythema) Neurologic: awake; no focal motor deficits Psychiatric: Orientation: alert, oriented to person, oriented to place and cooperative Results & Data Vital Signs (Past 12 Hours) Vital Signs Temp Pulse Pulse Pulse Resp BP BP 03/07/19 13:15 73 138/67 03/07/19 12:47 36.9 C 57 L 112/59 L 03/07/19 12:20 61 112/59 L 03/07/19 12:00 65 108/55 L 03/07/19 11:40 63 106/59 L 03/07/19 11:23 64 86/54 L 03/07/19 11:02 68 97/51 L 03/07/19 10:40 64 95/52 L 03/07/19 09:52 64 95/46 L 03/07/19 09:45 67 86/48 L 03/07/19 09:42 65/35 L 03/07/19 09:40 64 72/39 L 03/07/19 09:20 66 118/47 L 03/07/19 09:00 36.9 C 66 03/07/19 07:40 37.2 C 61 15 142/62 H Pulse Ox 03/07/19 13:15 03/07/19 12:47 03/07/19 12:20 03/07/19 12:00 03/07/19 11:40 03/07/19 11:23 03/07/19 11:02 03/07/19 10:40 03/07/19 09:52 03/07/19 09:45 03/07/19 09:42 03/07/19 09:40 03/07/19 09:20 03/07/19 09:00 03/07/19 07:40 97 Laboratory Results 03/07/19 03/07/19 03/07/19 Range/Units 13:20 08:17 07:30 WBC (4.8-10.8) K/uL RBC (4.7-6.1) M/uL Hgb (14.0-18.0) g/dL Hct (42-52) % MCV (80-100) fL MCH (25-34) pg MCHC (32-36) g/dL RDW Std Deviation (36.4-46.3) fL RDW Coeff of Fredis (11.5-14.5) % Plt Count (130-400) K/uL MPV (7.4-10.4) fL Immature Gran % (Auto) % Neut % (Auto) % Lymph % (Auto) % Ward % (Auto) % Eos % (Auto) % Baso % (Auto) % Immature Gran # (Auto) (0.00-0.02) K/uL Neut # (Auto) (1.4-6.5) K/uL Lymph # (Auto) (1.2-3.4) K/uL Ward # (Auto) (0.11-0.59) K/uL Eos # (Auto) (0-0.5) K/uL Baso # (Auto) (0-0.2) K/uL Absolute Nucleated RBC (0-0) K/uL Nucleated RBC % (auto) % PT (9.0-12.0) Seconds INR (0.9-1.1) APTT (21.0-31.0) Seconds PTT Ratio Sodium 129 L (136-145) mmol/L Potassium 5.0 D (3.5-5.1) mmol/L Chloride 91 L (98-107) mmol/L Carbon Dioxide 24 (21-32) mmol/L Anion Gap 14.0 H (3-11) BUN 89 H D (7-18) mg/dl Creatinine 5.05 H* D (0.6-1.4) mg/dl Est Cr Clr Drug Dosing 10.2 ml/min Est GFR ( Amer) 11.8 Est GFR (Non-Af Amer) 10.2 BUN/Creatinine Ratio 18.0 (10-20) Glucose 139 H (70-99) mg/dl POC Glucose 150 H 179 H (70-99) Calcium 7.7 L (8.5-10.1) mg/dl 03/07/19 03/07/19 03/06/19 Range/Units 07:30 07:30 20:45 WBC 13.42 H (4.8-10.8) K/uL RBC 2.82 L (4.7-6.1) M/uL Hgb 8.2 L (14.0-18.0) g/dL Hct 24.7 L (42-52) % MCV 87.6 (80-100) fL MCH 29.1 (25-34) pg MCHC 33.2 (32-36) g/dL RDW Std Deviation 53.2 H (36.4-46.3) fL RDW Coeff of Fredis 17.0 H (11.5-14.5) % Plt Count 142 (130-400) K/uL MPV 10.4 (7.4-10.4) fL Immature Gran % (Auto) 0.6 % Neut % (Auto) 84.4 % Lymph % (Auto) 3.2 % Ward % (Auto) 11.8 % Eos % (Auto) 0.0 % Baso % (Auto) 0.0 % Immature Gran # (Auto) 0.08 H (0.00-0.02) K/uL Neut # (Auto) 11.33 H (1.4-6.5) K/uL Lymph # (Auto) 0.43 L (1.2-3.4) K/uL Ward # (Auto) 1.58 H (0.11-0.59) K/uL Eos # (Auto) 0.00 (0-0.5) K/uL Baso # (Auto) 0.00 (0-0.2) K/uL Absolute Nucleated RBC 0.02 H (0-0) K/uL Nucleated RBC % (auto) 0.1 % PT 14.0 H (9.0-12.0) Seconds INR 1.4 H (0.9-1.1) APTT 48.3 H* (21.0-31.0) Seconds PTT Ratio 1.8 Sodium (136-145) mmol/L Potassium (3.5-5.1) mmol/L Chloride (98-107) mmol/L Carbon Dioxide (21-32) mmol/L Anion Gap (3-11) BUN (7-18) mg/dl Creatinine (0.6-1.4) mg/dl Est Cr Clr Drug Dosing ml/min Est GFR ( Amer) Est GFR (Non-Af Amer) BUN/Creatinine Ratio (10-20) Glucose (70-99) mg/dl POC Glucose 180 H (70-99) Calcium (8.5-10.1) mg/dl 03/06/19 Range/Units 17:34 WBC (4.8-10.8) K/uL RBC (4.7-6.1) M/uL Hgb (14.0-18.0) g/dL Hct (42-52) % MCV (80-100) fL MCH (25-34) pg MCHC (32-36) g/dL RDW Std Deviation (36.4-46.3) fL RDW Coeff of Fredis (11.5-14.5) % Plt Count (130-400) K/uL MPV (7.4-10.4) fL Immature Gran % (Auto) % Neut % (Auto) % Lymph % (Auto) % Ward % (Auto) % Eos % (Auto) % Baso % (Auto) % Immature Gran # (Auto) (0.00-0.02) K/uL Neut # (Auto) (1.4-6.5) K/uL Lymph # (Auto) (1.2-3.4) K/uL Ward # (Auto) (0.11-0.59) K/uL Eos # (Auto) (0-0.5) K/uL Baso # (Auto) (0-0.2) K/uL Absolute Nucleated RBC (0-0) K/uL Nucleated RBC % (auto) % PT (9.0-12.0) Seconds INR (0.9-1.1) APTT (21.0-31.0) Seconds PTT Ratio Sodium (136-145) mmol/L Potassium (3.5-5.1) mmol/L Chloride (98-107) mmol/L Carbon Dioxide (21-32) mmol/L Anion Gap (3-11) BUN (7-18) mg/dl Creatinine (0.6-1.4) mg/dl Est Cr Clr Drug Dosing ml/min Est GFR ( Amer) Est GFR (Non-Af Amer) BUN/Creatinine Ratio (10-20) Glucose (70-99) mg/dl POC Glucose 195 H (70-99) Calcium (8.5-10.1) mg/dl PG Care Time/CCT Total # of Minutes Spent Total Time Spent with Patient: Total time spent is greater than 50% in coordination of care (as documented) at patient's floor/unit and/or counseling patient: (1) Pneumonia involving right lung Lung location: unspecified part of lung Pneumonia type: due to unspecified organism Qualified Code(s): J18.9 - Pneumonia, unspecified organism (2) CAD (coronary artery disease) Associated angina: without angina Coronary Disease-Associated Artery/Lesion type: [place] artery [place] vs. transplanted heart: [place] heart Qualified Code(s): I25.10 - Atherosclerotic heart disease of [place] coronary artery without angina pectoris (3) DVT of upper extremity (deep vein thrombosis) Affected thrombotic vein of extremity: unspecified vein of extremity Chronicity: acute Laterality: left Qualified Code(s): I82.622 - Acute embolism and thrombosis of deep veins of left upper extremity (4) GERD (gastroesophageal reflux disease) Esophagitis presence: without esophagitis Qualified Code(s): K21.9 - Gastro- esophageal reflux disease without esophagitis (5) Hypertension Hypertension type: essential hypertension Qualified Code(s): I10 - Essential (primary) hypertension
[2019-03-07] MEDS: WARFARIN SOD 2.5 MG TAB PO SCH (15:23)
--- NOTE | 2019-03-07 16:34 | Palliative Care Progress Note ---
Date of Service March 07, 2019 Assessment & Plan (1) Palliative care encounter: This is a 78 year old male who was transferred to the [facility] from [facility] on 02/19 for a second opinion/evaluation for etiology of his metastatic disease. Diagnostic imaging was performed at [facility]; however, studies were inconclusive. Discussion was held indicating possible bone involvement and the family decided to transfer care to [facility] for further investigation. The patient was inpatient at [place] for over 6 weeks which was the first time that he had heard the possibility of a cancer diagnosis. Additional PMH includes CAD, HTN, HLD, ESRD HD dependent (T/R/Sat), GERD, pleural effusions, and AVR. Patient has been evaluated by Dr. Weeks with Heme/Onc and Orthopedic surgery was consulted ,Dr. Tijerina saw patient was able to perform B/L femur head nail fixation as well as bilateral biopsies on 03/02-to stabilize both hips with hopes of preventing a pathological fracture. Patient tolerated surgery well-we will need clearance from orthopedics regarding weightbearing status. Patient's pain is well controlled at this time with PRN [place]-expect pain to increase once patient is more mobile. Patient was found to have a left subclavian DVT-is on heparin-Coumadin held for surgery-medical team to restart. 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 Patient did require 1 PRN [place] in the past 24 hours. Patient is status post bilateral hip pinning-patient did report severe pain when attempting to stand yesterday, patient did sit on the side of the bed today with minimal discomfort. reports poor p.o. intake, although patient is taking p.o. well at some meals. Pathology from bilateral bone lesion biopsy-still pending. Review of Systems Review of Systems: Patient denies fever, chills, chest pain, increased shortness of breath, or abdominal pain Physical Exam Physical Exam: PE: Awake alert, no acute distress HEENT: EOMI, hearing within normal limits Respirations: Unlabored, clear breath sounds CV: Regular rate Abdomen: Soft, nontender Extremities: Sensation intact Results & Data Vital Signs (Past 12 Hours) Vital Signs Temp Pulse Pulse Pulse Resp BP BP 03/07/19 15:53 99.1 F 69 17 129/59 L 03/07/19 13:15 73 138/67 03/07/19 12:47 98.4 F 57 L 112/59 L 03/07/19 12:20 61 112/59 L 03/07/19 12:00 65 108/55 L 03/07/19 11:40 63 106/59 L 03/07/19 11:23 64 86/54 L 03/07/19 11:02 68 97/51 L 03/07/19 10:40 64 95/52 L 03/07/19 09:52 64 95/46 L 03/07/19 09:45 67 86/48 L 03/07/19 09:42 65/35 L 03/07/19 09:40 64 72/39 L 03/07/19 09:20 66 118/47 L 03/07/19 09:00 98.4 F 66 03/07/19 07:40 99.0 F 61 15 142/62 H Pulse Ox 03/07/19 15:53 96 03/07/19 13:15 03/07/19 12:47 03/07/19 12:20 03/07/19 12:00 03/07/19 11:40 03/07/19 11:23 03/07/19 11:02 03/07/19 10:40 03/07/19 09:52 03/07/19 09:45 03/07/19 09:42 03/07/19 09:40 03/07/19 09:20 03/07/19 09:00 03/07/19 07:40 97 Time Spent Attending Total time spent 25 minutes with greater than 50% of the time at bedside assessing patient's pain as well as discussing goals of care (1) DVT of upper extremity (deep vein thrombosis) Affected thrombotic vein of extremity: unspecified vein of extremity Chronicity: acute Laterality: left Qualified Code(s): I82.622 - Acute embolism and thrombosis of deep veins of left upper extremity
[2019-03-07] MEDS ORDERED: HYDROCODONE/ACETAMOPHEN 5/325MG TAB PO STA ×2 (17:41→19:30)
[2019-03-07] MEDS ORDERED: HYDROCODONE/ACETAMOPHEN 5/325MG TAB PO ONE (17:46)
[2019-03-07] MEDS: ATORVASTATIN 40 MG TAB PO SCH (20:37)
--- NOTE | 2019-03-07 23:34 | Dialysis Progress Note ---
Date of Service March 07, 2019 Assessment & Plan (1) ESRD on hemodialysis: Patient with ESRD on dialysis Wednesday. He has a right tunneled IJ catheter. CVC initially blocked, improved with cathflo on both 02/23 and 02/25; no issues w/ catheter on HD past few txs; he did need urgent HD on 02/27; had routine tx on 02/28; had another routine tx on 03/01 to optimize repsiratory issues >for 03/02 procedure > had HD 2 hrs >had HD today routine tx; tolerating well; next HD tentatively 03/09 or as clinical status dictates (2) Metastatic disease: Patient with metastatic bone disease of unknown primary. CT abdomen revealing osteolytic bone lesions. Patient is frustrated with the multiple diagnostic tests without finding the primary. He is now DNR. He wishes to continue dialysis and work-up for his cancer. >> s/p 03/03 bone bx; path pending (3) Hypertension: bp better today. cont pain control and current bp meds and frequent hd -- (4) Anemia in chronic kidney disease, on chronic dialysis: Hemoglobin is below target. Unable to give epogen due to active cancer. He probably does not need daily blood draws. Monitor and transfuse as needed-for pRBC again today on heparin gtt currently (5) Pneumonia involving right lung: Patient is on antibiotics per primary team. Renally dose medications for dialysis. he is DNI Subjective no sob, no N, ongoing decreased po; no f/c; no chest pain/palpitations; no uncontrolled muscskel pain Review of Systems Review of Systems: All systems reviewed & are unremarkable except as noted in HPI & below Physical Exam Constitutional: well developed, + frail appearing and + malnourished on RA Eyes: EOM intact bilaterally ENMT: Ears: no external ear abnormality Nose: no external nose abnormality Mouth: + dry oral mucous membranes Neck: no nuchal rigidity Respiratory: Auscultation: + diminished lung sounds Cardiovascular: Rate/Rhythm: regular rate and regular rhythm Extremities: no edema Gastrointestinal (Abdomen): Inspection/Auscultation: + abdomen distended and normal bowel sounds Percussion/Palpation: abdomen soft; abdomen nontender Musculoskeletal: Extremities: strength 5/5 throughout Skin: no rashes, warm and dry Neurologic: sarkar, fluent speech Psychiatric: Orientation: alert, oriented to person and oriented to place Affect: + flat affect Insight: + limited insight Results & Data Vital Signs (Past 12 Hours) Vital Signs Temp Pulse Pulse Pulse Resp BP BP 03/07/19 20:32 70 113/59 L 03/07/19 18:49 73 129/59 L 03/07/19 15:53 37.3 C 69 17 129/59 L 03/07/19 13:15 73 138/67 03/07/19 12:47 36.9 C 57 L 112/59 L 03/07/19 12:20 61 112/59 L 03/07/19 12:00 65 108/55 L 03/07/19 11:40 63 106/59 L Pulse Ox 03/07/19 20:32 03/07/19 18:49 03/07/19 15:53 96 03/07/19 13:15 03/07/19 12:47 03/07/19 12:20 03/07/19 12:00 03/07/19 11:40 Laboratory Results Abnormal lab results 03/07/19 03/07/19 03/07/19 Range/Units 07:30 07:30 07:30 WBC 13.42 H (4.8-10.8) K/uL RBC 2.82 L (4.7-6.1) M/uL Hgb 8.2 L (14.0-18.0) g/dL Hct 24.7 L (42-52) % RDW Std Deviation 53.2 H (36.4-46.3) fL RDW Coeff of Fredis 17.0 H (11.5-14.5) % Immature Gran # (Auto) 0.08 H (0.00-0.02) K/uL Neut # (Auto) 11.33 H (1.4-6.5) K/uL Lymph # (Auto) 0.43 L (1.2-3.4) K/uL Wilcox # (Auto) 1.58 H (0.11-0.59) K/uL Absolute Nucleated RBC 0.02 H (0-0) K/uL PT 14.0 H (9.0-12.0) Seconds INR 1.4 H (0.9-1.1) APTT 48.3 H* (21.0-31.0) Seconds Sodium 129 L (136-145) mmol/L Chloride 91 L (98-107) mmol/L Anion Gap 14.0 H (3-11) BUN 89 H D (7-18) mg/dl Creatinine 5.05 H* D (0.6-1.4) mg/dl Glucose 139 H (70-99) mg/dl POC Glucose (70-99) Calcium 7.7 L (8.5-10.1) mg/dl 03/07/19 03/07/19 03/07/19 Range/Units 08:17 13:20 17:22 WBC (4.8-10.8) K/uL RBC (4.7-6.1) M/uL Hgb (14.0-18.0) g/dL Hct (42-52) % RDW Std Deviation (36.4-46.3) fL RDW Coeff of Fredis (11.5-14.5) % Immature Gran # (Auto) (0.00-0.02) K/uL Neut # (Auto) (1.4-6.5) K/uL Lymph # (Auto) (1.2-3.4) K/uL Wilcox # (Auto) (0.11-0.59) K/uL Absolute Nucleated RBC (0-0) K/uL PT (9.0-12.0) Seconds INR (0.9-1.1) APTT (21.0-31.0) Seconds Sodium (136-145) mmol/L Chloride (98-107) mmol/L Anion Gap (3-11) BUN (7-18) mg/dl Creatinine (0.6-1.4) mg/dl Glucose (70-99) mg/dl POC Glucose 179 H 150 H 192 H (70-99) Calcium (8.5-10.1) mg/dl 03/07/19 Range/Units 20:42 WBC (4.8-10.8) K/uL RBC (4.7-6.1) M/uL Hgb (14.0-18.0) g/dL Hct (42-52) % RDW Std Deviation (36.4-46.3) fL RDW Coeff of Fredis (11.5-14.5) % Immature Gran # (Auto) (0.00-0.02) K/uL Neut # (Auto) (1.4-6.5) K/uL Lymph # (Auto) (1.2-3.4) K/uL Wilcox # (Auto) (0.11-0.59) K/uL Absolute Nucleated RBC (0-0) K/uL PT (9.0-12.0) Seconds INR (0.9-1.1) APTT (21.0-31.0) Seconds Sodium (136-145) mmol/L Chloride (98-107) mmol/L Anion Gap (3-11) BUN (7-18) mg/dl Creatinine (0.6-1.4) mg/dl Glucose (70-99) mg/dl POC Glucose 169 H (70-99) Calcium (8.5-10.1) mg/dl (1) Hypertension Hypertension type: essential hypertension Qualified Code(s): I10 - Essential (primary) hypertension (2) Pneumonia involving right lung Pneumonia type: due to unspecified organism Lung location: unspecified part of lung Qualified Code(s): J18.9 - Pneumonia, unspecified organism
[2019-03-08] MEDS: Heparin Adult LOW DOSE Wt-Based Dextrose 5% 25,000 units/500 mL IV SCH (05:24)
[2019-03-08 06:56] LABS: Hematocrit (blood only) 25.3 % (42-52); Hemoglobin 8.4 g/dL (14.0-18.0); Immature Granulocytes # (auto) 0.05 K/uL (0.00-0.02); Immature Granulocytes % (auto) 0.5 %; Lymphocytes # (auto) 0.53 K/uL (1.2-3.4); Lymphocytes % (auto) 4.8 %; Mean Corpuscular Hgb Conc 33.2 g/dL (32-36); Mean Corpuscular Volume 86.6 fL (80-100); Mean Platelet Volume 10.3 fL (7.4-10.4); Monocytes # (auto) 1.22 K/uL (0.11-0.59); Neutrophils # (auto) 9.26 K/uL (1.4-6.5); Neutrophils % (auto) 83.7 %; Platelet Count 130 K/uL (130-400); RDW Coefficient of Variation 16.9 % (11.5-14.5); RDW Standard Deviation 52.3 fL (36.4-46.3); Red Blood Count 2.92 M/uL (4.7-6.1); White Blood Count 11.06 K/uL (4.8-10.8)
[2019-03-08 07:26] LABS: Partial Thromboplastin Ratio 1.9
[2019-03-08 07:29] LABS: Calcium 7.4 mg/dl (8.5-10.1); Creatinine Clr Calc Pharmacy 16.6 ml/min; Est GFR (African American) 19.3; Est GFR (Non-African American) 16.6; Potassium 4.6 mmol/L (3.5-5.1)
[2019-03-08] MEDS: DOCUSATE SODIUM 100 MG CAP PO SCH ×2 (08:54→21:34)
[2019-03-08] MEDS: ISOSORBIDE MONO EXTENDED REL 60 MG TABCR PO SCH (08:54)
[2019-03-08] MEDS: predniSONE 20 MG TAB PO SCH (08:55)
[2019-03-08] MEDS: CARVEDILOL 12.5 MG TAB PO SCH ×2 (08:55→21:28)
[2019-03-08] MEDS: AMLODIPINE BESYLATE 5 MG TAB PO SCH ×2 (08:55→21:29)
[2019-03-08] MEDS: PANTOprazole 40 MG TAB PO SCH (08:55)
[2019-03-08] MEDS: TORSEMIDE 100 MG TAB PO SCH ×2 (08:56→18:18)
[2019-03-08] MEDS: LIDOCAINE 5% 1 PATCH TD SCH (08:56)
[2019-03-08] MEDS: INSULIN GLARGINE SOLOSTAR 100 UNITS/ML 3 ML PEN SC SCH (08:57)
[2019-03-08] MEDS: LISINOPRIL 10 MG TAB PO SCH (08:57)
[2019-03-08] MEDS: INSULIN ASPART 100 UNITS/ML 3 ML PEN SC SCH ×4 (08:58→21:30)
[2019-03-08] MEDS: HYDROCODONE/ACETAMOPHEN 5/325MG TAB PO PRN ×3 (10:01→23:35)
[2019-03-08 10:36] LABS: INR 1.3 (0.9-1.1); Prothrombin Time 13.1 Seconds (9.0-12.0)
[2019-03-08] MEDS: ACETAMINOPHEN 500 MG TAB PO SCH ×2 (13:37→21:27)
--- NOTE | 2019-03-08 13:51 | Palliative Care Progress Note ---
Date of Service March 08, 2019 Assessment & Plan (1) Palliative care encounter: This is a 78 year old male who was transferred to the [facility] from [facility] on 02/19 for a second opinion/evaluation for etiology of his metastatic disease. Diagnostic imaging was performed at [facility]; however, studies were inconclusive. Discussion was held indicating possible bone involvement and the family decided to transfer care to [facility] for further investigation. The patient was inpatient at [place] for over 6 weeks which was the first time that he had heard the possibility of a cancer diagnosis. Additional PMH includes CAD, HTN, HLD, ESRD HD dependent (T/R/Sat), GERD, pleural effusions, and AVR. Patient has been evaluated by Dr. Weeks with Heme/Onc and Orthopedic surgery was consulted ,Dr. Tijerina saw patient - was able to perform B/L femur head nail fixation as well as bilateral biopsies on 03/02-to stabilize both hips with hopes of preventing a pathological fracture. Patient tolerated surgery well- able to weight-bear as tolerated. Patient does not have pain at rest or with sitting, has severe pain with standing. Will start high-dose Tylenol 3 times daily, and twice daily tramadol-trying to avoid stronger narcotics due to altered mental status. If ineffective could consider starting a low-dose fentanyl patch. Patient's CODE STATUS is DNR -Cancer related pain-very little pain at rest in bed-patient did receive one PRN [place] this a.m. prior to bearing weight -pain control was not adequate. -Dyspnea-improved after dialysis -Metastatic disease-primary unknown-biopsies obtained-path pending -Left upper extremity DVT-on heparin drip, -Coumadin restarted -CODE STATUS-DNR Will continue to follow and assist with postop pain management as well as assist with medical decision making once biopsy results are known. Plan is for rehab when bed available. 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 Patient denies pain at rest-he describes severe pain when bearing weight-patient was given a PRN [place] approximately 20 minutes prior to trying to bear weight. Patient tolerate sitting on side of bed without discomfort. Discussed pain management with attending physician-patient very sensitive to opioids. We will schedule Tylenol at 1000 mg 3 times daily and tramadol 50 mg twice daily-renal dosing. If pain is not well controlled on this regime can consider a fentanyl patch-can start at 12 mcg, would alert patient and to initial sedation when starting fentanyl. Plan is to transfer to skilled facility for rehab. Pathology is still pending on biopsies taken intraoperatively. Review of Systems Review of Systems: Patient denies fever, chills, chest pain, increased shortness of breath, or abdominal pain Physical Exam Physical Exam: PE: No acute distress, lying in bed HEENT: EOMI, hearing within normal limits CV: Regular rate Respiratory: Unlabored Abdomen: Soft, nontender Extremities: No edema Neuro: Alert and oriented Results & Data Vital Signs (Past 12 Hours) Vital Signs Temp Pulse Resp BP Pulse Ox 03/08/19 13:26 62 132/78 03/08/19 07:00 97.5 F L 62 16 149/66 H 98 Time Spent Attending Total time spent 35 minutes with greater than 50% of the time spent at bedside evaluating pain control as well as discussing treatment options for pain control with patient and . (1) DVT of upper extremity (deep vein thrombosis) Affected thrombotic vein of extremity: unspecified vein of extremity Chronicity: acute Laterality: left Qualified Code(s): I82.622 - Acute embolism and thrombosis of deep veins of left upper extremity
--- NOTE | 2019-03-08 14:28 | Hospitalist Progress Note ---
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 Has numerous bony mets, adrenal mets, etc. With abnormal chest x-ray with fluid and opacities on the right-along with hypo natremia, initially thought to be small cell lung cancer Appreciate hematology/oncology consultation-still awaiting results from pathology-pathologist reports so far he is ruled out carcinoma, melanoma, and small cell. It is possible it could be some sort of adrenocortical tumor or sarcoma, but further studies are still pending and may still take some time to get back Appreciate radiation oncology consultation-again, awaiting results from pathology and then will likely proceed with palliative radiation therapy - For back/bony pain - had some sedation/confusion with early opioids. Now seems to be tolerating p.o. hydrocodone -Will add standing dose of tramadol 50 mg p.o. twice daily -Add standing dose of Tylenol 1000 mg p.o. every 8 hours -Continue hydrocodone 5/325 mg p.o. every 4 hours as needed breakthrough pain -Continue to taper down prednisone by 10 mg every 2 days-decrease to 30 mg dose for tomorrow - Underwent bilateral hip pinning with Dr. Tijerina on 03/02. Tolerated the procedure well. Working with PT/OT minimally at this point secondary to severe pain -will need outpatient follow-up with hematology/oncology and Rad Onc after discharge, but most likely there will be no chemotherapy as an option for treatment given his poor performance status and need for renal dialysis (2) Anemia in chronic kidney disease, on chronic dialysis: Baseline appears to be ~8. - On 03/02, he was at baseline. - On 03/03 (after hip surgery), was down to 6.5, but hemodynamically stable. He has antibodies and needs blood from [facility]. Two units were sent on 03/02. - Transfused 1 unit PRBCs on 03/03. Rechecked on 03/05 with 7.0. - Received 1 additional unit with HD on 03/05. hgb-today is stable to improved at 8.4 -Follow CBC again in the morning (3) DVT of upper extremity (deep vein thrombosis): Possible left subclavian vein DVT seen on LUE Doppler on 02/24 done for left arm swelling. Suspect due to advanced cancer. -Remains on heparin drip for bridging Patient refused warfarin on 03/06-educated patient his on importance of taking Coumadin-they now understand why he is on this medication -Digital Project Manager Dr. Chu - Feels warfarin is a better option than DOAC given his ESRD. -Slow increase in INR-increase Coumadin to 5 mg daily on 03/08 -Follow INR-is down to 1.3 today (4) Acute respiratory failure with hypoxia: Had episode earlier in the hospitalization, which resolved. O2 was weaned off. Likely multifactorial - right-sided pneumonia, effusions, & pulmonary edema. - On 02/27, had another occurrence. More shortness of breath as the day progressed. Likely pulmonary edema as he has been on a heparin gtt for his LUE DVT. - Ordered BiPap, nebs, and IV steroids to treat pulmonary edema and any possible reactive airway disease. - Underwent ultrafiltrate on 02/27 & HD on 02/28. Significantly improved. -Currently he is still doing very well from the standpoint. Remains on room air with adequate oxygenation. (5) Pneumonia involving right lung: Clinically improved/resolved. - Completed full course of IV/PO abx for 7 days. - Procalcitonin checked on 02/27 for increased shortness of breath and was negative (0.26). Based on preliminary pathology results, he does not have a small cell, squamous cell, or adenocarcinoma making the nodules in the lung more likely to be metastases rather than a primary site of malignancy (6) Hyponatremia: 2nd to ESRD versus SIADH from cancer or pain. Fluctuating depending on volume status. Sodium today is at 126 - Trend BMPs (7) ESRD on hemodialysis: HD //Wed. - Appreciate [facility]ph[facility] assistance. - Just recently initiated HD about 6 weeks ago in [place]. Has a right-sided tunneled IJ catheter in place - requesting changing outpatient dialysis to a location in [place] as the [facility] in [place] is over an hour away from their home-Case management is assisting with this and this may take up to another week to accomplish -Continue inpatient hemodialysis -Continue torsemide 100 mg p.o. twice daily (8) S/P AVR (aortic valve replacement): History of such. Bioprosthetic. (9) Bilateral pleural effusion: Could be transudative from ESRD and hypoalbuminemia or exudative from cancer or pneumonia. - CXR on 02/27 showed stable to mildly worse right effusion. - Respiratory status improved with HD and remains off oxygen - Monitoring for now. (10) Hypertension: Blood pressures were previously high at times and now are normal - Cont Hydralazine 25 mg TID, amlodipine 5mg twice daily, Imdur 60mg - On 03/01, added lisinopril 10mg. Given his ESRD, hyperkalemia should not be a problem as he will get his K+ removed from dialysis. -Follow blood pressures and decrease or discontinue meds as needed (11) CAD (coronary artery disease): S/p CABG in the past. No ischemic sx's at this time. - Continue statin, beta-oksana, Imdur. - Added lisinopril on 03/01 as above - Held ASA for procedure on 03/02. We will hold off on restarting as will now be on Coumadin and is having some mild thrombocytopenia (12) GERD (gastroesophageal reflux disease): PPI. (13) Ileus: Resolved by 03/01. (14) DVT prophylaxis: Heparin drip transitioning to warfarin Disposition-remain hospitalized while awaiting rehab placement Needs rehab placement-there is no bed available at their first choice of [facility]-referrals to other places have been made and now possibly awaiting transition to a new outpatient dialysis place as well-may take up to another week In the meantime, awaiting pathology results Subjective Patient reports he still has severe pain in the bilateral hips with any movement or with standing or sitting. I discussed his pain management with palliative care and with the patient-all are in agreement to try standing dose of Tylenol along with a standing dose of tramadol and continuing hydrocodone as needed for breakthrough pain. I discussed the case with pathology-pathologist is still not able to determine what type of tumor he has in his bones despite multiple stains. I then discussed the case with oncology who recommends that most likely, the patient will be a hospice candidate as he is a very poor performance status and is on dialysis. I discussed all of the above diagnosis and prognosis with the patient and his at the bedside. The patient clearly tells me that he has made peace with the fact that he is going to soon. He does not want any aggressive further testing or treatment. He is willing to continue on dialysis at this moment, but understands that if that is causing him more suffering than good, he would want to stop. 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 He stresses that "I do not want to be a burden to my family." Review of Systems Review of Systems: All systems reviewed & are unremarkable except as noted in HPI & below Physical Exam Constitutional: + thin and + frail appearing; no acute distress Eyes: PERRL, conjunctivae normal, anicteric sclerae Neck: trachea midline, no thyromegaly Respiratory: normal respiratory effort; no labored breathing Auscultation: + diminished lung sounds (In the right base) and + wheezes (A few scattered expiratory wheezes); no crackles Cardiovascular: RRR, no murmur, no edema Gastrointestinal (Abdomen): normal bowel sounds, soft, nontender, no hepatosplenomegaly Musculoskeletal: Extremities: + extremities abnormal to inspection (Bilateral hips with dressings clean dry and intact with keysha in place in the distal lateral thigh), no cyanosis and no clubbing Skin: no rashes, warm and dry + ecchymosis (With hematomas around the bilateral hips left greater than right, no erythema) Neurologic: awake; no focal motor deficits Psychiatric: Orientation: alert, oriented to person, oriented to place and cooperative Affect: mood congruent with affect Mood: + dysphoric mood Thought Process: goal directed thought process Judgement: good judgement Results & Data Vital Signs (Past 12 Hours) Vital Signs Temp Pulse Resp BP Pulse Ox 03/08/19 13:26 62 132/78 03/08/19 07:00 36.4 C L 62 16 149/66 H 98 Laboratory Results 03/08/19 03/08/19 03/08/19 Range/Units 20:37 17:06 12:25 WBC (4.8-10.8) K/uL RBC (4.7-6.1) M/uL Hgb (14.0-18.0) g/dL Hct (42-52) % MCV (80-100) fL MCH (25-34) pg MCHC (32-36) g/dL RDW Std Deviation (36.4-46.3) fL RDW Coeff of Fredis (11.5-14.5) % Plt Count (130-400) K/uL MPV (7.4-10.4) fL Immature Gran % (Auto) % Neut % (Auto) % Lymph % (Auto) % [place] % (Auto) % Eos % (Auto) % Baso % (Auto) % Immature Gran # (Auto) (0.00-0.02) K/uL Neut # (Auto) (1.4-6.5) K/uL Lymph # (Auto) (1.2-3.4) K/uL [place] # (Auto) (0.11-0.59) K/uL Eos # (Auto) (0-0.5) K/uL Baso # (Auto) (0-0.2) K/uL PT (9.0-12.0) Seconds INR (0.9-1.1) APTT (21.0-31.0) Seconds PTT Ratio Sodium (136-145) mmol/L Potassium (3.5-5.1) mmol/L Chloride (98-107) mmol/L Carbon Dioxide (21-32) mmol/L Anion Gap (3-11) BUN (7-18) mg/dl Creatinine (0.6-1.4) mg/dl Est Cr Clr Drug Dosing ml/min Est GFR ( Amer) Est GFR (Non-Af Amer) BUN/Creatinine Ratio (10-20) Glucose (70-99) mg/dl POC Glucose 193 H 215 H 176 H (70-99) Calcium (8.5-10.1) mg/dl 03/08/19 03/08/19 03/08/19 Range/Units 08:09 06:43 06:43 WBC (4.8-10.8) K/uL RBC (4.7-6.1) M/uL Hgb (14.0-18.0) g/dL Hct (42-52) % MCV (80-100) fL MCH (25-34) pg MCHC (32-36) g/dL RDW Std Deviation (36.4-46.3) fL RDW Coeff of Fredis (11.5-14.5) % Plt Count (130-400) K/uL MPV (7.4-10.4) fL Immature Gran % (Auto) % Neut % (Auto) % Lymph % (Auto) % [place] % (Auto) % Eos % (Auto) % Baso % (Auto) % Immature Gran # (Auto) (0.00-0.02) K/uL Neut # (Auto) (1.4-6.5) K/uL Lymph # (Auto) (1.2-3.4) K/uL [place] # (Auto) (0.11-0.59) K/uL Eos # (Auto) (0-0.5) K/uL Baso # (Auto) (0-0.2) K/uL PT 13.1 H (9.0-12.0) Seconds INR 1.3 H (0.9-1.1) APTT 52.0 H* (21.0-31.0) Seconds PTT Ratio 1.9 Sodium (136-145) mmol/L Potassium (3.5-5.1) mmol/L Chloride (98-107) mmol/L Carbon Dioxide (21-32) mmol/L Anion Gap (3-11) BUN (7-18) mg/dl Creatinine (0.6-1.4) mg/dl Est Cr Clr Drug Dosing ml/min Est GFR ( Amer) Est GFR (Non-Af Amer) BUN/Creatinine Ratio (10-20) Glucose (70-99) mg/dl POC Glucose 178 H (70-99) Calcium (8.5-10.1) mg/dl 03/08/19 03/08/19 Range/Units 06:43 06:43 WBC 11.06 H (4.8-10.8) K/uL RBC 2.92 L (4.7-6.1) M/uL Hgb 8.4 L (14.0-18.0) g/dL Hct 25.3 L (42-52) % MCV 86.6 (80-100) fL MCH 28.8 (25-34) pg MCHC 33.2 (32-36) g/dL RDW Std Deviation 52.3 H (36.4-46.3) fL RDW Coeff of Fredis 16.9 H (11.5-14.5) % Plt Count 130 (130-400) K/uL MPV 10.3 (7.4-10.4) fL Immature Gran % (Auto) 0.5 % Neut % (Auto) 83.7 % Lymph % (Auto) 4.8 % [place] % (Auto) 11.0 % Eos % (Auto) 0.0 % Baso % (Auto) 0.0 % Immature Gran # (Auto) 0.05 H (0.00-0.02) K/uL Neut # (Auto) 9.26 H (1.4-6.5) K/uL Lymph # (Auto) 0.53 L (1.2-3.4) K/uL [place] # (Auto) 1.22 H (0.11-0.59) K/uL Eos # (Auto) 0.00 (0-0.5) K/uL Baso # (Auto) 0.00 (0-0.2) K/uL PT (9.0-12.0) Seconds INR (0.9-1.1) APTT (21.0-31.0) Seconds PTT Ratio Sodium 126 L (136-145) mmol/L Potassium 4.6 (3.5-5.1) mmol/L Chloride 91 L (98-107) mmol/L Carbon Dioxide 25 (21-32) mmol/L Anion Gap 10.0 (3-11) BUN 64 H (7-18) mg/dl Creatinine 3.37 H D (0.6-1.4) mg/dl Est Cr Clr Drug Dosing 16.6 ml/min Est GFR ( Amer) 19.3 Est GFR (Non-Af Amer) 16.6 BUN/Creatinine Ratio 19.0 (10-20) Glucose 165 H (70-99) mg/dl POC Glucose (70-99) Calcium 7.4 L (8.5-10.1) mg/dl PG Care Time/CCT Total # of Minutes Spent Total Time Spent with Patient: Total time spent is greater than 50% in coordination of care (as documented) at patient's floor/unit and/or counseling patient: 35 minutes (1) Pneumonia involving right lung Lung location: unspecified part of lung Pneumonia type: due to unspecified organism Qualified Code(s): J18.9 - Pneumonia, unspecified organism (2) CAD (coronary artery disease) Associated angina: without angina Coronary Disease-Associated Artery/Lesion type: [place] artery [place] vs. transplanted heart: [place] heart Qualified Code(s): I25.10 - Atherosclerotic heart disease of [place] coronary artery wit hout angina pectoris (3) DVT of upper extremity (deep vein thrombosis) Affected thrombotic vein of extremity: unspecified vein of extremity Chronicity: acute Laterality: left Qualified Code(s): I82.622 - Acute embolism and thrombosis of deep veins of left upper extremity (4) GERD (gastroesophageal reflux disease) Esophagitis presence: without esophagitis Qualified Code(s): K21.9 - Gastro- esophageal reflux disease without esophagitis (5) Hypertension Hypertension type: essential hypertension Qualified Code(s): I10 - Essential (primary) hypertension
[2019-03-08] MEDS ORDERED: WARFARIN SOD 5 MG TAB PO SCH (16:00)
[2019-03-08] MEDS: ATORVASTATIN 40 MG TAB PO SCH (21:28)
[2019-03-08] MEDS: TRAMADOL HCL 50 MG TABLET PO SCH (21:34)
[2019-03-09] MEDS ORDERED: HEPARIN SOD (PORCINE) 1000 UNIT/ML 10 ML VIAL IV ONE (06:55)
[2019-03-09] MEDS ORDERED: SODIUM CHLORIDE 0.9% 1000ML 1,000 ML IV PRN (06:55)
[2019-03-09 07:40] LABS: Hematocrit (blood only) 23.7 % (42-52); Hemoglobin 7.9 g/dL (14.0-18.0); Immature Granulocytes # (auto) 0.07 K/uL (0.00-0.02); Immature Granulocytes % (auto) 0.6 %; Lymphocytes # (auto) 0.57 K/uL (1.2-3.4); Lymphocytes % (auto) 5.1 %; Mean Corpuscular Hgb Conc 33.3 g/dL (32-36); Mean Corpuscular Volume 87.1 fL (80-100); Mean Platelet Volume 10.1 fL (7.4-10.4); Monocytes # (auto) 1.47 K/uL (0.11-0.59); Monocytes % (auto) 13.1 %; Neutrophils # (auto) 9.13 K/uL (1.4-6.5); Neutrophils % (auto) 81.2 %; Platelet Count 134 K/uL (130-400); RDW Coefficient of Variation 16.8 % (11.5-14.5); RDW Standard Deviation 52.4 fL (36.4-46.3); Red Blood Count 2.72 M/uL (4.7-6.1); White Blood Count 11.24 K/uL (4.8-10.8)
[2019-03-09 08:00] LABS: INR 1.8 (0.9-1.1); Partial Thromboplastin Ratio 2.3; Prothrombin Time 17.5 Seconds (9.0-12.0)
[2019-03-09 08:18] LABS: Partial Thromboplastin Time 62.8 Seconds (21.0-31.0)
[2019-03-09 08:27] LABS: Anisocytosis Present; BUN Creatinine Ratio 21.2 (10-20); Basophilic Stippling 1+; Calcium 7.9 mg/dl (8.5-10.1); Creatinine Clr Calc Pharmacy 12.5 ml/min; Echinocytes 1+; Est GFR (African American) 13.7; Est GFR (Non-African American) 11.8; Polychromasia 1+; Potassium 5.5 mmol/L (3.5-5.1)
[2019-03-09] MEDS: predniSONE 10 MG TABLET PO SCH (09:01)
[2019-03-09] MEDS: PANTOprazole 40 MG TAB PO SCH (09:01)
[2019-03-09] MEDS: ACETAMINOPHEN 500 MG TAB PO SCH ×3 (09:02→21:41)
[2019-03-09] MEDS: TRAMADOL HCL 50 MG TABLET PO SCH ×2 (09:02→21:09)
[2019-03-09] MEDS: LIDOCAINE 5% 1 PATCH TD SCH (09:03)
[2019-03-09] MEDS: INSULIN ASPART 100 UNITS/ML 3 ML PEN SC SCH ×4 (09:05→21:03)
[2019-03-09] MEDS: INSULIN GLARGINE SOLOSTAR 100 UNITS/ML 3 ML PEN SC SCH (09:05)
--- NOTE | 2019-03-09 09:59 | Progress Note ---
DATE: 03/09/2019 DIAGNOSES: 1. Osteolytic lesion/metastatic carcinoma of unknown primary. 2. Anemia of chronic renal insufficiency. 3. Endstage renal disease, on hemodialysis. 4. Deep venous thrombosis of the upper extremity. 5. Acute respiratory failure with hypoxia. 6. Pneumonia of the right lung. SUBJECTIVE: I was contacted by Eden Alcocer, current managing hospitalist regarding the patient's ongoing care. This gentleman was seen by Dr. Weeks initially about 3 weeks ago. He is now on hospital day 18. Apparently had presented with disseminated skeletal as well as adrenal metastatic disease. He underwent operative repair of his hips bilaterally and biopsies from bone fragments were obtained. According to Dr. Alcocer and corroborated by Dr. Gibran Mariee, pathologist, diagnosis is yet to be established. I spoke directly to Dr. Jaimes and will plan on sending tissue blocks for further study. He has performed close to 30 stains on this gentleman and unfortunately still does not have diagnosis. Engaged in a conversation with the patient and his this morning, both are emphatic. They want to have a diagnosis established and consider salvage treatment. I also engage the patient about his current clinical situation, hemodialysis and marginal performance status in moving forward with any form of salvage treatment. OBJECTIVE: GENERAL: He is in no acute distress. VITAL SIGNS: Temperature 36.5, pulse 59, respiratory rate 16, blood pressure 144/64. SKIN: Without rash or lesion. HEENT: Oral mucosa without erythema or ulceration. HEART: Regular rate and rhythm. LUNGS: Clear to auscultation bilaterally. ABDOMEN: Soft, nontender, nondistended. EXTREMITIES: No clubbing, cyanosis or edema. NEUROLOGIC: Grossly intact. LABORATORY DATA: WBC count 11,240, hemoglobin 7.9, platelet count 134,000, neutrophil count 9130. PT 17.5 seconds, INR 1.8, PTT 62.8 seconds. Sodium 123, potassium 5.5, chloride 87, carbon dioxide 23, creatinine 4.47, BUN 95. IMPRESSION: 1. Disseminated osseous metastatic cancer, primary known. 2. End-stage renal disease, currently on hemodialysis. 3. Anemia of chronic kidney disease. 4. Acute respiratory failure with hypoxia. 5. Pneumonia of the right lung. 6. Hyponatremia. 7. Deep venous thrombosis of the upper extremity. PLAN: As requested, engaged in conversation with the patient and his today at bedside. I summarized his clinical course and explained that despite extreme efforts by the Pathology Service, diagnosis remains elusive. I reminded the patient and his even if diagnosis is established, will be a challenge to incorporate the salvage chemotherapy because of his ongoing hemodialysis. I am also equally concerned with his performance status; however, he admits his activity levels have improved as his inpatient stay has progressed. Apparently PT and OT are on board to work on strengthening. From what I could gather, both the patient and his want a diagnosis and offered salvage treatment. That said, I spoke to Dr. Jaimes of Pathology explaining [facility] desire to pursue treatment and to proceed with sending off panel on the tissue block to see if we can isolate or little doubt any potential diagnosis. We will continue to follow the patient periodically. I have nothing further to add from a clinical management perspective. The patient was originally seen by Dr. Weeks and will ensure that outpatient followup is established for the patient for a therapeutic discussion. [facility]
[2019-03-09] MEDS: AMLODIPINE BESYLATE 5 MG TAB PO SCH ×2 (10:04→21:10)
[2019-03-09] MEDS: LISINOPRIL 10 MG TAB PO SCH (10:04)
[2019-03-09] MEDS: ISOSORBIDE MONO EXTENDED REL 60 MG TABCR PO SCH (10:04)
[2019-03-09] MEDS: TORSEMIDE 100 MG TAB PO SCH ×2 (10:04→16:36)
[2019-03-09] MEDS: CARVEDILOL 12.5 MG TAB PO SCH ×2 (10:04→21:10)
[2019-03-09] MEDS: DOCUSATE SODIUM 100 MG CAP PO SCH ×2 (10:06→21:41)
[2019-03-09] MEDS: Heparin Adult LOW DOSE Wt-Based Dextrose 5% 25,000 units/500 mL IV SCH (14:09)
[2019-03-09] MEDS: HEPARIN SOD (PORCINE) 1000 UNIT/ML 10 ML VIAL IV SCH ×2 (14:11→14:12)
--- NOTE | 2019-03-09 15:25 | Nephrology Progress Note ---
Date of Service March 09, 2019 Assessment & Plan (1) ESRD on hemodialysis: Patient with ESRD on dialysis Wednesday. He has a right tunneled IJ catheter. CVC initially blocked, improved with cathflo on both 02/23 and 02/25; no issues w/ catheter on HD past few txs; he did need urgent HD on 02/27; had routine tx on 02/28; had another routine tx on 03/01 to optimize repsiratory issues >for 03/02 procedure > had HD 2 hrs >for HD today routine tx; next HD tentatively 03/11 or as clinical status dictates; his fluid status has been better on txs lately so may need less uf; no heparin in tx as he is still on gtt Present on Admission?: Yes (2) Metastatic disease: Patient with metastatic bone disease of unknown primary. CT abdomen revealing osteolytic bone lesions. Patient is frustrated with the multiple diagnostic tests without finding the primary. He is now DNR. He wishes to continue dialysis and work-up for his cancer. >> s/p 03/03 bone bx; path pending Present on Admission?: Yes (3) Hypertension: bp acceptable today. cont pain control and current bp meds and frequent hd -- Present on Admission?: Yes (4) Anemia in chronic kidney disease, on chronic dialysis: Hemoglobin is below target. Unable to give epogen due to active cancer. He probably does not need daily blood draws. Monitor and transfuse as needed- for pRBC again today on heparin gtt currently Present on Admission?: Yes Subjective pain controlled at time I saw him; on , denies dyspnea. still very weak and w/ efforts by PT to get him out of bed, that's when he has uncontrolled pain. denies voiding c/o. touchy appetite still. Review of Systems Review of Systems: All systems reviewed & are unremarkable except as noted in HPI & below Physical Exam Constitutional: well developed, + frail appearing and + malnourished sitting in bed being fed breakfast by on ra Eyes: EOM intact bilaterally ENMT: Ears: no external ear abnormality Nose: no external nose abnormality Mouth: + dry oral mucous membranes Neck: no nuchal rigidity Respiratory: no labored breathing Auscultation: + diminished lung sounds Cardiovascular: Rate/Rhythm: regular rate and regular rhythm Extremities: no edema Gastrointestinal (Abdomen): Inspection/Auscultation: + abdomen distended and normal bowel sounds Percussion/Palpation: abdomen soft; abdomen nontender Musculoskeletal: Extremities: strength 5/5 throughout Skin: no rashes, warm and dry Neurologic: sarkar, fluent if perseverant speech Psychiatric: Orientation: alert, oriented to person and oriented to place Affect: + flat affect Insight: + limited insight Results & Data Vital Signs (Past 12 Hours) Vital Signs Temp Pulse Pulse Pulse Resp BP BP 03/09/19 15:05 37.0 C 73 18 122/74 03/09/19 14:18 71 132/66 03/09/19 13:44 66 100/65 03/09/19 13:42 60 107/50 L 03/09/19 13:00 66 118/65 03/09/19 12:40 60 107/50 L 03/09/19 12:20 62 110/66 03/09/19 12:07 60 107/50 L 03/09/19 11:40 68 115/66 03/09/19 11:20 62 105/66 03/09/19 11:00 60 115/66 03/09/19 10:40 60 109/52 L 03/09/19 10:25 36.9 C 60 03/09/19 08:11 36.5 C 59 L 16 144/64 H Pulse Ox 03/09/19 15:05 99 03/09/19 14:18 03/09/19 13:44 03/09/19 13:42 03/09/19 13:00 03/09/19 12:40 03/09/19 12:20 03/09/19 12:07 03/09/19 11:40 03/09/19 11:20 03/09/19 11:00 03/09/19 10:40 03/09/19 10:25 03/09/19 08:11 98 Laboratory Results Abnormal lab results 03/08/19 03/08/19 03/09/19 Range/Units 17:06 20:37 07:25 WBC (4.8-10.8) K/uL RBC (4.7-6.1) M/uL Hgb (14.0-18.0) g/dL Hct (42-52) % RDW Std Deviation (36.4-46.3) fL RDW Coeff of Fredis (11.5-14.5) % Immature Gran # (Auto) (0.00-0.02) K/uL Neut # (Auto) (1.4-6.5) K/uL Lymph # (Auto) (1.2-3.4) K/uL [place] # (Auto) (0.11-0.59) K/uL PT 17.5 H (9.0-12.0) Seconds INR 1.8 H (0.9-1.1) APTT 62.8 H* (21.0-31.0) Seconds Sodium (136-145) mmol/L Potassium (3.5-5.1) mmol/L Chloride (98-107) mmol/L Anion Gap (3-11) BUN (7-18) mg/dl Creatinine (0.6-1.4) mg/dl BUN/Creatinine Ratio (10-20) Glucose (70-99) mg/dl POC Glucose 215 H 193 H (70-99) Calcium (8.5-10.1) mg/dl 03/09/19 03/09/19 03/09/19 Range/Units 07:25 07:25 08:11 WBC 11.24 H (4.8-10.8) K/uL RBC 2.72 L (4.7-6.1) M/uL Hgb 7.9 L (14.0-18.0) g/dL Hct 23.7 L (42-52) % RDW Std Deviation 52.4 H (36.4-46.3) fL RDW Coeff of Fredis 16.8 H (11.5-14.5) % Immature Gran # (Auto) 0.07 H (0.00-0.02) K/uL Neut # (Auto) 9.13 H (1.4-6.5) K/uL Lymph # (Auto) 0.57 L (1.2-3.4) K/uL [place] # (Auto) 1.47 H (0.11-0.59) K/uL PT (9.0-12.0) Seconds INR (0.9-1.1) APTT (21.0-31.0) Seconds Sodium 123 L (136-145) mmol/L Potassium 5.5 H D (3.5-5.1) mmol/L Chloride 87 L (98-107) mmol/L Anion Gap 13.0 H (3-11) BUN 95 H (7-18) mg/dl Creatinine 4.47 H D (0.6-1.4) mg/dl BUN/Creatinine Ratio 21.2 H (10-20) Glucose 156 H (70-99) mg/dl POC Glucose 183 H (70-99) Calcium 7.9 L (8.5-10.1) mg/dl 03/09/19 Range/Units 14:04 WBC (4.8-10.8) K/uL RBC (4.7-6.1) M/uL Hgb (14.0-18.0) g/dL Hct (42-52) % RDW Std Deviation (36.4-46.3) fL RDW Coeff of Fredis (11.5-14.5) % Immature Gran # (Auto) (0.00-0.02) K/uL Neut # (Auto) (1.4-6.5) K/uL Lymph # (Auto) (1.2-3.4) K/uL [place] # (Auto) (0.11-0.59) K/uL PT (9.0-12.0) Seconds INR (0.9-1.1) APTT (21.0-31.0) Seconds Sodium (136-145) mmol/L Potassium (3.5-5.1) mmol/L Chloride (98-107) mmol/L Anion Gap (3-11) BUN (7-18) mg/dl Creatinine (0.6-1.4) mg/dl BUN/Creatinine Ratio (10-20) Glucose (70-99) mg/dl POC Glucose 160 H (70-99) Calcium (8.5-10.1) mg/dl (1) Hypertension Hypertension type: essential hypertension Qualified Code(s): I10 - Essential (primary) hypertension
[2019-03-09] MEDS: WARFARIN SOD 4 MG TAB PO SCH (16:36)
[2019-03-09] MEDS: HYDROCODONE/ACETAMOPHEN 5/325MG TAB PO PRN (17:00)
--- NOTE | 2019-03-09 20:00 | Hospitalist Progress Note ---
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 Has numerous bony mets, adrenal mets, etc. With abnormal chest x-ray with fluid and opacities on the right-along with hypo natremia, initially thought to be small cell lung cancer but pathologist says it is not based so far on bone biopsies Appreciate hematology/oncology consultation-still awaiting results from pathology-pathologist reports so far he is ruled out carcinoma, melanoma, and small cell. It is possible it could be some sort of adrenocortical tumor or sarcoma, but further studies are still pending and may still take some time to get back Appreciate radiation oncology consultation-again, awaiting results from pathology and then will likely proceed with palliative radiation therapy - For back/bony pain - had some sedation/confusion with early opioids. Now seems to be tolerating p.o. hydrocodone and tramadol with much improved pain control -Continue standing dose of tramadol 50 mg p.o. twice daily -Continue standing dose of Tylenol 1000 mg p.o. every 8 hours -Continue hydrocodone 5/325 mg p.o. every 4 hours as needed breakthrough pain -Continue to taper down prednisone by 10 mg every 2 days-continue 30 mg dose for tomorrow - Underwent bilateral hip pinning with Dr. Tijerina on 03/02. Tolerated the procedure well. Working with PT/OT minimally at this point secondary to severe pain-encouraged him to sit at side of bed this evening -will need outpatient follow-up with hematology/oncology and Rad Onc after discharge, but most likely there will be no chemotherapy as an option for treatment given his poor performance status and need for renal dialysis- appreciate hematology/oncology coming back around today to see him. Again, I discussed his poor prognosis overall with the patient's and niece today as they requested to talk to me away from the patient (2) Anemia in chronic kidney disease, on chronic dialysis: Baseline hemoglobin appears to be ~8. - On 03/02, he was at baseline. - On 03/03 (after hip surgery), was down to 6.5, but hemodynamically stable. He has antibodies and needs blood from [place]. Two units were sent on 03/02. - Transfused 1 unit PRBCs on 03/03. Rechecked on 03/05 with 7.0. - Received 1 additional unit with HD on 03/05. hgb-today is stable to slightly lower at 7.9 He does have a fairly large hematoma around the left hip and is remains on the heparin drip and Coumadin-no transfusion today -Follow CBC again in the morning (3) DVT of upper extremity (deep vein thrombosis): Possible left subclavian vein DVT seen on LUE Doppler on 02/24 done for left arm swelling. Suspect due to advanced cancer. -Remains on heparin drip for bridging Patient refused warfarin on 03/06-educated patient his on importance of taking Coumadin-they now understand why he is on this medication -[employer] Dr. Chu - Feels warfarin is a better option than DOAC given his ESRD. -Because of the slow increase in INR-increased Coumadin to 5 mg daily on 03/08 -Follow INR-is now up to 1.8 (4) Acute respiratory failure with hypoxia: Had episode earlier in the hospitalization, which resolved. O2 was weaned off. Likely multifactorial - right-sided pneumonia, effusions, & pulmonary edema. - On 02/27, had another occurrence. More shortness of breath as the day progressed. Likely pulmonary edema as he has been on a heparin gtt for his LUE DVT. - Ordered BiPap, nebs, and IV steroids to treat pulmonary edema and any possible reactive airway disease. - Underwent ultrafiltrate on 02/27 & HD on 02/28. Significantly improved. -Currently he is still doing very well from the standpoint. Remains on room air with adequate oxygenation. (5) Pneumonia involving right lung: Clinically improved/resolved. - Completed full course of IV/PO abx for 7 days. - Procalcitonin checked on 02/27 for increased shortness of breath and was negative (0.26). Based on preliminary pathology results, he does not have a small cell, squamous cell, or adenocarcinoma making the nodules in the lung more likely to be metastases rather than a primary site of malignancy (6) Hyponatremia: 2nd to ESRD versus SIADH from cancer or pain. Fluctuating depending on volume status. Sodium today is worse at 123 - Trend BMPs -For hemodialysis today (7) ESRD on hemodialysis: HD //Sat. - Appreciate [facility] assistance. - Just recently initiated HD about 6 weeks ago in [place]. Has a right-sided tunneled IJ catheter in place - requesting changing outpatient dialysis to a location in [place] as the [facility] in [place] is over an hour away from their home-Case management is assisting with this and this may take up to another week to accomplish -Continue inpatient hemodialysis -Continue torsemide 100 mg p.o. twice daily (8) S/P AVR (aortic valve replacement): History of such. Bioprosthetic. (9) Bilateral pleural effusion: Could be transudative from ESRD and hypoalbuminemia or exudative from cancer or pneumonia. - CXR on 02/27 showed stable to mildly worse right effusion. - Respiratory status improved with HD and remains off oxygen Clinical exam with clear lungs bilaterally - Monitoring for now. (10) Hypertension: Blood pressures were previously high at times and now are normal - Cont Hydralazine 25 mg TID, amlodipine 5mg twice daily, Imdur 60mg, carvedilol 12.5 mg p.o. twice daily, and torsemide 100 twice daily - On 03/01, added lisinopril 10mg. Given his ESRD, hyperkalemia should not be a problem as he will get his K+ removed from dialysis. -Follow blood pressures and decrease or discontinue meds as needed -It appears his home med list has terazosin and prazosin-unclear if he was taking both or 1 of these, and if they were for BPH or for blood pressure- nonetheless, remains off of both at this time and is stable (11) CAD (coronary artery disease): S/p CABG in the past. No ischemic sx's at this time. - Continue statin, beta-oksana, Imdur. - Added lisinopril on 03/01 as above - Held ASA for procedure on 03/02. We will hold off on restarting as will now be on Coumadin and is having some mild thrombocytopenia (12) GERD (gastroesophageal reflux disease): PPI. (13) Ileus: Resolved by 03/01. (14) DVT prophylaxis: Heparin drip transitioning to warfarin Disposition-remain hospitalized while awaiting rehab placement Needs rehab placement-there is no bed available at their first choice of [facility]-referrals to other places have been made and now possibly awaiting transition to a new outpatient dialysis place as well-may take up to another week In the meantime, awaiting pathology results Overall remains with poor prognosis, transition to hospice would most likely be in order if begins to further deteriorate Subjective Having a better day today, pain is better controlled in the hips. He had dialysis. He is feeling fatigued from that. His mood is better and he is eating. Still not out of bed much today. Denies chest pain or shortness of breath. No headache. Review of Systems Review of Systems: All systems reviewed & are unremarkable except as noted in HPI & below Physical Exam Constitutional: + thin and + frail appearing; no acute distress Eyes: PERRL, conjunctivae normal, anicteric sclerae Neck: trachea midline, no thyromegaly Respiratory: normal respiratory effort; no labored breathing Auscultation: lungs clear to auscultation bilaterally Cardiovascular: RRR, no murmur, no edema Gastrointestinal (Abdomen): normal bowel sounds, soft, nontender, no hepatosplenomegaly Musculoskeletal: Extremities: + extremities abnormal to inspection (Bilateral hips with dressings clean dry and intact with keysha in place in the distal lateral thigh), no cyanosis and no clubbing Skin: + ecchymosis (With hematomas around the bilateral hips left greater than right, no erythema) Neurologic: awake; no focal motor deficits Psychiatric: Orientation: alert, oriented to person, oriented to place and cooperative Affect: mood congruent with affect Mood: + dysphoric mood Thought Process: goal directed thought process Judgement: good judgement Results & Data Vital Signs (Past 12 Hours) Vital Signs Temp Pulse Pulse Pulse Resp BP BP 03/09/19 15:05 37.0 C 73 18 122/74 03/09/19 14:18 71 132/66 03/09/19 13:44 66 100/65 03/09/19 13:42 60 107/50 L 03/09/19 13:00 66 118/65 03/09/19 12:40 60 107/50 L 03/09/19 12:20 62 110/66 03/09/19 12:07 60 107/50 L 03/09/19 11:40 68 115/66 03/09/19 11:20 62 105/66 03/09/19 11:00 60 115/66 03/09/19 10:40 60 109/52 L 03/09/19 10:25 36.9 C 60 03/09/19 08:11 36.5 C 59 L 16 144/64 H Pulse Ox 03/09/19 15:05 99 03/09/19 14:18 03/09/19 13:44 03/09/19 13:42 03/09/19 13:00 03/09/19 12:40 03/09/19 12:20 03/09/19 12:07 03/09/19 11:40 03/09/19 11:20 03/09/19 11:00 03/09/19 10:40 03/09/19 10:25 03/09/19 08:11 98 Laboratory Results 03/09/19 03/09/19 03/09/19 Range/Units 20:37 17:06 14:04 WBC (4.8-10.8) K/uL RBC (4.7-6.1) M/uL Hgb (14.0-18.0) g/dL Hct (42-52) % MCV (80-100) fL MCH (25-34) pg MCHC (32-36) g/dL RDW Std Deviation (36.4-46.3) fL RDW Coeff of Fredis (11.5-14.5) % Plt Count (130-400) K/uL MPV (7.4-10.4) fL Immature Gran % (Auto) % Neut % (Auto) % Lymph % (Auto) % Grant % (Auto) % Eos % (Auto) % Baso % (Auto) % Immature Gran # (Auto) (0.00-0.02) K/uL Neut # (Auto) (1.4-6.5) K/uL Lymph # (Auto) (1.2-3.4) K/uL Grant # (Auto) (0.11-0.59) K/uL Eos # (Auto) (0-0.5) K/uL Baso # (Auto) (0-0.2) K/uL Polychromasia Basophilic Stippling Anisocytosis Echinocytes PT (9.0-12.0) Seconds INR (0.9-1.1) APTT (21.0-31.0) Seconds PTT Ratio Sodium (136-145) mmol/L Potassium (3.5-5.1) mmol/L Chloride (98-107) mmol/L Carbon Dioxide (21-32) mmol/L Anion Gap (3-11) BUN (7-18) mg/dl Creatinine (0.6-1.4) mg/dl Est Cr Clr Drug Dosing ml/min Est GFR ( Amer) Est GFR (Non-Af Amer) BUN/Creatinine Ratio (10-20) Glucose (70-99) mg/dl POC Glucose 186 H 164 H 160 H (70-99) Calcium (8.5-10.1) mg/dl Antibody ID Referred 03/09/19 03/09/19 03/09/19 Range/Units 08:11 07:25 07:25 WBC 11.24 H (4.8-10.8) K/uL RBC 2.72 L (4.7-6.1) M/uL Hgb 7.9 L (14.0-18.0) g/dL Hct 23.7 L (42-52) % MCV 87.1 (80-100) fL MCH 29.0 (25-34) pg MCHC 33.3 (32-36) g/dL RDW Std Deviation 52.4 H (36.4-46.3) fL RDW Coeff of Fredis 16.8 H (11.5-14.5) % Plt Count 134 (130-400) K/uL MPV 10.1 (7.4-10.4) fL Immature Gran % (Auto) 0.6 % Neut % (Auto) 81.2 % Lymph % (Auto) 5.1 % Grant % (Auto) 13.1 % Eos % (Auto) 0.0 % Baso % (Auto) 0.0 % Immature Gran # (Auto) 0.07 H (0.00-0.02) K/uL Neut # (Auto) 9.13 H (1.4-6.5) K/uL Lymph # (Auto) 0.57 L (1.2-3.4) K/uL Grant # (Auto) 1.47 H (0.11-0.59) K/uL Eos # (Auto) 0.00 (0-0.5) K/uL Baso # (Auto) 0.00 (0-0.2) K/uL Polychromasia 1+ Basophilic Stippling 1+ Anisocytosis Present Echinocytes 1+ PT (9.0-12.0) Seconds INR (0.9-1.1) APTT (21.0-31.0) Seconds PTT Ratio Sodium 123 L (136-145) mmol/L Potassium 5.5 H D (3.5-5.1) mmol/L Chloride 87 L (98-107) mmol/L Carbon Dioxide 23 (21-32) mmol/L Anion Gap 13.0 H (3-11) BUN 95 H (7-18) mg/dl Creatinine 4.47 H D (0.6-1.4) mg/dl Est Cr Clr Drug Dosing 12.5 ml/min Est GFR ( Amer) 13.7 Est GFR (Non-Af Amer) 11.8 BUN/Creatinine Ratio 21.2 H (10-20) Glucose 156 H (70-99) mg/dl POC Glucose 183 H (70-99) Calcium 7.9 L (8.5-10.1) mg/dl Antibody ID Referred 03/09/19 03/02/19 Range/Units 07:25 12:21 WBC (4.8-10.8) K/uL RBC (4.7-6.1) M/uL Hgb (14.0-18.0) g/dL Hct (42-52) % MCV (80-100) fL MCH (25-34) pg MCHC (32-36) g/dL RDW Std Deviation (36.4-46.3) fL RDW Coeff of Fredis (11.5-14.5) % Plt Count (130-400) K/uL MPV (7.4-10.4) fL Immature Gran % (Auto) % Neut % (Auto) % Lymph % (Auto) % Grant % (Auto) % Eos % (Auto) % Baso % (Auto) % Immature Gran # (Auto) (0.00-0.02) K/uL Neut # (Auto) (1.4-6.5) K/uL Lymph # (Auto) (1.2-3.4) K/uL Grant # (Auto) (0.11-0.59) K/uL Eos # (Auto) (0-0.5) K/uL Baso # (Auto) (0-0.2) K/uL Polychromasia Basophilic Stippling Anisocytosis Echinocytes PT 17.5 H (9.0-12.0) Seconds INR 1.8 H (0.9-1.1) APTT 62.8 H* (21.0-31.0) Seconds PTT Ratio 2.3 Sodium (136-145) mmol/L Potassium (3.5-5.1) mmol/L Chloride (98-107) mmol/L Carbon Dioxide (21-32) mmol/L Anion Gap (3-11) BUN (7-18) mg/dl Creatinine (0.6-1.4) mg/dl Est Cr Clr Drug Dosing ml/min Est GFR ( Amer) Est GFR (Non-Af Amer) BUN/Creatinine Ratio (10-20) Glucose (70-99) mg/dl POC Glucose (70-99) Calcium (8.5-10.1) mg/dl Antibody ID Referred PG Care Time/CCT Total # of Minutes Spent Total Time Spent with Patient: Total time spent is greater than 50% in coordination of care (as documented) at patient's floor/unit and/or counseling patient: (1) Pneumonia involving right lung Lung location: unspecified part of lung Pneumonia type: due to unspecified organism Qualified Code(s): J18.9 - Pneumonia, unspecified organism (2) CAD (coronary artery disease) Associated angina: without angina Coronary Disease-Associated Artery/Lesion type: [place] artery [place] vs. transplanted heart: [place] heart Qualified Code(s): I25.10 - Atherosclerotic heart disease of [place] coronary artery without angina pectoris (3) DVT of upper extremity (deep vein thrombosis) Affected thrombotic vein of extremity: unspecified vein of extremity Chronicity: acute Laterality: left Qualified Code(s): I82.622 - Acute embolism and thrombosis of deep veins of left upper extremity (4) GERD (gastroesophageal reflux disease) Esophagitis presence: without esophagitis Qualified Code(s): K21.9 - Gastro- esophageal reflux disease without esophagitis (5) Hypertension Hypertension type: essential hypertension Qualified Code(s): I10 - Essential (primary) hypertension
[2019-03-09] MEDS: ATORVASTATIN 40 MG TAB PO SCH (21:10)
[2019-03-10 07:14] LABS: Hemoglobin 7.8 g/dL (14.0-18.0); Immature Granulocytes # (auto) 0.08 K/uL (0.00-0.02); Immature Granulocytes % (auto) 0.7 %; Lymphocytes # (auto) 0.42 K/uL (1.2-3.4); Lymphocytes % (auto) 3.8 %; Mean Corpuscular Hgb Conc 32.5 g/dL (32-36); Mean Corpuscular Volume 87.9 fL (80-100); Mean Platelet Volume 10.5 fL (7.4-10.4); Monocytes # (auto) 1.17 K/uL (0.11-0.59); Monocytes % (auto) 10.7 %; Neutrophils # (auto) 9.24 K/uL (1.4-6.5); Neutrophils % (auto) 84.8 %; Platelet Count 146 K/uL (130-400); RDW Coefficient of Variation 17.3 % (11.5-14.5); RDW Standard Deviation 54.4 fL (36.4-46.3); Red Blood Count 2.73 M/uL (4.7-6.1); White Blood Count 10.91 K/uL (4.8-10.8)
[2019-03-10 07:36] LABS: Echinocytes 1+
[2019-03-10 07:50] LABS: BUN Creatinine Ratio 19.7 (10-20); Calcium 7.9 mg/dl (8.5-10.1); Creatinine Clr Calc Pharmacy 19.4 ml/min; Est GFR (African American) 20.8; Est GFR (Non-African American) 17.9; Potassium 5.1 mmol/L (3.5-5.1)
[2019-03-10 07:52] LABS: INR 3.1 (0.9-1.1); Partial Thromboplastin Ratio 2.8; Prothrombin Time 29.3 Seconds (9.0-12.0)
[2019-03-10 08:01] LABS: Partial Thromboplastin Time 76.7 Seconds (21.0-31.0)
[2019-03-10] MEDS: TORSEMIDE 100 MG TAB PO SCH ×2 (08:28→17:38)
[2019-03-10] MEDS: ISOSORBIDE MONO EXTENDED REL 60 MG TABCR PO SCH (08:29)
[2019-03-10] MEDS: CARVEDILOL 12.5 MG TAB PO SCH ×2 (08:29→21:26)
[2019-03-10] MEDS: LIDOCAINE 5% 1 PATCH TD SCH (08:29)
[2019-03-10] MEDS: predniSONE 10 MG TABLET PO SCH (08:30)
[2019-03-10] MEDS: AMLODIPINE BESYLATE 5 MG TAB PO SCH ×2 (08:30→21:27)
[2019-03-10] MEDS: PANTOprazole 40 MG TAB PO SCH (08:30)
[2019-03-10] MEDS: LISINOPRIL 10 MG TAB PO SCH (08:31)
[2019-03-10] MEDS: TRAMADOL HCL 50 MG TABLET PO SCH ×2 (08:34→17:38)
[2019-03-10] MEDS: DOCUSATE SODIUM 100 MG CAP PO SCH ×2 (08:34→21:29)
[2019-03-10] MEDS: INSULIN GLARGINE SOLOSTAR 100 UNITS/ML 3 ML PEN SC SCH (09:28)
[2019-03-10] MEDS: ACETAMINOPHEN 500 MG TAB PO SCH ×3 (09:29→21:27)
[2019-03-10] MEDS: INSULIN ASPART 100 UNITS/ML 3 ML PEN SC SCH ×4 (09:31→21:30)
[2019-03-10] MEDS: Heparin Adult LOW DOSE Wt-Based Dextrose 5% 25,000 units/500 mL IV SCH (09:47)
[2019-03-10] MEDS: HYDROCODONE/ACETAMOPHEN 5/325MG TAB PO PRN (12:51)
--- NOTE | 2019-03-10 15:45 | Palliative Care Progress Note ---
Date of Service March 10, 2019 Assessment & Plan (1) Palliative care encounter: This is a 78 year old male who was transferred to the [facility] from [facility] on 02/19 for a second opinion/evaluation for etiology of his metastatic disease. Diagnostic imaging was performed at [facility]; however, studies were inconclusive. Discussion was held indicating possible bone involvement and the family decided to transfer care to [facility] for further investigation. The patient was inpatient at [facility] for over 6 weeks which was the first time that he had heard the possibility of a cancer diagnosis. Additional PMH includes CAD, HTN, HLD, ESRD HD dependent (T/R/Sat), GERD, pleural effusions, and AVR. Patient has been evaluated by Dr. Weeks with Heme/Onc and Orthopedic surgery was consulted ,Dr. Tijerina saw patient - was able to perform B/L femur head nail fixation as well as bilateral biopsies on 03/02-to stabilize both hips with hopes of preventing a pathological fracture. Patient tolerated surgery well- able to weight-bear as tolerated. Patient does not have pain at rest or with sitting, has severe pain with standing -he reports pain was better on standing today since scheduling Tylenol and tramadol. If not too sedating-could consider increasing tramadol up to max of 200 mg daily based on his current renal function. Patient's CODE STATUS is DNR -Cancer related pain-denies pain at rest, minimal pain with sitting, pain improved with weightbearing-can increase tramadol if needed up to a max of 200 mg daily given his renal function. -Dyspnea-improved after dialysis -Metastatic disease-primary unknown-biopsies obtained-path pending-multiple studies already done-inconclusive -Left upper extremity DVT-on heparin drip, -Coumadin restarted -CODE STATUS-DNR Will continue to follow and assist with postop pain management as well as assist with medical decision making once biopsy results are known. Plan is for rehab when bed available. 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 Patient awake alert, no acute distress. Discussed goals of care with patient- patient bit despondent with all his medical issues at this time. Encourage patient to not make any major decisions at this time, encouraged him to try to go to facility for rehab, give time for recovery, continue pain control and then discuss further decisions with his at a later time. Spoke with by phone-informed her of the discussion I had with her - she voiced appreciation. Patient reported his pain was better when he attempted to bear weight today. We will continue scheduled Tylenol and scheduled tramadol along with PRN Ronda. -Can consider increasing scheduled tramadol to 100 mg twice daily if not too sedating-this would be the max dose given his renal function. Review of Systems Review of Systems: Patient denies fever, chills, chest pain, increased shortness of breath, or abdominal pain. Physical Exam Physical Exam: PE: Patient appears comfortable at rest HEENT: EOMI, hearing within normal limits, speech soft Respirations: Unlabored, clear breath sounds CV: Regular rate Abdomen: Soft, nontender Extremities: No increased edema Neuro: Alert and oriented x4 Psych: Depressed mood Results & Data Vital Signs (Past 12 Hours) Vital Signs Temp Pulse Pulse Resp BP Pulse Ox 03/10/19 15:06 97.5 F L 66 18 136/68 99 03/10/19 14:03 127/65 03/10/19 07:17 97.5 F L 61 16 151/67 H 98 Time Spent Attending Total time spent 40 minutes with greater than 50% of the time spent at bedside discussing patient's current pain management as well as goals of care. (1) DVT of upper extremity (deep vein thrombosis) Affected thrombotic vein of extremity: unspecified vein of extremity Chronicity: acute Laterality: left Qualified Code(s): I82.622 - Acute embolism and thrombosis of deep veins of left upper extremity
--- NOTE | 2019-03-10 17:09 | Hospitalist Progress Note ---
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 Has numerous bony mets, adrenal mets, etc. With abnormal chest x-ray with fluid and opacities on the right-along with hypo natremia, initially thought to be small cell lung cancer but pathologist says it is not based so far on bone biopsies Appreciate hematology/oncology consultation-still awaiting results from pathology-pathologist reports so far he is ruled out carcinoma, melanoma, and small cell. It is possible it could be some sort of adrenocortical tumor or sarcoma, but further studies are still pending and may still take some time to get back Appreciate radiation oncology consultation-again, awaiting results from pathology and then will likely proceed with palliative radiation therapy - For back/bony pain - had some sedation/confusion with early opioids. Now seems to be tolerating p.o. hydrocodone and tramadol -Increase standing dose of tramadol to 75 mg p.o. twice daily -Continue standing dose of Tylenol 1000 mg p.o. every 8 hours -Continue hydrocodone 5/325 mg p.o. every 4 hours as needed breakthrough pain -Continue to taper down prednisone by 10 mg every 2 days-decrease to 20 mg dose for tomorrow - Underwent bilateral hip pinning with Dr. Tijerina on 03/02. Tolerated the procedure well. Working with PT/OT minimally at this point secondary to severe pain-still very unmotivated to even sit on the edge of the bed -will need outpatient follow-up with hematology/oncology and Rad Onc after discharge, but most likely there will be no chemotherapy as an option for treatment given his poor performance status and need for renal dialysis- appreciate hematology/oncology consult Again, I discussed his poor prognosis overall with the patient and his (2) Anemia in chronic kidney disease, on chronic dialysis: Baseline hemoglobin appears to be ~8. - On 03/02, he was at baseline. - On 03/03 (after hip surgery), was down to 6.5, but hemodynamically stable. He has antibodies and needs blood from [facility]. Two units were sent on 03/02. - Transfused 1 unit PRBCs on 03/03. Rechecked on 03/05 with 7.0. - Received 1 additional unit with HD on 03/05. hgb-today is stable to slightly lower at 7.8 He does have a fairly large hematoma around the left hip and is now off the heparin drip and holding Coumadin-no transfusion today -Follow CBC again in the morning (3) DVT of upper extremity (deep vein thrombosis): Possible left subclavian vein DVT seen on LUE Doppler on 02/24 done for left arm swelling. Suspect due to advanced cancer. -Mirror Painter Dr. Chu - Feels warfarin is a better option than DOAC given his ESRD -dc heparin drip for bridging as INR now therapeutic -Because of the slow increase in INR-increased Coumadin to 5 mg daily on 03/08, but now INR up to 3.1 -HOLD coumadin today -Follow INR in the AM (4) Acute respiratory failure with hypoxia: Had episode earlier in the hospitalization, which resolved. O2 was weaned off. Likely multifactorial - right-sided pneumonia, effusions, & pulmonary edema. - On 02/27, had another occurrence. More shortness of breath as the day progressed. Likely pulmonary edema as he has been on a heparin gtt for his LUE DVT. - Ordered BiPap, nebs, and IV steroids to treat pulmonary edema and any possible reactive airway disease. - Underwent ultrafiltrate on 02/27 & HD on 02/28. Significantly improved. -Currently he is still doing very well from the standpoint. Remains on room air with adequate oxygenation. (5) Pneumonia involving right lung: Clinically improved/resolved. - Completed full course of IV/PO abx for 7 days. - Procalcitonin checked on 02/27 for increased shortness of breath and was negative (0.26). Based on preliminary pathology results, he does not have a small cell, squamous cell, or adenocarcinoma making the nodules in the lung more likely to be metastases rather than a primary site of malignancy (6) Hyponatremia: Secondary to ESRD. Fluctuating depending on volume status. Sodium today is improved after recent HD at 129 - Trend BMPs -continue HD 3x/week (7) ESRD on hemodialysis: HD //Sat. - Appreciate [facility] assistance. - Just recently initiated HD about 6 weeks ago in [place]. Still makes some urine Has a right-sided tunneled IJ catheter in place - requesting changing outpatient dialysis to a location in [place] as the [facility] in [place] is over an hour away from their home-Case management is assisting with this and this may take up to another week to accomplish -Continue inpatient hemodialysis -Continue torsemide 100 mg p.o. twice daily (8) S/P AVR (aortic valve replacement): History of such. Bioprosthetic. (9) Bilateral pleural effusion: Could be transudative from ESRD and hypoalbuminemia or exudative from cancer or pneumonia. - CXR on 02/27 showed stable to mildly worse right effusion. - Respiratory status improved with HD and remains off oxygen Clinical exam with clear lungs bilaterally - Monitoring for now. (10) Hypertension: Blood pressures were previously high at times and now are normal - Cont Hydralazine 25 mg TID, amlodipine 5mg twice daily, Imdur 60mg, carvedilol 12.5 mg p.o. twice daily, and torsemide 100 twice daily - On 03/01, added lisinopril 10mg. Given his ESRD, hyperkalemia should not be a problem as he will get his K+ removed from dialysis. -Follow blood pressures and decrease or discontinue meds as needed -It appears his home med list has terazosin and prazosin-unclear if he was taking both or 1 of these, and if they were for BPH or for blood pressure- nonetheless, remains off of both at this time and is stable (11) CAD (coronary artery disease): S/p CABG in the past. No ischemic sx's at this time. - Continue statin, beta-oksana, Imdur. - Added lisinopril on 03/01 as above - Held ASA for procedure on 03/02. We will hold off on restarting as will now be on Coumadin and has large hematoma (12) GERD (gastroesophageal reflux disease): Continue PPI (13) Ileus: Resolved by 03/01. (14) DVT prophylaxis: Heparin drip transitioned to warfarin Disposition-remain hospitalized while awaiting rehab placement Needs rehab placement-there is no bed available at their first choice of [facility]-referrals to other places have been made and now possibly awaiting transition to a new outpatient dialysis place as well-may take up to another week In the meantime, awaiting pathology results Overall remains with poor prognosis, transition to hospice would most likely be in order if begins to further deteriorate Subjective Having a lot of pain in his hips and sacrum. He tells me "I just want to go home...home to [facility] with my Lord." He declined to get out of bed all day long.Eating somewhat. RN reports he was bleeding from the hematoma around his left hip Review of Systems Review of Systems: All systems reviewed & are unremarkable except as noted in HPI & below Physical Exam Constitutional: + thin and + frail appearing; no acute distress Eyes: PERRL, conjunctivae normal, anicteric sclerae Neck: trachea midline, no thyromegaly Respiratory: normal respiratory effort; no labored breathing Auscultation: lungs clear to auscultation bilaterally Cardiovascular: RRR, no murmur, no edema Gastrointestinal (Abdomen): normal bowel sounds, soft, nontender, no hepatosplenomegaly Musculoskeletal: Extremities: + extremities abnormal to inspection (Bilateral hips with dressings clean dry and intact with keysha in place in the distal lateral thigh), no cyanosis and no clubbing Skin: no rashes, warm and dry + wound (stage 2 sacral decub wound 2 x1 cm with serous drainage on dressing) and + ecchymosis (With hematomas around the bilateral hips left greater than right, no erythema) Neurologic: awake; no focal motor deficits Psychiatric: Orientation: alert, oriented to person, oriented to place and cooperative Affect: mood congruent with affect Mood: + dysphoric mood Thought Process: goal directed thought process Judgement: good judgement Results & Data Vital Signs (Past 12 Hours) Vital Signs Temp Pulse Pulse Resp BP Pulse Ox 03/10/19 15:06 36.4 C L 66 18 136/68 99 03/10/19 14:03 127/65 03/10/19 07:17 36.4 C L 61 16 151/67 H 98 Laboratory Results 03/10/19 03/10/19 03/10/19 Range/Units 20:52 17:16 12:24 Echinocytes PT (9.0-12.0) Seconds INR (0.9-1.1) APTT (21.0-31.0) Seconds PTT Ratio Sodium (136-145) mmol/L Potassium (3.5-5.1) mmol/L Chloride (98-107) mmol/L Carbon Dioxide (21-32) mmol/L Anion Gap (3-11) BUN (7-18) mg/dl Creatinine (0.6-1.4) mg/dl Est Cr Clr Drug Dosing ml/min Est GFR ( Amer) Est GFR (Non-Af Amer) BUN/Creatinine Ratio (10-20) Glucose (70-99) mg/dl POC Glucose 175 H 147 H 115 H (70-99) Calcium (8.5-10.1) mg/dl 03/10/19 03/10/19 03/10/19 Range/Units 08:17 06:58 06:50 Echinocytes PT 29.3 H (9.0-12.0) Seconds INR 3.1 H (0.9-1.1) APTT 76.7 H* (21.0-31.0) Seconds PTT Ratio 2.8 Sodium 129 L (136-145) mmol/L Potassium 5.1 (3.5-5.1) mmol/L Chloride 97 L (98-107) mmol/L Carbon Dioxide 22 (21-32) mmol/L Anion Gap 11.0 (3-11) BUN 63 H (7-18) mg/dl Creatinine 3.17 H D (0.6-1.4) mg/dl Est Cr Clr Drug Dosing 19.4 ml/min Est GFR ( Amer) 20.8 Est GFR (Non-Af Amer) 17.9 BUN/Creatinine Ratio 19.7 (10-20) Glucose 126 H (70-99) mg/dl POC Glucose 158 H (70-99) Calcium 7.9 L (8.5-10.1) mg/dl 03/10/19 Range/Units 06:50 Echinocytes 1+ PT (9.0-12.0) Seconds INR (0.9-1.1) APTT (21.0-31.0) Seconds PTT Ratio Sodium (136-145) mmol/L Potassium (3.5-5.1) mmol/L Chloride (98-107) mmol/L Carbon Dioxide (21-32) mmol/L Anion Gap (3-11) BUN (7-18) mg/dl Creatinine (0.6-1.4) mg/dl Est Cr Clr Drug Dosing ml/min Est GFR ( Amer) Est GFR (Non-Af Amer) BUN/Creatinine Ratio (10-20) Glucose (70-99) mg/dl POC Glucose (70-99) Calcium (8.5-10.1) mg/dl PG Care Time/CCT Total # of Minutes Spent Total Time Spent with Patient: Total time spent is greater than 50% in coordination of care (as documented) at patient's floor/unit and/or counseling patient: (1) Pneumonia involving right lung Lung location: unspecified part of lung Pneumonia type: due to unspecified organism Qualified Code(s): J18.9 - Pneumonia, unspecified organism (2) CAD (coronary artery disease) Associated angina: without angina Coronary Disease-Associated Artery/Lesion type: [place] artery [place] vs. transplanted heart: [place] heart Qualified Code(s): I25.10 - Atherosclerotic heart disease of [place] coronary artery without angina pectoris (3) DVT of upper extremity (deep vein thrombosis) Affected thrombotic vein of extremity: unspecified vein of extremity Chronicity: acute Laterality: left Qualified Code(s): I82.622 - Acute embolism and thrombosis of deep veins of left upper extremity (4) GERD (gastroesophageal reflux disease) Esophagitis presence: without esophagitis Qualified Code(s): K21.9 - Gastro- esophageal reflux disease without esophagitis (5) Hypertension Hypertension type: essential hypertension Qualified Code(s): I10 - Essential (primary) hypertension
[2019-03-10] MEDS: ATORVASTATIN 40 MG TAB PO SCH (21:27)
[2019-03-11] MEDS: HYDROCODONE/ACETAMOPHEN 5/325MG TAB PO PRN ×2 (07:31→18:45)
[2019-03-11] MEDS ORDERED: HEPARIN SOD (PORCINE) 1000 UNIT/ML 10 ML VIAL IV ONE (07:34)
[2019-03-11] MEDS ORDERED: SODIUM CHLORIDE 0.9% 1000ML 1,000 ML IV PRN (07:34)
[2019-03-11 07:40] LABS: Hematocrit (blood only) 23.4 % (42-52); Hemoglobin 7.7 g/dL (14.0-18.0); Immature Granulocytes # (auto) 0.07 K/uL (0.00-0.02); Immature Granulocytes % (auto) 0.6 %; Lymphocytes # (auto) 0.77 K/uL (1.2-3.4); Lymphocytes % (auto) 6.5 %; Mean Corpuscular Hgb Conc 32.9 g/dL (32-36); Mean Corpuscular Volume 87.3 fL (80-100); Mean Platelet Volume 9.6 fL (7.4-10.4); Monocytes # (auto) 1.18 K/uL (0.11-0.59); Monocytes % (auto) 9.9 %; Neutrophils # (auto) 9.87 K/uL (1.4-6.5); Platelet Count 124 K/uL (130-400); RDW Coefficient of Variation 17.3 % (11.5-14.5); RDW Standard Deviation 54.5 fL (36.4-46.3); Red Blood Count 2.68 M/uL (4.7-6.1); White Blood Count 11.89 K/uL (4.8-10.8)
[2019-03-11 07:47] LABS: BUN Creatinine Ratio 21.7 (10-20); Calcium 7.8 mg/dl (8.5-10.1); Creatinine Clr Calc Pharmacy 14.5 ml/min; Est GFR (African American) 14.6; Est GFR (Non-African American) 12.6; Potassium 5.7 mmol/L (3.5-5.1)
[2019-03-11 07:49] LABS: Partial Thromboplastin Ratio 1.5; Partial Thromboplastin Time 40.3 Seconds (21.0-31.0); Prothrombin Time 49.5 Seconds (9.0-12.0)
[2019-03-11 07:56] LABS: INR 5.5 (0.9-1.1)
[2019-03-11 08:14] LABS: Echinocytes 1+; Polychromasia 1+
[2019-03-11] MEDS: ACETAMINOPHEN 500 MG TAB PO SCH ×3 (08:25→21:43)
[2019-03-11] MEDS: PANTOprazole 40 MG TAB PO SCH (08:25)
[2019-03-11] MEDS: TORSEMIDE 100 MG TAB PO SCH ×2 (08:25→17:23)
[2019-03-11] MEDS: predniSONE 10 MG TABLET PO SCH (08:25)
[2019-03-11] MEDS: LIDOCAINE 5% 1 PATCH TD SCH ×2 (08:26→08:48)
[2019-03-11] MEDS: INSULIN GLARGINE SOLOSTAR 100 UNITS/ML 3 ML PEN SC SCH (08:27)
[2019-03-11] MEDS: DOCUSATE SODIUM 100 MG CAP PO SCH ×2 (08:32→21:50)
[2019-03-11] MEDS: TRAMADOL HCL 50 MG TABLET PO SCH ×2 (08:33→21:44)
[2019-03-11] MEDS: INSULIN ASPART 100 UNITS/ML 3 ML PEN SC SCH ×4 (08:38→21:45)
--- NOTE | 2019-03-11 09:00 | Orthopedic Progress Note ---
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 He has not been ambulating very well and is still pretty sore. He seems poorly motivated to ambulate as well. I do not see any complications from the surgery itself. We can keep the proximal incisions covered if they continue to drain. He continues to be on heparin for DVT prophylaxis. This can be changed to Lovenox upon discharge. I want to see him in the office on March 20, , or for staple removal. He can call the office to set up an appointment that works for him. Our office phone number is [phone]. He is orthopedically stable for discharge when medically ready. Present on Admission?: Yes Susu Beebe was seen and examined at bedside this morning. Unfortunately still struggling with physical therapy. He is a maximum assist. He really has not been ambulate with his hips. His hips do not seem to bother him too much when is lying in bed but he has not progressed his ambulation. He is currently awaiting dialysis treatments before he can be discharged to an extended care facility. Physical Exam Musculoskeletal: On physical examination of both hips, the proximal incisions are covered with a gauze dressing and a Tegaderm. I do not see any significant drainage. The more distal incisions are open to air and look good. I do not see any significant ecchymosis. His leg lengths are equal. Results & Data Vital Signs (Past 12 Hours) Vital Signs Temp Pulse Pulse Resp BP BP Pulse Ox 03/11/19 07:20 36.4 C L 65 16 153/68 H 98 03/10/19 22:49 37.0 C 71 16 145/71 H 97 03/10/19 21:23 70 141/68 H
[2019-03-11] MEDS ORDERED: SODIUM CHLORIDE 0.9% 250 ML IV PRN (09:34)
[2019-03-11] MEDS ORDERED: PHYTONADIONE 2.5 MG in SODIUM CHLORIDE 0.9% 50 ML IV ONE (10:00)
[2019-03-11] MEDS: HEPARIN SOD (PORCINE) 1000 UNIT/ML 10 ML VIAL IV SCH ×2 (13:48→13:49)
[2019-03-11] MEDS: AMLODIPINE BESYLATE 5 MG TAB PO SCH ×2 (13:51→21:43)
[2019-03-11] MEDS: LISINOPRIL 10 MG TAB PO SCH (13:51)
[2019-03-11] MEDS: CARVEDILOL 12.5 MG TAB PO SCH ×2 (13:51→21:42)
[2019-03-11] MEDS: ISOSORBIDE MONO EXTENDED REL 60 MG TABCR PO SCH (13:53)
--- NOTE | 2019-03-11 14:21 | Dialysis Progress Note ---
Date of Service March 11, 2019 Assessment & Plan (1) ESRD on hemodialysis: Patient with ESRD on dialysis Wednesday. He has a right tunneled IJ catheter. CVC initially blocked, improved with cathflo on both 02/23 and 02/25; no issues w/ catheter on HD past few txs; he did need urgent HD on 02/27; had routine tx on 02/28; had another routine tx on 03/01 to optimize repsiratory issues >for 03/02 BL hip pinning w/ bmbx path pending >for HD today routine tx; next HD tentatively 03/14 or as clinical status dictates; his fluid status has been better on txs lately so may need less uf; mini heparin in tx as he is now off gtt (2) Metastatic disease: Patient with metastatic bone disease of unknown primary. CT abdomen revealing osteolytic bone lesions. Patient is frustrated with the multiple diagnostic tests without finding the primary. He is now DNR. He wishes to continue dialysis and work-up for his cancer. >> s/p 03/02 bone bx; path pending (3) Hypertension: bp acceptable today. cont pain control and current bp meds and frequent hd -- (4) Anemia in chronic kidney disease, on chronic dialysis: Hemoglobin is below target. Unable to give epogen due to active cancer. He probably does not need daily blood draws. Monitor and transfuse as needed Subjective seen on dialysis this am at 0930 approx; not sob, no N; does have marked hip pain when he tries to participate in therapy, to get out of bed; workign w/ PT; path still pending Review of Systems Review of Systems: All systems reviewed & are unremarkable except as noted in HPI & below Physical Exam Constitutional: well developed, + frail appearing and + malnourished on ra Eyes: EOM intact bilaterally ENMT: Ears: no external ear abnormality Nose: no external nose abnormality Mouth: + dry oral mucous membranes Neck: no nuchal rigidity Respiratory: no labored breathing Auscultation: + diminished lung sounds Cardiovascular: Rate/Rhythm: regular rate and regular rhythm Extremities: no edema Gastrointestinal (Abdomen): Inspection/Auscultation: normal bowel sounds Percussion/Palpation: abdomen soft; abdomen nontender Musculoskeletal: Extremities: strength 5/5 throughout Skin: no rashes, warm and dry Neurologic: sarkar, no tremor Psychiatric: Orientation: alert, oriented to person and oriented to place Affect: + flat affect Insight: + limited insight Results & Data Vital Signs (Past 12 Hours) Vital Signs Temp Pulse Pulse Resp BP BP Pulse Ox 03/11/19 13:45 36.6 C 66 161/83 H 03/11/19 13:44 36.4 C L 65 16 147/65 H 98 03/11/19 13:00 61 133/65 03/11/19 12:45 68 121/53 L 03/11/19 12:30 65 108/63 03/11/19 12:23 36.3 C L 76 16 110/62 03/11/19 12:20 76 110/62 03/11/19 12:00 72 107/61 03/11/19 11:40 65 120/66 03/11/19 11:20 64 112/65 03/11/19 11:00 66 128/62 03/11/19 10:40 66 103/63 03/11/19 10:20 67 118/60 03/11/19 10:00 70 104/56 L 03/11/19 09:40 67 94/52 L 03/11/19 09:20 57 L 118/58 L 03/11/19 09:10 60 131/68 03/11/19 09:04 36.5 C 61 03/11/19 07:20 36.4 C L 65 16 153/68 H 98 Laboratory Results reviewed (1) Hypertension Hypertension type: essential hypertension Qualified Code(s): I10 - Essential (primary) hypertension
[2019-03-11 16:05] LABS: INR 2.9 (0.9-1.1); Prothrombin Time 27.5 Seconds (9.0-12.0)
--- NOTE | 2019-03-11 20:22 | Hospitalist Progress Note ---
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 Has numerous bony mets, adrenal mets, etc. With abnormal chest x-ray with fluid and opacities on the right-along with hypo natremia, initially thought to be small cell lung cancer but pathologist says it is not based so far on bone biopsies Appreciate hematology/oncology consultation-still awaiting results from pathology-pathologist reports so far he is ruled out carcinoma, melanoma, and small cell. It is possible it could be some sort of adrenocortical tumor or sarcoma, but further studies are still pending and may still take some time to get back Appreciate radiation oncology consultation-again, awaiting results from pathology and then will likely proceed with palliative radiation therapy - For back/bony pain - had some sedation/confusion with early opioids. Now seems to be tolerating p.o. hydrocodone and tramadol although more drowsy with higher dose of tramadol today -Continue standing dose of tramadol to 75 mg p.o. twice daily -Continue standing dose of Tylenol 1000 mg p.o. every 8 hours -Continue hydrocodone 5/325 mg p.o. every 4 hours as needed for breakthrough pain -Continue to taper down prednisone by 10 mg every 2 days-continue 20 mg dose for tomorrow - Underwent bilateral hip pinning with Dr. Tijerina on 03/02. Tolerated the procedure well. Working with PT/OT minimally at this point secondary to severe pain-still very unmotivated to even sit on the edge of the bed-he says he will try today -Has hematomas left greater than right at the sites of the incisions-improved today -will need outpatient follow-up with hematology/oncology and Rad Onc after discharge, but most likely there will be no chemotherapy as an option for treatment given his poor performance status and need for renal dialysis- appreciate hematology/oncology consult Again, I discussed his poor prognosis overall with the patient and his . (2) Anemia in chronic kidney disease, on chronic dialysis: Baseline hemoglobin appears to be ~8. - On 03/02, he was at baseline. - On 03/03 (after hip surgery), was down to 6.5, but hemodynamically stable. He has antibodies and needs blood from [place]. Two units were sent on 03/02. - Transfused 1 unit PRBCs on 03/03. Rechecked on 03/05 with 7.0. - Received 1 additional unit with HD on 03/05. hgb-today is down to 7.7 He does have a fairly large hematoma around the left hip and is now off the heparin drip and holding Coumadin INR quite high today at 5.5 and given hematomas and mild bleeding, will transfuse 1 unit on 03/11 and give vitamin K 2.5 mg -Follow CBC again in the morning (3) DVT of upper extremity (deep vein thrombosis): Possible left subclavian vein DVT seen on LUE Doppler on 02/24 done for left arm swelling. Suspect due to advanced cancer. -Radio Dispatcher Dr. Chu - Feels warfarin is a better option than DOAC given his ESRD -I have since discontinued the heparin drip for bridging as INR was therapeutic -Because of the slow increase in INR-increased Coumadin to 5 mg daily on 03/08, but then INR carson significantly to 5.5 today -Continue to HOLD coumadin -Gave vitamin K 2.5 mg on 03/11 for falling hemoglobin, INR 5.5, and continued oozing of blood from wounds Repeat INR later was 2.9 -Follow INR in the AM (4) Acute respiratory failure with hypoxia: Had episode earlier in the hospitalization, which resolved. O2 was weaned off. Likely multifactorial - right-sided pneumonia, effusions, & pulmonary edema. - On 02/27, had another occurrence. More shortness of breath as the day progressed. Likely pulmonary edema as he has been on a heparin gtt for his LUE DVT. - Ordered BiPap, nebs, and IV steroids to treat pulmonary edema and any possible reactive airway disease. - Underwent ultrafiltrate on 02/27 & HD on 02/28. Significantly improved. -Currently he is still doing very well from the standpoint. Remains on room air with adequate oxygenation. (5) Pneumonia involving right lung: Clinically improved/resolved. - Completed full course of IV/PO abx for 7 days. - Procalcitonin checked on 02/27 for increased shortness of breath and was negative (0.26). Based on preliminary pathology results, he does not have a small cell, squamous cell, or adenocarcinoma making the nodules in the lung more likely to be metastases rather than a primary site of malignancy (6) Hyponatremia: Secondary to ESRD. Fluctuating depending on volume status between 123-127 - Trend BMPs -continue HD 3x/week (7) ESRD on hemodialysis: HD //Sat. - Appreciate [facility] assistance. - Just recently initiated HD about 6 weeks ago in [place]. Still makes some urine Has a right-sided tunneled IJ catheter in place - requesting changing outpatient dialysis to a location in [place] as the [facility] in [place] is over an hour away from their home-Case management is assisting with this and this may take up to another week to accomplish -Continue inpatient hemodialysis -Continue torsemide 100 mg p.o. twice daily (8) S/P AVR (aortic valve replacement): History of such. Bioprosthetic. (9) Bilateral pleural effusion: Could be transudative from ESRD and hypoalbuminemia or exudative from cancer or pneumonia. - CXR on 02/27 showed stable to mildly worse right effusion. - Respiratory status improved with HD and remains off oxygen Clinical exam with clear lungs bilaterally - Monitoring for now. (10) Hypertension: Blood pressures were previously high at times and now are normal - Cont Hydralazine 25 mg TID, amlodipine 5mg twice daily, Imdur 60mg, carvedilol 12.5 mg p.o. twice daily, and torsemide 100 twice daily - On 03/01, added lisinopril 10mg. Given his ESRD, hyperkalemia should not be a problem as he will get his K+ removed from dialysis. -Follow blood pressures and decrease or discontinue meds as needed -It appears his home med list has terazosin and prazosin-unclear if he was taking both or 1 of these, and if they were for BPH or for blood pressure- nonetheless, remains off of both at this time and is stable (11) CAD (coronary artery disease): S/p CABG in the past. No ischemic sx's at this time. - Continue statin, beta-oksana, Imdur. - Added lisinopril on 03/01 as above - Held ASA for procedure on 03/02. We will hold off on restarting as will now be on Coumadin and has large hematoma (12) GERD (gastroesophageal reflux disease): Continue PPI (13) Ileus: Resolved by 03/01. (14) DVT prophylaxis: Warfarin Disposition-remain hospitalized while awaiting rehab placement Needs rehab placement-there is no bed available at their first choice of [facility]-referrals to other places have been made and now possibly awaiting transition to a new outpatient dialysis place as well-may take up to another week In the meantime, awaiting pathology results Overall remains with poor prognosis, transition to hospice would most likely be in order if begins to further deteriorate Subjective Patient very drowsy today likely from pain medicine but does report that his pain is better controlled. He refused to get out of bed all day long today and had dialysis. He is eating minimally. His at the bedside tells me "I told him, he is not going to today." Review of Systems Review of Systems: All systems reviewed & are unremarkable except as noted in HPI & below Physical Exam Constitutional: + thin and + frail appearing; no acute distress Eyes: PERRL, conjunctivae normal, anicteric sclerae Neck: trachea midline, no thyromegaly Respiratory: normal respiratory effort; no labored breathing Auscultation: lungs clear to auscultation bilaterally Cardiovascular: RRR, no murmur, no edema Gastrointestinal (Abdomen): normal bowel sounds, soft, nontender, no hepatosplenomegaly Musculoskeletal: Extremities: + extremities abnormal to inspection (Bilateral hips with dressings clean dry and intact with keysha in place in the distal lateral thigh), no cyanosis and no clubbing Skin: + wound (stage 2 sacral decub wound 2 x1 cm with serous drainage on dressing) and + ecchymosis (With hematomas around the bilateral hips left greater than right improved today, no active bleeding, no erythema) Neurologic: awake; no focal motor deficits Psychiatric: Orientation: alert, oriented to person, oriented to place and cooperative Affect: mood congruent with affect Mood: + dysphoric mood Thought Process: goal directed thought process Judgement: good judgement Results & Data Vital Signs (Past 12 Hours) Vital Signs Temp Pulse Pulse Resp BP BP Pulse Ox 03/11/19 16:04 36.3 C L 75 16 155/72 H 97 03/11/19 15:06 36.3 C L 75 137/68 97 03/11/19 14:25 36.5 C 71 159/69 H 98 03/11/19 13:45 36.6 C 66 161/83 H 03/11/19 13:44 36.4 C L 65 16 147/65 H 98 03/11/19 13:00 61 133/65 03/11/19 12:45 68 121/53 L 03/11/19 12:30 65 108/63 03/11/19 12:23 36.3 C L 76 16 110/62 03/11/19 12:20 76 110/62 03/11/19 12:00 72 107/61 03/11/19 11:40 65 120/66 03/11/19 11:20 64 112/65 03/11/19 11:00 66 128/62 03/11/19 10:40 66 103/63 03/11/19 10:20 67 118/60 03/11/19 10:00 70 104/56 L 03/11/19 09:40 67 94/52 L 03/11/19 09:20 57 L 118/58 L 03/11/19 09:10 60 131/68 03/11/19 09:04 36.5 C 61 Laboratory Results 03/11/19 03/11/19 03/11/19 Range/Units 17:05 15:43 13:42 WBC (4.8-10.8) K/uL RBC (4.7-6.1) M/uL Hgb (14.0-18.0) g/dL Hct (42-52) % MCV (80-100) fL MCH (25-34) pg MCHC (32-36) g/dL RDW Std Deviation (36.4-46.3) fL RDW Coeff of Fredis (11.5-14.5) % Plt Count (130-400) K/uL MPV (7.4-10.4) fL Immature Gran % (Auto) % Neut % (Auto) % Lymph % (Auto) % [place] % (Auto) % Eos % (Auto) % Baso % (Auto) % Immature Gran # (Auto) (0.00-0.02) K/uL Neut # (Auto) (1.4-6.5) K/uL Lymph # (Auto) (1.2-3.4) K/uL [place] # (Auto) (0.11-0.59) K/uL Eos # (Auto) (0-0.5) K/uL Baso # (Auto) (0-0.2) K/uL Polychromasia Echinocytes PT 27.5 H (9.0-12.0) Seconds INR 2.9 H (0.9-1.1) APTT (21.0-31.0) Seconds PTT Ratio Sodium (136-145) mmol/L Potassium (3.5-5.1) mmol/L Chloride (98-107) mmol/L Carbon Dioxide (21-32) mmol/L Anion Gap (3-11) BUN (7-18) mg/dl Creatinine (0.6-1.4) mg/dl Est Cr Clr Drug Dosing ml/min Est GFR ( Amer) Est GFR (Non-Af Amer) BUN/Creatinine Ratio (10-20) Glucose (70-99) mg/dl POC Glucose 183 H 109 H (70-99) Calcium (8.5-10.1) mg/dl Blood Type Antibody Screen Crossmatch 03/11/19 03/11/19 03/11/19 Range/Units 09:51 08:10 07:09 WBC (4.8-10.8) K/uL RBC (4.7-6.1) M/uL Hgb (14.0-18.0) g/dL Hct (42-52) % MCV (80-100) fL MCH (25-34) pg MCHC (32-36) g/dL RDW Std Deviation (36.4-46.3) fL RDW Coeff of Fredis (11.5-14.5) % Plt Count (130-400) K/uL MPV (7.4-10.4) fL Immature Gran % (Auto) % Neut % (Auto) % Lymph % (Auto) % [place] % (Auto) % Eos % (Auto) % Baso % (Auto) % Immature Gran # (Auto) (0.00-0.02) K/uL Neut # (Auto) (1.4-6.5) K/uL Lymph # (Auto) (1.2-3.4) K/uL [place] # (Auto) (0.11-0.59) K/uL Eos # (Auto) (0-0.5) K/uL Baso # (Auto) (0-0.2) K/uL Polychromasia Echinocytes PT (9.0-12.0) Seconds INR (0.9-1.1) APTT (21.0-31.0) Seconds PTT Ratio Sodium 127 L (136-145) mmol/L Potassium 5.7 H (3.5-5.1) mmol/L Chloride 95 L (98-107) mmol/L Carbon Dioxide 19 L (21-32) mmol/L Anion Gap 14.0 H (3-11) BUN 92 H (7-18) mg/dl Creatinine 4.24 H D (0.6-1.4) mg/dl Est Cr Clr Drug Dosing 14.5 ml/min Est GFR ( Amer) 14.6 Est GFR (Non-Af Amer) 12.6 BUN/Creatinine Ratio 21.7 H (10-20) Glucose 89 (70-99) mg/dl POC Glucose 117 H (70-99) Calcium 7.8 L (8.5-10.1) mg/dl Blood Type O Positive Antibody Screen NEGATIVE Crossmatch See Detail 03/11/19 03/11/19 03/10/19 Range/Units 07:09 07:09 20:52 WBC 11.89 H (4.8-10.8) K/uL RBC 2.68 L (4.7-6.1) M/uL Hgb 7.7 L (14.0-18.0) g/dL Hct 23.4 L (42-52) % MCV 87.3 (80-100) fL MCH 28.7 (25-34) pg MCHC 32.9 (32-36) g/dL RDW Std Deviation 54.5 H (36.4-46.3) fL RDW Coeff of Fredis 17.3 H (11.5-14.5) % Plt Count 124 L (130-400) K/uL MPV 9.6 (7.4-10.4) fL Immature Gran % (Auto) 0.6 % Neut % (Auto) 83.0 % Lymph % (Auto) 6.5 % [place] % (Auto) 9.9 % Eos % (Auto) 0.0 % Baso % (Auto) 0.0 % Immature Gran # (Auto) 0.07 H (0.00-0.02) K/uL Neut # (Auto) 9.87 H (1.4-6.5) K/uL Lymph # (Auto) 0.77 L (1.2-3.4) K/uL [place] # (Auto) 1.18 H (0.11-0.59) K/uL Eos # (Auto) 0.00 (0-0.5) K/uL Baso # (Auto) 0.00 (0-0.2) K/uL Polychromasia 1+ Echinocytes 1+ PT 49.5 H (9.0-12.0) Seconds INR 5.5 H (0.9-1.1) APTT 40.3 H (21.0-31.0) Seconds PTT Ratio 1.5 Sodium (136-145) mmol/L Potassium (3.5-5.1) mmol/L Chloride (98-107) mmol/L Carbon Dioxide (21-32) mmol/L Anion Gap (3-11) BUN (7-18) mg/dl Creatinine (0.6-1.4) mg/dl Est Cr Clr Drug Dosing ml/min Est GFR ( Amer) Est GFR (Non-Af Amer) BUN/Creatinine Ratio (10-20) Glucose (70-99) mg/dl POC Glucose 175 H (70-99) Calcium (8.5-10.1) mg/dl Blood Type Antibody Screen Crossmatch PG Care Time/CCT Total # of Minutes Spent Total Time Spent with Patient: Total time spent is greater than 50% in coordination of care (as documented) at patient's floor/unit and/or counseling patient: (1) DVT of upper extremity (deep vein thrombosis) Affected thrombotic vein of extremity: unspecified vein of extremity Chronicity: acute Laterality: left Qualified Code(s): I82.622 - Acute embolism and thrombosis of deep veins of left upper extremity (2) Pneumonia involving right lung Pneumonia type: due to unspecified organism Lung location: unspecified part of lung Qualified Code(s): J18.9 - Pneumonia, unspecified organism (3) Hypertension Hypertension type: essential hypertension Qualified Code(s): I10 - Essential (primary) hypertension (4) CAD (coronary artery disease) Coronary Disease-Associated Artery/Lesion type: [place] artery [place] vs. transplanted heart: [place] heart Associated angina: without angina Qualified Code(s): I25.10 - Atherosclerotic heart disease of [place] coronary artery without angina pectoris (5) GERD (gastroesophageal reflux disease) Esophagitis presence: without esophagitis Qualified Code(s): K21.9 - Gastro- esophageal reflux disease without esophagitis
[2019-03-11] MEDS: ATORVASTATIN 40 MG TAB PO SCH (21:43)
[2019-03-12 06:27] LABS: Hematocrit (blood only) 27.3 % (42-52); Mean Corpuscular Volume 88.9 fL (80-100); Nucleated RBC # (auto) 0.03 K/uL (0-0); Nucleated RBC % (auto) 0.3 %; RDW Coefficient of Variation 17.2 % (11.5-14.5); Red Blood Count 3.07 M/uL (4.7-6.1); White Blood Count 10.87 K/uL (4.8-10.8)
[2019-03-12 06:34] LABS: INR 1.3 (0.9-1.1)
[2019-03-12 07:11] LABS: Calcium 7.6 mg/dl (8.5-10.1); Creatinine Clr Calc Pharmacy 23.3 ml/min; Est GFR (African American) 25.3; Est GFR (Non-African American) 21.8; Potassium 4.3 mmol/L (3.5-5.1)
[2019-03-12 07:18] LABS: Mean Platelet Volume 9.5 fL (7.4-10.4); Platelet Count 98 K/uL (130-400)
[2019-03-12 07:23] LABS: Basophilic Stippling 1+; Echinocytes 1+; Eosinophils # (auto) 0.01 K/uL (0-0.5); Eosinophils % (auto) 0.1 %; Immature Granulocytes # (auto) 0.08 K/uL (0.00-0.02); Immature Granulocytes % (auto) 0.7 %; Lymphocytes # (auto) 0.65 K/uL (1.2-3.4); Monocytes # (auto) 1.25 K/uL (0.11-0.59); Monocytes % (auto) 11.5 %; Neutrophils # (auto) 8.88 K/uL (1.4-6.5); Neutrophils % (auto) 81.7 %; Platelet Estimate Decreased (Normal); Polychromasia 1+
[2019-03-12] MEDS: TRAMADOL HCL 50 MG TABLET PO SCH ×2 (08:37→21:05)
[2019-03-12] MEDS: LISINOPRIL 10 MG TAB PO SCH (08:40)
[2019-03-12] MEDS: CARVEDILOL 12.5 MG TAB PO SCH ×2 (08:40→21:06)
[2019-03-12] MEDS: predniSONE 10 MG TABLET PO SCH (08:41)
[2019-03-12] MEDS: ISOSORBIDE MONO EXTENDED REL 60 MG TABCR PO SCH (08:42)
[2019-03-12] MEDS: AMLODIPINE BESYLATE 5 MG TAB PO SCH ×2 (08:42→21:06)
[2019-03-12] MEDS: PANTOprazole 40 MG TAB PO SCH (08:43)
[2019-03-12] MEDS: TORSEMIDE 100 MG TAB PO SCH ×2 (08:44→17:13)
[2019-03-12] MEDS: ACETAMINOPHEN 500 MG TAB PO SCH ×3 (08:44→22:16)
[2019-03-12] MEDS: DOCUSATE SODIUM 100 MG CAP PO SCH ×2 (08:47→22:16)
[2019-03-12] MEDS ORDERED: Heparin IV Standard *NO* Bolus IV SCH (08:49)
[2019-03-12] MEDS: LIDOCAINE 5% 1 PATCH TD SCH (08:53)
[2019-03-12] MEDS: INSULIN ASPART 100 UNITS/ML 3 ML PEN SC SCH ×4 (08:54→21:09)
[2019-03-12] MEDS: INSULIN GLARGINE SOLOSTAR 100 UNITS/ML 3 ML PEN SC SCH (08:55)
[2019-03-12 09:19] LABS: Partial Thromboplastin Ratio 1.2; Partial Thromboplastin Time 31.3 Seconds (21.0-31.0)
[2019-03-12] MEDS: Heparin Adult STANDARD Wt-Based Dextrose 5% 25,000 units/500 mL IV SCH (10:08)
[2019-03-12] MEDS: HYDROCODONE/ACETAMOPHEN 5/325MG TAB PO PRN ×2 (11:33→23:50)
[2019-03-12] MEDS ORDERED: POLYETHYLENE (MIRALAX) 17 GM PACK PO ONE (12:15)
--- NOTE | 2019-03-12 12:20 | Hospitalist Progress Note ---
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 Has numerous bony mets, adrenal mets, etc. With abnormal chest x-ray with fluid and opacities on the right-along with hypo natremia, initially thought to be small cell lung cancer but pathologist says it is not based so far on bone biopsies Appreciate hematology/oncology consultation-still awaiting results from pathology-pathologist reports so far he has ruled out adenocarcinoma, melanoma, and small cell. It is possible it could be some sort of adrenocortical tumor or sarcoma, but further studies are still pending and may still take some time to get back Appreciate radiation oncology consultation-again, awaiting results from pathology and then will likely proceed with palliative radiation therapy for improved pain control - For back/bony pain - had some sedation/confusion with early opioids. Now seems to be tolerating p.o. hydrocodone and tramadol although more drowsy with higher dose of tramadol -Continue standing dose of tramadol to 75 mg p.o. twice daily -Continue standing dose of Tylenol 1000 mg p.o. every 8 hours -Continue hydrocodone 5/325 mg p.o. every 4 hours as needed for breakthrough pain -Continue to taper down prednisone by 10 mg every 2 days-decrease to 10 mg dose for tomorrow - Underwent bilateral hip pinning with Dr. Tijerina on 03/02. Tolerated the procedure well. Up to this point, he has had PT/OT minimally secondary to severe pain-he was out of bed to the chair for the first time in 10 days on 03/12 -Has hematomas left greater than right at the sites of the incisions-continue to improve but occasionally leaking some blood on the left -will need outpatient follow-up with hematology/oncology and Rad Onc after discharge, but most likely there will be no chemotherapy as an option for treatment given his poor performance status and need for renal dialysis- appreciate hematology/oncology consult I discussed his poor prognosis overall with the patient and his on multiple occasions (2) Anemia in chronic kidney disease, on chronic dialysis: Baseline hemoglobin appears to be ~8. - On 03/02, he was at baseline. - On 03/03 (after hip surgery), was down to 6.5, but hemodynamically stable. He has antibodies and needs blood from [place]. Two units were sent on 03/02. - Transfused 1 unit PRBCs on 03/03. Rechecked on 03/05 with 7.0. - Received 1 additional unit with HD on 03/05. hgb-today is down to 7.7 He does have a fairly large hematoma around the left hip and has been on heparin drip and Coumadin INR was elevated at 5.5 on 03/11 and given hematomas and mild bleeding, he was given 1 unit of PRBCs on 03/11 and vitamin K 2.5 mg x1 Hemoglobin on 03/12 is now improved at 9.0 -Follow CBC again in the morning (3) DVT of upper extremity (deep vein thrombosis): Possible left subclavian vein DVT seen on LUE Doppler on 02/24 done for left arm swelling. Suspect due to advanced cancer. -[facility] Dr. Chu - Feels warfarin is a better option than DOAC given his ESRD -The heparin drip for bridging was previously discontinued as INR was therapeutic, but now restarted today as INR went too low from giving vitamin K as above on 03/11 INR now only 1.3 unfortunately -Restart Coumadin 4 mg daily and restart heparin drip for bridging -Would recommend anticoagulation indefinitely given presence of malignancy (4) Acute respiratory failure with hypoxia: Had episode earlier in the hospitalization, which resolved. O2 was weaned off. Likely multifactorial - right-sided pneumonia, effusions, & pulmonary edema. - On 02/27, had another occurrence. More shortness of breath as the day progressed. Likely pulmonary edema as he has been on a heparin gtt for his LUE DVT. - Ordered BiPap, nebs, and IV steroids to treat pulmonary edema and any possible reactive airway disease. - Underwent ultrafiltrate on 02/27 & HD on 02/28. Significantly improved. -Currently he is still doing very well from the standpoint. Remains on room air with adequate oxygenation. (5) Pneumonia involving right lung: Clinically improved/resolved. - Completed full course of IV/PO abx for 7 days. - Procalcitonin checked on 02/27 for increased shortness of breath and was negative (0.26). Based on preliminary pathology results, he does not have a small cell, squamous cell, or adenocarcinoma making the nodules in the lung more likely to be metastases rather than a primary site of malignancy (6) Hyponatremia: Secondary to ESRD. Fluctuating depending on volume status between 123-133 - Trend BMPs -continue HD 3x/week (7) ESRD on hemodialysis: HD //Sat. - Appreciate [facility] assistance. - Just recently initiated HD about 6 weeks ago in [place]. Still makes some urine Has a right-sided tunneled IJ catheter in place - requesting changing outpatient dialysis to a location in [place] as the [facility] in [place] is over an hour away from their home-Case management is assisting with this and this may take up to another week to accomplish -Continue inpatient hemodialysis -Continue torsemide 100 mg p.o. twice daily (8) S/P AVR (aortic valve replacement): History of such. Bioprosthetic. (9) Bilateral pleural effusion: Could be transudative from ESRD and hypoalbuminemia or exudative from cancer or pneumonia. - CXR on 02/27 showed stable to mildly worse right effusion. - Respiratory status improved with HD and remains off oxygen and therefore effusions are likely much improved Clinical exam with clear lungs bilaterally - Monitoring clinically for now. (10) Hypertension: Blood pressures were previously high at times and now are normal - Cont Hydralazine 25 mg TID, amlodipine 5mg twice daily, Imdur 60mg, carvedilol 12.5 mg p.o. twice daily, and torsemide 100 twice daily - On 03/01, added lisinopril 10mg. Given his ESRD, hyperkalemia should not be a problem as he will get his K+ removed from dialysis. -Follow blood pressures and decrease or discontinue meds as needed -It appears his home med list has terazosin and prazosin-unclear if he was taking both or 1 of these, and if they were for BPH or for blood pressure- nonetheless, remains off of both at this time and is stable (11) CAD (coronary artery disease): S/p CABG in the past. No ischemic sx's at this time. - Continue statin, beta-oksana, Imdur. - Added lisinopril on 03/01 as above - Held ASA for procedure on 03/02. We will hold off on restarting as will now be on Coumadin and has large hematoma (12) GERD (gastroesophageal reflux disease): Continue PPI (13) Sacral decubitus ulcer, stage II: From very prolonged hospitalization and poor motivation to get up and move, severe protein calorie malnutrition and malignancy contributing -Continue wound care -Continue pain control as this is actually 1 of his biggest sources of pain currently (14) Constipation: No bowel movement since 03/07 -Added daily MiraLAX -Continue docusate twice daily (15) DVT prophylaxis: Heparin drip, warfarin Disposition-remain hospitalized while awaiting rehab placement Needs rehab placement-has been accepted to a jail facility in the [place] area, however they will not transport him to dialysis all the way up in [place]. Therefore, we are awaiting approval of a transition to a new outpatient dialysis place in [place]-hopeful this will all be arranged in the upcoming week In the meantime, awaiting pathology results Overall remains with poor prognosis, transition to hospice would most likely be in order if begins to further deteriorate Subjective Pt was OOB to chair today for 2 hours but is having a lot of pain in the sacral region. Some pain in the hips. Complains that he keeps sliding down in the recliner chair. He ate better today. Having some scant bleeding from the left hip incision Denies CP or SOB He has not had a bowel movement in 5 days now During my interview today, he grabbed my hand and said "you know what I want, I just want to go home to [facility]." Review of Systems Review of Systems: All systems reviewed & are unremarkable except as noted in HPI & below Physical Exam Constitutional: + thin and + frail appearing; no acute distress Sitting in a chair Eyes: PERRL, conjunctivae normal, anicteric sclerae Neck: trachea midline, no thyromegaly Respiratory: normal respiratory effort; no labored breathing Auscultation: lungs clear to auscultation bilaterally Cardiovascular: RRR, no murmur, no edema Gastrointestinal (Abdomen): normal bowel sounds, soft, nontender, no hepatosplenomegaly Musculoskeletal: Extremities: + extremities abnormal to inspection (Bilateral hips with dressings clean dry and intact with keysha in place in the distal lateral thigh), no cyanosis and no clubbing Skin: + wound (stage 2 sacral decub wound 2 x1 cm with serous drainage on dressing) and + ecchymosis (With hematomas around the bilateral hips left greater than right improved today, no active bleeding, no erythema) Neurologic: awake; no focal motor deficits Psychiatric: Orientation: alert, oriented to person, oriented to place and cooperative Affect: mood congruent with affect Mood: + dysphoric mood Thought Process: goal directed thought process Judgement: good judgement Results & Data Vital Signs (Past 12 Hours) Vital Signs Temp Pulse Resp BP Pulse Ox 03/12/19 07:05 36.5 C 68 19 149/67 H 98 Laboratory Results 03/12/19 03/12/19 03/12/19 Range/Units 17:21 17:14 16:06 WBC (4.8-10.8) K/uL RBC (4.7-6.1) M/uL Hgb (14.0-18.0) g/dL Hct (42-52) % MCV (80-100) fL MCH (25-34) pg MCHC (32-36) g/dL RDW Std Deviation (36.4-46.3) fL RDW Coeff of Fredis (11.5-14.5) % Plt Count (130-400) K/uL MPV (7.4-10.4) fL Immature Gran % (Auto) % Neut % (Auto) % Lymph % (Auto) % [place] % (Auto) % Eos % (Auto) % Baso % (Auto) % Immature Gran # (Auto) (0.00-0.02) K/uL Neut # (Auto) (1.4-6.5) K/uL Lymph # (Auto) (1.2-3.4) K/uL [place] # (Auto) (0.11-0.59) K/uL Eos # (Auto) (0-0.5) K/uL Baso # (Auto) (0-0.2) K/uL Absolute Nucleated RBC (0-0) K/uL Nucleated RBC % (auto) % Platelet Estimate (Normal) Polychromasia Basophilic Stippling Echinocytes PT (9.0-12.0) Seconds INR (0.9-1.1) APTT 79.1 H* 132.1 H* (21.0-31.0) Seconds PTT Ratio 2.9 4.9 Sodium (136-145) mmol/L Potassium (3.5-5.1) mmol/L Chloride (98-107) mmol/L Carbon Dioxide (21-32) mmol/L Anion Gap (3-11) BUN (7-18) mg/dl Creatinine (0.6-1.4) mg/dl Est Cr Clr Drug Dosing ml/min Est GFR ( Amer) Est GFR (Non-Af Amer) BUN/Creatinine Ratio (10-20) Glucose (70-99) mg/dl POC Glucose 200 H (70-99) Calcium (8.5-10.1) mg/dl 03/12/19 03/12/19 03/12/19 Range/Units 12:06 08:03 06:11 WBC (4.8-10.8) K/uL RBC (4.7-6.1) M/uL Hgb (14.0-18.0) g/dL Hct (42-52) % MCV (80-100) fL MCH (25-34) pg MCHC (32-36) g/dL RDW Std Deviation (36.4-46.3) fL RDW Coeff of Fredis (11.5-14.5) % Plt Count (130-400) K/uL MPV (7.4-10.4) fL Immature Gran % (Auto) % Neut % (Auto) % Lymph % (Auto) % [place] % (Auto) % Eos % (Auto) % Baso % (Auto) % Immature Gran # (Auto) (0.00-0.02) K/uL Neut # (Auto) (1.4-6.5) K/uL Lymph # (Auto) (1.2-3.4) K/uL [place] # (Auto) (0.11-0.59) K/uL Eos # (Auto) (0-0.5) K/uL Baso # (Auto) (0-0.2) K/uL Absolute Nucleated RBC (0-0) K/uL Nucleated RBC % (auto) % Platelet Estimate (Normal) Polychromasia Basophilic Stippling Echinocytes PT (9.0-12.0) Seconds INR (0.9-1.1) APTT 31.3 H (21.0-31.0) Seconds PTT Ratio 1.2 Sodium (136-145) mmol/L Potassium (3.5-5.1) mmol/L Chloride (98-107) mmol/L Carbon Dioxide (21-32) mmol/L Anion Gap (3-11) BUN (7-18) mg/dl Creatinine (0.6-1.4) mg/dl Est Cr Clr Drug Dosing ml/min Est GFR ( Amer) Est GFR (Non-Af Amer) BUN/Creatinine Ratio (10-20) Glucose (70-99) mg/dl POC Glucose 112 H 88 (70-99) Calcium (8.5-10.1) mg/dl 03/12/19 03/12/19 03/12/19 Range/Units 06:11 06:11 06:11 WBC 10.87 H (4.8-10.8) K/uL RBC 3.07 L (4.7-6.1) M/uL Hgb 9.0 L (14.0-18.0) g/dL Hct 27.3 L (42-52) % MCV 88.9 (80-100) fL MCH 29.3 (25-34) pg MCHC 33.0 (32-36) g/dL RDW Std Deviation 55.0 H (36.4-46.3) fL RDW Coeff of Fredis 17.2 H (11.5-14.5) % Plt Count 98 L (130-400) K/uL MPV 9.5 (7.4-10.4) fL Immature Gran % (Auto) 0.7 % Neut % (Auto) 81.7 % Lymph % (Auto) 6.0 % [place] % (Auto) 11.5 % Eos % (Auto) 0.1 % Baso % (Auto) 0.0 % Immature Gran # (Auto) 0.08 H (0.00-0.02) K/uL Neut # (Auto) 8.88 H (1.4-6.5) K/uL Lymph # (Auto) 0.65 L (1.2-3.4) K/uL [place] # (Auto) 1.25 H (0.11-0.59) K/uL Eos # (Auto) 0.01 (0-0.5) K/uL Baso # (Auto) 0.00 (0-0.2) K/uL Absolute Nucleated RBC 0.03 H (0-0) K/uL Nucleated RBC % (auto) 0.3 % Platelet Estimate Decreased L (Normal) Polychromasia 1+ Basophilic Stippling 1+ Echinocytes 1+ PT 13.0 H (9.0-12.0) Seconds INR 1.3 H (0.9-1.1) APTT (21.0-31.0) Seconds PTT Ratio Sodium 133 L (136-145) mmol/L Potassium 4.3 D (3.5-5.1) mmol/L Chloride 100 (98-107) mmol/L Carbon Dioxide 27 (21-32) mmol/L Anion Gap 6.0 (3-11) BUN 51 H (7-18) mg/dl Creatinine 2.69 H D (0.6-1.4) mg/dl Est Cr Clr Drug Dosing 23.3 ml/min Est GFR ( Amer) 25.3 Est GFR (Non-Af Amer) 21.8 BUN/Creatinine Ratio 19.0 (10-20) Glucose 82 (70-99) mg/dl POC Glucose (70-99) Calcium 7.6 L (8.5-10.1) mg/dl 03/11/19 Range/Units 20:39 WBC (4.8-10.8) K/uL RBC (4.7-6.1) M/uL Hgb (14.0-18.0) g/dL Hct (42-52) % MCV (80-100) fL MCH (25-34) pg MCHC (32-36) g/dL RDW Std Deviation (36.4-46.3) fL RDW Coeff of Fredis (11.5-14.5) % Plt Count (130-400) K/uL MPV (7.4-10.4) fL Immature Gran % (Auto) % Neut % (Auto) % Lymph % (Auto) % [place] % (Auto) % Eos % (Auto) % Baso % (Auto) % Immature Gran # (Auto) (0.00-0.02) K/uL Neut # (Auto) (1.4-6.5) K/uL Lymph # (Auto) (1.2-3.4) K/uL [place] # (Auto) (0.11-0.59) K/uL Eos # (Auto) (0-0.5) K/uL Baso # (Auto) (0-0.2) K/uL Absolute Nucleated RBC (0-0) K/uL Nucleated RBC % (auto) % Platelet Estimate (Normal) Polychromasia Basophilic Stippling Echinocytes PT (9.0-12.0) Seconds INR (0.9-1.1) APTT (21.0-31.0) Seconds PTT Ratio Sodium (136-145) mmol/L Potassium (3.5-5.1) mmol/L Chloride (98-107) mmol/L Carbon Dioxide (21-32) mmol/L Anion Gap (3-11) BUN (7-18) mg/dl Creatinine (0.6-1.4) mg/dl Est Cr Clr Drug Dosing ml/min Est GFR ( Amer) Est GFR (Non-Af Amer) BUN/Creatinine Ratio (10-20) Glucose (70-99) mg/dl POC Glucose 254 H (70-99) Calcium (8.5-10.1) mg/dl PG Care Time/CCT Total # of Minutes Spent Total Time Spent with Patient: Total time spent is greater than 50% in coord ination of care (as documented) at patient's floor/unit and/or counseling patient: (1) Pneumonia involving right lung Lung location: unspecified part of lung Pneumonia type: due to unspecified organism Qualified Code(s): J18.9 - Pneumonia, unspecified organism (2) CAD (coronary artery disease) Associated angina: without angina Coronary Disease-Associated Artery/Lesion type: [place] artery [place] vs. transplanted heart: [place] heart Qualified Code(s): I25.10 - Atherosclerotic heart disease of [place] coronary artery without angina pectoris (3) DVT of upper extremity (deep vein thrombosis) Affected thrombotic vein of extremity: unspecified vein of extremity Chronicity: acute Laterality: left Qualified Code(s): I82.622 - Acute embolism and thrombosis of deep veins of left upper extremity (4) GERD (gastroesophageal reflux disease) Esophagitis presence: without esophagitis Qualified Code(s): K21.9 - Gastro- esophageal reflux disease without esophagitis (5) Hypertension Hypertension type: essential hypertension Qualified Code(s): I10 - Essential (primary) hypertension
[2019-03-12 16:41] LABS: Partial Thromboplastin Ratio 4.9
[2019-03-12 16:50] LABS: Partial Thromboplastin Time 132.1 Seconds (21.0-31.0)
[2019-03-12] MEDS: WARFARIN SOD 4 MG TAB PO SCH (17:13)
[2019-03-12 17:55] LABS: Partial Thromboplastin Ratio 2.9
[2019-03-12 18:23] LABS: Partial Thromboplastin Time 79.1 Seconds (21.0-31.0)
[2019-03-12] MEDS: ATORVASTATIN 40 MG TAB PO SCH (21:06)
[2019-03-13 00:53] LABS: Partial Thromboplastin Ratio 3.8
[2019-03-13 00:55] LABS: Partial Thromboplastin Time 102.4 Seconds (21.0-31.0)
[2019-03-13 08:18] LABS: Hematocrit (blood only) 28.2 % (42-52); Mean Corpuscular Hgb Conc 31.9 g/dL (32-36); Mean Corpuscular Volume 88.1 fL (80-100); RDW Coefficient of Variation 17.1 % (11.5-14.5); RDW Standard Deviation 54.6 fL (36.4-46.3); White Blood Count 11.75 K/uL (4.8-10.8)
[2019-03-13] MEDS: HYDROCODONE/ACETAMOPHEN 5/325MG TAB PO PRN (08:22)
[2019-03-13] MEDS: predniSONE 10 MG TABLET PO SCH (08:23)
[2019-03-13] MEDS: ISOSORBIDE MONO EXTENDED REL 60 MG TABCR PO SCH (08:23)
[2019-03-13] MEDS: AMLODIPINE BESYLATE 5 MG TAB PO SCH ×2 (08:23→20:34)
[2019-03-13] MEDS: PANTOprazole 40 MG TAB PO SCH (08:23)
[2019-03-13] MEDS: CARVEDILOL 12.5 MG TAB PO SCH ×2 (08:23→20:34)
[2019-03-13] MEDS: LISINOPRIL 10 MG TAB PO SCH (08:23)
[2019-03-13] MEDS: DOCUSATE SODIUM 100 MG CAP PO SCH ×2 (08:24→20:34)
[2019-03-13] MEDS: POLYETHYLENE (MIRALAX) 17 GM PACK PO SCH (08:24)
[2019-03-13] MEDS: ACETAMINOPHEN 500 MG TAB PO SCH ×3 (08:24→20:34)
[2019-03-13] MEDS: TORSEMIDE 100 MG TAB PO SCH ×2 (08:24→17:11)
[2019-03-13] MEDS: LIDOCAINE 5% 1 PATCH TD SCH (08:25)
[2019-03-13] MEDS: INSULIN GLARGINE SOLOSTAR 100 UNITS/ML 3 ML PEN SC SCH (08:25)
[2019-03-13 08:26] LABS: Platelet Count 92 K/uL (130-400)
[2019-03-13] MEDS: INSULIN ASPART 100 UNITS/ML 3 ML PEN SC SCH ×4 (08:28→20:42)
[2019-03-13 08:39] LABS: Partial Thromboplastin Ratio 3.4; Prothrombin Time 19.8 Seconds (9.0-12.0)
--- NOTE | 2019-03-13 08:46 | Hospitalist Progress Note ---
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 Has numerous bony mets, adrenal mets, etc. With abnormal chest x-ray with fluid and opacities on the right-along with hypo natremia, initially thought to be small cell lung cancer but pathologist says it is not based so far on bone biopsies Appreciate hematology/oncology consultation-still awaiting results from pathology-pathologist reports so far he has ruled out adenocarcinoma, melanoma, and small cell. It is possible it could be some sort of adrenocortical tumor or sarcoma, diagnostic samples of been sent to outside facility for review Appreciate radiation oncology consultation-again, awaiting results from pathology and then will likely proceed with palliative radiation therapy for improved pain control - For back/bony pain - had some sedation/confusion with early opioids. Had acute exacerbation of pain requiring parenteral opiates. Will evaluate once patient is more awake formatting any significant changes in his pain regimen due to his previous sensitivity to opiates -Continue standing dose of tramadol to 75 mg p.o. twice daily -Continue standing dose of Tylenol 1000 mg p.o. every 8 hours -Continue hydrocodone 5/325 mg p.o. every 4 hours as needed for breakthrough pain -Continue to taper down prednisone by 10 mg every 2 days-decrease to 10 mg dose for tomorrow - Underwent bilateral hip pinning with Dr. Tijerina on 03/02. Tolerated the procedure well. Up to this point, he has had PT/OT minimally secondary to severe pain-he was out of bed to the chair for the first time in 10 days on 03/12 -Has hematomas left greater than right at the sites of the incisions-continue to improve but occasionally leaking some blood on the left -will need outpatient follow-up with hematology/oncology and Rad Onc after discharge, but most likely there will be no chemotherapy as an option for treatment given his poor performance status and need for renal dialysis- appreciate hematology/oncology consult The is present in the room along with palliative care. At this point time the seems not be ready to transition to comfort care although the patient reportedly has been saying he is ready to focus on his symptoms. is resistant to considering this until we have a formal diagnosis (2) Anemia in chronic kidney disease, on chronic dialysis: Baseline hemoglobin appears to be ~8. - On 03/03 (after hip surgery), he developed acute blood loss anemia, but remained hemodynamically stable. He has antibodies and needs blood from [place]. Two units were sent on 03/02. -Received 3 units of transfusions And his hemoglobin is remained stable He does have a fairly large hematoma around the left hip and has been on heparin drip and Coumadin at one point given vitamin K for elevation of INR (3) DVT of upper extremity (deep vein thrombosis): Possible left subclavian vein DVT seen on LUE Doppler on 02/24 done for left arm swelling. Suspect due to advanced cancer. -Bookkeeper Dr. Chu - Feels warfarin is a better option than DOAC given his ESRD -The heparin drip for bridging was previously discontinued as INR was therapeutic, but now restarted today as INR went too low from giving vitamin K as above on 03/11 -Restart Coumadin 4 mg daily and restart heparin drip for bridging -Would recommend anticoagulation indefinitely given presence of malignancy, dialysis makes it challenging use enoxaparin (4) Acute respiratory failure with hypoxia: Had episode earlier in the hospitalization, which resolved. O2 was weaned off. Likely multifactorial - right-sided pneumonia, effusions, & pulmonary edema. - On 02/27, had another occurrence. More shortness of breath as the day progressed. Likely pulmonary edema as he has been on a heparin gtt for his LUE DVT. - Underwent ultrafiltrate on 02/27 & HD on 02/28. Significantly improved. -Currently he is still doing well, currently on room air with adequate oxygenation. (5) Pneumonia involving right lung: Clinically improved/resolved. - Completed full course of IV/PO abx for 7 days. - Procalcitonin checked on 02/27 for increased shortness of breath and was negative (0.26). Based on preliminary pathology results, he does not have a small cell, squamous cell, or adenocarcinoma making the nodules in the lung more likely to be metastases rather than a primary site of malignancy (6) Hyponatremia: Secondary to ESRD. Fluctuating depending on volume status between 123-133 -continue HD 3x/week (7) ESRD on hemodialysis: HD Tu/Th/Sat. - Appreciate [facility] assistance. - Just recently initiated HD about 6 weeks ago in [place]. Still makes some urine Has a right-sided tunneled IJ catheter in place - requesting changing outpatient dialysis to a location in [place] as the [facility] in [place] is over an hour away from their home-Case management is assisting with this and this may take up to another week to accomplish -Continue inpatient hemodialysis Attempt to maintain fluid balance with torsemide 100 mg p.o. twice daily (8) S/P AVR (aortic valve replacement): History of such. Bioprosthetic. (9) Bilateral pleural effusion: Could be transudative from ESRD and hypoalbuminemia or exudative from cancer or pneumonia. - CXR on 02/27 showed stable to mildly worse right effusion. . (10) Hypertension: Blood pressures managed with hydralazine 25 mg TID, lisinopril 10mg, amlodipine 5mg twice daily, Imdur 60mg, carvedilol 12.5 mg p.o. twice daily, and torsemide 100 twice daily - On 03/01, added . Given his ESRD, hyperkalemia should not be a problem as he will get his K+ removed from dialysis. (11) CAD (coronary artery disease): S/p CABG in the past. No ischemic sx's at this time. - Continue statin, beta-oksana, Imdur. - Added lisinopril on 03/01 as above - Held ASA for procedure on 03/02. Will not restart as will now be on Coumadin and has large hematoma (12) GERD (gastroesophageal reflux disease): Continue PPI (13) Sacral decubitus ulcer, stage II: From very prolonged hospitalization and poor motivation to get up and move, severe protein calorie malnutrition and malignancy contributing -Continue wound care -Continue pain control (14) Constipation: No bowel movement since 03/07 -Added daily MiraLAX escalate twice daily on 03/13 -Continue docusate twice daily (15) DVT prophylaxis: Heparin drip, warfarin Disposition-remain hospitalized while awaiting rehab placement Needs rehab placement-has been accepted to a [facility] facility in the [place] area, however they will not transport him to dialysis all the way up in [place]. Therefore, we are awaiting approval of a transition to a new outpatient dialysis place in [place]-hopeful this will all be arranged in the upcoming week In the meantime, awaiting pathology results Overall remains with poor prognosis, transition to hospice would most likely be in order if begins to further deteriorate Subjective Patient was sitting in a chair when he developed an acute exacerbation of pain. The pain he describes as bilateral lower back wrapping around circumferentially to the front. His pain became unremitting he required parenteral pain medication was then subsequently sedated him currently he is lying in bed able to be awoken easily and does not correspond but easily falls back to sleep. His is present during the initiation of pain she states that he had a good morning and it just occurred abruptly while sitting in his chair. We discussed pain control versus diagnostic testing with the she leans towards consideration of pain control unless we feel there is a focal need for diagnostic testing Review of Systems Review of Systems: Unobtainable due to cognitive status Physical Exam Physical Exam: The patient appeared sedated but with good pain control Vital signs as documented. Head exam is unremarkable. normocephalic, atraumatic Neck is with midline trachea Lungs are clear there is no respiratory distress Cardiac exam reveals Rhythm is regular. Abdominal exam reveals normal bowel sounds, no masses, no organomegaly Skin is warm Dry without bruises or lesions Results & Data Vital Signs (Past 12 Hours) Vital Signs Temp Pulse Resp BP BP Pulse Ox 03/13/19 08:03 36.5 C 67 16 144/69 H 98 03/12/19 23:20 37.2 C 83 16 147/71 H 98 PG Care Time/CCT Total # of Minutes Spent Total Time Spent with Patient: Total time spent is greater than 50% in coordination of care (as documented) at patient's floor/unit and/or counseling patient: (1) Pneumonia involving right lung Lung location: unspecified part of lung Pneumonia type: due to unspecified organism Qualified Code(s): J18.9 - Pneumonia, unspecified organism (2) CAD (coronary artery disease) Associated angina: without angina Coronary Disease-Associated Artery/Lesion type: [place] artery [place] vs. transplanted heart: [place] heart Qualified Code(s): I25.10 - Atherosclerotic heart disease of [place] coronary artery without angina pectoris (3) DVT of upper extremity (deep vein thrombosis) Affected thrombotic vein of extremity: unspecified vein of extremity Chronic ity: acute Laterality: left Qualified Code(s): I82.622 - Acute embolism and thrombosis of deep veins of left upper extremity (4) GERD (gastroesophageal reflux disease) Esophagitis presence: without esophagitis Qualified Code(s): K21.9 - Gastro- esophageal reflux disease without esophagitis (5) Hypertension Hypertension type: essential hypertension Qualified Code(s): I10 - Essential (primary) hypertension
[2019-03-13 08:57] LABS: Partial Thromboplastin Time 90.9 Seconds (21.0-31.0)
[2019-03-13] MEDS: TRAMADOL HCL 50 MG TABLET PO SCH ×2 (09:00→20:41)
[2019-03-13 09:02] LABS: BUN Creatinine Ratio 21.6 (10-20); Calcium 7.9 mg/dl (8.5-10.1); Est GFR (African American) 16.1; Est GFR (Non-African American) 13.9; Potassium 5.2 mmol/L (3.5-5.1)
[2019-03-13] MEDS: Heparin Adult STANDARD Wt-Based Dextrose 5% 25,000 units/500 mL IV SCH (10:20)
[2019-03-13] MEDS ORDERED: HYDROmorphone INJ 0.5 MG/0.5 ML SYR ONE (10:35)
[2019-03-13] MEDS: HYDROmorphone INJ 0.5 MG/0.5 ML SYR IV PRN ×2 (10:36→11:05)
[2019-03-13 15:16] LABS: Partial Thromboplastin Ratio 2.1
--- NOTE | 2019-03-13 15:21 | Palliative Care Progress Note ---
Date of Service March 13, 2019 Assessment & Plan (1) Palliative care encounter: -See subjective. -From a pain management standpoint, patient is now ordered Dilaudid 0.5mg For pain scale 1-5, 1mg IV for pain scale 6-10. Ordered Q3h PRN. He will conitnue on his scheduled Tramadol 75mg BID and scheduled Tylenol. -Once we see what he uses in 24 hours, can make decisions on starting something long acting such as a fentanyl patch. -Not a great methadone candidate due to his frailty and likely unable to follow up with Dr. Fan as outpatient, as he is extremely weak and lives a great distance away. -He is on prednisone, which could help with the bone pain. Would continue this. -Uncertain if patient experienced a pathological fracture, but he probably could not undergo imaging at this time due to his pain and inability to lie completely flat. Once pain is under control, could consider doing some imaging to check for fracture. Uncertain what intervention could be provided for him if there is fracture. -Patient seems to be declining while in hospital. Severely deconditioned. Patient has been making comments about wanting to go to [facility]. His is hopeful that he will be able to improve and make some sort of recovery. We are still waiting on pathology results that have been sent out. Patient will then need another visit with oncology to see if there is any chance of salvage chemo. Uncertain at this time. -PPS 40%. (2) Pain of metastatic malignancy: (3) ESRD on hemodialysis: (4) Bilateral pleural effusion: Subjective Patient experienced a pain crisis this morning. He was sitting up in chair and began having severe 10/10 pain in his "bottom area". Patient could not tell me exactly, as he was quite drowsy from the doses of IV Dilaudid he used this morning. His states it seemed to be in the sacral, buttocks, lower back area. He all of a sudden began crying out in pain stating he needed to get back in bed. When I attempted to speak to patient, the instant he opened his eyes he stated, "I need more pills. More pain pills please." He quickly would fall back asleep and was drowsy. No respiratory depression or distress. Dr. Aguilar was present during my visit. Patient's states that the patient was doing pretty well over the weekend as far as pain goes. He was controlled with the scheduled Tramadol and Tylenol, and used a few doses of the [place] 5mg PRN. He was able to get in the chair and even went outside in a wheelchair. This severe pain had not occurred until this morning. Review of Systems Respiratory: no cough and no dyspnea Cardiovascular: no chest pain Gastrointestinal: no abdominal pain and no nausea Musculoskeletal: severe 10/10 sacral "bottom" pain this morning Physical Exam Constitutional: well developed, well nourished, + ill appearing and + altered mental status; no acute distress ENMT: external ear and nose normal, oropharynx normal Neck: normal visual inspection Respiratory: normal respiratory effort, lungs clear to auscultation Auscultation: + diminished lung sounds Cardiovascular: RRR, no murmur, no edema Skin: + pallor Psychiatric: Orientation: oriented x 3; + not alert (drowsy) Results & Data Vital Signs (Past 12 Hours) Vital Signs Temp Pulse Resp BP Pulse Ox 03/13/19 08:03 36.5 C 67 16 144/69 H 98 Supervising Physician Co-Signing Physician Notes Pt seen and examined, at bedside. Pt received one prn [place] and 2 prn IV Diluadid at 0.5 mg in the past 24 hours. Pt very sensitive to sedating effect of opioids. Pt with acute onset of severe pain in his "bottom" - pt has not had a BM in 4 days - pt ordered Miralax BID - uses prn Miralax at home. PE: pt drowsy, NAD, lying in bed HEENT: EOMI< hearing WNL RESP: unlabored, clear BS Abd: soft, NT Neuro: drowsy, arousable, oriented Agree with above note, assessment and plan as per ANA PAULA Infante - will cont to follow to assist with pain management and medical decision making Time Spent Midlevel [35] minutes with >50% of the time spent at bedside with [patient and family] discussing [condition and GOC].
[2019-03-13 15:29] LABS: Partial Thromboplastin Time 57.5 Seconds (21.0-31.0)
[2019-03-13] MEDS: WARFARIN SOD 4 MG TAB PO SCH (15:55)
[2019-03-13] MEDS: ATORVASTATIN 40 MG TAB PO SCH (20:34)
--- NOTE | 2019-03-13 21:27 | Nephrology Progress Note ---
Date of Service March 13, 2019 Assessment & Plan (1) ESRD on hemodialysis: Patient with ESRD on dialysis Wednesday. He has a right tunneled IJ catheter. CVC initially blocked, improved with cathflo on both 02/23 and 02/25; no issues w/ catheter on HD past few txs; he did need urgent HD on 02/27; had routine tx on 02/28; had another routine tx on 03/01 to optimize repsiratory issues >for 03/02 BL hip pinning w/ bmbx path pending >next HD 03/14 for 4hrs and UF 2 litres. mini heparin in tx as he is now off gtt (2) Metastatic disease: Patient with metastatic bone disease of unknown primary. CT abdomen revealing osteolytic bone lesions. Patient is frustrated with the multiple diagnostic tests without finding the primary. He is now DNR. He wishes to continue dialysis and work-up for his cancer. >> s/p 03/02 bone bx; path pending (3) Hypertension: bp acceptable today. cont pain control and current bp meds and frequent hd -- (4) Anemia in chronic kidney disease, on chronic dialysis: Hemoglobin is below target. Unable to give epogen due to active cancer. He probably does not need daily blood draws. Monitor and transfuse as needed Subjective Seen during AM rounds. Complain of hip pain. No SOB. No leg swelling. at bedside Review of Systems Review of Systems: All systems reviewed & are unremarkable except as noted in HPI & below Physical Exam Physical Exam: General exam: Appears comfortable, no acute distress HEENT: Pupils are equal and reactive to light Neck: No JVD, neck is supple trachea is midline Respiratory system: Clear breath sounds bilaterally. Gastrointestinal: Abdomen is soft, non distended, non tender, bowel sounds are present CVS: Regular rate and rhythm. No murmurs, rubs or gallops Musculoskeletal: No joint or muscle tenderness Extremities: Non tender, no edema, peripheral pulses are present Neuro: Oriented, no tremors, no focal neurological deficits Skin: No rashes Access: right IJ Results & Data Vital Signs (Past 12 Hours) Vital Signs Temp Pulse Pulse Resp BP Pulse Ox 03/13/19 20:30 72 150/70 H 03/13/19 15:12 36.3 C L 66 18 122/66 98 Laboratory Results Laboratory Results - last 24 hr 03/13/19 03/13/19 03/13/19 00:16 08:01 08:01 WBC 11.75 H RBC 3.20 L Hgb 9.0 L Hct 28.2 L MCV 88.1 MCH 28.1 MCHC 31.9 L RDW Std Deviation 54.6 H RDW Coeff of Fredis 17.1 H Plt Count 92 L MPV 10.0 PT INR APTT 102.4 H* PTT Ratio 3.8 Sodium 132 L Potassium 5.2 H D Chloride 98 Carbon Dioxide 25 Anion Gap 9.0 BUN 85 H D Creatinine 3.92 H D Est Cr Clr Drug Dosing 16.0 Est GFR ( Amer) 16.1 Est GFR (Non-Af Amer) 13.9 BUN/Creatinine Ratio 21.6 H Glucose 120 H POC Glucose Calcium 7.9 L 03/13/19 03/13/19 03/13/19 08:01 08:02 12:00 WBC RBC Hgb Hct MCV MCH MCHC RDW Std Deviation RDW Coeff of Fredis Plt Count MPV PT 19.8 H INR 2.0 H APTT 90.9 H* PTT Ratio 3.4 Sodium Potassium Chloride Carbon Dioxide Anion Gap BUN Creatinine Est Cr Clr Drug Dosing Est GFR ( Amer) Est GFR (Non-Af Amer) BUN/Creatinine Ratio Glucose POC Glucose 139 H 103 H Calcium 03/13/19 03/13/19 03/13/19 14:45 16:59 20:21 WBC RBC Hgb Hct MCV MCH MCHC RDW Std Deviation RDW Coeff of Fredis Plt Count MPV PT INR APTT 57.5 H* PTT Ratio 2.1 Sodium Potassium Chloride Carbon Dioxide Anion Gap BUN Creatinine Est Cr Clr Drug Dosing Est GFR ( Amer) Est GFR (Non-Af Amer) BUN/Creatinine Ratio Glucose POC Glucose 144 H 145 H Calcium (1) Hypertension Hypertension type: essential hypertension Qualified Code(s): I10 - Essential (primary) hypertension
[2019-03-14 06:30] LABS: Partial Thromboplastin Ratio 1.5; Partial Thromboplastin Time 39.7 Seconds (21.0-31.0)
[2019-03-14] MEDS: HYDROCODONE/ACETAMOPHEN 5/325MG TAB PO PRN ×2 (07:43→13:05)
[2019-03-14] MEDS: CARVEDILOL 12.5 MG TAB PO SCH ×2 (07:59→20:42)
[2019-03-14] MEDS: AMLODIPINE BESYLATE 5 MG TAB PO SCH ×2 (08:00→20:41)
[2019-03-14] MEDS: LISINOPRIL 10 MG TAB PO SCH (08:00)
[2019-03-14] MEDS: DOCUSATE SODIUM 100 MG CAP PO SCH ×3 (08:02→20:50)
[2019-03-14] MEDS: POLYETHYLENE (MIRALAX) 17 GM PACK PO SCH ×2 (08:02→14:11)
[2019-03-14] MEDS: TRAMADOL HCL 50 MG TABLET PO SCH ×2 (08:05→20:50)
[2019-03-14] MEDS: TORSEMIDE 100 MG TAB PO SCH ×2 (08:06→16:40)
[2019-03-14] MEDS: PANTOprazole 40 MG TAB PO SCH (08:07)
[2019-03-14] MEDS: ISOSORBIDE MONO EXTENDED REL 60 MG TABCR PO SCH (08:07)
[2019-03-14] MEDS: ACETAMINOPHEN 500 MG TAB PO SCH ×3 (08:08→20:43)
[2019-03-14] MEDS: predniSONE 10 MG TABLET PO SCH (08:08)
[2019-03-14] MEDS: LIDOCAINE 5% 1 PATCH TD SCH (08:10)
[2019-03-14] MEDS: INSULIN GLARGINE SOLOSTAR 100 UNITS/ML 3 ML PEN SC SCH (09:00)
[2019-03-14] MEDS: INSULIN ASPART 100 UNITS/ML 3 ML PEN SC SCH ×4 (09:00→20:56)
[2019-03-14] MEDS ORDERED: METHYLNALTREXONE BROMIDE 12 MG/0.6 ML VIAL SQ ONE (11:50)
[2019-03-14] MEDS: HYDROmorphone INJ 1 MG/ML SYRINGE IV PRN (12:32)
--- NOTE | 2019-03-14 13:28 | Hospitalist Progress Note ---
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 Has numerous bony mets, adrenal mets, etc. With abnormal chest x-ray with fluid and opacities on the right-along with hypo natremia, initially thought to be small cell lung cancer but pathologist says it is not based so far on bone biopsies Appreciate hematology/oncology consultation-still awaiting results from pathology-pathologist reports so far he has ruled out adenocarcinoma, melanoma, and small cell. It is possible it could be some sort of adrenocortical tumor or sarcoma, diagnostic samples of been sent to outside facility for review Appreciate radiation oncology consultation awaiting results from pathology and then will likely proceed with palliative radiation therapy for improved pain control - For back/bony pain - had some sedation/confusion with early opioids. Had acute exacerbation of pain requiring parenteral opiates. Discussion with his and patient regarding the pain he feels his pain is [id number] and unremitting they are in agreement to start some fentanyl because of his sensitivity to previous opioids will start at a very low dose and titrate every 72 hours while maintaining his other meds including, tramadol to 75 mg p.o. twice daily, Tylenol 1000 mg p.o. every 8 hours hydrocodone 5/325 mg p.o. every 4 hours as needed for breakthrough pain Tapering prednisone off - Underwent bilateral hip pinning with Dr. Tijerina on 03/02. Tolerated the procedure well. -Has hematomas left greater than right at the sites of the incisions -will need outpatient follow-up with hematology/oncology and Rad Onc after discharge, but most likely there will be no chemotherapy as an option for treatment given his poor performance status and need for renal dialysis- appreciate hematology/oncology consult The is present in the room along with palliative care. The seems not be ready to transition to comfort care although the patient reportedly has been saying he is ready to focus on his symptoms. is resistant to considering this until we have a formal diagnosis, and a this time is considering acute rehab (2) Anemia in chronic kidney disease, on chronic dialysis: Baseline hemoglobin appears to be ~8. - On 03/03 (after hip surgery), he developed acute blood loss anemia, but remained hemodynamically stable. He has antibodies and needs blood from [place]. Two units were sent on 03/02. -Received 3 units of transfusions And his hemoglobin remains stable He does have a fairly large hematoma around the left hip and has been on heparin drip and Coumadin at one point given vitamin K for elevation of INR (3) DVT of upper extremity (deep vein thrombosis): Possible left subclavian vein DVT seen on LUE Doppler on 02/24 done for left arm swelling. Suspect due to advanced cancer. -Gantry R[employer] Dr. Chu - Feels warfarin is a better option than DOAC given his ESRD -The heparin drip for bridging was previously discontinued as INR was therapeutic, but now restarted today as INR went too low from giving vitamin K as above on 03/11 -Restart Coumadin 4 mg daily -Would recommend anticoagulation indefinitely given presence of malignancy, dialysis makes it challenging use enoxaparin (4) Acute respiratory failure with hypoxia: Had episode earlier in the hospitalization, which resolved. O2 was weaned off. Likely multifactorial - right-sided pneumonia, effusions, & pulmonary edema. - On 02/27, had another occurrence. More shortness of breath as the day progressed. Likely pulmonary edema as he has been on a heparin gtt for his LUE DVT. - Underwent ultrafiltrate on 02/27 & HD on 02/28. Significantly improved. -Currently he is still doing well, currently on room air with adequate oxygenation. (5) Pneumonia involving right lung: Clinically improved/resolved. - Completed full course of IV/PO abx for 7 days. - Procalcitonin checked on 02/27 for increased shortness of breath and was negative (0.26). Based on preliminary pathology results, he does not have a small cell, squamous cell, or adenocarcinoma making the nodules in the lung more likely to be metastases rather than a primary site of malignancy (6) Hyponatremia: Secondary to ESRD. Fluctuating depending on volume status between 123-133 -continue HD 3x/week (7) ESRD on hemodialysis: HD //Sat. - [facility]. - Just recently initiated HD about 6 weeks ago in [place]. Still makes some urine Has a right-sided tunneled IJ catheter in place - requesting changing outpatient dialysis to a location in [place] as the [facility] in [place] is over an hour away from their home-Case management is assisting with this and this may take up to another week to accomplish -Continue inpatient hemodialysis Attempt to maintain fluid balance with torsemide 100 mg p.o. twice daily (8) S/P AVR (aortic valve replacement): History of such. Bioprosthetic. (9) Bilateral pleural effusion: Could be transudative from ESRD and hypoalbuminemia or exudative from cancer or pneumonia. - CXR on 02/27 showed stable to mildly worse right effusion. . (10) Hypertension: Blood pressures managed with hydralazine 25 mg TID, lisinopril 10mg, amlodipine 5mg twice daily, Imdur 60mg, carvedilol 12.5 mg p.o. twice daily, and torsemide 100 twice daily - On 03/01, added . Given his ESRD, hyperkalemia should not be a problem as he will get his K+ removed from dialysis. (11) CAD (coronary artery disease): S/p CABG in the past. No ischemic sx's at this time. - Continue statin, beta-oksana, Imdur. - Added lisinopril on 03/01 as above - Held ASA for procedure on 03/02. Will not restart as will now be on Coumadin and has large hematoma (12) GERD (gastroesophageal reflux disease): Continue PPI (13) Sacral decubitus ulcer, stage II: From very prolonged hospitalization and poor motivation to get up and move, severe protein calorie malnutrition and malignancy contributing -Continue wound care -Continue pain control (14) Constipation: No bowel movement since 03/07 -Added daily MiraLAX escalate twice daily on 03/13 -Continue docusate twice daily (15) DVT prophylaxis: Heparin drip, warfarin Disposition-remain hospitalized while awaiting rehab placement Needs rehab placement-has been accepted to a fpc facility in the [place] area, however they will not transport him to dialysis all the way up in [place]. Therefore, we are awaiting approval of a transition to a new outpatient dialysis place in [place]-hopeful this will all be arranged in the upcoming week In the meantime, awaiting pathology results Overall remains with poor prognosis, transition to hospice would most likely be in order if begins to further deteriorate Subjective pt was seen in dialysis unit, he states his pain is much better but still centered by his rectum and decubitus ulcer area, he still is constipated. I did not see his today, will have relistor to try to improve bowel function on pain medication Review of Systems Review of Systems: ROS: Patient feels weak tired and worn out No double vision blurry vision No problems with speech or swallowing No palpitations, chest pain or pressure No Wheezing or breathing issues No abdominal pain nausea vomiting has had constipation and perirectal pain No burning urine urine frequency or changes in color Bilateral hip pain today is right greater than left Bruising on his left hip consistent with his perioperative hematoma Marked weakness and global loss of strength no changes in memory or confusion Physical Exam Physical Exam: The patient chronically ill and debilitated Vital signs as documented. Head exam is unremarkable. normocephalic, atraumatic Neck is without jugular venous distension, thyromegaly, or lymphademopathy Lungs are clear decreased at the bases Cardiac exam reveals Rhythm is regular. Abdominal exam reveals normal bowel sounds, rectal exam performed in the presence of her nurse shows normal rectal tone no obstipation brown stool in the vault there is a decubitus about 3 cm cephalad from the anus grade 2 Extremities are mildly edematous and both pedal pulses are present Neurologic exam is A&Ox3, no focal deficits, global weakness Psychologically seems depressed Skin is warm Dry decubitus ulcers noted with some skin breakdown on his spine and sacrum Results & Data Vital Signs (Past 12 Hours) Vital Signs Temp Pulse Pulse Pulse Resp BP BP 03/14/19 12:29 36.6 C 72 72 141/61 H 141/61 H 03/14/19 12:20 70 106/58 L 03/14/19 12:00 71 125/59 L 03/14/19 11:40 75 103/57 L 03/14/19 11:20 71 110/50 L 03/14/19 11:00 63 113/64 03/14/19 10:40 65 115/54 L 03/14/19 10:20 68 109/60 03/14/19 10:00 66 83/49 L 03/14/19 09:48 66 93/44 L 03/14/19 09:40 73 74/41 L 03/14/19 09:20 70 85/37 L 03/14/19 08:56 37.2 C 70 70 111/53 L 03/14/19 06:59 36.5 C 66 18 137/70 Pulse Ox 03/14/19 12:29 03/14/19 12:20 03/14/19 12:00 03/14/19 11:40 03/14/19 11:20 03/14/19 11:00 03/14/19 10:40 03/14/19 10:20 03/14/19 10:00 03/14/19 09:48 03/14/19 09:40 03/14/19 09:20 03/14/19 08:56 03/14/19 06:59 98 PG Care Time/CCT Total # of Minutes Spent Total Time Spent with Patient: Total time spent is greater than 50% in coordination of care (as documented) at patient's floor/unit and/or counseling patient: (1) Pneumonia involving right lung Lung location: unspecified part of lung Pneumonia type: due to unspecified organism Qualified Code(s): J18.9 - Pneumonia, unspecified organism (2) CAD (coronary artery disease) Associated angina: without angina Coronary Disease-Associated Artery/Lesion type: [place] artery [place] vs. transplanted heart: [place] heart Qualified Code(s): I25.10 - Atherosclerotic heart disease of [place] coronary artery without angina pectoris (3) DVT of upper extremity (deep vein thrombosis) Affected thrombotic vein of extremity: unspecified vein of extremity Chronicity: acute Laterality: left Qualified Code(s): I82.622 - Acute embolism and thrombosis of deep veins of left upper extremity (4) GERD (gastroesophageal reflux disease) Esophagitis presence: without esophagitis Qualified Code(s): K21.9 - Gastro- esophageal reflux disease without esophagitis (5) Hypertension Hypertension type: essential hypertension Qualified Code(s): I10 - Essential (primary) hypertension
--- NOTE | 2019-03-14 14:09 | Palliative Care Progress Note ---
Date of Service March 14, 2019 Assessment & Plan (1) Palliative care encounter: This is a 78 year old male who was transferred to the [facility] from [facility] on 02/19 for a second opinion/evaluation for etiology of his metastatic disease. Diagnostic imaging was performed at [facility]; however, studies were inconclusive. Discussion was held indicating possible bone involvement and the family decided to transfer care to [facility] for further investigation. The patient was inpatient at [facility] for over 6 weeks which was the first time that he had heard the possibility of a cancer diagnosis. Additional PMH includes CAD, HTN, HLD, ESRD HD dependent (T/R/Sat), GERD, pleural effusions, and AVR. Patient has been evaluated by Dr. Weeks with Heme/Onc and Orthopedic surgery was consulted ,Dr. Tijerina saw patient - was able to perform B/L femur head nail fixation as well as bilateral biopsies on 03/02-to stabilize both hips with hopes of preventing a pathological fracture. Patient tolerated surgery well- able to weight-bear as tolerated. Patient does not have pain at rest -did require 2 PRN [employer] in the past 24 hours. Patient's CODE STATUS is DNR -Cancer related pain-denies pain at rest, minimal pain with sitting, pain improved with weightbearing-continue scheduled Tylenol and scheduled tramadol, continue PRN [employer]. -Dyspnea-improved after dialysis -Metastatic disease-primary unknown-biopsies obtained-path pending-multiple studies already done-inconclusive -Left upper extremity DVT-on heparin drip, -Coumadin restarted -Constipation-opioid induced-agree with Relistor, continue Colace and MiraLAX -CODE STATUS-DNR Will continue to follow and assist with postop pain management as well as assist with medical decision making once biopsy results are known. Plan is for rehab when bed available. (2) Pain of metastatic malignancy: (3) ESRD on hemodialysis: (4) Bilateral pleural effusion: (5) Constipation: Subjective Patient awake and alert, no acute distress. Patient less drowsy, although fatigued due to just returning from dialysis. Patient's and 2 friends at bedside. Patient required 2 PRN [employer] in the past 24 hours, has not required any IV PRN Dilaudid in addition to his scheduled Tylenol and scheduled tramadol for pain. Patient is going on day 5 without a bowel movement-he is on Colace twice daily and MiraLAX, Relistor has been ordered. Review of Systems Review of Systems: Patient denies fever, chills, chest pain, increased shortness of breath, or abdominal pain Physical Exam Physical Exam: PE: No acute distress HEENT: EOMI, hearing within normal limits Respiratory: Unlabored, clear breath sounds bilaterally CV: Regular rate, no edema Abdomen: Soft, nontender, distended. Normal bowel sounds Extremities: Full range of motion Neuro: Alert and oriented Results & Data Vital Signs (Past 12 Hours) Vital Signs Temp Pulse Pulse Pulse Resp BP BP 03/14/19 12:29 97.9 F 72 72 141/61 H 141/61 H 03/14/19 12:20 70 106/58 L 03/14/19 12:00 71 125/59 L 03/14/19 11:40 75 103/57 L 03/14/19 11:20 71 110/50 L 03/14/19 11:00 63 113/64 03/14/19 10:40 65 115/54 L 03/14/19 10:20 68 109/60 03/14/19 10:00 66 83/49 L 03/14/19 09:48 66 93/44 L 03/14/19 09:40 73 74/41 L 03/14/19 09:20 70 85/37 L 03/14/19 08:56 99.0 F 70 70 111/53 L 03/14/19 06:59 97.7 F 66 18 137/70 Pulse Ox 03/14/19 12:29 03/14/19 12:20 03/14/19 12:00 03/14/19 11:40 03/14/19 11:20 03/14/19 11:00 03/14/19 10:40 03/14/19 10:20 03/14/19 10:00 03/14/19 09:48 03/14/19 09:40 03/14/19 09:20 03/14/19 08:56 03/14/19 06:59 98 Time Spent Attending Total time spent 30 minutes with greater than 50% of the time spent at bedside assessing patient's current pain level, and discussing modalities to treat his constipation.
[2019-03-14] MEDS: WARFARIN SOD 4 MG TAB PO SCH (16:40)
--- NOTE | 2019-03-14 20:19 | Nephrology Progress Note ---
Date of Service March 14, 2019 Assessment & Plan (1) ESRD on hemodialysis: Patient with ESRD on dialysis Wednesday. He has a right tunneled IJ catheter. CVC initially blocked, improved with cathflo on both 02/23 and 02/25; no issues w/ catheter on HD past few txs; he did need urgent HD on 02/27; had routine tx on 02/28; had another routine tx on 03/01 to optimize repsiratory issues >for 03/02 BL hip pinning w/ bmbx path pending -Tolerated HD well today for net UF 1 litre. Next HD . (2) Metastatic disease: Patient with metastatic bone disease of unknown primary. CT abdomen revealing osteolytic bone lesions. Patient is frustrated with the multiple diagnostic tests without finding the primary. He is now DNR. He wishes to continue dialysis and work-up for his cancer. >> s/p 03/02 bone bx; path pending (3) Hypertension: Had IDH today. cont pain control and current bp meds and frequent hd -- (4) Anemia in chronic kidney disease, on chronic dialysis: Hemoglobin is below target. Unable to give epogen due to active cancer. He probably does not need daily blood draws. Monitor and transfuse as needed Subjective Patient seen and examined while on dialysis this morning. He tolerated HD well. No SOB. Still has hip pain. No leg edema. BP on the lower side. Review of Systems Review of Systems: All systems reviewed & are unremarkable except as noted in HPI & below Physical Exam Physical Exam: General exam: Appears comfortable, no acute distress HEENT: Pupils are equal and reactive to light Neck: No JVD, neck is supple trachea is midline Respiratory system: Clear breath sounds bilaterally. Gastrointestinal: Abdomen is soft, non distended, non tender, bowel sounds are present CVS: Regular rate and rhythm. No murmurs, rubs or gallops Musculoskeletal: No joint or muscle tenderness Extremities: Non tender, no edema, peripheral pulses are present Neuro: Oriented, no tremors, no focal neurological deficits Skin: No rashes Access: right IJ Results & Data Vital Signs (Past 12 Hours) Vital Signs Temp Pulse Pulse Pulse Resp BP BP 03/14/19 15:06 36.9 C 75 16 133/60 03/14/19 12:29 36.6 C 72 72 141/61 H 141/61 H 03/14/19 12:20 70 106/58 L 03/14/19 12:00 71 125/59 L 03/14/19 11:40 75 103/57 L 03/14/19 11:20 71 110/50 L 03/14/19 11:00 63 113/64 03/14/19 10:40 65 115/54 L 03/14/19 10:20 68 109/60 03/14/19 10:00 66 83/49 L 03/14/19 09:48 66 93/44 L 03/14/19 09:40 73 74/41 L 03/14/19 09:20 70 85/37 L 03/14/19 08:56 37.2 C 70 70 111/53 L Pulse Ox 03/14/19 15:06 98 03/14/19 12:29 03/14/19 12:20 03/14/19 12:00 03/14/19 11:40 03/14/19 11:20 03/14/19 11:00 03/14/19 10:40 03/14/19 10:20 03/14/19 10:00 03/14/19 09:48 03/14/19 09:40 03/14/19 09:20 03/14/19 08:56 Laboratory Results Laboratory Results - last 24 hr 03/02/19 03/02/19 03/13/19 Unknown Unknown 20:21 APTT PTT Ratio POC Glucose 145 H Misc Genetic Test Pending Pending 03/14/19 03/14/19 03/14/19 06:07 08:22 16:54 APTT 39.7 H PTT Ratio 1.5 POC Glucose 120 H 167 H Misc Genetic Test (1) Hypertension Hypertension type: essential hypertension Qualified Code(s): I10 - Essential (primary) hypertension
[2019-03-14] MEDS: ATORVASTATIN 40 MG TAB PO SCH (20:41)
[2019-03-15 06:36] LABS: Hematocrit (blood only) 26.8 % (42-52); Hemoglobin 8.6 g/dL (14.0-18.0); Mean Corpuscular Hgb Conc 32.1 g/dL (32-36); Mean Corpuscular Volume 89.9 fL (80-100); Nucleated RBC # (auto) 0.02 K/uL (0-0); Nucleated RBC % (auto) 0.2 %; RDW Coefficient of Variation 17.9 % (11.5-14.5); RDW Standard Deviation 57.1 fL (36.4-46.3); Red Blood Count 2.98 M/uL (4.7-6.1); White Blood Count 10.25 K/uL (4.8-10.8)
[2019-03-15 06:55] LABS: Mean Platelet Volume 10.5 fL (7.4-10.4); Platelet Count 86 K/uL (130-400)
[2019-03-15 06:56] LABS: Partial Thromboplastin Ratio 1.8; Prothrombin Time 49.6 Seconds (9.0-12.0)
[2019-03-15 07:13] LABS: Partial Thromboplastin Time 48.9 Seconds (21.0-31.0)
[2019-03-15 07:56] LABS: INR 5.5 (0.9-1.1)
[2019-03-15] MEDS: INSULIN ASPART 100 UNITS/ML 3 ML PEN SC SCH ×4 (08:38→22:03)
[2019-03-15] MEDS: LISINOPRIL 10 MG TAB PO SCH (08:39)
[2019-03-15] MEDS: fentaNYL 12 MCG/HR TDSY TD SCH (08:39)
[2019-03-15] MEDS: TRAMADOL HCL 50 MG TABLET PO SCH ×2 (08:39→22:13)
[2019-03-15] MEDS: AMLODIPINE BESYLATE 5 MG TAB PO SCH ×2 (08:40→22:15)
[2019-03-15] MEDS: PANTOprazole 40 MG TAB PO SCH (08:40)
[2019-03-15] MEDS: ACETAMINOPHEN 500 MG TAB PO SCH ×3 (08:40→22:14)
[2019-03-15] MEDS: predniSONE 10 MG TABLET PO SCH (08:40)
[2019-03-15] MEDS: ISOSORBIDE MONO EXTENDED REL 60 MG TABCR PO SCH (08:40)
[2019-03-15] MEDS: TORSEMIDE 100 MG TAB PO SCH ×2 (08:40→18:52)
[2019-03-15] MEDS: INSULIN GLARGINE SOLOSTAR 100 UNITS/ML 3 ML PEN SC SCH (08:41)
[2019-03-15] MEDS: CARVEDILOL 12.5 MG TAB PO SCH ×2 (08:41→22:15)
[2019-03-15] MEDS: LIDOCAINE 5% 1 PATCH TD SCH (08:42)
[2019-03-15] MEDS: POLYETHYLENE (MIRALAX) 17 GM PACK PO SCH (08:42)
[2019-03-15] MEDS: DOCUSATE SODIUM 100 MG CAP PO SCH ×2 (08:44→22:18)
--- NOTE | 2019-03-15 11:10 | Hospitalist Progress Note ---
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 Has numerous bony mets, adrenal mets, etc. With abnormal chest x-ray with fluid and opacities on the right-along with hypo natremia, initially thought to be small cell lung cancer but pathologist says it is not based so far on bone biopsies Appreciate hematology/oncology consultation-still awaiting results from pathology-pathologist , I personally called pathology 03/15 to determine the status of the send out pathology reports. Firm endpoint of diagnosis is not been rendered, reports so far he has ruled out adenocarcinoma, melanoma, and small cell. It is possible it could be some sort of adrenocortical tumor or sarcoma, diagnostic samples of been sent to outside facility for review Appreciate radiation oncology consultation awaiting results from pathology and then will likely proceed with palliative radiation therapy for improved pain control - For back/bony pain - had some sedation/confusion with early opioids. Had acute exacerbation of pain requiring parenteral opiates. Discussion with his and patient regarding the pain he feels his pain is [id number] and unremitting they are in agreement to start some fentanyl because of his sensitivity to previous opioids will start at a very low dose and titrate every 72 hours while maintaining his other meds including, tramadol to 75 mg p.o. twice daily, Tylenol 1000 mg p.o. every 8 hours hydrocodone 5/325 mg p.o. every 4 hours as needed for breakthrough pain Tapering prednisone to off - Underwent bilateral hip pinning with Dr. Tijerina on 03/02. Tolerated the procedure well. -Has hematomas left greater than right at the sites of the incisions -will need outpatient follow-up with hematology/oncology and Rad Onc after discharge, but most likely there will be no chemotherapy as an option for treatment given his poor performance status and need for renal dialysis- appreciate hematology/oncology consult The is present in the room along with palliative care. The seems not be ready to transition to comfort care although the patient reportedly has been saying he is ready to focus on his symptoms. is resistant to considering this until we have a formal diagnosis, and a this time is considering acute rehab (2) Anemia in chronic kidney disease, on chronic dialysis: Baseline hemoglobin appears to be ~8. - On 03/03 (after hip surgery), he developed acute blood loss anemia, but remained hemodynamically stable. He has antibodies and needs blood from [facility]. Two units were sent on 03/02. -Received 3 units of transfusions And his hemoglobin remains stable He does have a fairly large hematoma around the left hip and has been on heparin drip and Coumadin at one point given vitamin K for elevation of INR (3) DVT of upper extremity (deep vein thrombosis): Possible left subclavian vein DVT seen on LUE Doppler on 02/24 done for left arm swelling. Suspect due to advanced cancer. -Statistical Programmer Dr. Chu - Feels warfarin is a better option than DOAC given his ESRD -Restart Coumadin 4 mg daily with resulting high INR again, will give some vitamin K po and follow INR but will only use very low dose if restarting -Would recommend anticoagulation indefinitely given presence of malignancy, dialysis makes it challenging use enoxaparin (4) Acute respiratory failure with hypoxia: Had episode earlier in the hospitalization, which resolved. O2 was weaned off. Likely multifactorial - right-sided pneumonia, effusions, & pulmonary edema. - On 02/27, had another occurrence. More shortness of breath as the day progressed. Likely pulmonary edema as he has been on a heparin gtt for his LUE DVT. - Underwent ultrafiltrate on 02/27 & HD on 02/28. Significantly improved. -Currently he is still doing well, currently on room air with adequate oxygenation. (5) Pneumonia involving right lung: Clinically improved/resolved. - Completed full course of IV/PO abx for 7 days. - Procalcitonin checked on 02/27 for increased shortness of breath and was negative (0.26). Based on preliminary pathology results, he does not have a small cell, squamous cell, or adenocarcinoma making the nodules in the lung more likely to be metastases rather than a primary site of malignancy (6) Hyponatremia: Secondary to ESRD. Fluctuating depending on volume status between 123-133 -continue HD 3x/week (7) ESRD on hemodialysis: HD //Sat. - Appreciate [facility] assistance. - Just recently initiated HD about 6 weeks ago in [place]. Still makes some urine Has a right-sided tunneled IJ catheter in place - requesting changing outpatient dialysis to a location in [place] as the [facility] in [place] is over an hour away from their home-Case management is assisting with this and this may take up to another week to accomplish -Continue inpatient hemodialysis Attempt to maintain fluid balance with torsemide 100 mg p.o. twice daily (8) S/P AVR (aortic valve replacement): History of such. Bioprosthetic. (9) Bilateral pleural effusion: Could be transudative from ESRD and hypoalbuminemia or exudative from cancer or pneumonia. - CXR on 02/27 showed stable to mildly worse right effusion. . (10) Hypertension: Blood pressures managed with hydralazine 25 mg TID, lisinopril 10mg, amlodipine 5mg twice daily, Imdur 60mg, carvedilol 12.5 mg p.o. twice daily, and torsemide 100 twice daily hyperkalemia should not be a problem as he will get his K+ removed from dialysis. (11) CAD (coronary artery disease): S/p CABG in the past. No ischemic sx's at this time. - Continue statin, beta-oksana, Imdur. - Added lisinopril on 03/01 as above - Held ASA for procedure on 03/02. Will not restart as will now be on Coumadin and has large hematoma (12) GERD (gastroesophageal reflux disease): Continue PPI (13) Sacral decubitus ulcer, stage II: From very prolonged hospitalization and poor motivation to get up and move, severe protein calorie malnutrition and malignancy contributing -Continue wound care -Continue pain control (14) Constipation: Rectal exam without obstipation there is no perirectal changes to skin, did have a bowel movement on 03/14 -Added daily MiraLAX escalate twice daily -Continue docusate twice daily (15) DVT prophylaxis: warfarin held due to high INR Disposition-remain hospitalized while awaiting rehab placement Needs rehab placement-has been accepted to a residential facility in the [place] area, however they will not transport him to dialysis all the way up in [place]. Therefore, we are awaiting approval of a transition to a new outpatient dialysis place in [place]-hopeful this will all be arranged in the upcoming week In the meantime, awaiting pathology results Overall remains with poor prognosis, transition to hospice would most likely be in order if begins to further deteriorate Subjective Patient has reasonable pain control this morning his present at the bedside they are planning on taking a trip in a wheelchair outside from disposition plans are still at play patient was denied [facility] consideration for [place] manner Review of Systems Review of Systems: ROS: fatigued and weakened No double vision blurry vision No problems with speech or swallowing No palpitations, chest pain or pressure No Wheezing or breathing issues No abdominal pain nausea vomiting, did have one bowel movement No burning urine urine frequency or changes in color back and b/l hip pain L>R No focused numbness or loss of strength No changes in memory or confusion Physical Exam Physical Exam: The patient appeared chronically ill in mild distress and debilitated Vital signs as documented. Head exam is unremarkable. normocephalic, atraumatic Neck is without jugular venous distension, thyromegaly, or lymphademopathy Lungs are clear but diminished at the bases Cardiac exam reveals Rhythm is regular. Abdominal exam reveals normal bowel sounds, no masses, no organomegaly mild distention and dull to percussion Extremities are mildly edematous and both pedal pulses are present Neurologic exam is A&Ox3, no focal deficits, strength is reduced equally tahir aterally Psychologically seems depressed Skin is warm Dry, incisions are clean dry and intact there is bruising around his incisions from his hip pinning bilaterally Results & Data Vital Signs (Past 12 Hours) Vital Signs Temp Pulse Resp BP Pulse Ox 03/15/19 08:07 37.2 C 72 16 160/66 H 97 PG Care Time/CCT Total # of Minutes Spent Total Time Spent with Patient: Total time spent is greater than 50% in coordination of care (as documented) at patient's floor/unit and/or counseling patient: (1) Pneumonia involving right lung Lung location: unspecified part of lung Pneumonia type: due to unspecified organism Qualified Code(s): J18.9 - Pneumonia, unspecified organism (2) CAD (coronary artery disease) Associated angina: without angina Coronary Disease-Associated Artery/Lesion type: havas[place]ai artery [place] vs. transplanted heart: havasupai heart Qualified Code(s): I25.10 - Atherosclerotic heart disease of havasupai coronary artery without angina pectoris (3) DVT of upper extremity (deep vein thrombosis) Affected thrombotic vein of extremity: unspecified vein of extremity Chronicity: acute Laterality: left Qualified Code(s): I82.622 - Acute embolism and thrombosis of deep veins of left upper extremity (4) GERD (gastroesophageal reflux disease) Esophagitis presence: without esophagitis Qualified Code(s): K21.9 - Gastro- esophageal reflux disease without esophagitis (5) Hypertension Hypertension type: essential hypertension Qualified Code(s): I10 - Essential (primary) hypertension
[2019-03-15] MEDS ORDERED: PHYTONADIONE 5 MG TAB PO STA (11:14)
--- NOTE | 2019-03-15 11:41 | Nephrology Progress Note ---
Date of Service March 15, 2019 Assessment & Plan (1) ESRD on hemodialysis: Patient with ESRD on dialysis Wednesday. He has a right tunneled IJ catheter. CVC initially blocked, improved with cathflo on both 02/23 and 02/25; no issues w/ catheter on HD past few txs; he did need urgent HD on 02/27; had routine tx on 02/28; >03/02 BL hip pinning w/ bmbx path pending -Tolerated HD well yesterday for net UF 0.8 litre. He clotted of 30 minutes before the end. Next HD . We will increase heparin tomorrow to 2000 bolus and 400 units hourly (2) Metastatic disease: Patient with metastatic bone disease of unknown primary. CT abdomen revealing osteolytic bone lesions. Patient is frustrated with the multiple diagnostic tests without finding the primary. He is now DNR. He wishes to continue dialysis and work-up for his cancer. >> s/p 03/02 bone bx; path pending. Radiation oncology considering palliative radiation (3) Hypertension: BP above target today likely due to pain. No changes to his medications. cont pain control and current bp meds (4) Anemia in chronic kidney disease, on chronic dialysis: Hemoglobin is below target. Unable to give epogen due to active cancer. He probably does not need daily blood draws. Monitor and transfuse as needed Subjective Patient seen in follow-up for ESRD on dialysis. He has metastatic bone disease. He continues to complain of pain in the back. This morning he was outside in a wheelchair for about 30 minutes and developed severe back pain. He tolerated dialysis well yesterday but clotted of 30 minutes before the end. No shortness of breath this morning. Seen with at the bedside. Review of Systems 2 Review of Systems: All systems reviewed & are unremarkable except as noted in HPI & below Physical Exam Physical Exam: General exam: Appears comfortable, no acute distress HEENT: Pupils are equal and reactive to light Neck: No JVD, neck is supple trachea is midline Respiratory system: Clear breath sounds bilaterally. Gastrointestinal: Abdomen is soft, non distended, non tender, bowel sounds are present CVS: Regular rate and rhythm. No murmurs, rubs or gallops Musculoskeletal: Tenderness in the lower back and hips Extremities: Non tender, no edema, peripheral pulses are present Neuro: Oriented, + tremors, no focal neurological deficits Skin: No rashes Results & Data Vital Signs (Past 12 Hours) Vital Signs Temp Pulse Resp BP Pulse Ox 03/15/19 08:07 37.2 C 72 16 160/66 H 97 Laboratory Results Laboratory Results - last 24 hr 03/02/19 03/02/19 03/14/19 Unknown Unknown 16:54 WBC RBC Hgb Hct MCV MCH MCHC RDW Std Deviation RDW Coeff of Fredis Plt Count MPV Absolute Nucleated RBC Nucleated RBC % (auto) PT INR APTT PTT Ratio POC Glucose 167 H Misc Genetic Test Pending Pending 03/14/19 03/15/19 03/15/19 20:55 06:24 06:24 WBC 10.25 RBC 2.98 L Hgb 8.6 L Hct 26.8 L MCV 89.9 MCH 28.9 MCHC 32.1 RDW Std Deviation 57.1 H RDW Coeff of Fredis 17.9 H Plt Count 86 L MPV 10.5 H Absolute Nucleated RBC 0.02 H Nucleated RBC % (auto) 0.2 PT 49.6 H INR 5.5 H APTT 48.9 H* PTT Ratio 1.8 POC Glucose 119 H Misc Genetic Test 03/15/19 08:13 WBC RBC Hgb Hct MCV MCH MCHC RDW Std Deviation RDW Coeff of Fredis Plt Count MPV Absolute Nucleated RBC Nucleated RBC % (auto) PT INR APTT PTT Ratio POC Glucose 96 Misc Genetic Test (1) Hypertension Hypertension type: essential hypertension Qualified Code(s): I10 - Essential (primary) hypertension
--- NOTE | 2019-03-15 17:17 | Hematology/Oncology Prog Note ---
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 I spoke with Dr. Jaimes from pathology. 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 Establishing these diagnoses can take time and would require additional testing. All of these types of cancers are very aggressive and difficult to treat, even under the best of circumstances. In his case, given his renal failure, cardiovascular disease, and profound deconditioning, it would be very difficult to imagine treating him with chemotherapy. I think some of his clinical deterioration is also related to his cancer. His albumin was 2.4 on admission and is almost certainly worse now. This is likely interfering with his healing. His pain is also making everything worse. Overall, I think his prognosis is very poor. My recommendation to him would be hospice care. Even though we have not confirmed an exact pathologic diagnosis, we have ruled out cancers that could be treated with the kinds of therapies he could realistically tolerate. Given his performance status, there is a very real possibility that any anti-cancer therapy would shorten his life anyway. Complicating the decision about hospice is his dialysis. Hemodialysis is generally not compatible with hospice care. However, it is possible that stopping dialysis may shorten his life, even in light of his very poor prognosis. He and his were not ready to make a decision about this issue now. I told them I would check back in with them tomorrow. In the meantime, I agree with a radiation oncology evaluation for possible palliative RT. He will also continue to work with palliative care on his pain medications. (2) Anemia in chronic kidney disease, on chronic dialysis: His anemia has steadily worsened during his stay. 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 I would consider transfusing him if he drops below 7.5, though care would need to be taken with regard to volume overload. Subjective Since I initially met Mr. Dumont, he has had a lengthy hospital stay. He underwent surgery to stabilize both of his hips. Tissue was sent for pathology. Despite more than ample tissue, a diagnosis has remained elusive. Pathology have done a very large battery of testing and have ruled out most carcinomas. 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 Since his surgery, he has done poorly. He has gotten steadily weaker. He has also had issues with confusion and sedation from pain medications. He is still in pain. He was alert and interactive during our encounter, but seemed to drift at times and would sometimes discuss non-pertinent issues. He repeated a few times that he does not want to spend the rest of his days in a hospital. Some of his goals include trying to go home or even to go hunting again. Review of Systems Constitutional: + fatigue and + weakness; no fever Respiratory: no cough and no dyspnea Cardiovascular: no chest pain and no palpitations Gastrointestinal: no nausea, no vomiting and no diarrhea/loose stools Genitourinary: no dysuria and no urinary frequency Musculoskeletal: as per Subjective / HPI Integumentary: no rash and no changing lesions Neurologic: + confusion; no localized weakness and no headache(s) Physical Exam Constitutional: well developed and + thin; no acute distress Eyes: + anicteric sclerae and EOM intact bilaterally ENMT: external ear and nose normal, oropharynx normal Respiratory: normal respiratory effort, lungs clear to auscultation Cardiovascular: RRR, no murmur, no edema Gastrointestinal (Abdomen): normal bowel sounds, soft, nontender, no hepatosplenomegaly Skin: no rashes, warm and dry Psychiatric: A+Ox3, euthymic affect Lymphatic: no cervical or axillary lymphadenopathy Results & Data Vital Signs (Past 12 Hours) Vital Signs Temp Pulse Pulse Resp BP BP Pulse Ox 03/15/19 15:12 37.1 C 73 16 138/67 98 03/15/19 08:07 37.2 C 72 16 160/66 H 97
[2019-03-15] MEDS: CHECK FENTANYL PATCH PLACEMENT SCH ×2 (18:53→23:27)
[2019-03-15] MEDS: ATORVASTATIN 40 MG TAB PO SCH (22:16)
[2019-03-16 06:41] LABS: Hemoglobin 8.7 g/dL (14.0-18.0); Mean Corpuscular Hgb Conc 32.2 g/dL (32-36); RDW Coefficient of Variation 17.8 % (11.5-14.5); RDW Standard Deviation 57.6 fL (36.4-46.3); White Blood Count 10.74 K/uL (4.8-10.8)
[2019-03-16 06:45] LABS: Mean Platelet Volume 9.8 fL (7.4-10.4); Platelet Count 93 K/uL (130-400)
[2019-03-16 07:03] LABS: INR 3.3 (0.9-1.1); Partial Thromboplastin Ratio 1.8; Prothrombin Time 31.1 Seconds (9.0-12.0)
[2019-03-16 07:09] LABS: Partial Thromboplastin Time 49.7 Seconds (21.0-31.0)
[2019-03-16 07:18] LABS: BUN Creatinine Ratio 21.4 (10-20); Calcium 7.6 mg/dl (8.5-10.1); Creatinine Clr Calc Pharmacy 13.9 ml/min; Est GFR (African American) 15.6; Est GFR (Non-African American) 13.5; Potassium 5.7 mmol/L (3.5-5.1)
[2019-03-16] MEDS ORDERED: SODIUM POLYSTYRENE SULFONATE 30 GM/120 ML UDP PO ONE (07:45)
[2019-03-16] MEDS ORDERED: SODIUM POLYSTYRENE SULFONATE 15G/60ML SUSP PR ONE (08:00)
[2019-03-16] MEDS: CHECK FENTANYL PATCH PLACEMENT SCH ×2 (08:34→16:32)
[2019-03-16] MEDS: LIDOCAINE 5% 1 PATCH TD SCH (08:35)
[2019-03-16] MEDS: PANTOprazole 40 MG TAB PO SCH (08:36)
[2019-03-16] MEDS: DOCUSATE SODIUM 100 MG CAP PO SCH ×2 (08:36→21:52)
[2019-03-16] MEDS: predniSONE 10 MG TABLET PO SCH (08:36)
[2019-03-16] MEDS: POLYETHYLENE (MIRALAX) 17 GM PACK PO SCH (08:36)
[2019-03-16] MEDS: ACETAMINOPHEN 500 MG TAB PO SCH ×3 (08:40→21:31)
[2019-03-16] MEDS: TRAMADOL HCL 50 MG TABLET PO SCH (08:40)
[2019-03-16] MEDS: INSULIN GLARGINE SOLOSTAR 100 UNITS/ML 3 ML PEN SC SCH (08:48)
[2019-03-16] MEDS: INSULIN ASPART 100 UNITS/ML 3 ML PEN SC SCH ×4 (08:48→22:31)
[2019-03-16] MEDS: HYDROCODONE/ACETAMOPHEN 5/325MG TAB PO PRN ×2 (11:28→18:34)
[2019-03-16] MEDS: CARVEDILOL 12.5 MG TAB PO SCH ×2 (13:49→21:50)
[2019-03-16] MEDS: AMLODIPINE BESYLATE 5 MG TAB PO SCH ×2 (13:50→21:52)
[2019-03-16] MEDS: ISOSORBIDE MONO EXTENDED REL 60 MG TABCR PO SCH (13:50)
[2019-03-16] MEDS: TORSEMIDE 100 MG TAB PO SCH ×2 (13:50→18:30)
[2019-03-16] MEDS: LISINOPRIL 10 MG TAB PO SCH (13:51)
--- NOTE | 2019-03-16 15:44 | Palliative Care Progress Note ---
Date of Service March 16, 2019 Assessment & Plan (1) Palliative care encounter: This is a 78 year old male who was transferred to the [facility] from [facility] on 02/19 for a second opinion/evaluation for etiology of his metastatic disease. Diagnostic imaging was performed at [facility]; however, studies were inconclusive. Discussion was held indicating possible bone involvement and the family decided to transfer care to [facility] for further investigation. The patient was inpatient at [facility] for over 6 weeks which was the first time that he had heard the possibility of a cancer diagnosis. Additional PMH includes CAD, HTN, HLD, ESRD HD dependent (T/R/Sat), GERD, pleural effusions, and AVR. Patient has been evaluated by Dr. Weeks with Heme/Onc and Orthopedic surgery was consulted ,Dr. Tijerina saw patient - was able to perform B/L femur head nail fixation as well as bilateral biopsies on 03/02-to stabilize both hips with hopes of preventing a pathological fracture. Patient tolerated surgery well- status is weight-bearing as tolerated. Patient does not have pain at rest -he is able to sit for short periods of time, increased pain-patient states it is in the low back area. Patient was started on fentanyl at 12 mcg yesterday a.m, he is on scheduled Tylenol, he required 1 PRN [place] this a.m for pain.. Patient's CODE STATUS is DNR -Cancer related pain-denies pain at rest, minimal pain with sitting -only able to sit for short period of time, patient started on fentanyl patch yesterday a.m, is on scheduled Tylenol, only required 1 PRN [place] this a.m.. -Dyspnea-improved after dialysis -Metastatic disease-primary unknown-biopsies obtained-path pending-multiple studies already done-inconclusive -no plans for chemo at this time -Left upper extremity DVT-on heparin drip, -Coumadin restarted -Constipation-opioid [id number] 4 bowel movements in the last 48 h ours, continue current bowel regime -CODE STATUS-DNR -discussed at length with both patient and what hospice would be able to provide at home. understands that to continue dialysis would only weaken him and this would not be able to be done at home. Discussed prognosis-if patient has no urine output average prognosis is a week or less, if he makes some urine it could be a bit longer. Answered all of 's questions and concerns were regarding going home with hospice care. Patient's appropriately tearful-provided support. Will continue to follow and assist with postop pain management as well as assist with medical decision making once biopsy results are known. Plan is for rehab when bed available. (2) Pain of metastatic malignancy: (3) ESRD on hemodialysis: (4) Bilateral pleural effusion: (5) Constipation: Subjective Patient seen and examined, at bedside. Patient fatigued-recently returned from dialysis. Patient arousable, able to participate in conversation. Patient continues to have severe pain unless lying or sitting-was started on a fentanyl patch yesterday a.m. He has required PRN [place] x1 at 1130 this a.m. He has not required any IV Dilaudid. Patient is also on scheduled Tylenol, will DC scheduled tramadol with institution of fentanyl. Patient has moved his bowels 4 times starting on the 25th-abdomen is much less distended. Review of Systems Review of Systems: Patient denies fever, chills, chest pain, increased shor tness of breath, or abdominal pain Positive low back pain with sitting for any prolonged period of time. Physical Exam Physical Exam: PE: NAD HEENT: EOMI, hearing within normal limits Respirations: Unlabored, clear breath sounds CV: Regular rate Abdomen: Soft, nontender, less distended Extremities: No increased edema Neuro: Alert and oriented x4 Psych: Appropriate mood and affect Results & Data Vital Signs (Past 12 Hours) Vital Signs Temp Pulse Pulse Pulse Resp BP BP 03/16/19 15:20 97.9 F 77 16 142/70 H 03/16/19 13:47 97.5 F L 71 16 166/80 H 03/16/19 13:34 97.5 F L 71 154/65 H 03/16/19 13:00 71 120/68 03/16/19 12:40 71 116/64 03/16/19 12:20 61 124/60 03/16/19 12:00 71 114/58 L 03/16/19 11:40 71 118/68 03/16/19 11:20 64 126/68 03/16/19 11:10 64 117/66 03/16/19 11:00 64 74/48 L 03/16/19 10:40 63 93/50 L 03/16/19 10:20 72 115/64 03/16/19 10:00 68 119/65 03/16/19 09:40 65 113/61 03/16/19 09:20 68 130/64 03/16/19 09:07 65 147/69 H 03/16/19 09:01 97.5 F L 61 03/16/19 06:58 97.7 F 69 16 158/70 H Pulse Ox 03/16/19 15:20 99 03/16/19 13:47 97 03/16/19 13:34 03/16/19 13:00 03/16/19 12:40 03/16/19 12:20 03/16/19 12:00 03/16/19 11:40 03/16/19 11:20 03/16/19 11:10 03/16/19 11:00 03/16/19 10:40 03/16/19 10:20 03/16/19 10:00 03/16/19 09:40 03/16/19 09:20 03/16/19 09:07 03/16/19 09:01 03/16/19 06:58 99 PG Care Time/CCT Total # of Minutes Spent Total Time Spent with Patient: Total time spent is greater than 50% in coordi nation of care (as documented) at patient's floor/unit and/or counseling patient: Time Spent Attending Total time spent 45 minutes with greater than 50% of the time spent at bedside discussing patient's current status, prognosis, and goals of care. Answered questions regarding hospice care at home.
--- NOTE | 2019-03-16 15:51 | Hospitalist Progress Note ---
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 Has numerous bony mets, adrenal mets, etc. With abnormal chest x-ray with fluid and opacities on the right-along with hypo natremia, initially thought to be small cell lung cancer but pathologist says it is not based so far on bone biopsies Appreciate hematology/oncology consultation-still awaiting results from pathology-pathologist Appreciate radiation oncology consultation awaiting final results from pathology but preliminary feels maybe in the SARCOMA family - For back/bony pain - had some sedation/confusion with early opioids. Had acute exacerbation of pain requiring parenteral opiates. Discussion with his and patient regarding the pain he feels his pain is [id number] and unremitting they are in agreement to start some fentanyl because of his sensitivity to previous opioids will start at a very low dose and titrate every 72 hours while maintaining his other meds including, tramadol to 75 mg p.o. twice daily, Tylenol 1000 mg p.o. every 8 hours hydrocodone 5/325 mg p.o. every 4 hours as needed for breakthrough pain Tapered prednisone to off - Underwent bilateral hip pinning with Dr. Tijerina on 03/02. Tolerated the procedure well. -Has hematomas left greater than right at the sites of the incisions -will need outpatient follow-up with hematology/oncology and Rad Onc after discharge, but most likely there will be no chemotherapy as an option for treatment given his poor performance status and need for renal dialysis- appreciate hematology/oncology consult will have discussion with palliative care and a niece 03/17, with decision regarding stopping dialysis, returning to home with hospice or moving to snf, understanding that his life expectancy is short (2) Anemia in chronic kidney disease, on chronic dialysis: Baseline hemoglobin appears to be ~8. - On 03/03 (after hip surgery), he developed acute blood loss anemia, but remain ed hemodynamically stable. He has antibodies and needs blood from [place]. Two units were sent on 03/02. -Received 3 units of transfusions He does have a fairly large hematoma around the left hip Coumadin INR has been up, stopping warfarin and given vitamin K 03/15 (3) DVT of upper extremity (deep vein thrombosis): Possible left subclavian vein DVT seen on LUE Doppler on 02/24 done for left arm swelling. Suspect due to advanced cancer. -[facility] Dr. Chu - Feels warfarin is a better option than DOAC given his ESRD -Would recommend anticoagulation indefinitely given presence of malignancy, dialysis makes it challenging use enoxaparin (4) Acute respiratory failure with hypoxia: Had episode earlier in the hospitalization, which resolved. O2 was weaned off. Likely multifactorial - right-sided pneumonia, effusions, & pulmonary edema. - On 02/27, had another occurrence. More shortness of breath as the day progressed. Likely pulmonary edema as he has been on a heparin gtt for his LUE DVT. - Underwent ultrafiltrate on 02/27 & HD on 02/28. Significantly improved. -Currently he is still doing well, remains on dialysis (5) Pneumonia involving right lung: Clinically improved/resolved. - Completed full course of IV/PO abx for 7 days. - Procalcitonin checked on 02/27 for increased shortness of breath and was negative (0.26). Based on preliminary pathology results, he does not have a small cell, squamous cell, or adenocarcinoma making the nodules in the lung more likely to be metastases rather than a primary site of malignancy (6) Hyponatremia: Secondary to ESRD. Fluctuating depending on volume status between 123-133 -continue HD 3x/week (7) ESRD on hemodialysis: HD //Wed. - Appreciate [facility] Ne[facility] assistance. - Just recently initiated HD about 6 weeks ago in [place]. Still makes some urine Has a right-sided tunneled IJ catheter in place Attempt to maintain fluid balance with torsemide 100 mg p.o. twice daily (8) S/P AVR (aortic valve replacement): History of such. Bioprosthetic. (9) Bilateral pleural effusion: Could be transudative from ESRD and hypoalbuminemia or exudative from cancer or pneumonia. - CXR on 02/27 showed stable to mildly worse right effusion. . (10) Hypertension: Blood pressures managed with hydralazine 25 mg TID, lisinopril 10mg, amlodipine 5mg twice daily, Imdur 60mg, carvedilol 12.5 mg p.o. twice daily, and torsemide 100 twice daily hyperkalemia should not be a problem as he will get his K+ removed from dialysis. (11) CAD (coronary artery disease): S/p CABG in the past. No ischemic sx's at this time. - Continue statin, beta-oksana, Imdur. - Added lisinopril on 03/01 as above - Held ASA for procedure on 03/02. Will not restart as will now be on Coumadin and has large hematoma (12) GERD (gastroesophageal reflux disease): Continue PPI (13) Sacral decubitus ulcer, stage II: From very prolonged hospitalization and poor motivation to get up and move, severe protein calorie malnutrition and malignancy contributing -Continue wound care -Continue pain control (14) Constipation: Rectal exam without obstipation there is no perirectal changes to skin, did have a bowel movement on 03/14 -Added daily MiraLAX escalate twice daily -Continue docusate twice daily (15) DVT prophylaxis: warfarin held due to high INR Disposition-remain hospitalized while awaiting family decision on direction of care, oncology has no plans to treat given poor performance status and 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 I did have a discussion with his regarding our plans as his diagnosis appears to be in line with a sarcoma type of malignancy. Still there is some in decision regarding continuation or cessation of hemodialysis and they are waiting for the family members input with likely family meeting on 03/17 Review of Systems Review of Systems: ROS: Fatigued No double vision blurry vision No problems with speech or swallowing No palpitations, chest pain or pressure No Wheezing or breathing issues No abdominal pain still issues with some distention and constipation No burning urine urine frequency or changes in color No focal joint pain or muscle pain is having some peripheral swelling No skin rashes or oral lesions No unusual bruising or bleeding Patient typically has pain in his lower back and bilateral hips No changes in memory or confusion Physical Exam Physical Exam: The patient appeared chronically ill thin and in mild distress Vital signs as documented. Head exam is unremarkable. normocephalic, atraumatic Neck is without jugular venous distension, thyromegaly, or lymphademopathy Lungs are diminished at the bases Cardiac exam reveals Rhythm is regular. First and second heart sounds normal. Abdominal exam reveals normal bowel sounds, distended full and dull Extremities are mildly edematous and both pedal pulses are present Neurologic exam is A&Ox3, no focal deficits, strength is equal bilateral Psychologically seems depressed Skin is warm Dry Results & Data Vital Signs (Past 12 Hours) Vital Signs Temp Pulse Pulse Pulse Resp BP BP 03/16/19 15:20 36.6 C 77 16 142/70 H 03/16/19 13:47 36.4 C L 71 16 166/80 H 03/16/19 13:34 36.4 C L 71 154/65 H 03/16/19 13:00 71 120/68 03/16/19 12:40 71 116/64 03/16/19 12:20 61 124/60 03/16/19 12:00 71 114/58 L 03/16/19 11:40 71 118/68 03/16/19 11:20 64 126/68 03/16/19 11:10 64 117/66 03/16/19 11:00 64 74/48 L 03/16/19 10:40 63 93/50 L 03/16/19 10:20 72 115/64 03/16/19 10:00 68 119/65 03/16/19 09:40 65 113/61 03/16/19 09:20 68 130/64 03/16/19 09:07 65 147/69 H 03/16/19 09:01 36.4 C L 61 03/16/19 06:58 36.5 C 69 16 158/70 H Pulse Ox 03/16/19 15:20 99 03/16/19 13:47 97 03/16/19 13:34 03/16/19 13:00 03/16/19 12:40 03/16/19 12:20 03/16/19 12:00 03/16/19 11:40 03/16/19 11:20 03/16/19 11:10 03/16/19 11:00 03/16/19 10:40 03/16/19 10:20 03/16/19 10:00 03/16/19 09:40 03/16/19 09:20 03/16/19 09:07 03/16/19 09:01 03/16/19 06:58 99 PG Care Time/CCT Total # of Minutes Spent Total Time Spent with Patient: Total time spent is greater than 50% in coordination of care (as documented) at patient's floor/unit and/or counseling patient: (1) Pneumonia involving right lung Lung location: unspecified part of lung Pneumonia type: due to unspecified organism Qualified Code(s): J18.9 - Pneumonia, unspecified organism (2) CAD (coronary artery disease) Associated angina: without angina Coronary Disease-Associated Artery/Lesion type: [place] artery [place] vs. transplanted heart: [place] heart Qualified Code(s): I25.10 - Atherosclerotic heart disease of [place] coronary artery without angina pectoris (3) DVT of upper extremity (deep vein thrombosis) Affected thrombotic vein of extremity: unspecified vein of extremity Chronicity: acute Laterality: left Qualified Code(s): I82.622 - Acute embolism and thrombosis of deep veins of left upper extremity (4) GERD (gastroesophageal reflux disease) Esophagitis presence: without esophagitis Qualified Code(s): K21.9 - Gastro- esophageal reflux disease without esophagitis (5) Hypertension Hypertension type: essential hypertension Qualified Code(s): I10 - Essential (primary) hypertension
[2019-03-16] MEDS: ATORVASTATIN 40 MG TAB PO SCH (21:51)
--- NOTE | 2019-03-16 22:13 | Nephrology Progress Note ---
Date of Service March 16, 2019 Assessment & Plan (1) ESRD on hemodialysis: Patient with ESRD on dialysis Wednesday. He has a right tunneled IJ catheter. CVC initially blocked, improved with cathflo on both 02/23 and 02/25; no issues w/ catheter on HD past few txs; he did need urgent HD on 02/27; had routine tx on 02/28; >03/02 BL hip pinning w/ bmbx path pending -Tolerated HD well today for net UF 1.6 litre. Next HD Wednesday. We will increase heparin to 2000 bolus and 400 units hourly (2) Metastatic disease: Patient with metastatic bone disease of unknown primary. CT abdomen revealing osteolytic bone lesions. Patient is frustrated with the multiple diagnostic tests without finding the primary. He is now DNR. He wishes to continue dialysis and work-up for his cancer. >> s/p 03/02 bone bx; path pending. Radiation oncology considering palliative radiation (3) Hypertension: BP above target today likely due to pain. No changes to his medications. cont pain control and current bp meds (4) Anemia in chronic kidney disease, on chronic dialysis: Hemoglobin is below target. Unable to give epogen due to active cancer. He probably does not need daily blood draws. Monitor and transfuse as needed Subjective Patient seen and examined while on dialysis. he tolerated HD well. No SOB. Complain of pain in the back and sacral area. Has fatigue. Review of Systems Review of Systems: All systems reviewed & are unremarkable except as noted in HPI & below Physical Exam Physical Exam: General exam: Appears comfortable, no acute distress HEENT: Pupils are equal and reactive to light Neck: No JVD, neck is supple trachea is midline Respiratory system: Clear breath sounds bilaterally. Gastrointestinal: Abdomen is soft, non distended, non tender, bowel sounds are present CVS: Regular rate and rhythm. No murmurs, rubs or gallops Musculoskeletal: No joint or muscle tenderness Extremities: Non tender, no edema, peripheral pulses are present Neuro: Oriented, no tremors, no focal neurological deficits Skin: No rashes Access: right IJ Results & Data Vital Signs (Past 12 Hours) Vital Signs Temp Pulse Pulse Pulse Pulse Resp BP 03/16/19 21:27 73 03/16/19 15:20 36.6 C 77 16 03/16/19 13:47 36.4 C L 71 16 03/16/19 13:34 36.4 C L 71 03/16/19 13:00 71 120/68 03/16/19 12:40 71 116/64 03/16/19 12:20 61 124/60 03/16/19 12:00 71 114/58 L 03/16/19 11:40 71 118/68 03/16/19 11:20 64 126/68 03/16/19 11:10 64 117/66 03/16/19 11:00 64 74/48 L 03/16/19 10:40 63 93/50 L 03/16/19 10:20 72 115/64 BP Pulse Ox 03/16/19 21:27 156/68 H 03/16/19 15:20 142/70 H 99 03/16/19 13:47 166/80 H 97 03/16/19 13:34 154/65 H 03/16/19 13:00 03/16/19 12:40 03/16/19 12:20 03/16/19 12:00 03/16/19 11:40 03/16/19 11:20 03/16/19 11:10 03/16/19 11:00 03/16/19 10:40 03/16/19 10:20 Laboratory Results Laboratory Results - last 24 hr 03/16/19 03/16/19 03/16/19 06:28 06:28 06:28 WBC 10.74 RBC 3.00 L Hgb 8.7 L Hct 27.0 L MCV 90.0 MCH 29.0 MCHC 32.2 RDW Std Deviation 57.6 H RDW Coeff of Fredis 17.8 H Plt Count 93 L MPV 9.8 PT 31.1 H INR 3.3 H APTT 49.7 H* PTT Ratio 1.8 Sodium 129 L Potassium 5.7 H Chloride 97 L Carbon Dioxide 23 Anion Gap 9.0 BUN 86 H Creatinine 4.01 H Est Cr Clr Drug Dosing 13.9 Est GFR ( Amer) 15.6 Est GFR (Non-Af Amer) 13.5 BUN/Creatinine Ratio 21.4 H Glucose 72 POC Glucose Calcium 7.6 L 03/16/19 03/16/19 03/16/19 08:09 13:38 17:08 WBC RBC Hgb Hct MCV MCH MCHC RDW Std Deviation RDW Coeff of Fredis Plt Count MPV PT INR APTT PTT Ratio Sodium Potassium Chloride Carbon Dioxide Anion Gap BUN Creatinine Est Cr Clr Drug Dosing Est GFR ( Amer) Est GFR (Non-Af Amer) BUN/Creatinine Ratio Glucose POC Glucose 80 101 H 93 Calcium 03/16/19 20:48 WBC RBC Hgb Hct MCV MCH MCHC RDW Std Deviation RDW Coeff of Fredis Plt Count MPV PT INR APTT PTT Ratio Sodium Potassium Chloride Carbon Dioxide Anion Gap BUN Creatinine Est Cr Clr Drug Dosing Est GFR ( Amer) Est GFR (Non-Af Amer) BUN/Creatinine Ratio Glucose POC Glucose 125 H Calcium (1) Hypertension Hypertension type: essential hypertension Qualified Code(s): I10 - Essential (primary) hypertension
[2019-03-17] MEDS: CHECK FENTANYL PATCH PLACEMENT SCH ×3 (03:03→15:39)
[2019-03-17] MEDS: HYDROCODONE/ACETAMOPHEN 5/325MG TAB PO PRN ×2 (05:13→13:37)
[2019-03-17 05:40] LABS: Hematocrit (blood only) 25.9 % (42-52); Hemoglobin 8.1 g/dL (14.0-18.0); Mean Corpuscular Hgb Conc 31.3 g/dL (32-36); Mean Corpuscular Volume 91.2 fL (80-100); Nucleated RBC # (auto) 0.02 K/uL (0-0); Nucleated RBC % (auto) 0.2 %; RDW Coefficient of Variation 17.9 % (11.5-14.5); Red Blood Count 2.84 M/uL (4.7-6.1); White Blood Count 8.94 K/uL (4.8-10.8)
[2019-03-17 05:44] LABS: Mean Platelet Volume 9.9 fL (7.4-10.4); Platelet Count 92 K/uL (130-400)
[2019-03-17 05:53] LABS: INR 2.2 (0.9-1.1); Partial Thromboplastin Ratio 1.5; Partial Thromboplastin Time 40.1 Seconds (21.0-31.0); Prothrombin Time 21.3 Seconds (9.0-12.0)
[2019-03-17] MEDS: AMLODIPINE BESYLATE 5 MG TAB PO SCH ×2 (08:35→20:19)
[2019-03-17] MEDS: TORSEMIDE 100 MG TAB PO SCH ×2 (08:35→16:31)
[2019-03-17] MEDS: ISOSORBIDE MONO EXTENDED REL 60 MG TABCR PO SCH (08:36)
[2019-03-17] MEDS: predniSONE 10 MG TABLET PO SCH (08:36)
[2019-03-17] MEDS: CARVEDILOL 12.5 MG TAB PO SCH ×2 (08:36→20:18)
[2019-03-17] MEDS: PANTOprazole 40 MG TAB PO SCH (08:36)
[2019-03-17] MEDS: LIDOCAINE 5% 1 PATCH TD SCH (08:37)
[2019-03-17] MEDS: POLYETHYLENE (MIRALAX) 17 GM PACK PO SCH (08:37)
[2019-03-17] MEDS: ACETAMINOPHEN 500 MG TAB PO SCH ×3 (08:38→20:18)
[2019-03-17] MEDS: LISINOPRIL 10 MG TAB PO SCH (08:39)
[2019-03-17] MEDS: INSULIN ASPART 100 UNITS/ML 3 ML PEN SC SCH ×4 (08:43→22:16)
[2019-03-17] MEDS: INSULIN GLARGINE SOLOSTAR 100 UNITS/ML 3 ML PEN SC SCH (08:44)
[2019-03-17] MEDS: DOCUSATE SODIUM 100 MG CAP PO SCH ×2 (08:45→20:21)
--- NOTE | 2019-03-17 14:24 | Palliative Care Progress Note ---
Date of Service March 17, 2019 Assessment & Plan (1) Palliative care encounter: This is a 78 year old male who was transferred to the [facility] from [facility] on 02/19 for a second opinion/evaluation for etiology of his metastatic disease. Diagnostic imaging was performed at [facility]; however, studies were inconclusive. Discussion was held indicating possible bone involvement and the family decided to transfer care to [facility] for further investigation. The patient was inpatient at [facility] for over 6 weeks which was the first time that he had heard the possibility of a cancer diagnosis. Additional PMH includes CAD, HTN, HLD, ESRD HD dependent (T/R/Sat), GERD, pleural effusions, and AVR. Patient has been evaluated by Dr. Weeks with Heme/Onc and Orthopedic surgery was consulted ,Dr. Tijerina saw patient - was able to perform B/L femur head nail fixation as well as bilateral biopsies on 03/02-to stabilize both hips with hopes of preventing a pathological fracture. Patient tolerated surgery well- status is weight-bearing as tolerated. Patient does not have pain at rest -he is able to sit for short periods of time, increased pain-patient states it is in the low back area. Patient was started on fentanyl at 12 mcg yesterday a.m, he is on scheduled Tylenol, he required 1 PRN [place] this a.m for pain.. Patient's CODE STATUS is DNR -Cancer related pain-denies pain at rest, minimal pain with sitting -only able to sit for short period of time, patient started on fentanyl patch 03/15 a.m, is on scheduled Tylenol, only required 3 PRN [place] in the past 24 hours. -Dyspnea-improved after dialysis-tomorrow, 03/18 is patient's last planned dialysis -Metastatic disease-primary unknown-biopsies obtained-path pending-multiple studies already done-inconclusive -no plans for chemo at this time -Left upper extremity DVT-resolved -Constipation-opioid induced-resolved, continue bowel regime at home -CODE STATUS-DNR -discussed at length with both patient and what hospice would be able to provide at home. Discussed prognosis-if patient has no urine output average prognosis is a week or less, if he makes some urine it could be a bit longer. Answered both patient 's questions and concerns regarding going home with hospice care. Patient's appropriately tearful-provided support. Family had prior experience with Home Nursing Agency-asked for hospice referral with the same agency. Collaborated with case management regarding referral Plan is for discharge home after dialysis tomorrow under hospice care. (2) Pain of metastatic malignancy: (3) ESRD on hemodialysis: (4) Bilateral pleural effusion: (5) Constipation: Subjective Patient seen and examined, met with patient and family on 4 separate visits throughout the day. Family includes patient's and niece. Patient more awake alert and interactive on exam today. Pain is well controlled at rest-patient is on a fentanyl patch at 12 mcg, he required 3 PRN [place] in the past 24 hours. Review of Systems Review of Systems: Patient denies fever, chills, chest pain, increased shortness of breath, or abdominal pain. Patient is anuric. Physical Exam Physical Exam: PE: Patient awake and alert, no acute distress HEENT: EOMI, hearing within normal limits Respiratory: Unlabored, clear breath sounds CV: Regular rate, no edema Abdomen: Soft, nontender Neuro: Alert and oriented x4 Psych: Appropriate Results & Data Vital Signs (Past 12 Hours) Vital Signs Temp Pulse Resp BP Pulse Ox 03/17/19 07:00 98.2 F 74 16 163/71 H 96 PG Care Time/CCT Total # of Minutes Spent Total Time Spent: 120 Total Time Spent with Patient: Total time spent is 120 min with greater than 50% in coordination of care (as documented) at patient's floor/unit and/or counseling patient: Regarding plan of care including hospice
[2019-03-17] MEDS: HYDROmorphone INJ 1 MG/ML SYRINGE IV PRN ×3 (15:31→23:57)
[2019-03-17] MEDS ORDERED: LIDOCAINE HCL 2% INJ STA (16:20)
--- NOTE | 2019-03-17 17:05 | Hospitalist Progress Note ---
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 Has numerous bony mets, adrenal mets, etc. With abnormal chest x-ray with fluid and opacities on the right-along with hypo natremia, initially thought to be small cell lung cancer but pathologist says it is not based so far on bone biopsies Appreciate hematology/oncology consultation-still awaiting results from pathology-pathologist Appreciate radiation oncology consultation awaiting final results from pathology but preliminary feels maybe in the SARCOMA family - For back/bony pain -start low-dose of topical fentanyl because of his sensitivity to previous opioids will start at a very low dose and titrate every 72 hours while maintaining his other meds including, tramadol to 75 mg p.o. twice daily, Tylenol 1000 mg p.o. every 8 hours hydrocodone 5/325 mg p.o. every 4 hours as needed for breakthrough pain Tapered prednisone to off - Underwent bilateral hip pinning with Dr. Tijerina on 03/02. Tolerated the pr ocedure well. -Has hematomas left greater than right at the sites of the incisions -hematology/oncology consult does not feel patient is a candidate for systemic chemotherapy discussion with palliative care and a niece 03/17, with decision regarding stopping dialysis, returning to home with hospice likely this weekend (2) Anemia in chronic kidney disease, on chronic dialysis: Baseline hemoglobin appears to be ~8. - On 03/03 (after hip surgery), he developed acute blood loss anemia, but remained hemodynamically stable. He has antibodies and needs blood from [place]. Two units were sent on 03/02. -Received 3 units of transfusions He does have a fairly large hematoma around the left hip this is examined on 03/17 some keysha were left in place the hematomas to be preventing good healing of the skin Coumadin INR has been up, stopping warfarin and given vitamin K 03/15 INR has returned to near normal at 2.2 on 03/17 (3) DVT of upper extremity (deep vein thrombosis): Possible left subclavian vein DVT seen on LUE Doppler on 02/24 done for left arm swelling. Suspect due to advanced cancer. -Seat Joiner Dr. Chu - Feels warfarin is a better option than DOAC given his ESRD Given challenges with coagulopathy from Coumadin will not restart Coumadin as he is entering the comfort care palliative care mode of his medical problem (4) Acute respiratory failure with hypoxia: Multifactorial likely related to fluid balance and metastatic disease, he will remain on supplemental oxygen (5) Pneumonia involving right lung: Clinically improved/resolved. - Completed full course of IV/PO abx for 7 days. -nodules in the lung more likely to be metastases rather than a primary site of malignancy (6) Hyponatremia: Secondary to ESRD. Fluctuating depending on volume status between 123-133 - (7) ESRD on hemodialysis: HD //Wed. - Appreciate [facility] Neph[facility] assistance. - Just recently initiated HD about 6 weeks ago in [place]. Still makes some urine Has a right-sided tunneled IJ catheter in place Attempt to maintain fluid balance with torsemide 100 mg p.o. twice daily patient wishes to attempt to continue this to extend his life is much after discharge (8) S/P AVR (aortic valve replacement): History of such. Bioprosthetic. (9) Bilateral pleural effusion: Could be transudative from ESRD and hypoalbuminemia or exudative from cancer or pneumonia. - CXR on 02/27 showed stable to mildly worse right effusion. . (10) Hypertension: Blood pressures managed with hydralazine 25 mg TID, lisinopril 10mg, amlodipine 5mg twice daily, Imdur 60mg, carvedilol 12.5 mg p.o. twice daily, and torsemide 100 twice daily Likely many antihypertensives will be stopped from discharge but continuing diuretics to help with fluid balance given that we are stopping dialysis (11) CAD (coronary artery disease): S/p CABG in the past. No ischemic sx's at this time. - Continue statin, beta-oksana, Imdur. - Added lisinopril on 03/01 as above - Held ASA for procedure on 03/02. Will not restart as will now be on Coumadin and has large hematoma (12) GERD (gastroesophageal reflux disease): Continue PPI (13) Sacral decubitus ulcer, stage II: From very prolonged hospitalization and poor motivation to get up and move, severe protein calorie malnutrition and malignancy contributing -Continue wound care -Continue pain control (14) Constipation: Rectal exam without obstipation there is no perirectal changes to skin, did have a bowel movement on 03/14 -Added daily MiraLAX escalate twice daily -Continue docusate twice daily (15) DVT prophylaxis: warfarin held due to high INR Disposition-remain hospitalized while awaiting family decision on direction of care, oncology has no plans to treat given poor performance status and 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 The patient appears to be in agreement with having 1 more dialysis treatment and then returning home on hospice care he did have a discussion with palliative care regarding this and tentative plans would be to have dialysis on 03/18 and then returned home on palliative care Review of Systems Review of Systems: ROS: Shortness of breath is moving about No double vision blurry vision No problems with speech or swallowing No palpitations, chest pain or pressure No Wheezing or breathing issues No abdominal pain nausea vomiting is constipated No burning urine urine frequency or changes in color No focal joint pain or muscle pain No skin rashes or oral lesions No unusual bruising or bleeding No focused back pain or numbness or loss of strength Patient is bradykinetic and depressed Physical Exam Physical Exam: The patient appeared chronically ill thin malnourished with some third space edema Vital signs as documented. Head exam is unremarkable. normocephalic, atraumatic Neck is without jugular venous distension, thyromegaly, or lymphademopathy Lungs are diminished and dull at the bases Cardiac exam reveals Rhythm is regular. First and second heart sounds normal. Abdominal exam reveals hypoactive bowel sounds, dull and slightly distended Extremities are moderately edematous and hands and arms are beginning to swell Neurologic exam is A&Ox3, no focal deficits, strength is equal bilateral Psychologically seems depressed Skin is warm with edema and some areas of bruising Results & Data Vital Signs (Past 12 Hours) Vital Signs Temp Pulse Resp BP Pulse Ox 03/17/19 15:44 37.5 C 82 18 154/72 H 99 03/17/19 07:00 36.8 C 74 16 163/71 H 96 PG Care Time/CCT Total # of Minutes Spent Total Time Spent with Patient: Total time spent is greater than 50% in coordination of care (as documented) at patient's floor/unit and/or counseling patient: (1) DVT of upper extremity (deep vein thrombosis) Affected thrombotic vein of extremity: unspecified vein of extremity Chronicity: acute Laterality: left Qualified Code(s): I82.622 - Acute embolism and thrombosis of deep veins of left upper extremity (2) Pneumonia involving right lung Pneumonia type: due to unspecified organism Lung location: unspecified part of lung Qualified Code(s): J18.9 - Pneumonia, unspecified organism (3) Hypertension Hypertension type: essential hypertension Qualified Code(s): I10 - Essential (primary) hypertension (4) CAD (coronary artery disease) Coronary Disease-Associated Artery/Lesion type: [place] artery [place] vs. transplanted heart: [place] heart Associated angina: without angina Qualified Code(s): I25.10 - Atherosclerotic heart disease of [place] coronary artery without angina pectoris (5) GERD (gastroesophageal reflux disease) Esophagitis presence: without esophagitis Qualified Code(s): K21.9 - Gastro- esophageal reflux disease without esophagitis
--- NOTE | 2019-03-17 17:21 | Orthopedic Progress Note ---
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 Once the hematoma was evacuated I reclosed the incision with nylon suture. I started him on Ancef IV for 3 doses to cover him overnight tonight and into tomorrow. He can be discharged home on oral Keflex 500 mg 3 times a day for 10 days just to make sure the left hip wound does not become infected. He can follow-up with orthopedics in 2 weeks on March 29 or April 03, when I am in the office. If the wound looks really good and a palliative care nurse wants to remove the stitches, and there are no questions, then a follow-up appointment is not necessary. He would have to drive over an hour and a half to get to my office and if he does not have the energy for that trip a follow-up is not necessary. If you have any further questions regarding his care please feel free to contact me at [phone] Present on Admission?: Yes Susu Beebe was seen and examined at bedside this morning. Unfortunately he has not been ambulating much on his legs. He says he does not have the energy and his hips are sore. He is scheduled to go home with hospice care tomorrow. Keysha were removed from the right leg yesterday without incident however there was some dehiscence of the proximal wound on the left hip. I spent time working on that today. Physical Exam Musculoskeletal: On physical examination of the left hip, there is a large hematoma right beneath the proximal incision. Is causing a dehiscence of the wound. The keysha were left in place by the nursing staff with concerns of further dehiscence. Results & Data Vital Signs (Past 12 Hours) Vital Signs Temp Pulse Resp BP Pulse Ox 03/17/19 15:44 37.5 C 82 18 154/72 H 99 03/17/19 07:00 36.8 C 74 16 163/71 H 96
--- NOTE | 2019-03-17 17:42 | Nephrology Progress Note ---
Date of Service March 17, 2019 Assessment & Plan (1) ESRD on hemodialysis: Patient with ESRD on dialysis Wednesday. He has a right tunneled IJ catheter. >6/13 BL hip pinning w/ bmbx path pending -Tolerated HD well yesterday for net UF 1.6 litre. Next HD Wednesday. This will likely be his last HD as he is leaning towards going home with hospice. I offered support. I also discussed that he has the oprion of continuing HD even while on hospice since the indication for hospice is no kidney failure. Patient feels going to dialysis center might cause more pain. He will let us know if discontinuing HD (2) Metastatic disease: Patient with metastatic bone disease of unknown primary. CT abdomen revealing osteolytic bone lesions. Patient is frustrated with the multiple diagnostic tests without finding the primary. He is now DNR. He wishes to continue dialysis and work-up for his cancer. >> s/p 6/ bone bx; path pending. Poor prognosis per oncology note (3) Hypertension: BP above target today likely due to pain. No changes to his medications. cont pain control and current bp meds (4) Anemia in chronic kidney disease, on chronic dialysis: Hemoglobin is below target. Unable to give epogen due to active cancer. He probably does not need daily blood draws. Monitor and transfuse as needed Subjective Patient seen during morning rounds with niece at bedside. He was tearful saying "I just want to go". He would like to have HD tomorrow and likely stop HD all together. nO SOB but has back pain Review of Systems Review of Systems: All systems reviewed & are unremarkable except as noted in HPI & below Physical Exam Physical Exam: General exam: Appears comfortable, no acute distress HEENT: Pupils are equal and reactive to light Neck: No JVD, neck is supple trachea is midline Respiratory system: Clear breath sounds bilaterally. Gastrointestinal: Abdomen is soft, non distended, non tender, bowel sounds are present CVS: Regular rate and rhythm. No murmurs, rubs or gallops Musculoskeletal: No joint or muscle tenderness Extremities: Non tender, no edema, peripheral pulses are present Neuro: Oriented, no tremors, no focal neurological deficits Skin: No rashes Access: Right IJ Results & Data Vital Signs (Past 12 Hours) Vital Signs Temp Pulse Resp BP Pulse Ox 03/17/19 15:44 37.5 C 82 18 154/72 H 99 03/17/19 07:00 36.8 C 74 16 163/71 H 96 Laboratory Results Laboratory Results - last 24 hr 03/16/19 03/17/19 03/17/19 20:48 05:10 05:10 WBC 8.94 RBC 2.84 L Hgb 8.1 L Hct 25.9 L MCV 91.2 MCH 28.5 MCHC 31.3 L RDW Std Deviation 59.0 H RDW Coeff of Fredis 17.9 H Plt Count 92 L MPV 9.9 Absolute Nucleated RBC 0.02 H Nucleated RBC % (auto) 0.2 PT 21.3 H INR 2.2 H APTT 40.1 H PTT Ratio 1.5 POC Glucose 125 H 03/17/19 03/17/19 08:16 12:24 WBC RBC Hgb Hct MCV MCH MCHC RDW Std Deviation RDW Coeff of Fredis Plt Count MPV Absolute Nucleated RBC Nucleated RBC % (auto) PT INR APTT PTT Ratio POC Glucose 93 92 (1) Hypertension Hypertension type: essential hypertension Qualified Code(s): I10 - Essential (primary) hypertension
[2019-03-17] MEDS ORDERED: CEFAZOLIN 2000MG 2,000 MG/15 ML SYR IV SCH (18:00)
[2019-03-17] MEDS ORDERED: CEFAZOLIN 1000MG 1,000 MG/7.5 ML SYR IV SCH (18:00)
[2019-03-17] MEDS: ATORVASTATIN 40 MG TAB PO SCH (20:19)
[2019-03-18] MEDS: CHECK FENTANYL PATCH PLACEMENT SCH ×2 (00:02→08:46)
[2019-03-18] MEDS: HYDROmorphone INJ 0.5 MG/0.5 ML SYR IV PRN (06:08)
[2019-03-18] MEDS ORDERED: SODIUM CHLORIDE 0.9% 1000ML 1,000 ML IV PRN (07:00)
[2019-03-18] MEDS ORDERED: HEPARIN SOD (PORCINE) 1000 UNIT/ML 10 ML VIAL IV SCH (07:00)
[2019-03-18] MEDS ORDERED: HEPARIN SOD (PORCINE) 1000 UNIT/ML 10 ML VIAL IV ONE (07:00)
[2019-03-18 07:17] LABS: Hematocrit (blood only) 24.4 % (42-52); Hemoglobin 7.7 g/dL (14.0-18.0); Mean Corpuscular Hgb Conc 31.6 g/dL (32-36); Mean Corpuscular Volume 92.8 fL (80-100); Mean Platelet Volume 9.1 fL (7.4-10.4); Platelet Count 82 K/uL (130-400); RDW Standard Deviation 60.2 fL (36.4-46.3); Red Blood Count 2.63 M/uL (4.7-6.1); White Blood Count 9.87 K/uL (4.8-10.8)
[2019-03-18 07:28] LABS: Partial Thromboplastin Ratio 1.7; Partial Thromboplastin Time 44.8 Seconds (21.0-31.0)
[2019-03-18] MEDS: LIDOCAINE 5% 1 PATCH TD SCH (07:49)
[2019-03-18 07:55] LABS: BUN Creatinine Ratio 18.9 (10-20); Calcium 7.8 mg/dl (8.5-10.1); Creatinine Clr Calc Pharmacy 16.7 ml/min; Est GFR (African American) 16.6; Est GFR (Non-African American) 14.3; Potassium 5.7 mmol/L (3.5-5.1)
[2019-03-18] MEDS: predniSONE 10 MG TABLET PO SCH (08:26)
[2019-03-18] MEDS: ISOSORBIDE MONO EXTENDED REL 60 MG TABCR PO SCH (08:26)
[2019-03-18] MEDS: PANTOprazole 40 MG TAB PO SCH (08:26)
[2019-03-18] MEDS: LISINOPRIL 10 MG TAB PO SCH (08:27)
[2019-03-18] MEDS: CARVEDILOL 12.5 MG TAB PO SCH (08:27)
[2019-03-18] MEDS: TORSEMIDE 100 MG TAB PO SCH (08:27)
[2019-03-18] MEDS: ACETAMINOPHEN 500 MG TAB PO SCH ×2 (08:28→13:49)
[2019-03-18] MEDS: POLYETHYLENE (MIRALAX) 17 GM PACK PO SCH (08:28)
[2019-03-18] MEDS: fentaNYL 12 MCG/HR TDSY TD SCH (08:30)
[2019-03-18] MEDS: DOCUSATE SODIUM 100 MG CAP PO SCH (08:30)
[2019-03-18] MEDS: INSULIN ASPART 100 UNITS/ML 3 ML PEN SC SCH ×2 (08:32→13:44)
[2019-03-18] MEDS: INSULIN GLARGINE SOLOSTAR 100 UNITS/ML 3 ML PEN SC SCH (08:34)
--- NOTE | 2019-03-18 08:37 | Orthopedic Progress Note ---
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 He is on Lovenox for DVT prophylaxis and that seems to be exasperating the condition. However, because he is not ambulating well and given his cancer diagnosis, I think it is important to stay on the Lovenox to prevent thrombosis. He has sutures in the wound at this time and it should dry up and close on its own over the next week or so. We can treat it with daily dry dressing changes. I placed him on 3 doses of IV Ancef that started last night and should be finished by the time of his dialysis this morning. I adjusted the Ancef dose per pharmacy recommendations. I also want him sent home on Keflex 250 mg daily for 10 days just for prophylaxis with the draining wound. The dosage was disc ussed with pharmacy. He is orthopedically stable for discharge. I did tell his that I am happy to see him at 2 weeks to remove the stitches, or sooner if there are any problems. However, it is an hour and a half drive to come and see me. If the wound dries up and if the home nursing staff feels comfortable removing the sutures that is not necessary for him to follow-up with me in the office. Present on Admission?: Yes Susu Beebe was seen and examined at bedside this morning. He still having some dr tawanda from the left hip wound. Apparently the dressing was changed last night and reinforced. He still is a little bit of serosanguineous drainage. I think with the sutures I placed yesterday we will get this to heal nicely. We should just keep it covered until it has stopped draining. He can be weightbearing as tolerated. He is supposed to go home with hospice care after dialysis today. Physical Exam Musculoskeletal: On physical examination of the left hip wound, the dressing has been changed. Some of the hematoma and seroma seems to have recollected. The dressing has a little bit of bloody drainage on it. Results & Data Vital Signs (Past 12 Hours) Vital Signs Temp Pulse Resp BP Pulse Ox 03/18/19 07:26 37.3 C 74 15 146/64 H 97 03/17/19 23:39 36.6 C 82 14 151/69 H 97
[2019-03-18] MEDS: HYDROmorphone INJ 1 MG/ML SYRINGE IV PRN (10:28)
--- NOTE | 2019-03-18 10:35 | Dialysis Progress Note ---
Date of Service March 18, 2019 Assessment & Plan (1) ESRD on hemodialysis: for HD today via [facility]. today is likely his last HD; plan as of last evening was for d/c home on hospice; pt too confused today to reaffirm that plan. tolerating dialysis though some hypotension even w/ UF target > 2L; will monitor and reduce fluid removal goals if necessary Present on Admission?: Yes (2) Metastatic disease: pathologic fractures w/ sendouts pending; cont pain control and palliative measures Present on Admission?: Yes (3) Anemia in chronic kidney disease, on chronic dialysis: hgb this am 7.7; fluid removal as tolerated; no VIKY d/t CA; anemia trends not for further monitoring on hospice Present on Admission?: Yes Subjective c/o feeling cold and of having back pain. seen on HD at 1030. no sob, no N; no edema; some confusion Review of Systems Review of Systems: All systems reviewed & are unremarkable except as noted in HPI & below Physical Exam Constitutional: well developed, + frail appearing and + malnourished lying flat on RA Eyes: EOM intact bilaterally ENMT: Ears: no external ear abnormality Nose: no external nose abnormality Mouth: + dry oral mucous membranes Neck: no nuchal rigidity Respiratory: no labored breathing Auscultation: + diminished lung sounds Cardiovascular: Rate/Rhythm: regular rate and regular rhythm Extremities: no edema Gastrointestinal (Abdomen): Inspection/Auscultation: normal bowel sounds Percussion/Palpation: abdomen soft; abdomen nontender Musculoskeletal: sarkar, fluent speech Skin: no rashes, warm and dry Psychiatric: Orientation: alert and oriented to person Affect: + flat affect Insight: + limited insight confused Results & Data Vital Signs (Past 12 Hours) Vital Signs Temp Pulse Pulse Pulse Resp BP BP 03/18/19 10:00 75 84/44 L 03/18/19 09:40 76 117/57 L 03/18/19 09:21 36.9 C 76 03/18/19 07:26 37.3 C 74 15 146/64 H 03/17/19 23:39 36.6 C 82 14 151/69 H Pulse Ox 03/18/19 10:00 03/18/19 09:40 03/18/19 09:21 03/18/19 07:26 97 03/17/19 23:39 97 Laboratory Results Abnormal lab results 03/17/19 03/18/19 03/18/19 Range/Units 17:40 07:05 07:05 RBC 2.63 L (4.7-6.1) M/uL Hgb 7.7 L (14.0-18.0) g/dL Hct 24.4 L (42-52) % MCHC 31.6 L (32-36) g/dL RDW Std Deviation 60.2 H (36.4-46.3) fL RDW Coeff of Fredis 18.0 H (11.5-14.5) % Plt Count 82 L (130-400) K/uL APTT 44.8 H (21.0-31.0) Seconds Sodium (136-145) mmol/L Potassium (3.5-5.1) mmol/L BUN (7-18) mg/dl Creatinine (0.6-1.4) mg/dl POC Glucose 121 H (70-99) Calcium (8.5-10.1) mg/dl 03/18/19 03/18/19 Range/Units 07:05 08:25 RBC (4.7-6.1) M/uL Hgb (14.0-18.0) g/dL Hct (42-52) % MCHC (32-36) g/dL RDW Std Deviation (36.4-46.3) fL RDW Coeff of Fredis (11.5-14.5) % Plt Count (130-400) K/uL APTT (21.0-31.0) Seconds Sodium 134 L (136-145) mmol/L Potassium 5.7 H (3.5-5.1) mmol/L BUN 72 H (7-18) mg/dl Creatinine 3.81 H (0.6-1.4) mg/dl POC Glucose 112 H (70-99) Calcium 7.8 L (8.5-10.1) mg/dl
[2019-03-18] MEDS: AMLODIPINE BESYLATE 5 MG TAB PO SCH (11:29)
--- NOTE | 2019-03-18 16:35 | Discharge Summary ---
Date of Service March 18, 2019 Admission HPI Per Admitting Provider The patient is a 78-year-old male who family reports he has spent most of the past month at [facility] due to issues related to with your told his bone cancer, but appears to not have been able to determine a primary. He is brought into the emergency department on Wednesday evening, as his pain is worsening considerably. He has recently been gone undergoing dialysis, follows with Dr. Hawkins at [facility] on Wednesday, and Wednesday, and reported just had dialysis earlier in the day today. The patient reports that as long as he stays still he does not have pain, but any movement causes significant worsening of pain throughout his body. Principal Diagnosis hospice discharge for metastatic sarcoma pt agreed to stop dialysis for ESRD Discharge Exam Pt is awake and with controlled pain understands that we cannot take out dialysis cath easily , will need surgery to do and pt content to leave it in car is regalar lungs are clear except for rhonchi at the bases Discharge Data Allergies Allergy/AdvReac Type Severity Reaction Status Date / Time No Known Allergies Allergy Unverified 02/19/19 00:57 Consultations 02/18/19 23:49 ED Decision to Admit Stat 02/19/19 04:13 Consult Hematology Routine Consult Nephrology Routine 02/19/19 07:42 Consult Palliative Care Routine 02/19/19 13:37 Consult Orthopedic Surgery Routine Consult Radiation Oncology Routine 03/04/19 15:54 Consult Palliative Care Routine Procedures Performed Operation Date: 02/20/19 08:35 <No data on this case meets the specified criteria> Operation Date: 03/02/19 07:00 Actual Procedures p Bilateral Intramedullary Nailing of Hip, with bilateral bone biopies (Bilateral) - Natan Tijerina, Ordered Studies 02/18/19 22:25 CT abd pelvis wo con Urgent CT chest wo con Urgent 02/20/19 13:43 US venous doppler LE BI Stat 02/20/19 20:42 CT head/brain wo con Routine 02/24/19 11:16 US venous doppler UE LT Routine 03/02/19 14:00 FL fluoroscopy <1hr Routine FL hip LT 2-3V Routine FL hip RT 2-3V Routine Hospital Course (1) 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 Has numerous bony mets, adrenal mets, etc. With abnormal chest x-ray with fluid and opacities on the right-along with hyponatremia, initially thought to be small cell lung cancer but pathologist says it is not based so far on bone biopsies Appreciate hematology/oncology consultation-still awaiting results from pathology-pathologist Appreciate radiation oncology consultation, pathology but preliminary feels maybe in the [facility] family - For back/bony pain -start low-dose of topical fentanyl because of his sensitivity to previous opioids will start at a very low dose and titrate every 72 hours while maintaining tylenol as needed morphine elixir for pain Tapered prednisone to off - Underwent bilateral hip pinning with Dr. Tijerina on 03/02. Tolerated the procedure well. -Has hematomas left greater than right at the sites of the incisions -hematology/oncology consult does not feel patient is a candidate for systemic chemotherapy discussion with palliative care and a niece 03/17, with decision regarding stopping dialysis, returning to home with hospice (2) Anemia in chronic kidney disease, on chronic dialysis: Baseline hemoglobin appears to be ~8. - On 03/03 (after hip surgery), he developed acute blood loss anemia, but remained hemodynamically stable. He has antibodies and needs blood from [place]. Two units were sent on 03/02. -Received 3 units of transfusions He does have a fairly large hematoma around the left hip this is examined on 03/17 some keysha were left in place the hematomas to be preventing good healing of the skin Coumadin INR has been up, stopping warfarin and given vitamin K 03/15 INR has returned to near normal at 2.2 on 03/17. will stop warfarin and no additional checks (3) DVT of upper extremity (deep vein thrombosis): Possible left subclavian vein DVT seen on LUE Doppler on 02/24 done for left arm swelling. Suspect due to advanced cancer. -Developer Architect Dr. Chu - Feels warfarin is a better option than DOAC given his ESRD Given challenges with coagulopathy from Coumadin will not restart Coumadin as he is entering the comfort care palliative care mode of his medical problem (4) Acute respiratory failure with hypoxia: Multifactorial likely related to fluid balance and metastatic disease (5) Pneumonia involving right lung: Clinically improved/resolved. - Completed full course of IV/PO abx for 7 days. -nodules in the lung more likely to be metastases rather than a primary site of malignancy (6) Hyponatremia: Secondary to ESRD. Fluctuating depending on volume status between 123-133 - (7) ESRD on hemodialysis: - Appreciate [facility] Nephrology assistance. - Has a right-sided tunneled IJ catheter in place Attempt to maintain fluid balance with torsemide 100 mg p.o. twice daily patient wishes to attempt to continue this to extend his life is much after discharge (8) S/P AVR (aortic valve replacement): History of such. Bioprosthetic. (9) Bilateral pleural effusion: Could be transudative from ESRD and hypoalbuminemia or exudative from cancer or pneumonia. - CXR on 02/27 showed stable to mildly worse right effusion. . (10) Hypertension: will not continue medication unless for b oksana to prevent rebound tachycardia (11) CAD (coronary artery disease): S/p CABG in the past. No ischemic sx's at this time. Imdur. (12) GERD (gastroesophageal reflux disease): (13) Sacral decubitus ulcer, stage II: From very prolonged hospitalization and poor motivation to get up and move, severe protein calorie malnutrition and malignancy contributing (14) Constipation: Rectal exam without obstipation there is no perirectal changes to skin, did have a bowel movement on 03/14 - (15) DVT prophylaxis: warfarin held Disposition, transition to hospice once pt arrives at home Total Time Total Time Spent Total Time Spent (In Minutes): greater than 30 minutes were required to prepare discharge Discharge Plan Discharge Items Patient Disposition: Hospice - Home Reason For Visit: INTRACTABLE CANCER PAIN METS TO BONE,UNKNOWN Discharge Diagnosis: metastatic sarcoma Discharge Goals: Decrease discomfort and Diagnostic testing Activity: As commented below Activity Comment: only do what you feel like doing Non-emergency contact: Consumer Relations Complaint Clerk Call non-emergency contact if: you have any medication questions Follow-up/Referrals: PCP,NO [Primary Care Provider] - Diet: Regular Addtl Provider Instructions: Please rest, use pain and anxiety medications liberally to keep from having significant anxiety or pain Please contact hospice agency for advice if pain or anxiety are increasing Prescriptions: New lorazepam [Ativan] 1 mg tablet 1 mg PO TID PRN (Reason: anxiety) Qty: 30 RF: 0 fentanyl 12 mcg/hr Patch 72 Hour 12 mcg transdermal Q3D Qty: 10 RF: 0 Continued isosorbide mononitrate 60 mg Tablet Extended Release 24 Hr 60 mg PO DAILY RF: 0 metolazone 5 mg Tablet 5 mg PO DAILY RF: 0 acetaminophen 325 mg Tablet 650 mg PO Q6H PRN (Reason: temp > 100.4) RF: 0 ondansetron HCl 4 mg Tablet 4 mg PO Q6 PRN (Reason: Nausea) RF: 0 temazepam 7.5 mg Capsule 7.5 mg PO HS PRN (Reason: Sleep) RF: 0 torsemide 100 mg Tablet 100 mg PO BID RF: 0 Lidocaine Pain Relief 4 % Adhesive Patch,Medicated 4 % topical DAILY Qty: 20 RF: 5 Changed morphine 20 mg/5 mL (4 mg/mL) Solution 20 mg PO Q4 PRN (Reason: Pain) Qty: 200 RF: 0 Discontinued carvedilol 25 mg Tablet 25 mg PO BID RF: 0 amlodipine [Norvasc] 10 mg Tablet 10 mg PO DAILY RF: 0 hydralazine 100 mg Tablet 100 mg PO TID RF: 0 docusate sodium [Colace] 100 mg Capsule 100 mg PO BID RF: 0 aspirin 81 mg Tablet,Chewable 81 mg PO DAILY RF: 0 magnesium 250 mg Tablet 400 mg PO DAILY RF: 0 atorvastatin [Lipitor] 40 mg Tablet 40 mg PO HS RF: 0 hydrocodone-acetaminophen 5-325 mg Tablet 2 tab PO Q4 PRN (Reason: Pain) RF: 0 terazosin 2 mg Capsule 4 mg PO HS RF: 0 polyethylene glycol 3350 [Miralax] 17 gram Powder In Packet 17 g PO DAILY RF: 0 hydrocodone-acetaminophen 5-325 mg Tablet 1 tab PO Q4 PRN (Reason: moderate pain) RF: 0 hydrocodone-acetaminophen 5-325 mg Tablet 2 tab PO Q4 PRN (Reason: severe pain) RF: 0 tramadol 50 mg Tablet 25 mg PO Q8 PRN (Reason: moderate pain) RF: 0 prazosin 2 mg Capsule 4 mg PO HS RF: 0 prednisone 10 mg Tablets,Dose Pack 10 mg PO UD RF: 0 omeprazole 20 mg Tablet,Delayed Release (Dr/Ec) 20 mg PO DAILY RF: 0 Stand-Alone Forms: [facility] Discharge Orders: Discharge Order (Routine); Ordered 03/18/19 Ordered By: Talha Aguilar Admission Data Admit Date/Time: 02/19/19 03:08 Attending Provider: Talha Aguilar Admit Provider: Gopi Martinez Primary Care Provider: PCP,NO Other Providers: Vidal Cabrera ; Gopi Martinez ; Jhoan Santa V ; Camron Robbins ; Beronica Fan ; Yoradn Ching ; Lani Upton ; Eden Alcocer ; Home,Nursing Agency Service: Medical Other Interventions: Discharge Summary Assessment (RN) Last Done: 03/18/19 14:07 Pending Studies at Discharge: No
== END 2019-03-18 16:20 | disposition hospice, home (50) | DRG 477 ==
LOC: ED 21:40 → SUATTDRO 02-19 03:08 → 4E 02-19 03:08 → 2E 02-20 19:11 → 4E 02-23 17:22 → 2E 03-02 15:34 → 3N 03-04 12:04